=== PATIENT | female | born 1955 | race Two or more races ===

== ENCOUNTER → 2020-05-12 09:46 | Outpatient (BNVA) | payer MEDICAID, SELFPAY | PROVIDERS: PCP Family Medicine; Referring Provider Family Medicine; Visit Provider Anesthesiology | DX: M47.816 Spondylosis without myelopathy or radiculopathy, lumbar region (principal); M25.561 Pain in right knee | CPT/HCPCS: 99202 ==

== ENCOUNTER → 2020-06-20 09:55 | Outpatient (BNVA) | payer MEDICAID, SELFPAY | PROVIDERS: PCP Family Medicine; Referring Provider Family Medicine; Visit Provider Internal Medicine | DX: Z76.89 Persons encountering health services in other specified circumstances (principal) ==

== ENCOUNTER → 2020-06-21 10:06 | Outpatient (BNVA) | payer MEDICAID, SELFPAY | PROVIDERS: PCP Family Medicine; Visit Provider Physician Assistant | DX: M17.11 Unilateral primary osteoarthritis, right knee (principal) | CPT/HCPCS: 99212; J1040 ==

== ENCOUNTER → 2020-08-05 09:12 | Outpatient (BNVA) | payer MEDICAID, SELFPAY | PROVIDERS: PCP Family Medicine; Visit Provider Physician Assistant | DX: M17.11 Unilateral primary osteoarthritis, right knee (principal) | CPT/HCPCS: 20610; 99212; J1020 ==

== ENCOUNTER → 2020-08-23 10:00 | Outpatient (BNVA) | payer MEDICAID, SELFPAY | PROVIDERS: PCP Family Medicine; Visit Provider Surgery Vascular Surgery | DX: I83.11 Varicose veins of right lower extremity with inflammation (principal) | CPT/HCPCS: 99202 ==

== ENCOUNTER 2020-08-25 09:53 | Outpatient (REF) | payer MEDICAID, SELFPAY ==
--- NOTE | ~2020-08-25 | US_ITS ---
EXAMINATION: RIGHT AND LEFT LOWER EXTREMITY VENOUS ULTRASOUND (REFLUX EXAM) CLINICAL INDICATION: Varicose veins. COMPARISON: None TECHNIQUE: Color flow triplex imaging and compression Doppler was performed to evaluate both the deep and the superficial systems bilaterally. To evaluate the superficial system, the examination was performed in the upright position. Color-flow Doppler ultrasound and compression ultrasound were utilized. In addition, maneuvers were utilized to demonstrate reflux. FINDINGS: 1. DEEP VENOUS ULTRASOUND OF THE RIGHT LOWER EXTREMITY: Respiratory variation, normal compression and augmented flow are noted in the right common femoral vein as well as the right popliteal vein and there is no evidence of deep venous thrombosis at these locations. Within the posterior and slightly medial popliteal fossa there is a complex cystic/solid lesion measuring 4.0 x 1.0 x 2.6 cm in size without internal vascularity. There is some mild distal sound enhancement. This likely represents a popliteal fossa cyst rather than a solid mass of other etiology. No popliteal artery aneurysm. 2. SUPERFICIAL ULTRASOUND WITH DOPPLER OF RIGHT LOWER EXTREMITY: The right great saphenous vein at the saphenofemoral junction measures 6 mm, at the midthigh 2 mm, jszpp-orx-azvr 3 mm, rxvwe-adb-zbda 2 mm, at midcalf 2 mm and at the ankle measures 2 mm. There is no reflux demonstrated in the right great saphenous vein. The right small saphenous vein measures 4 mm and shows no reflux. 3. DEEP VENOUS ULTRASOUND OF THE LEFT LOWER EXTREMITY: Respiratory variation, normal compression and augmented flow are noted in the left common femoral vein as well as the left popliteal vein and there is no evidence of deep venous thrombosis at these locations. There is no evidence of reflux in the deep system in either the common femoral vein or the popliteal vein. There is no evidence of a Shore's cyst. No popliteal artery aneurysm. 4. SUPERFICIAL ULTRASOUND WITH DOPPLER OF LEFT LOWER EXTREMITY: Left great saphenous vein at the saphenofemoral junction measures 7 mm, at the midthigh 1 mm, xcmwc-hhz-yqew 3 mm, rrlyr-qtk-mddk 2 mm, at midcalf 2 mm and at the ankle measures 2 mm. There is no reflux demonstrated in the left great saphenous vein. The left small saphenous vein measures 2 mm and shows no reflux. US/US venous duplex LE BI IMPRESSION: 1. No evidence of reflux or thrombus in the common femoral veins or popliteal veins bilaterally. 2. The saphenous systems are competent bilaterally. 3. Complex right popliteal fossa cyst.
== END 2020-08-25 09:54 | disposition home or self-care (01) ==
LOC: HO.US 09:53
PROVIDERS: Visit Provider Surgery Vascular Surgery
DX: I83.893 Varicose veins of bilateral lower extremities with other complications (principal)
CPT/HCPCS: 93970

== ENCOUNTER → 2020-09-08 10:14 | Outpatient (BNVA) | payer MEDICAID, SELFPAY | PROVIDERS: Visit Provider Surgery Vascular Surgery | DX: I83.11 Varicose veins of right lower extremity with inflammation (principal) | CPT/HCPCS: 99212 ==

== ENCOUNTER 2020-09-26 07:27 | Outpatient (REF) | payer MEDICAID, SELFPAY ==
--- NOTE | ~2020-09-26 | XR_ITS ---
EXAMINATION: XR SHOULDERS, BILATERAL CLINICAL INFORMATION: Pain. COMPARISON: Right shoulder 09/03/2019, left shoulder 01/16/2019 TECHNIQUE: 3 views each shoulder. FINDINGS: LEFT SHOULDER: There is loss of glenohumeral and AC joint space. Mild inferior acromion spurring and angulation noted. No fracture, loose bodies or joint effusion seen. No acute soft tissue calcification seen. RIGHT SHOULDER: There is partial prosthesis along the head of humerus with normal alignment to the glenoid. No dislocation or subluxation seen. There is no prosthetic loosening. No fracture. Mild loss of AC joint space with inferior periarticular spurring noted. XR/XR shoulder RT min 2V IMPRESSION: Degenerative arthritic changes left AC joint and glenohumeral joint space. No acute fracture or soft tissue calcification seen. Partial right humeral prosthesis and alignment with no prosthetic loosening. No acute fracture or soft tissue abnormality seen.
--- NOTE | ~2020-09-26 | XR_ITS ---
EXAMINATION: XR SHOULDERS, BILATERAL CLINICAL INFORMATION: Pain. COMPARISON: Right shoulder 09/03/2019, left shoulder 01/16/2019 TECHNIQUE: 3 views each shoulder. FINDINGS: LEFT SHOULDER: There is loss of glenohumeral and AC joint space. Mild inferior acromion spurring and angulation noted. No fracture, loose bodies or joint effusion seen. No acute soft tissue calcification seen. RIGHT SHOULDER: There is partial prosthesis along the head of humerus with normal alignment to the glenoid. No dislocation or subluxation seen. There is no prosthetic loosening. No fracture. Mild loss of AC joint space with inferior periarticular spurring noted. XR/XR shoulder LT min 2V IMPRESSION: Degenerative arthritic changes left AC joint and glenohumeral joint space. No acute fracture or soft tissue calcification seen. Partial right humeral prosthesis and alignment with no prosthetic loosening. No acute fracture or soft tissue abnormality seen.
== END 2020-09-26 07:28 | disposition home or self-care (01) ==
LOC: HO.HOSX 07:27
PROVIDERS: Visit Provider Orthopaedic Surgery
DX: M19.012 Primary osteoarthritis, left shoulder (principal); M25.511 Pain in right shoulder; F17.210 Nicotine dependence, cigarettes, uncomplicated; Z96.611 Presence of right artificial shoulder joint
CPT/HCPCS: 20610; 73030; 99212; J1100

== ENCOUNTER 2021-02-23 08:49 | Outpatient (REF) | payer MEDICAID, SELFPAY ==
--- NOTE | ~2021-02-23 | XR_ITS ---
EXAMINATION: XR SHOULDER, RIGHT CLINICAL INFORMATION: Pain right shoulder COMPARISON: None TECHNIQUE: Three views of the right shoulder. FINDINGS: There is a right shoulder partial prosthesis in alignment with acetabular plate in alignment. Mild reduction AC joint with inferior AC joint spurring is seen. There is no fracture or loose bodies. XR/XR shoulder RT min 2V IMPRESSION: Partial right humeral prosthesis in alignment with acetabular plate. No prosthetic loosening or fracture seen. The soft tissues are normal.
== END 2021-02-23 08:50 | disposition home or self-care (01) ==
LOC: HO.HOSX 08:49
PROVIDERS: Visit Provider Orthopaedic Surgery
DX: M19.012 Primary osteoarthritis, left shoulder (principal); Z96.611 Presence of right artificial shoulder joint
CPT/HCPCS: 20610; 73030; 99212; J1100

== ENCOUNTER 2021-03-13 10:01 | Outpatient (RCR) | payer MEDICARE, MEDICAID, SELFPAY | END 2021-03-13 15:00 | disposition home or self-care (01) | LOC: HO.PT 10:01 | PROVIDERS: Visit Provider Orthopaedic Surgery | DX: M19.012 Primary osteoarthritis, left shoulder (principal) ==

== ENCOUNTER 2021-03-23 12:50 | Outpatient (RCR) | payer MEDICARE, MEDICAID, SELFPAY ==
--- NOTE | 2021-03-23 13:53 | MHC.PT.EP ---
[facility] [place] [facility] [place] [facility] [place] Office [address] Bam Lynch [address] [phone] F: [phone] F: [phone] F: [phone] F: [phone] Physical Therapy Plan of Care Date of Evaluation: Date of Surgery: Diagnosis: PRIMARY OA LEFT SHOULDER-PT FOR SCAP STRENGTHENING, RTC STRENGTHENING, GENTLE ROM Assessment: 66 yo female ref to pt for left sh oa. She notes she was sleep walking and sustained a fall. Pt has h/o Rt TSA. Pt has decr postural awareness, limited rom left sh, (+) soft tissue irrit left parascap/ ut/delt, and weakness in post left RC. 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 Pt may benefit from PT to address pain, strength and stab in Left sh to allow for incr ADL tolerance. Frequency and Duration: The patient will be seen 2x WK x 4 WKS Short Term Goals: Pt'S Lt SH PAIN DECR TO 2-3/10 IN 2 WKS Pt DEMON IMPROVED SELF-POSTURAL CORRECTION IN 2 WKS Pt DEMON INCR AROM Lt SH IN 2 WKS Shelter Goals: Pt RESUME REG ADLs , USING LEFT UE, W MILD SXS 2-3/10 Lt SH IN 5 WKS Pt INDEP HEP AND SELF-SX MGMT IN 5 WKS Treatment Plan: Modalities to reduce pain, spasms and effusion. Manual therapy to restore motion and function. Therapeutic exercise to improve strength and flexibility. Neuromuscular re-education for posture and balance. Therapeutic activities to return to functional activities of daily living. Electronically signed by: Sammi Rivas,PT Please sign and return to therapist. Thank you for your referral.
--- NOTE | 2021-04-12 13:47 | MHC.PT.DC ---
[facility] [place] [facility] [place] [facility] [place] [facility] [address] Bam Lynch [address] [phone] F: [phone] F: [phone] F: [phone] F: [phone] Physical Therapy Discharge Report Diagnosis: PRIMARY OA LEFT SHOULDER-PT FOR SCAP STRENGTHENING, RTC STRENGTHENING, GENTLE ROM Date of Surgery: Date of Evaluation: 03/23/21 Date of Discharge: 04/12/21 Treatments to Date: 1 Cancellations to Date: 0 No Shows to Date: 3 Discharge Status: Visit Non-compliance Discharge Summary: Pt HAS NOT SHOWN FOR SCHED PT APPTS- WE PHONED HER SEVERAL TIMES- SHE WOULD HAVE BENFITTED FROM PT . PT66 yo female ref to pt for left sh oa. She notes she was sleep walking and sustained a fall. Pt has h/o Rt TSA. Pt has decr postural awareness, limited rom left sh, (+) soft tissue irrit left parascap/ ut/delt, and weakness in post left RC. 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 Pt may benefit from PT to address pain, strength and stab in Left sh to allow for incr ADL tolerance. Electronically signed by: Sammi RivasPT Please sign and return to therapist. Thank you for your referral.
== END 2021-04-12 13:49 | disposition home or self-care (01) ==
LOC: HO.PT 12:50
PROVIDERS: Visit Provider Orthopaedic Surgery
DX: M19.012 Primary osteoarthritis, left shoulder (principal)
CPT/HCPCS: 97110; 97161

== ENCOUNTER → 2021-06-01 10:01 | Outpatient (BNVA) | payer MEDICARE, MEDICAID, SELFPAY | PROVIDERS: Visit Provider Orthopaedic Surgery | DX: M19.012 Primary osteoarthritis, left shoulder (principal) | CPT/HCPCS: 99212 ==

== ENCOUNTER 2021-06-03 01:27 | Emergency (ER) | payer MEDICARE, MEDICAID, SELFPAY ==
[2021-06-03 01:30] VITALS: BP 118/56; PULSE 60
[2021-06-03 01:36] VITALS: BP 124/62; PULSE 76; RESP 18; TEMP 36.5; O2SAT 97
--- NOTE | 2021-06-03 01:36 | ED.EXTPRO ---
HPI - Extremity Problem General Chief complaint: Extremity Injury, Lower Stated complaint: RIGHT KNEE PAIN, OLD INJURY Time Seen by Provider: 06/03/21 01:36 Source: patient and medical historian Mode of arrival: EMS Limitations: no limitations History of Present Illness MD Complaint: joint paint Onset (ago): year(s) Pain Consistency: constant Location: right and knee Quality: aching and constant Radiation: none Relieving factors: nothing Exacerbating factors: weight bearing and walking Associated symptoms: denies other symptoms Context: other (chronic knee pain has see pain control and orthopedics in past states injections and topical agents do not help) Related Data Home Medications Medication Instructions Recorded Confirmed albuterol sulfate 90 mcg/actuation 2 puff INHALATION Q6H PRN 06/20/20 aerosol inhaler (ProAir HFA) amitriptyline 100 mg tablet 100 mg PO DAILY 06/20/20 amlodipine 5 mg tablet 5 mg PO DAILY 06/20/20 clonazepam 2 mg tablet (Klonopin) 2 mg PO DAILY 06/20/20 diphenhydramine HCl 25 mg capsule 25 mg PO Q6H PRN 06/20/20 (Allergy (diphenhydramine)) folic acid 1 mg tablet 1 mg PO DAILY 06/20/20 gabapentin 800 mg tablet 800 mg PO TID 06/20/20 glipizide 10 mg tablet 10 mg PO DAILY 06/20/20 ibuprofen 800 mg tablet 800 mg PO Q8H 06/20/20 levothyroxine 75 mcg tablet 75 mcg PO DAILY 06/20/20 (Synthroid) losartan 25 mg tablet 25 mg PO DAILY 06/20/20 metformin 1,000 mg tablet 1,000 mg PO DAILY 06/20/20 naproxen 500 mg tablet 500 mg PO BID 06/20/20 omeprazole 20 mg capsule,delayed 20 mg PO DAILY 06/20/20 release quetiapine 100 mg tablet (Seroquel) 100 mg PO DAILY 06/20/20 sitagliptin 25 mg tablet (Januvia) 25 mg PO DAILY 06/20/20 Previous Rx's Medication Instructions Recorded celecoxib 200 mg capsule 200 mg PO BID #60 cap 07/11/20 Allergies Allergy/AdvReac Type Severity Reaction Status Date / Time cephalexin [From KEFLEX] Allergy Intermediate REDNESS Verified 06/03/21 02:10 Review of Systems Review of Systems: Constitutional : No Fever, No Chills Cardiovascular : No Chest Pain, No SOB Respiratory : No Cough, No Dyspnea Gastrointestinal : No Nausea, No Vomiting, No Diarrhea, No abdominal Pain Genitourinary : No Dysuria, No Hematuria Musculoskeletal : positive joint pain, pos myalgias, No Joint Swelling Skin : No Skin lacerations, No rash Neuro : No Weakness, No Numbness PMFSH Past Medical History Attestation statement: The following information was validated with the patient. Medical History HLD (hyperlipidemia) HTN (hypertension) Right knee pain Spondylosis of lumbar region without myelopathy or radiculopathy T2DM (type 2 diabetes mellitus) Vitamin D deficiency Surgical History Hx of appendectomy Hx of section Status post total shoulder replacement Family History Family History Father No problems noted. Mother No problems noted. Social History Social History Years Smoked: 10 Advance Directives: No Advance Directives Information Provided: Yes Physical Exam Vital Signs: Vital Signs: Last Vital Signs Temp 97.7 F 06/03/21 01:36 Pulse 76 06/03/21 01:36 Resp 18 06/03/21 01:36 BP 124/62 06/03/21 01:36 Pulse Ox 97 06/03/21 01:36 BMI result Body Mass Index 18.3 Appearance: Alert. Oriented X3. No acute distress. Eyes: Pupils equal, round and reactive to light. ENT: Pharynx normal. Neck: Normal inspection. Neck supple. CVS: Pulses normal. Respiratory: No respiratory distress. Abdomen: Atraumatic Skin: Skin warm and dry. Normal skin color. Extremities: No lower extremity edema. R knee reports pain along joint line no erythema/warmth, very small amount of swelling noted - she is able to get up and down out of the chair without issue. Neuro: Oriented X 3. No motor deficit. No sensory deficit. MDM - Extremity (Nontraumatic) MDM Narrative Medical decision making narrative: 66 yo female with chronic R knee pain no new trauma no signs of infection distal pulses intact warm foot - states pain is not new at this time but it became worse when she stepped down the stairs - she is very upset with me because she is asking for a demerol injection I explained to her we do not have that. She also wanted me to inject her knee but I told her this is done typically in the clinic - she is demanding to leave. I offered her oral analgesic which she states she will take. Discharge Plan Discharge Clinical Impression: Arthralgia Qualifiers: Joint pain location: knee Laterality: right Qualified Code(s): M25.561 - Pain in right knee Patient Disposition: Home, Self-Care Instructions: Arthralgia (ED) Additional Instructions: return to ED for any worsening symptoms or concerns PLEASE FOLLOW UP WITH YOUR PAIN MANAGEMENT DOCTOR Prescriptions: No Action celecoxib 200 mg capsule 200 mg PO BID Qty: 60 RF: 0
[2021-06-03 01:56] VITALS: BMI 18.3
--- NOTE | 2021-06-03 02:04 | PC.NURSE ---
MD and division sergeant at bedside for primary eval.
[2021-06-03] MEDS: Cyclobenzaprine HCl 10 MG TABLET PO (02:15)
[2021-06-03] MEDS: oxyCODONE HCl Immed Release 5 MG TABLET 10 MG PO (02:16)
--- NOTE | 2021-06-03 02:21 | PC.NURSE ---
Pt medicated per MAR.
== END 2021-06-03 02:29 | disposition home or self-care (01) ==
PROVIDERS: Emergency Provider Emergency Medicine
DX: M25.561 Pain in right knee (principal); I10 Essential (primary) hypertension; E11.9 Type 2 diabetes mellitus without complications; E78.5 Hyperlipidemia, unspecified
CPT/HCPCS: 99283

== ENCOUNTER 2021-07-10 08:59 | Outpatient (REF) | payer MEDICARE, MEDICAID, SELFPAY ==
--- NOTE | ~2021-07-10 | US_ITS ---
EXAMINATION: US ABDOMEN COMPLETE CLINICAL INFORMATION: Right upper quadrant pain. COMPARISON: None TECHNIQUE: Real-time imaging of the abdominal viscera. FINDINGS: PANCREAS: Visualized portions unremarkable. ABDOMINAL AORTA: Visualized portions unremarkable. INFERIOR VENA CAVA: Visualized portions are normal. LIVER: Diffuse increased hepatic echotexture without focal abnormality. GALLBLADDER: Unremarkable. COMMON BILE DUCT: Normal in caliber measuring 0.6 cm in diameter. RIGHT KIDNEY: 9.9 cm. Unremarkable. LEFT KIDNEY: 10.2 cm. An echogenic focus in the lower pole measures 0.4 cm. Color Doppler showed no abnormal vascular flow. SPLEEN: 8.6 cm. An echogenic focus in the lower pole measures 0.4 cm. An interpolar echogenic focus measures 0.5 cm. FREE FLUID: None. US/US abdomen complete IMPRESSION: 1. Hepatic steatosis without focal abnormality. 2. Nonobstructing left lower pole 0.4 cm calculus. 3. Splenic calcifications demonstrate benign features without focal abnormality.
== END 2021-07-10 09:00 | disposition home or self-care (01) ==
LOC: HO.US 08:59
PROVIDERS: PCP General Practice; Visit Provider General Practice
DX: M19.012 Primary osteoarthritis, left shoulder (principal); R10.11 Right upper quadrant pain; Z96.611 Presence of right artificial shoulder joint
CPT/HCPCS: 76700; 99212

== ENCOUNTER 2021-08-17 12:03 | Outpatient (REF) | payer MEDICARE, SELFPAY ==
[2021-08-17 12:54] LABS: Estimated Average Glucose 223 mg/dL; Hemoglobin A1c % 9.4 %
== END 2021-08-17 12:04 | disposition home or self-care (01) ==
LOC: HO.LAB 12:03
PROVIDERS: PCP General Practice; Visit Provider Orthopaedic Surgery
DX: Z01.812 Encounter for preprocedural laboratory examination (principal); M19.012 Primary osteoarthritis, left shoulder
CPT/HCPCS: 36415; 83036; 99212

== ENCOUNTER 2021-08-17 12:28 | Outpatient (REF) | payer MEDICARE, SELFPAY ==
--- NOTE | ~2021-08-17 | XR_ITS ---
EXAMINATION: XR SHOULDER, LEFT CLINICAL INFORMATION: Pain. COMPARISON: None TECHNIQUE: AP external rotation, Grashey, scapular Y, and axillary views of the left shoulder. FINDINGS: There is moderate hypertrophic a fissuring left glenohumeral joint and mild spurring along the left Tc joint. No fracture or dislocation seen. The soft tissues are normal. XR/XR shoulder LT min 2V IMPRESSION: Moderate hypertrophic spurring along the left glenohumeral and left AC joint. No visible acute fracture or dislocation seen.
== END 2021-08-17 12:29 | disposition home or self-care (01) ==
LOC: HO.HOSX 12:28
PROVIDERS: Visit Provider Physician Assistant
DX: M25.512 Pain in left shoulder (principal)
CPT/HCPCS: 73030

== ENCOUNTER → 2022-02-22 14:44 | Outpatient (BNVA) | payer OTHER, SELFPAY | PROVIDERS: PCP General Practice; Visit Provider Orthopaedic Surgery | DX: M19.012 Primary osteoarthritis, left shoulder (principal); E11.9 Type 2 diabetes mellitus without complications; E55.9 Vitamin D deficiency, unspecified; Z96.611 Presence of right artificial shoulder joint | CPT/HCPCS: 99212 ==

== ENCOUNTER 2022-03-15 12:08 | Outpatient (REF) | payer OTHER, SELFPAY ==
--- NOTE | ~2022-03-15 | CT_ITS ---
EXAMINATION: CT SCAN LEFT SHOULDER WITHOUT CONTRAST CLINICAL INFORMATION: Primary osteoarthritis left shoulder. Tournier protocol osteoarthritis COMPARISON: X-ray the left shoulder August 2021 TECHNIQUE: CT scan of the left shoulder was formed without contrast with reconstruction imaging performed at the acquisition workstation. FINDINGS: There is an ununited fracture of the base of the coracoid process There is severe glenohumeral arthrosis with marked joint space narrowing and marginal osteophytes There is no posterior erosion. No loose bodies detected. Joint effusion. 65% of the AP dimension the humeral head is posterior to Saab's line consistent with mild posterior subluxation. Glenoid vault depth 1.8 cm Glenoid version -9 degrees Additional findings: The visualized left lung clear. Arterial calcification present within the vessels of the mediastinum. CT/CT shoulder LT wo IV con IMPRESSION: CT Tournier protocol performed for preoperative planning purposes. Advanced osteoarthritis of the left glenohumeral joint. Ununited coracoid process fracture
== END 2022-03-15 12:09 | disposition home or self-care (01) ==
LOC: HO.CT 12:08
PROVIDERS: PCP General Practice; Visit Provider Orthopaedic Surgery
DX: M19.012 Primary osteoarthritis, left shoulder (principal)
CPT/HCPCS: 73200

== ENCOUNTER 2022-05-29 10:20 | Outpatient (REF) | payer OTHER, SELFPAY ==
[2022-05-29 13:09] LABS: Estimated Average Glucose 174 mg/dL; Hemoglobin A1c % 7.7 %
== END 2022-05-29 10:21 | disposition home or self-care (01) ==
LOC: HO.LAB 10:20
PROVIDERS: PCP General Practice; Visit Provider Orthopaedic Surgery
DX: Z01.812 Encounter for preprocedural laboratory examination (principal)
CPT/HCPCS: 36415; 83036

== ENCOUNTER → 2022-07-26 13:22 | Outpatient (BNVA) | payer OTHER, SELFPAY | PROVIDERS: Visit Provider Physician Assistant | DX: M19.012 Primary osteoarthritis, left shoulder (principal) | CPT/HCPCS: 99212 ==

== ENCOUNTER 2022-07-31 07:46 | Inpatient (IN) | payer OTHER, SELFPAY ==
--- NOTE | 2022-07-24 | ECG_ITS ---
Test Reason : preop Blood Pressure : / mmHG Vent. Rate : 077 BPM Atrial Rate : 077 BPM P-R Int : 148 ms QRS Dur : 084 ms QT Int : 362 ms P-R-T Axes : 062 054 074 degrees QTc Int : 409 ms Normal sinus rhythm Normal ECG When compared with ECG of 09-DEC-2019 13:43, No significant change was found Referred By: Ana León Electronically Signed By:CASTRO DEJESUS
--- NOTE | 2022-07-24 11:51 | P.CONAN_ITS ---
HPI - Anesthesia Eval Consult details Narrative: 67yo F for Left Shoulder Total Arthroplasty PCP cleared Pending ? Cardiology - Appt in Aug, referred by Vascular. Labs/EKG [facility] Active Problems Active Problems: All Active Problems (Updated 06/04/21 @ 00:01 by Daniela Serrano) Status post replacement of right shoulder joint (Acute) Localized osteoarthritis of left shoulder (Acute) Varicose veins of right lower extremity with inflammation (Acute) Osteoarthritis of right knee (Acute) Vitamin D deficiency (Acute) HLD (hyperlipidemia) (Acute) HTN (hypertension) (Acute) T2DM (type 2 diabetes mellitus) (Acute) Right knee pain (Acute) Spondylosis of lumbar region without myelopathy or radiculopathy (Acute) Past Medical History Medical History (Updated 07/24/22 @ 14:02 by Courtney Crowe RN) Diabetes Edentulous HLD (hyperlipidemia) HTN (hypertension) Latent syphilis Panic attacks PTSD (post-traumatic stress disorder) PVD (peripheral vascular disease) Right knee pain SOB (shortness of breath) Spondylosis of lumbar region without myelopathy or radiculopathy T2DM (type 2 diabetes mellitus) Vitamin D deficiency Family History Family History Father No problems noted. Mother No problems noted. Family history of problems with anesthesia: No Surgical History Surgical History Hx of appendectomy Hx of section Status post total shoulder replacement History of Problems with Anesthesia: No Social History Social History Are you a primary neonatal critical care nurse to a significant other at home: No Do you presently have visiting nurse or other home services: Yes ([employer] daughter) Patient Tobacco Use Status: Current everyday Tobacco user Tobacco use type: Cigarette Cigarettes Per Day: 10 Years Smoked: 15+ Second Hand Smoke Exposure: No Narrative Narrative: No recent illness Denies CP/SOB with activity Meds Allergies Allergy/AdvReac Type Severity Reaction Status Date / Time cephalexin [From KEFLEX] Allergy Intermediate REDNESS, Verified 07/24/22 12:29 hives, swelling Home Medications Medication Instructions Recorded Confirmed Last Taken Type albuterol sulfate 90 mcg/actuation 2 puff inhalation Q6H PRN 06/20/20 07/24/22 Unknown History aerosol inhaler (ProAir HFA) Shortness Of Breath Or Wheezing amitriptyline 100 mg tablet 100 mg PO BEDTIME 06/20/20 07/24/22 Unknown History amlodipine 5 mg tablet 5 mg PO DAILY 06/20/20 07/24/22 Unknown History clonazepam 2 mg tablet (Klonopin) 1 mg PO TID 06/20/20 07/24/22 Unknown History diphenhydramine HCl 25 mg capsule 25 mg PO Q6H PRN 06/20/20 08/17/21 Unknown History (Allergy (diphenhydramine)) folic acid 1 mg tablet 1 mg PO DAILY 06/20/20 08/17/21 Unknown History gabapentin 800 mg tablet 800 mg PO BEDTIME 06/20/20 08/17/21 Unknown History glipizide 10 mg tablet 10 mg PO BID 06/20/20 07/24/22 Unknown History ibuprofen 800 mg tablet 800 mg PO Q8H 06/20/20 08/17/21 Unknown History levothyroxine 75 mcg tablet 75 mcg PO DAILY 06/20/20 07/24/22 Unknown History (Synthroid) losartan 25 mg tablet 25 mg PO DAILY 06/20/20 07/24/22 Unknown History metformin 1,000 mg tablet 1,000 mg PO BID 06/20/20 07/24/22 Unknown History naproxen 500 mg tablet 500 mg PO BID 06/20/20 08/17/21 Unknown History omeprazole 20 mg capsule,delayed 20 mg PO DAILY 06/20/20 07/24/22 Unknown History release quetiapine 100 mg tablet (Seroquel) 100 mg PO BEDTIME 06/20/20 07/24/22 Unknown History sitagliptin phosphate 25 mg tablet 25 mg PO DAILY 06/20/20 07/24/22 Unknown History (Januvia) fluticasone propionate 220 2 puff inhalation BID 07/24/22 07/24/22 Unknown History mcg/actuation HFA aerosol inhaler insulin glargine 100 unit/mL (3 22 unit subcut BEDTIME 07/24/22 07/24/22 Unknown History mL) subcutaneous pen (Lantus Solostar U-100 Insulin) Exam Exam Date and Time: July 24, 2022 115 Pertinent Lab Results Pertinent Lab Results: Laboratory Tests 05/29/22 10:43 Hemoglobin A1c % 7.7 Airway Mallampati Class: II TM Dist: >3cm Neck ROM: Full Loose/Missing/Broken Teeth: Yes (Edentulous) Heart: RRR Lungs: RLL dim, otherwise clear Assessment and Plan Assessment Anesthesia Assessment: Anesthesia Plan Discussed, Smoking Cess. Discussed and PAT Visit Final Anesthetic Review Family History of Problems with Anesthesia: No History of Problems with Anesthesia: No
[2022-07-24 12:02] VITALS: BP 149/68; PULSE 88; RESP 16; O2SAT 97; BMI 26.9
[2022-07-24 13:50] LABS: Hematocrit 38.1 % (37.0-47.0); Hemoglobin 12.2 g/dl (12.0-16.0); Mean Corpuscular Hemoglobin 28.4 pg (27.0-33.0); Mean Corpuscular Volume 88.8 fL (80.0-98.0); Mean Platelet Volume 9.1 fL (9.4-12.3); Platelet Count 376 X10*3/uL (160-400); Red Blood Count 4.29 X10*6/uL (4.20-5.50); Red Cell Distribution Width 12.3 % (11.0-16.0); White Blood Count 6.9 X10*3/uL (4.8-10.8)
[2022-07-24 14:13] LABS: Anion Gap 14 (12-20); Blood Urea Nitrogen 18 mg/dL (9-16); Calcium 9.9 mg/dL (8.4-10.2); Carbon Dioxide 28 mmol/L (22-29); Chloride 103 mmol/L (96-108); Creatinine Clr Calc Pharmacy 65.2; Estimated Glomerular Filt Rate > 60; Glucose Random 148 mg/dL (60-115); Potassium 5.1 mmol/L (3.3-5.1); Sodium 140 mmol/L (135-145)
[2022-07-24 14:36] LABS: MRSA Nasal PCR NEGATIVE (Negative); SA Nasal PCR POSITIVE (Negative)
[2022-07-31] VITALS (17 sets, daily range): BP systolic 113–155; BP diastolic 56–80; PULSE 76–130; RESP 16–20; TEMP 36.1–37.1; O2SAT 91–100; BMI 28.6
--- NOTE | ~2022-07-31 | XR_ITS ---
EXAMINATION: XR SHOULDER, LEFT CLINICAL INFORMATION: Left TSA. COMPARISON: CT scan of 03/15/2022 and x-ray of 08/17/2021. TECHNIQUE: 3 views of the left shoulder. FINDINGS: Patient is status post left shoulder arthroplasty with humeral component appearing to be in good position. There is irregularity of the glenoid with what appears to be some subchondral cyst formation and some cortical irregularity likely related to previous degenerative change. No definite acute fracture or dislocation is evident. Staple line is seen in place. XR/XR shoulder LT 1V IMPRESSION: Status post left shoulder arthroplasty without definite acute fracture or dislocation evident.
--- OUTSIDE RECORDS SUMMARY | 2022-07-31 07:49 | XMS_ITS | Continuity of Care Document ---
:1955 Author Organization [facility] Address [address] [place] [phone]- Care Team Providers Name Role Phone Not on Staff, PCP Primary Care Physician Unavailable [place] [facility] [place]): 05/16/21 - 07/28/21 [facility]ocr[facility]ology and Diabetes [address] [place] [phone]- Attending Physician: Silas Galeana MD Admitting Physician: Silas Galeana MD Referring Physician: Светлана Benjamin MD Allergies, Adverse Reactions, Alerts Substance Reaction Severity Status Keflex Active Shrimp Active Medications 1 1, See Instructions, # 1 each, Refills 0, Tot. Refills 0, Maintenance, Walker., 10/19/20 15:56:00 EDT, Supply Start Date: 10/19/20 Status: OrderedamiTRIPTYLINE = 100 mg, By Mouth, Daily at bedtime, 0 Refills, Maintenance, 10/17/20 17:48:00 EDT, Partial fill upon patient request if the prescription is for a schedule II opioid drug. Start Date: 10/17/20 Status: Orderedamitriptyline 150 mg oral tablet 1 tablet = 150 mg, By Mouth, Daily at bedtime, 0 Refills, Maintenance, 11/28/17 12:14:38 EDT Start Date: 11/28/17 Status: Orderedaspirin 81 mg oral delayed release tablet 81 mg, 1, tablet, By Mouth, Daily, # 30 tablet, Refills 0, Maintenance, 10/17/20 17:44:00 EDT, Partial fill upon patient request if the prescription is for a schedule II opioid drug. Start Date: 10/17/20 Status: Orderedatorvastatin 20 mg oral tablet 1 tablet = 20 mg, By Mouth, Daily, 0 Refills, Maintenance Start Date: 11/28/17 Status: OrderedClonazepam By Mouth, 3 times a day, 0 Refills, Maintenance, 11/28/17 12:17:34 EDT Start Date: 11/28/17 Status: OrderedclonazePAM 0.5 mg oral tablet 1 tablet = 0.5 mg, By Mouth, Daily at bedtime, 0 Refills, Maintenance, 10/17/20 17:46:00 EDT, Tablet, Partial fill upon patient request if the prescription is for a schedule II opioid drug. Start Date: 10/17/20 Status: OrderedCyclobenzaprine By Mouth, 0 Refills, Maintenance, 11/28/17 12:18:09 EDT Start Date: 11/28/17 Status: OrderedDulcolax 5 mg oral enteric coated tablet See Instructions, take 2 tablets NOW and 2 tablets at 9am tomorrow, # 4 tablet, 0 Refills, Maintenance, 01/05/19 14:26:00 EDT Start Date: 01/05/19 Status: Orderedgabapentin 800 mg oral tablet 1 tablet = 800 mg, By Mouth, Daily, 0 Refills, Maintenance, 10/17/20 17:46:00 EDT, Partial fill uponpatient request if the prescription is for a schedule II opioid drug. Start Date: 10/17/20 Status: Orderedgabapentin 800 mg oral tablet 1 tablet = 800 mg, By Mouth, Daily at bedtime, 0 Refills, Maintenance, 11/28/17 12:15:17 EDT Start Date: 11/28/17 Status: OrderedglipiZIDE 10 mg oral tablet 1 tablet = 10 mg, By Mouth, 2 times a day, 0 Refills, Maintenance, 11/28/17 12:15:44 EDT Start Date: 11/28/17 Status: OrderedglipiZIDE 10 mg oral tablet, extended release 1 tablet = 10 mg, By Mouth, Daily, # 90 tablet, 0 Refills, Maintenance, 10/17/20 17:44:00 EDT, ER Tablet, Partial fill upon patient request if the prescription is for a schedule II opioid drug. Start Date: 10/17/20 Status: OrderedJanuvia 100 mg oral tablet 1 tablet = 100 mg, By Mouth, Daily, 0 Refills, Maintenance, 11/28/17 12:14:56 EDT Start Date: 11/28/17 Status: OrderedDattus Solostar Pen 100 units/mL subcutaneous solution = 12 units, Subcutaneous Injection, Daily at bedtime, Inject 12 units daily at bedtime, # 12 mL, 0 Refills, Maintenance, 10/19/20 13:34:00 EDT, Solution, [facility], Partial fill upon patient request if the prescription is for a schedule... Start Date: 10/19/20 Status: Orderedlevothyroxine 0.075 mg oral tablet 0 Refills, Maintenance, 10/17/20 17:45:00 EDT, Partial fill upon patient request if the prescriptionis for a schedule II opioid drug. Start Date: 10/17/20 Status: Orderedlevothyroxine 75 mcg (0.075 mg) oral tablet 1 tablet = 75 mcg, By Mouth, Daily, 0 Refills, Maintenance, 11/28/17 12:16:28 EDT Start Date: 11/28/17 Status: OrderedLipitor 20 mg oral tablet 1 tablet = 20 mg, By Mouth, Daily, 0 Refills, Maintenance, 10/17/20 17:49:00 EDT, Partial fill upon patient request if the prescription is for a schedule II opioid drug. Start Date: 10/17/20 Status: Orderedlosartan 25 mg oral tablet 25 mg, 1, tablet, By Mouth, Daily, Refills 0, Maintenance, 11/28/17 12:18:22 EDT Start Date: 11/28/17 Status: Orderedmeloxicam 7.5 mg oral tablet 1 tablet = 7.5 mg, By Mouth, Daily, 0 Refills, Maintenance, 11/28/17 12:18:35 EDT Start Date: 11/28/17 Status: OrderedmetFORMIN 1000 mg oral tablet 1 tablet = 1,000 mg, By Mouth, 2 times a day, # 180 tablet, 0 Refills, Maintenance, 10/17/20 17:43:00 EDT, Tablet, Partial fill upon patient request if the prescription is for a schedule II opioid drug. Start Date: 10/17/20 Status: OrderedmetFORMIN 1000 mg oral tablet 1 tablet = 1,000 mg, By Mouth, 2 times a day, # 180 tablet, 0 Refills, Maintenance, 11/28/17 12:16:48 EDT, Tablet Start Date: 11/28/17 Status: OrderedNuLYTELY with Flavor Packs oral powder for reconstitution See Instructions, 240 mL By Mouth Every 15 minutes, # 1 each, 0 Refills, Maintenance, 01/05/19 14:26:00 EDT, NO Lemon/[place] flavor please, 240 mL By Mouth Every 15 minutes Start Date: 01/05/19 Status: OrderedNuLYTELY with Flavor Packs oral powder for reconstitution See Instructions, Drink 240mL every 10-15 minutes, # 4,000 mL, 0 Refills, Maintenance, 12/24/19 14:14:00 EDT, [facility], Drink 240mL every 10-15 minutes, 156, cm, 12/24/19 13:35:00EDT, Height Start Date: 12/24/19 Status: OrderedNuLYTELY with Flavor Packs oral powder for reconstitution 240 mL, By Mouth, Every 15 minutes, # 4,000 mL, 0 Refills, Maintenance, 11/28/17 12:30:27 EDT, 240 mL By Mouth Every 15 minutes Start Date: 11/28/17 Status: OrderedPen [place], 31 G x 8 mm BD Ultra Fine III See Instructions, # 300 each, Refills 2, Tot. Refills 2, Maintenance, use as directed for Type 2 Diabetes Mellitus, 10/19/20 13:48:00 EDT, Supply, 152, cm, 10/19/20 11:17:00 EDT, Height, 60, kg, 10/17/20 17:26:00 EDT, Dry Weight Start Date: 10/19/20 Stop Date: 07/16/21 Status: OrderedProAir HFA 90 mcg/inh inhalation aerosol with adapter 2, puffs, Inhalation, 4 times a day, Refills 0, Maintenance, 11/28/17 12:17:52 EDT Start Date: 11/28/17 Status: Ordered Problem List Condition Effective Dates Status Health Status Informant Abnormal chest CT(Confirmed) Active Diabetes(Confirmed) Active Hyperglycemia due to diabetes Active mellitus(Confirmed) Hypertension(Confirmed) Active Lactic acid acidosis(Confirmed) Active Falls frequently(Confirmed) Active UTI (urinary tract Active infection)(Confirmed)
--- OUTSIDE RECORDS SUMMARY | 2022-07-31 07:49 | XMS_ITS | Continuity of Care Document ---
:1955 Author Organization [facility] Address [address] [place] [address]- Care Team Providers Name Role Phone Not on Staff, PCP Primary Care Physician Unavailable [place] [facility] [id number] Date(s): 10/05/20 - 11/04/[address] [id number] Attending Physician: Trinity Amador Admitting Physician: AdmtrTrinity Referring Physician: Admtr, Ar8 Allergies, Adverse Reactions, Alerts Substance Reaction Severity Status Keflex Active Shrimp Active Medications 1 1, See Instructions, # 1 each, Refills 0, Tot. Refills 0, Maintenance, Walker., 10/19/20 15:56:00 EDT, Supply Start Date: 10/19/20 Status: Orderedacetaminophen 325 mg oral tablet 975 mg, By Mouth, Every 6 hours, not to exceed 4000 mg/day., # 50 tablet, Refills 0, Tot. Refills 0,Acute 01/19/21 13:30:00 EDT, 10/19/20 13:42:00 EDT, Route to Pharmacy Electronically, [facility], Partial fill upon patient request if t... Start Date: 10/19/20 Stop Date: 01/19/21 Status: OrderedamiTRIPTYLINE = 100 mg, By Mouth, Daily at bedtime, 0 Refills, Maintenance, 10/17/20 17:48:00 EDT, Partial fill upon patient request if the prescription is for a schedule II opioid drug. Start Date: 10/17/20 Status: Orderedaspirin 81 mg oral delayed release tablet 81 mg, 1, tablet, By Mouth, Daily, # 30 tablet, Refills 0, Maintenance, 10/17/20 17:44:00 EDT, Partial fill upon patient request if the prescription is for a schedule II opioid drug. Start Date: 10/17/20 Status: OrderedclonazePAM 0.5 mg oral tablet 1 [...] II opioid drug. Start Date: 10/17/20 Status: OrderedglipiZIDE 10 mg oral tablet, extended release 1 tablet = 10 mg, By Mouth, Daily, # 90 tablet, 0 Refills, Maintenance, 10/17/20 17:44:00 EDT, ER Tablet, Partial fill upon patient request if the prescription is for a schedule II opioid drug. Start Date: 10/17/20 Status: OrderedLantus Solostar Pen 100 units/mL subcutaneous solution = 12 units, Subcutaneous Injection, Daily at bedtime, Inject 12 units daily at bedtime, # 12 mL, 0 Refills, Maintenance, 10/19/20 13:34:00 EDT, Solution, [facility], Partial fill upon patient request if the prescription is for a schedule... Start Date: 10/19/20 Status: Orderedlevothyroxine 0.075 mg oral tablet 0 Refills, Maintenance, 10/17/20 17:45:00 EDT, Partial fill upon patient request if the prescriptionis for a schedule II opioid drug. Start Date: 10/17/20 Status: OrderedLipitor 20 mg oral tablet 1 [...] II opioid drug. Start Date: 10/17/20 Status: OrderedoxyCODONE 5 mg oral capsule 0.5 capsule = 2.5 mg, By Mouth, Every 12 hours, PRN as needed for pain, # 14 capsule, 0 Refills, Acute 12/21/20 13:14:00 EDT, 10/20/20 13:12:00 EDT, Capsule, [facility], Partial fill uponpatient request if the prescription is for a sche... Start Date: 10/20/20 Stop Date: 12/21/20 Status: OrderedoxyCODONE 5 mg oral tablet 2.5 mg, 0.5, tablet, By Mouth, Every 8 hours, PRN, # 21 tablet, Refills 0, Tot. Refills 0, Acute 11/07/20 13:39:00 EDT, as needed for pain, 10/19/20 13:38:00 EDT, Route to Pharmacy Electronically, [facility], Partial fill upon patient re... Start Date: 10/19/20 Stop Date: 11/07/20 Status: OrderedPen [place], 31 G x 8 mm BD Ultra Fine III See Instructions, # 300 each, Refills 2, Tot. Refills 2, Maintenance, use as directed for Type 2 Diabetes Mellitus, 10/19/20 13:48:00 EDT, Supply, 152, cm, 10/19/20 11:17:00 EDT, Height, 60, kg, 10/17/20 17:26:00 EDT, Dry Weight Start Date: 10/19/20 Stop Date: 07/16/21 Status: Ordered Problem List Condition Effective Dates Status Health Status Informant Abnormal chest CT(Confirmed) Active Hyperglycemia due to diabetes Active mellitus(Confirmed) Hypertension(Confirmed) Active Lactic acid acidosis(Confirmed) Active Falls frequently(Confirmed) Active UTI (urinary tract Active infection)(Confirmed)
--- OUTSIDE RECORDS SUMMARY | 2022-07-31 07:49 | XMS_ITS | Continuity of Care Document ---
:1955 Author Organization [facility] Gastroenterology Address [address] [place] [phone]- Encounter [facility] [place] Date(s): 02/09/20 - 03/10/20 [facility] [address] [place] [phone]- [facility]
--- OUTSIDE RECORDS SUMMARY | 2022-07-31 07:49 | XMS_ITS | Continuity of Care Document ---
:1955 Author Organization [facility] Endocrinology and D nathanael Address [address] [place] [phone]- Care Team Providers Name Role Phone Светлана Benjamin MD Primary Care Physician [place] [facility] [place]22 [facility] Endocrinology and Diabetes [address] [place] [id number] Attending Physician: AdmTrinity bagley Admitting Physician: AdmtrTrinity Referring Physician: Admtr, Ar8 [...] 01/05/19 14:26:00 EDT Start Date: 01/05/19 Status: OrderedFreestyle toby 2 CGM Freestyle toby 2 CGM, See Instructions, # 1 pack/packet, Refills 0, Tot. Refills 0, Maintenance, Freestyle toby 2 CGM, 09/29/21 8:36:00 EDT, Supply Start Date: 09/29/21 Status: OrderedFreestyle toby 2 sensors Freestyle toby 2 sensors, See Instructions, # 2 pack/packet, Refills 6, Tot. Refills 6, Maintenance, Please provide 30 days supple freestyle toby 2 sensors to be changed every 14 days, 09/29/21 8:34:00 EDT, Supply Start Date: 09/29/21 Status: Orderedgabapentin 800 mg oral tablet 1 [...] 11/28/17 12:14:56 EDT Start Date: 11/28/17 Status: OrderedJanuvia 100 mg oral tablet 1 tablet = 100 mg, By Mouth, Daily, # 30 tablet, 7 Refills, Maintenance, 09/21/21 13:20:00 EDT, Tablet, [facility], Partial fill upon patient request if the prescription is for a schedule II opioid drug., 152, cm, 09/21/21 12:44:0... Start Date: 09/21/21 Stop Date: 05/19/22 Status: OrderedLantus Solostar Pen 100 units/mL subcutaneous solution = 12 units, Subcutaneous Injection, Daily at bedtime, Inject 12 units daily at bedtime, # 12 mL, 0 Refills, Maintenance, 10/19/20 13:34:00 EDT, Solution, [facility], Partial fill upon patient request [...] 12:16:48 EDT, Tablet Start Date: 11/28/17 Status: OrderedmetFORMIN 1000 mg oral tablet 1 tablet = 1,000 mg, By Mouth, 2 times a day, # 60 tablet, 7 Refills, Maintenance, 09/21/21 13:24:00EDT, Tablet, [facility]-, Partial fill upon patient request if the prescription is for a schedule II opioid drug., 152, cm, ... Start Date: 09/21/21 Stop Date: 05/19/22 Status: OrderedNuLYTELY with Flavor Packs oral powder for reconstitution See Instructions, 240 mL By Mouth Every 15 minutes, # 1 each, 0 Refills, Maintenance, 01/05/19 14:26:00 EDT, NO Lemon/[place] flavor please, 240 mL By Mouth Every 15 minutes Start Date: 01/05/19 Status: OrderedNuLYTELY with Flavor Packs oral powder for reconstitution See Instructions, Drink 240mL every 10-15 minutes, # 4,000 mL, 0 Refills, Maintenance, 12/24/19 14:14:00 EDT, [facility], Drink 240mL every 10-15 minutes, 156, cm, 12/24/19 13:35:00EDT, Height Start Date: 12/24/19 Status: OrderedNuLYTELY with Flavor Packs oral powder for reconstitution 240 mL, By Mouth, Every 15 minutes, # 4,000 mL, 0 Refills, Maintenance, 11/28/17 12:30:27 EDT, 240 mL By Mouth Every 15 minutes Start Date: 11/28/17 Status: OrderedPen [place], 31 G x 8 mm BD [...] 11/28/17 12:17:52 EDT Start Date: 11/28/17 Status: OrderedTest strips Test strips, See Instructions, # 1 pack/packet, Refills 0, Tot. Refills 0, Maintenance, to check blood sugars up to three times a day 30 days supply, 09/21/21 13:23:00 EDT, Supply, 152, cm, 09/21/21 12:44:00 EDT, Height, 57.1, kg, 05/16/21 6:51:00 EST... Start Date: 09/21/21 Status: Ordered Problem List Condition Effective Dates Status Health Status Informant Abnormal chest CT(Confirmed) Active Diabetes(Confirmed) Active Hyperglycemia due to diabetes Active mellitus(Confirmed) Hypertension(Confirmed) Active Lactic acid acidosis(Confirmed) Active Falls frequently(Confirmed) Active UTI (urinary tract Active infection)(Confirmed)
--- OUTSIDE RECORDS SUMMARY | 2022-07-31 07:49 | XMS_ITS | Continuity of Care Document ---
:1955 Author Organization [facility] Endocrinology and D iabetes Address [address] [place] [phone]- Care Team Providers Name Role Phone Светлана Benjamin MD Primary Care Physician Encounter [facility] [place] Date(s): 01/22/22 - 03/09/22 [facility] Diabetes [address] [place] [phone]- Attending Physician: Abilio Kumar MD Admitting Physician: Abilio Kumar MD Referring Physician: Светлана Benjamin MD Allergies, [...] Refills 0, Maintenance, Freestyle toby 2 CGM, 02/19/22 8:36:00 EDT, Supply Start Date: 02/19/22 Status: OrderedFreestyle toby 2 sensors Freestyle toby 2 sensors, See Instructions, # 2 pack/packet, Refills 6, Tot. Refills 6, Maintenance, Please provide 30 days supple freestyle toby 2 sensors to be changed every 14 days, 02/19/22 8:36:00 EDT, Supply Start Date: 02/19/22 Status: Orderedgabapentin 800 mg oral tablet 1 [...] 7 Refills, Maintenance, 09/21/21 13:20:00 EDT, Tablet, [facility]-, Partial fill upon patient request if the prescription is for a schedule II opioid drug., 152, cm, 09/21/21 12:44:0... Start Date: 09/21/21 Stop Date: 05/19/22 Status: OrderedLantus Solostar Pen 100 units/mL subcutaneous solution = 12 units, Subcutaneous Injection, Daily at bedtime, Inject 12 units daily at bedtime, # 12 mL, 0 Refills, Maintenance, 10/19/20 13:34:00 EDT, Solution, [facility], Partial fill upon patient request [...] tablet, 7 Refills, Maintenance, 09/21/21 13:24:00EDT, Tablet, [facility]-, Partial fill upon patient request if the prescription is for a schedule II opioid drug., 152, cm, ... Start Date: 09/21/21 Stop Date: 05/19/22 Status: OrderedNuLYTELY with Flavor Packs oral powder for reconstitution See Instructions, 240 mL By Mouth Every 15 minutes, # 1 each, 0 Refills, Maintenance, 01/05/19 14:26:00 EDT, NO Lemon/[place] flavor please, 240 mL By Mouth Every 15 minutes Start Date: 01/05/19 Status: OrderedNuLYTELY with Flavor Packs oral powder for reconstitution See Instructions, Drink 240mL every 10-15 minutes, # 4,000 mL, 0 Refills, Maintenance, 12/24/19 14:14:00 EDT, [facility], Drink 240mL every 10-15 minutes, 156, cm, 12/24/19 13:35:00EDT, Height Start Date: 12/24/19 Status: OrderedNuLYTELY with Flavor Packs oral powder for reconstitution 240 mL, By Mouth, Every 15 minutes, # 4,000 mL, 0 Refills, Maintenance, 11/28/17 12:30:27 EDT, 240 mL By Mouth Every 15 minutes Start Date: 11/28/17 Status: OrderedPen [place], 31 G x 8 mm BD Ultra [...] frequently(Confirmed) Active UTI (urinary tract Active infection)(Confirmed) Care Team PersonnelName: Светлана Benjamin MD Address: [address] [place] [address]
--- OUTSIDE RECORDS SUMMARY | 2022-07-31 07:49 | XMS_ITS | Continuity of Care Document ---
:1955 Author Organization [facility] Address [address] [place] [phone]- Care Team Providers Name Role Phone Светлана Benjamin MD Primary Care Physician Encounter [facility] [place] Date(s): 11/08/21 - 01/21/22 [facility] Endocrinology and Diabetes [address] [place] [id number] Attending Physician: Abilio Kumar MD Admitting Physician: [...] 7 Refills, Maintenance, 09/21/21 13:20:00 EDT, Tablet, [facility], Partial fill upon patient request if the prescription is for a schedule II opioid drug., 152, cm, 09/21/21 12:44:0... Start Date: 09/21/21 Stop Date: 05/19/22 Status: OrderedLantus Solostar Pen 100 units/mL subcutaneous solution = 12 units, Subcutaneous Injection, Daily at bedtime, Inject 12 units daily at bedtime, # 12 mL, 0 Refills, Maintenance, 10/19/20 13:34:00 EDT, Solution, [facility], Partial fill upon patient request if [...] tablet, 7 Refills, Maintenance, 09/21/21 13:24:00EDT, Tablet, [facility]-, Partial fill upon patient request if the prescription is for a schedule II opioid drug., 152, cm, ... Start Date: 09/21/21 Stop Date: 05/19/22 Status: OrderedNuLYTELY with Flavor Packs oral powder for reconstitution See Instructions, 240 mL By Mouth Every 15 minutes, # 1 each, 0 Refills, Maintenance, 01/05/19 14:26:00 EDT, NO Lemon/[place] flavor please, 240 mL By Mouth Every 15 minutes Start Date: 01/05/19 Status: OrderedNuLYTELY with Flavor Packs oral powder for reconstitution See Instructions, Drink 240mL every 10-15 minutes, # 4,000 mL, 0 Refills, Maintenance, 12/24/19 14:14:00 EDT, [facility], Drink 240mL every 10-15 minutes, 156, cm, 12/24/19 13:35:00EDT, Height Start Date: 12/24/19 Status: OrderedNuLYTELY with Flavor Packs oral powder for reconstitution 240 mL, By Mouth, Every 15 minutes, # 4,000 mL, 0 Refills, Maintenance, 11/28/17 12:30:27 EDT, 240 mL By Mouth Every 15 minutes Start Date: 11/28/17 Status: OrderedPen [place], 31 G x 8 mm BD Ultra [...]
--- OUTSIDE RECORDS SUMMARY | 2022-07-31 07:49 | XMS_ITS | Continuity of Care Document ---
:1955 Author Organization [facility] Endocrinology and D nathanael Address [address] [place] [phone]- Care Team Providers Name Role Phone Светлана Benjamin MD Primary Care Physician Encounter [facility] [place] Date(s): 09/21/21 - 10/21/21 [facility] Endocrinology and Diabetes [address] [place] [id number] Attending Physician: Trinity Amador Admitting Physician: AdmtrTrinity [...] 7 Refills, Maintenance, 09/21/21 13:20:00 EDT, Tablet, [facility]-, Partial fill upon patient request if the prescription is for a schedule II opioid drug., 152, cm, 09/21/21 12:44:0... Start Date: 09/21/21 Stop Date: 05/19/22 Status: OrderedLantus Solostar Pen 100 units/mL subcutaneous solution = 12 units, Subcutaneous Injection, Daily at bedtime, Inject 12 units daily at bedtime, # 12 mL, 0 Refills, Maintenance, 10/19/20 13:34:00 EDT, Solution, [facility], Partial fill upon patient request if [...] tablet, 7 Refills, Maintenance, 09/21/21 13:24:00EDT, Tablet, [facility]-, Partial fill upon patient request if the prescription is for a schedule II opioid drug., 152, cm, ... Start Date: 09/21/21 Stop Date: 05/19/22 Status: OrderedNuLYTELY with Flavor Packs oral powder for reconstitution See Instructions, 240 mL By Mouth Every 15 minutes, # 1 each, 0 Refills, Maintenance, 01/05/19 14:26:00 EDT, NO Lemon/[place] flavor please, 240 mL By Mouth Every 15 minutes Start Date: 01/05/19 Status: OrderedNuLYTELY with Flavor Packs oral powder for reconstitution See Instructions, Drink 240mL every 10-15 minutes, # 4,000 mL, 0 Refills, Maintenance, 12/24/19 14:14:00 EDT, [facility], Drink 240mL every 10-15 minutes, 156, cm, 12/24/19 13:35:00EDT, Height Start Date: 12/24/19 Status: OrderedNuLYTELY with Flavor Packs oral powder for reconstitution 240 mL, By Mouth, Every 15 minutes, # 4,000 mL, 0 Refills, Maintenance, 11/28/17 12:30:27 EDT, 240 mL By Mouth Every 15 minutes Start Date: 11/28/17 Status: OrderedPen [place], 31 G x 8 mm BD Ultra [...]
--- OUTSIDE RECORDS SUMMARY | 2022-07-31 07:49 | XMS_ITS | Continuity of Care Document ---
:1955 Author Organization [facility] Address [address] [place] [phone]- Care Team Providers Name Role Phone Светлана Benjamin MD Primary Care Physician En[place] [facility] [place]s): 09/25/21 - 10/25/21 [facility] [address] [place] [id number] Allergies, Adverse Reactions, Alerts Substance Reaction Severity [...] 7 Refills, Maintenance, 09/21/21 13:20:00 EDT, Tablet, [facility]-, Partial fill upon patient request if the prescription is for a schedule II opioid drug., 152, cm, 09/21/21 12:44:0... Start Date: 09/21/21 Stop Date: 05/19/22 Status: OrderedLantus Solostar Pen 100 units/mL subcutaneous solution = 12 units, Subcutaneous Injection, Daily at bedtime, Inject 12 units daily at bedtime, # 12 mL, 0 Refills, Maintenance, 10/19/20 13:34:00 EDT, Solution, [facility], Partial fill upon patient request [...] tablet, 7 Refills, Maintenance, 09/21/21 13:24:00EDT, Tablet, [facility], Partial fill upon patient request if the prescription is for a schedule II opioid drug., 152, cm, ... Start Date: 09/21/21 Stop Date: 05/19/22 Status: OrderedNuLYTELY with Flavor Packs oral powder for reconstitution See Instructions, 240 mL By Mouth Every 15 minutes, # 1 each, 0 Refills, Maintenance, 01/05/19 14:26:00 EDT, NO Lemon/[place] flavor please, 240 mL By Mouth Every 15 minutes Start Date: 01/05/19 Status: OrderedNuLYTELY with Flavor Packs oral powder for reconstitution See Instructions, Drink 240mL every 10-15 minutes, # 4,000 mL, 0 Refills, Maintenance, 12/24/19 14:14:00 EDT, [facility], Drink 240mL every 10-15 minutes, 156, cm, 12/24/19 13:35:00EDT, Height Start Date: 12/24/19 Status: OrderedNuLYTELY with Flavor Packs oral powder for reconstitution 240 mL, By Mouth, Every 15 minutes, # 4,000 mL, 0 Refills, Maintenance, 11/28/17 12:30:27 EDT, 240 mL By Mouth Every 15 minutes Start Date: 11/28/17 Status: OrderedPen [place], 31 G x 8 mm BD Ultra [...]
--- OUTSIDE RECORDS SUMMARY | 2022-07-31 07:49 | XMS_ITS | Continuity of Care Document ---
:1955 Author Organization [facility]anael Address [address] [place] [phone]- Care Team Providers Name Role Phone Светлана Benjamin MD Primary Care Physician Encounter [facility] [place] Date(s): 11/08/21 - 12/08/21 [facility] [address] [place] [id number] Allergies, Adverse Reactions, Alerts Substance Reaction Severity [...] 7 Refills, Maintenance, 09/21/21 13:20:00 EDT, Tablet, [facility]-, Partial fill upon patient request if the prescription is for a schedule II opioid drug., 152, cm, 09/21/21 12:44:0... Start Date: 09/21/21 Stop Date: 05/19/22 Status: OrderedLantus Solostar Pen 100 units/mL subcutaneous solution = 12 units, Subcutaneous Injection, Daily at bedtime, Inject 12 units daily at bedtime, # 12 mL, 0 Refills, Maintenance, 10/19/20 13:34:00 EDT, Solution, [facility], Partial fill upon patient request if [...] tablet, 7 Refills, Maintenance, 09/21/21 13:24:00EDT, Tablet, [facility], Partial fill upon patient request if the prescription is for a schedule II opioid drug., 152, cm, ... Start Date: 09/21/21 Stop Date: 05/19/22 Status: OrderedNuLYTELY with Flavor Packs oral powder for reconstitution See Instructions, 240 mL By Mouth Every 15 minutes, # 1 each, 0 Refills, Maintenance, 01/05/19 14:26:00 EDT, NO Lemon/[place] flavor please, 240 mL By Mouth Every 15 minutes Start Date: 01/05/19 Status: OrderedNuLYTELY with Flavor Packs oral powder for reconstitution See Instructions, Drink 240mL every 10-15 minutes, # 4,000 mL, 0 Refills, Maintenance, 12/24/19 14:14:00 EDT, [facility], Drink 240mL every 10-15 minutes, 156, cm, 12/24/19 13:35:00EDT, Height Start Date: 12/24/19 Status: OrderedNuLYTELY with Flavor Packs oral powder for reconstitution 240 mL, By Mouth, Every 15 minutes, # 4,000 mL, 0 Refills, Maintenance, 11/28/17 12:30:27 EDT, 240 mL By Mouth Every 15 minutes Start Date: 11/28/17 Status: OrderedPen [place], 31 G x 8 mm BD Ultra [...]
--- OUTSIDE RECORDS SUMMARY | 2022-07-31 07:49 | XMS_ITS | Continuity of Care Document ---
:1955 Author Organization [facility] Address [address] [place] [id number]- Care Team Providers Name Role Phone Sourav FRAUSTO, Светлана Whitfield Primary Care Physician [place] [facility] [place] Date(s): 05/09/22 - 06/08/22 [facility] [address] [place] [id number] Allergies, Adverse Reactions, Alerts Substance Reaction Severity [...] Daily, # 30 tablet, 7 Refills, Maintenance, 05/09/22 11:53:00 EST, Tablet, [facility]-, Partial fill upon patient request if the prescription is for a schedule II opioid drug., 152, cm, 09/21/21 12:44:0... Start Date: 05/09/22 Stop Date: 01/04/23 Status: OrderedLantus Solostar Pen 100 units/mL subcutaneous solution = 12 units, Subcutaneous Injection, Daily at bedtime, Inject 12 units daily at bedtime, # 12 mL, 0 Refills, Maintenance, 10/19/20 13:34:00 EDT, Solution, [facility], Partial fill upon patient [...] tablet, 7 Refills, Maintenance, 09/21/21 13:24:00EDT, Tablet, [facility]-, Partial fill upon patient request if the prescription is for a schedule II opioid drug., 152, cm, ... Start Date: 09/21/21 Stop Date: 05/19/22 Status: OrderedNuLYTELY with Flavor Packs oral powder for reconstitution See Instructions, 240 mL By Mouth Every 15 minutes, # 1 each, 0 Refills, Maintenance, 01/05/19 14:26:00 EDT, NO Lemon/[place] flavor please, 240 mL By Mouth Every 15 minutes Start Date: 01/05/19 Status: OrderedNuLYTELY with Flavor Packs oral powder for reconstitution See Instructions, Drink 240mL every 10-15 minutes, # 4,000 mL, 0 Refills, Maintenance, 12/24/19 14:14:00 EDT, [facility], Drink 240mL every 10-15 minutes, 156, cm, 12/24/19 13:35:00EDT, Height Start Date: 12/24/19 Status: OrderedNuLYTELY with Flavor Packs oral powder for reconstitution 240 mL, By Mouth, Every 15 minutes, # 4,000 mL, 0 Refills, Maintenance, 11/28/17 12:30:27 EDT, 240 mL By Mouth Every 15 minutes Start Date: 11/28/17 Status: OrderedPen [place], 31 G x 8 mm BD Ultra [...] Date: 09/21/21 Status: Ordered Problem List Condition Confirmation Course Effective Dates Status Health I nformant Status Abnormal chest CT Confirmed Active Diabetes Confirmed Active Hyperglycemia due to Confirmed Active diabetes mellitus Hypertension Confirmed Active Lactic acid acidosis Confirmed Active Falls frequently Confirmed Active UTI (urinary tract Confirmed Active infection) Patient Care team information Care Team PersonnelName: Светлана Benjamin MD Position: [facility] Physician (General Medicine) Member Role: PCP Address: Address: [address] [place] [id number]- Name: Annel Tang RN Position: [facility] RN Member Role: Primary Care Nurse Care Team Related PersonsName: YOVANY PARTIDA Address: [address] [address]
--- OUTSIDE RECORDS SUMMARY | 2022-07-31 07:49 | XMS_ITS | Continuity of Care Document ---
:1955 Author Organization [facility] Address [address] [place] [address]- Care Team Providers Name Role Phone Not on Staff, PCP Primary Care Physician Unavailable [place] [facility] [place](s[place] 06/28/21 - 07/28/21 [facility] [address] [place] [address]- Attending Physician: Trinity Amador Admitting Physician: AdmtrTrinity [...] 11/28/17 12:14:56 EDT Start Date: 11/28/17 Status: OrderedLantus Solostar Pen 100 units/mL subcutaneous solution = 12 units, Subcutaneous Injection, Daily at bedtime, Inject 12 units daily at bedtime, # 12 mL, 0 Refills, Maintenance, 10/19/20 13:34:00 EDT, Solution, [facility], Partial fill upon patient [...] 0 Refills, Maintenance, 01/05/19 14:26:00 EDT, NO Lemon/[place] flavor please, 240 mL By Mouth Every 15 minutes Start Date: 01/05/19 Status: OrderedNuLYTELY with Flavor Packs oral powder for reconstitution See Instructions, Drink 240mL every 10-15 minutes, # 4,000 mL, 0 Refills, Maintenance, 12/24/19 14:14:00 EDT, [facility], Drink 240mL every 10-15 minutes, 156, cm, 12/24/19 13:35:00EDT, Height Start Date: 12/24/19 Status: OrderedNuLYTELY with Flavor Packs oral powder for reconstitution 240 mL, By Mouth, Every 15 minutes, # 4,000 mL, 0 Refills, Maintenance, 11/28/17 12:30:27 EDT, 240 mL By Mouth Every 15 minutes Start Date: 11/28/17 Status: OrderedPen [place], 31 G x 8 mm BD Ultra [...]
--- OUTSIDE RECORDS SUMMARY | 2022-07-31 07:49 | XMS_ITS | Continuity of Care Document ---
:1955 Author Organization [facility] Address [address] [place] [phone]- Care Team Providers Name Role Phone Not on Staff, PCP Primary Care Physician Unavailable Encounter [facility] [place] Date(s): 05/16/21 - 05/16/[address] [address]- Discharge Disposition: A-D/C Home Attending Physician: Prudence Herring MD, V Admitting Physician: Prudence Herring MD, V Referring Physician: Prudence Herring MD, V Allergies, Adverse Reactions, Alerts Substance Reaction Severity [...] 0 Refills, Maintenance, 10/19/20 13:34:00 EDT, Solution, [facility], Partial fill upon patient [...] 0 Refills, Maintenance, 01/05/19 14:26:00 EDT, NO Lemon/[place] flavor please, 240 mL By Mouth Every 15 minutes Start Date: 01/05/19 Status: OrderedNuLYTELY with Flavor Packs oral powder for reconstitution See Instructions, Drink 240mL every 10-15 minutes, # 4,000 mL, 0 Refills, Maintenance, 12/24/19 14:14:00 EDT, [facility], Drink 240mL every 10-15 minutes, 156, cm, 12/24/19 13:35:00EDT, Height Start Date: 12/24/19 Status: OrderedNuLYTELY with Flavor Packs oral powder for reconstitution 240 mL, By Mouth, Every 15 minutes, # 4,000 mL, 0 Refills, Maintenance, 11/28/17 12:30:27 EDT, 240 mL By Mouth Every 15 minutes Start Date: 11/28/17 Status: OrderedPen [place], 31 G x 8 mm BD Ultra [...] frequently(Confirmed) Active UTI (urinary tract Active infection)(Confirmed) Vital Signs Most recent to oldest [Reference Range]: 1 Weight 57.1 kg (05/16/21 6:49 AM) Oxygen Saturation [94-100 %] 100 % (05/16/21 6:49 AM) Pulse Rate [55-90 bpm] 82 bpm (05/16/21 6:49 AM) Blood Pressure [90-138/55-84 mm Hg] 111/68 mm Hg (05/16/21 6:49 AM) Respiratory Rate [16-30 br/min] 20 br/min (05/16/21 6:49 AM) Temperature [96.8-100.4 DegF] 57.1 DegF *L* (05/16/21 6:49 AM) Mode of Delivery (Oxygen) Room air (05/16/21 6:49 AM) Blood pressure sites Arm, right (05/16/21 6:49 AM) Temperature Route Temporal (05/16/21 6:49 AM) Dry Weight 57.1 kg (05/16/21 6:49 AM)
--- OUTSIDE RECORDS SUMMARY | 2022-07-31 07:49 | XMS_ITS | Continuity of Care Document ---
:1955 Author Organization [facility] Address [address] [place] [phone]- Care Team Providers Name Role Phone Светлана Benjamin MD Primary Care Physician [place] [facility] [place] 10/18/21 - 11/17/21 [facility] [address] [place] [id number] Allergies, Adverse Reactions, Alerts Substance Reaction [...] 7 Refills, Maintenance, 09/21/21 13:20:00 EDT, Tablet, [facility]-, Partial fill upon patient request if the prescription is for a schedule II opioid drug., 152, cm, 09/21/21 12:44:0... Start Date: 09/21/21 Stop Date: 05/19/22 Status: OrderedLantus Solostar Pen 100 units/mL subcutaneous solution = 12 units, Subcutaneous Injection, Daily at bedtime, Inject 12 units daily at bedtime, # 12 mL, 0 Refills, Maintenance, 10/19/20 13:34:00 EDT, Solution, [facility], Partial fill upon patient [...] tablet, 7 Refills, Maintenance, 09/21/21 13:24:00EDT, Tablet, [facility], Partial fill upon patient request if the prescription is for a schedule II opioid drug., 152, cm, ... Start Date: 09/21/21 Stop Date: 05/19/22 Status: OrderedNuLYTELY with Flavor Packs oral powder for reconstitution See Instructions, 240 mL By Mouth Every 15 minutes, # 1 each, 0 Refills, Maintenance, 01/05/19 14:26:00 EDT, NO Lemon/[place] flavor please, 240 mL By Mouth Every 15 minutes Start Date: 01/05/19 Status: OrderedNuLYTELY with Flavor Packs oral powder for reconstitution See Instructions, Drink 240mL every 10-15 minutes, # 4,000 mL, 0 Refills, Maintenance, 12/24/19 14:14:00 EDT, [facility], Drink 240mL every 10-15 minutes, 156, cm, 12/24/19 13:35:00EDT, Height Start Date: 12/24/19 Status: OrderedNuLYTELY with Flavor Packs oral powder for reconstitution 240 mL, By Mouth, Every 15 minutes, # 4,000 mL, 0 Refills, Maintenance, 11/28/17 12:30:27 EDT, 240 mL By Mouth Every 15 minutes Start Date: 11/28/17 Status: OrderedPen [place], 31 G x 8 mm BD Ultra [...]
--- OUTSIDE RECORDS SUMMARY | 2022-07-31 07:49 | XMS_ITS | Continuity of Care Document ---
:1955 Author Organization [facility] Address [address] [place] [phone]- Care Team Providers Name Role Phone Not on Staff, PCP Primary Care Physician Unavailable [place] [facility] [place](s): 10/18/20 - 11/17/[address] [address]- Attending Physician: Not on Staff, Attending MD Admitting Physician: Not on Staff, Admitting MD Referring Physician: Not on Staff, Referring MD Allergies, Adverse Reactions, Alerts Substance Reaction [...] 10/19/20 13:42:00 EDT, Route to Pharmacy Electronically, [facility], Partial fill upon patient [...] 0 Refills, Maintenance, 10/19/20 13:34:00 EDT, Solution, [facility], Partial fill upon patient request [...] 12/21/20 13:14:00 EDT, 10/20/20 13:12:00 EDT, Capsule, [facility], Partial fill uponpatient request if the prescription is for a sche... Start Date: 10/20/20 Stop Date: 12/21/20 Status: OrderedPen [place], 31 G x 8 mm BD Ultra [...]
--- OUTSIDE RECORDS SUMMARY | 2022-07-31 07:49 | XMS_ITS | Continuity of Care Document ---
:1955 Author Organization [facility] iabetes Address [address] [place] [address]- Care Team Providers Name Role Phone Sourav FRAUSTO, Светлана Whitfield Primary Care Physician Encounter [facility] [place] Date(s): 06/05/22 - 07/05/22 [facility] [address] [place] [id number] Allergies, Adverse Reactions, Alerts Substance Reaction Severity [...] 7 Refills, Maintenance, 05/09/22 11:53:00 EST, Tablet, [facility]-, Partial fill upon patient request if the prescription is for a schedule II opioid drug., 152, cm, 09/21/21 12:44:0... Start Date: 05/09/22 Stop Date: 01/04/23 Status: OrderedLantus Solostar Pen 100 units/mL subcutaneous solution = 12 units, Subcutaneous Injection, Daily at bedtime, Inject 12 units daily at bedtime, # 12 mL, 0 Refills, Maintenance, 10/19/20 13:34:00 EDT, Solution, [facility], Partial fill upon patient [...] tablet, 7 Refills, Maintenance, 09/21/21 13:24:00EDT, Tablet, [facility]-, Partial fill upon patient request if [...] mL, 0 Refills, Maintenance, 12/24/19 14:14:00 EDT, [facility], Drink 240mL every 10-15 minutes, 156, cm, 12/24/19 13:35:00EDT, Height Start Date: 12/24/19 Status: OrderedNuLYTELY with Flavor Packs oral powder for reconstitution 240 mL, By Mouth, Every 15 minutes, # 4,000 mL, 0 Refills, Maintenance, 11/28/17 12:30:27 EDT, 240 mL By Mouth Every 15 minutes Start Date: 11/28/17 Status: OrderedPen [place], 31 G x 8 mm BD Ultra [...] Care Team PersonnelName: Светлана Benjamin MD Position: [facility] Physician (General Medicine) Member Role: PCP Address: Address: [address] [place] [id number]- Name: Annel Tang RN Position: [facility] RN Member Role: Primary Care Nurse Care Team Related PersonsName: YOVANY PARTIDA Address: [address] [address]
--- OUTSIDE RECORDS SUMMARY | 2022-07-31 07:49 | XMS_ITS | Continuity of Care Document ---
:1955 Author Organization [facility] Address [address] [place] [address]- Care Team Providers Name Role Phone Not on Staff, PCP Primary Care Physician Unavailable En[place] [facility] [place] Date(s): 10/04/20 - 11/04/[address] [address]- Attending Physician: Not on Staff, Attending MD Allergies, Adverse Reactions, Alerts Substance Reaction [...] 10/19/20 13:42:00 EDT, Route to Pharmacy Electronically, [facility], Partial fill upon patient [...] 0 Refills, Maintenance, 10/19/20 13:34:00 EDT, Solution, [facility], Partial fill [...] 12/21/20 13:14:00 EDT, 10/20/20 13:12:00 EDT, Capsule, [facility], Partial fill uponpatient request if the prescription is for a sche... Start Date: 10/20/20 Stop Date: 12/21/20 Status: OrderedoxyCODONE 5 mg oral tablet 2.5 mg, 0.5, tablet, By Mouth, Every 8 hours, PRN, # 21 tablet, Refills 0, Tot. Refills 0, Acute 11/07/20 13:39:00 EDT, as needed for pain, 10/19/20 13:38:00 EDT, Route to Pharmacy Electronically, [facility], Partial fill upon patient re... Start Date: 10/19/20 Stop Date: 11/07/20 Status: OrderedPen [place], 31 G x 8 mm BD Ultra [...]
--- OUTSIDE RECORDS SUMMARY | 2022-07-31 07:50 | XMS_ITS | Continuity of Care Document ---
:1955 Author Organization [facility] Address [address] [place] [phone]- Care Team Providers Name Role Phone Myke FRAUSTO, Freda Primary Care Physician [place] [facility] [place] 10[place]20 - 10/19/[address] [address] Encounter Diagnosis Rib fracture (Final) - 10/17/20 Rib fracture (Final) - 10/17/20 Discharge Disposition: A-D/C Home Attending Physician: Ulysses Hyatt DO Admitting Physician: Katerina FRAUSTO, Shankar Referring Physician: Not on Staff, Referring MD [...] 10/19/20 13:42:00 EDT, Route to Pharmacy Electronically, [facility], Partial fill upon patient [...] 0 Refills, Maintenance, 10/19/20 13:34:00 EDT, Solution, [facility], Partial fill upon patient [...] Date: 10/17/20 Status: OrderedoxyCODONE 5 mg oral tablet 2.5 mg, Tablet, By Mouth, Every 6 hours, PRN for Pain , Moderate, Routine, 10/19/20 10:46:00 EDT Start Date: 10/19/20 Stop Date: 10/20/20 Status: DiscontinuedoxyCODONE 5 mg oral tablet 2.5 mg, 0.5, tablet, By Mouth, Every 8 hours, PRN, # 21 tablet, Refills 0, Tot. Refills 0, Acute 11/07/20 13:39:00 EDT, as needed for pain, 10/19/20 13:38:00 EDT, Route to Pharmacy Electronically, [facility], Partial fill upon patient re... Start Date: 10/19/20 Stop Date: 11/07/20 Status: OrderedPen [place], 31 G x 8 mm BD Ultra Fine III See Instructions, # 300 each, Refills 2, Tot. Refills 2, Maintenance, use as directed for Type 2 Diabetes Mellitus, 10/19/20 13:48:00 EDT, Supply, 152, cm, 10/19/20 11:17:00 EDT, Height, 60, kg, 10/17/20 17:26:00 EDT, Dry Weight Start Date: 10/19/20 Stop Date: 07/16/21 Status: Orderedsulfamethoxazole-trimethoprim 800 mg-160 mg oral tablet 1 tablet, By Mouth, 2 times a day, for 3 days, This is for Urinary track infection. drink plenty of fluids., # 6 tablet, 0 Refills, Acute 10/22/20 15:34:00 EDT, 10/19/20 15:34:00 EDT, Tablet, [facility], Partial fill upon patient request... Start Date: 10/19/20 Stop Date: 10/22/20 Status: Ordered Problem List Condition Effective Dates Status Health Status Informant Abnormal chest CT(Confirmed) Active Hyperglycemia due to diabetes Active mellitus(Confirmed) Hypertension(Confirmed) Active Lactic acid acidosis(Confirmed) Active Falls frequently(Confirmed) Active UTI (urinary tract Active infection)(Confirmed) Results Radiology Reports Exam Date Time Procedure Performing Provider Status 10/17/20 12:19 PM Chest 2 Views Frontal and Lat FordИван trevizo markie Hunter (Verified) Notes:(Chest 2 Views Frontal and Lat) Reason For Exam: Traumatic Chest Pain;Other:RESULT: Chest 2 Views Frontal and Lat Chest 2 Views Frontal and Lat Hx of Present Illness: PT DOES NOT REMEMBER FALLING DOWN STAIRS THIS MORNING. STATES SHE HAS been sleep walking since her trip to [place].; Reason: Other:; Traumatic Chest Pain; Clinical Question(s): Other:; Pneumothorax, Fracture / Other: COMPARISON: None. FINDINGS: LINES AND TUBES: None. LUNGS AND PLEURA: Clear lungs. Normal pulmonary vascularity. No pleural effusion. No pneumothorax. HEART, MEDIASTINUM AND LUPE: Heart is normal in size. Normal mediastinal and hilar contour. BONES AND SOFT TISSUES: Mildly displaced fracture of the posterolateral left fifth rib. Status post right shoulder arthroplasty. Degenerative changes of the left shoulder. IMPRESSION: Left fifth rib fracture. No pneumothorax or hemothorax. WSN: [id number] Ordering Physician: Michael Gary Dictated By: Norberto Roberts MD Dictated Date/Time: 10/17/20 12:26 p Reviewed By: Norberto Roberts MD Signed By: Norberto Roberts MD Signed Date/Time: 10/17/20 12:26 pm Transcribed By: SIS Transcribed Date/Time: 10/17/20 12:24 pm Exam Date Time Procedure Performing Provider Status 10/17/20 12:19 PM Shoulder Min 2 Views Left [facility] (Verified) Notes:(Shoulder Min 2 Views Left) Reason For Exam: DeformityRESULT: Shoulder Min 2 Views Left Shoulder Min 2 Views Left, 3 views HX OF PRESENT ILLNESS: pt does not remember falling down stairs this morning. states she has been sleep walking since her trip to [place].; Reason: Deformity; Clinical Question(s): Fracture COMPARISON: None. FINDINGS: There is a mildly displaced fracture of the posterolateral left fifth rib. Moderate glenohumeral joint osteoarthritis. Mild degenerative changes of the AC joint. The portion of the clavicle included on the exam is normal. No calcification of the rotator cuff. IMPRESSION: Left fifth rib fracture. WSN: [id number] Ordering Physician: Michael Gary Dictated By: Norberto Roberts MD Dictated Date/Time: 10/17/20 12:25 p Reviewed By: Norberto Roberts MD Signed By: Norberto Roberts MD Signed Date/Time: 10/17/20 12:25 pm Transcribed By: CSJennifer Transcribed Date/Time: 10/17/20 12:22 pm Vital Signs Most recent to oldest 1 2 3 [Reference Range]: Height 152 cm 152 cm 152 cm (10/19/20 2:23 PM) (10/19/20 11:17 AM) (10/19/20 7: 14 AM) Weight 60 kg (10/17/20 5:26 PM) Oxygen Saturation [94-100 %] 98 % 95 % 94 % (10/19/20 2:23 PM) (10/19/20 11:17 AM) (10/19/20 7: 14 AM) Pulse Rate [55-90 bpm] 83 bpm 94 bpm 88 bpm (10/19/20 2:23 PM) *H* (10/19/20 7:14 AM) (10/19/20 11:17 AM) Body Mass Index [18.5-24.99] 25.97 *H* (10/17/20 5:26 PM) Blood Pressure [90-138/55-84 128/81 mm Hg 120/66 mm Hg 146 /74 mm Hg mm Hg] (10/19/20 2:23 PM) (10/19/20 11:17 AM) *H* (10/19/20 7:14 AM ) Respiratory Rate [16-30 20 br/min 18 br/min 20 br/mi n br/min] (10/19/20 2:23 PM) (10/19/20 12:29 PM) (10/19/20 11 :17 AM) Temperature [96.8-100.4 DegF] 97.4 DegF 98.7 DegF 98 .8 DegF (10/19/20 2:23 PM) (10/19/20 11:17 AM) (10/19/20 7: 14 AM) Mode of Delivery (Oxygen) Room air Room air Room a ir (10/19/20 2:23 PM) (10/19/20 11:17 AM) (10/19/20 7: 14 AM) Blood pressure sites Arm, left Arm, left Arm, right (10/19/20 2:23 PM) (10/19/20 11:17 AM) (10/19/20 7: 14 AM) Temperature Route Oral Oral Oral (10/19/20 2:23 PM) (10/19/20 11:17 AM) (10/19/20 7: 14 AM) Dry Weight 60 kg (10/17/20 5:26 PM)
--- OUTSIDE RECORDS SUMMARY | 2022-07-31 07:50 | XMS_ITS | Continuity of Care Document ---
:1955 Author Organization [facility] Address [address] [place] [phone]- Care Team Providers Name Role Phone Toni Colon MD Primary Care Physician [place] [facility] [place] - 07/02/19 [facility] [address] [place] [phone] [facility] Attending Physician: Palmira Mcgovern MD Admitting Physician: Palmira Mcgovern MD Referring Physician: Toni Colon MD Allergies, Adverse Reactions, Alerts Substance Reaction Severity Status Keflex Active Medications amitriptyline 150 mg oral tablet 1 tablet = 150 mg, By Mouth, Daily at bedtime, 0 Refills, Maintenance, 11/28/17 12:14:38 EDT Start Date: 11/28/17 Status: Orderedatorvastatin 20 mg oral tablet 1 tablet = 20 mg, By Mouth, Daily, 0 Refills, Maintenance Start Date: 11/28/17 Status: OrderedClonazepam By Mouth, 3 times a day, 0 Refills, Maintenance, 11/28/17 12:17:34 EDT Start Date: 11/28/17 Status: OrderedCyclobenzaprine By Mouth, 0 Refills, Maintenance, [...] 11/28/17 12:15:44 EDT Start Date: 11/28/17 Status: OrderedJanuvia 100 mg oral tablet 1 tablet = 100 mg, By Mouth, Daily, 0 Refills, Maintenance, 11/28/17 12:14:56 EDT Start Date: 11/28/17 Status: Orderedlevothyroxine 75 mcg (0.075 mg) oral tablet 1 tablet = 75 mcg, By Mouth, Daily, 0 Refills, Maintenance, 11/28/17 12:16:28 EDT Start Date: 11/28/17 Status: Orderedlosartan 25 mg oral tablet 25 [...] 0 Refills, Maintenance, 01/05/19 14:26:00 EDT, NO Lemon/[place] flavor please, 240 mL By Mouth Every 15 minutes Start Date: 01/05/19 Status: OrderedNuLYTELY with Flavor Packs oral powder for reconstitution 240 mL, By Mouth, Every 15 minutes, # 4,000 mL, 0 Refills, Maintenance, 11/28/17 12:30:27 EDT, 240 mL By Mouth Every 15 minutes Start Date: 11/28/17 Status: OrderedProAir HFA 90 mcg/inh inhalation aerosol with adapter 2, puffs, Inhalation, 4 times a day, Refills 0, Maintenance, 11/28/17 12:17:52 EDT Start Date: 11/28/17 Status: Ordered Problem List Condition Effective Dates Status Health Status Informant Diabetes(Confirmed) Active
--- OUTSIDE RECORDS SUMMARY | 2022-07-31 07:50 | XMS_ITS | Continuity of Care Document ---
:1955 Author Organization [facility] Address [address] [place] [address]- Care Team Providers Name Role Phone Toni Colon MD [id number] [address] [place] [address]- [facility] Attending Physician: Palmira Mcgovern MD Admitting [...] 0 Refills, Maintenance, 01/05/19 14:26:00 EDT, NO Lemon/[place] flavor please, 240 mL By Mouth Every [...]
--- OUTSIDE RECORDS SUMMARY | 2022-07-31 07:50 | XMS_ITS | Continuity of Care Document ---
:1955 Author Organization [facility] Address [address] [place] [address]- Care Team Providers Name Role Phone Toni Colon MD Primary Care Physician Encounter [facility] [place] Date(s): 12/24/19 - 01/23/20 [facility] [address] [place] [address]- [facility] Attending Physician: Trinity Amador Admitting Physician: Trinity Amador Referring Physician: AdmtrTrinity Allergies, Adverse Reactions, Alerts Substance Reaction Severity [...] 0 Refills, Maintenance, 01/05/19 14:26:00 EDT, NO Lemon/[place] flavor please, 240 mL By Mouth Every 15 minutes Start Date: 01/05/19 Status: OrderedNuLYTELY with Flavor Packs oral powder for reconstitution See Instructions, Drink 240mL every 10-15 minutes, # 4,000 mL, 0 Refills, Maintenance, 12/24/19 14:14:00 EDT, [facility], Drink 240mL every 10-15 [...]
--- OUTSIDE RECORDS SUMMARY | 2022-07-31 07:50 | XMS_ITS | Continuity of Care Document ---
:1955 Author Organization [facility] Address [address] [place] [address]- Care Team Providers Name Role Phone Sourav FRAUSTO, Светлана Whitfield Primary Care Physician [place] [facility] [place] Date(s): 01/17/22 - 02/16/22 [facility] [address] [place] [id number] Allergies, Adverse Reactions, Alerts [...] 7 Refills, Maintenance, 09/21/21 13:20:00 EDT, Tablet, [facility]-, Partial fill upon patient request if the prescription is for a schedule II opioid drug., 152, cm, 09/21/21 12:44:0... Start Date: 09/21/21 Stop Date: 05/19/22 Status: OrderedLantus Solostar Pen 100 units/mL subcutaneous solution = 12 units, Subcutaneous Injection, Daily at bedtime, Inject 12 units daily at bedtime, # 12 mL, 0 Refills, Maintenance, 10/19/20 13:34:00 EDT, Solution, [facility], Partial fill upon patient request [...] Refills, Maintenance, 09/21/21 13:24:00EDT, Tablet, [facility]-, Partial fill upon patient request if the prescription is for a schedule II opioid drug., 152, cm, ... Start Date: 09/21/21 Stop Date: 05/19/22 Status: OrderedNuLYTELY with Flavor Packs oral powder for reconstitution See Instructions, 240 mL By Mouth Every 15 minutes, # 1 each, 0 Refills, Maintenance, 01/05/19 14:26:00 EDT, NO Lemon/[place] flavor please, 240 mL By Mouth Every 15 minutes Start Date: 01/05/19 Status: OrderedNuLYTELY with Flavor Packs oral powder for reconstitution See Instructions, Drink 240mL every 10-15 minutes, # 4,000 mL, 0 Refills, Maintenance, 12/24/19 14:14:00 EDT, [facility], Drink 240mL every 10-15 minutes, 156, cm, 12/24/19 13:35:00EDT, Height Start Date: 12/24/19 Status: OrderedNuLYTELY with Flavor Packs oral powder for reconstitution 240 mL, By Mouth, Every 15 minutes, # 4,000 mL, 0 Refills, Maintenance, 11/28/17 12:30:27 EDT, 240 mL By Mouth Every 15 minutes Start Date: 11/28/17 Status: OrderedPen [place], 31 G x 8 mm BD Ultra [...]
--- OUTSIDE RECORDS SUMMARY | 2022-07-31 07:50 | XMS_ITS | Continuity of Care Document ---
:1955 Author Organization [facility] Address [address] [place] [address]- Care Team Providers Name Role Phone Sourav FRAUSTO, Светлана Whitfield Primary Care Physician [place] [facility] [place] Date(s): 02/07/22 - 03/09/22 [facility] [address] [place] [address]- Attending Physician: Trinity Amador Admitting Physician: Trinity [...] 7 Refills, Maintenance, 09/21/21 13:20:00 EDT, Tablet, [facility], Partial fill upon patient request if the prescription is for a schedule II opioid drug., 152, cm, 09/21/21 12:44:0... Start Date: 09/21/21 Stop Date: 05/19/22 Status: OrderedLantus Solostar Pen 100 units/mL subcutaneous solution = 12 units, Subcutaneous Injection, Daily at bedtime, Inject 12 units daily at bedtime, # 12 mL, 0 Refills, Maintenance, 10/19/20 13:34:00 EDT, Solution, [facility], Partial fill upon patient request if [...] tablet, 7 Refills, Maintenance, 09/21/21 13:24:00EDT, Tablet, [facility]-, Partial fill upon patient request if the prescription is for a schedule II opioid drug., 152, cm, ... Start Date: 09/21/21 Stop Date: 05/19/22 Status: OrderedNuLYTELY with Flavor Packs oral powder for reconstitution See Instructions, 240 mL By Mouth Every 15 minutes, # 1 each, 0 Refills, Maintenance, 01/05/19 14:26:00 EDT, NO Lemon/[place] flavor please, 240 mL By Mouth Every 15 minutes Start Date: 01/05/19 Status: OrderedNuLYTELY with Flavor Packs oral powder for reconstitution See Instructions, Drink 240mL every 10-15 minutes, # 4,000 mL, 0 Refills, Maintenance, 12/24/19 14:14:00 EDT, [facility], Drink 240mL every 10-15 minutes, 156, cm, 12/24/19 13:35:00EDT, Height Start Date: 12/24/19 Status: OrderedNuLYTELY with Flavor Packs oral powder for reconstitution 240 mL, By Mouth, Every 15 minutes, # 4,000 mL, 0 Refills, Maintenance, 11/28/17 12:30:27 EDT, 240 mL By Mouth Every 15 minutes Start Date: 11/28/17 Status: OrderedPen [place], 31 G x 8 mm BD Ultra [...] Care Team PersonnelName: Светлана Benjamin MD Address: [address] [place] [address]
--- OUTSIDE RECORDS SUMMARY | 2022-07-31 07:50 | XMS_ITS | Continuity of Care Document ---
:1955 Author Organization [facility] Address [address] [place] [phone]- En[place] [facility] [place] Date(s): 03/03/20 - 04/02/20 [facility] [address] [place] [id number]- [facility]
--- OUTSIDE RECORDS SUMMARY | 2022-07-31 07:50 | XMS_ITS | Continuity of Care Document ---
:1955 Author Organization [facility] Address [address] [place] [address]- Care Team Providers Name Role Phone Toni Colon MD Primary Care [id number] Date[facility] 09/24[facility]19 - 11/01/19 [facility] [address] [place] [phone]- [facility] Attending Physician: Not on Staff, Attending MD Referring Physician: Not on Staff, Referring [...] 0 Refills, Maintenance, 01/05/19 14:26:00 EDT, NO Lemon/[place] flavor please, 240 mL By Mouth [...]
--- OUTSIDE RECORDS SUMMARY | 2022-07-31 07:50 | XMS_ITS | Continuity of Care Document ---
:1955 Author Organization [facility] n[facility] Address [address] [place] [phone]- Care Team Providers Name Role Phone Светлана Benjamin MD Primary Care Physician En[place] [facility] [place] Date(s): 12/26/21 - 01/25/22 [facility] [address] [place] [id number] Allergies, Adverse Reactions, [...] 0 Refills, Maintenance, 10/19/20 13:34:00 EDT, Solution, [facility], Partial fill upon patient request [...] tablet, 7 Refills, Maintenance, 09/21/21 13:24:00EDT, Tablet, [facility] [place], Partial fill upon patient request if the prescription is for a schedule II opioid drug., 152, cm, ... Start Date: 09/21/21 Stop Date: 05/19/22 Status: OrderedNuLYTELY with Flavor Packs oral powder for reconstitution See Instructions, 240 mL By Mouth Every 15 minutes, # 1 each, 0 Refills, Maintenance, 01/05/19 14:26:00 EDT, NO Lemon/[place] flavor please, 240 mL By Mouth Every 15 minutes Start Date: 01/05/19 Status: OrderedNuLYTELY with Flavor Packs oral powder for reconstitution See Instructions, Drink 240mL every 10-15 minutes, # 4,000 mL, 0 Refills, Maintenance, 12/24/19 14:14:00 EDT, [facility], Drink 240mL every 10-15 minutes, 156, cm, 12/24/19 13:35:00EDT, Height Start Date: 12/24/19 Status: OrderedNuLYTELY with Flavor Packs oral powder for reconstitution 240 mL, By Mouth, Every 15 minutes, # 4,000 mL, 0 Refills, Maintenance, 11/28/17 12:30:27 EDT, 240 mL By Mouth Every 15 minutes Start Date: 11/28/17 Status: OrderedPen [place], 31 G x 8 mm BD Ultra [...]
--- OUTSIDE RECORDS SUMMARY | 2022-07-31 07:50 | XMS_ITS | Continuity of Care Document ---
:1955 Author Organization [facility] Address [address] [place] [address]- Care Team Providers Name Role Phone Sourav FRAUSTO, Светлана Whitfield Primary Care Physician En[place] [facility] [place] Date(s): 01/12/22 - 02/11/22 [facility] [address] [place] [id number] Allergies, Adverse Reactions, Alerts Substance [...] 0 Refills, Maintenance, 10/19/20 13:34:00 EDT, Solution, [facility], Partial fill upon patient request if [...] tablet, 7 Refills, Maintenance, 09/21/21 13:24:00EDT, Tablet, [facility]-, Partial fill upon patient request if the prescription is for a schedule II opioid drug., 152, cm, ... Start Date: 09/21/21 Stop Date: 05/19/22 Status: OrderedNuLYTELY with Flavor Packs oral powder for reconstitution See Instructions, 240 mL By Mouth Every 15 minutes, # 1 each, 0 Refills, Maintenance, 01/05/19 14:26:00 EDT, NO Lemon/[place] flavor please, 240 mL By Mouth Every 15 minutes Start Date: 01/05/19 Status: OrderedNuLYTELY with Flavor Packs oral powder for reconstitution See Instructions, Drink 240mL every 10-15 minutes, # 4,000 mL, 0 Refills, Maintenance, 12/24/19 14:14:00 EDT, [facility], Drink 240mL every 10-15 minutes, 156, cm, 12/24/19 13:35:00EDT, Height Start Date: 12/24/19 Status: OrderedNuLYTELY with Flavor Packs oral powder for reconstitution 240 mL, By Mouth, Every 15 minutes, # 4,000 mL, 0 Refills, Maintenance, 11/28/17 12:30:27 EDT, 240 mL By Mouth Every 15 minutes Start Date: 11/28/17 Status: OrderedPen [place], 31 G x 8 mm BD Ultra [...]
--- OUTSIDE RECORDS SUMMARY | 2022-07-31 07:50 | XMS_ITS | Continuity of Care Document ---
:1955 Author Organization [facility] Address [address] [place] [address]- Care Team Providers Name Role Phone Myke FRAUSTO, Freda Primary Care Physician [place] [facility] [place] 10/27/20 - 11/26/20 [facility] [address] [place] [id number] Allergies, Adverse Reactions, Alerts Substance [...] 0 Refills, Maintenance, 01/05/19 14:26:00 EDT, NO Lemon/[place] flavor please, 240 mL By Mouth Every 15 minutes Start Date: 01/05/19 Status: OrderedNuLYTELY with Flavor Packs oral powder for reconstitution See Instructions, Drink 240mL every 10-15 minutes, # 4,000 mL, 0 Refills, Maintenance, 12/24/19 14:14:00 EDT, [facility], Drink 240mL every 10-15 [...]
--- OUTSIDE RECORDS SUMMARY | 2022-07-31 07:50 | XMS_ITS | Continuity of Care Document ---
:1955 Author Organization [facility] Address [address] [place] [phone]- Care Team Providers Name Role Phone Sourav FRAUSTO, Светлана Whitfield Primary Care Physician [place] [facility] [place] - 03/17/22 [facility] [address] [place] [id number] Allergies, Adverse Reactions, Alerts Substance [...] 7 Refills, Maintenance, 09/21/21 13:20:00 EDT, Tablet, [facility] [place] Partial fill upon patient request if the prescription is for a schedule II opioid drug., 152, cm, 09/21/21 12:44:0... Start Date: 09/21/21 Stop Date: 05/19/22 Status: OrderedLantus Solostar Pen 100 units/mL subcutaneous solution = 12 units, Subcutaneous Injection, Daily at bedtime, Inject 12 units daily at bedtime, # 12 mL, 0 Refills, Maintenance, 10/19/20 13:34:00 EDT, Solution, [facility] 3, Partial fill upon patient request [...] tablet, 7 Refills, Maintenance, 09/21/21 13:24:00EDT, Tablet, [facility] [place] Partial fill upon patient request if the prescription is for a schedule II opioid drug., 152, cm, ... Start Date: 09/21/21 Stop Date: 05/19/22 Status: OrderedNuLYTELY with Flavor Packs oral powder for reconstitution See Instructions, 240 mL By Mouth Every 15 minutes, # 1 each, 0 Refills, Maintenance, 01/05/19 14:26:00 EDT, NO Lemon/[place] flavor please, 240 mL By Mouth Every 15 minutes Start Date: 01/05/19 Status: OrderedNuLYTELY with Flavor Packs oral powder for reconstitution See Instructions, Drink 240mL every 10-15 minutes, # 4,000 mL, 0 Refills, Maintenance, 12/24/19 14:14:00 EDT, [facility], Drink 240mL every 10-15 minutes, 156, cm, 12/24/19 13:35:00EDT, Height Start Date: 12/24/19 Status: OrderedNuLYTELY with Flavor Packs oral powder for reconstitution 240 mL, By Mouth, Every 15 minutes, # 4,000 mL, 0 Refills, Maintenance, 11/28/17 12:30:27 EDT, 240 mL By Mouth Every 15 minutes Start Date: 11/28/17 Status: OrderedPen [place], 31 G x 8 mm BD Ultra [...] Care Team PersonnelName: Светлана Benjamin MD Address: [address] [place] [address]
--- OUTSIDE RECORDS SUMMARY | 2022-07-31 07:50 | XMS_ITS | Continuity of Care Document ---
:1955 Author Organization [facility] Address [address] [place] [phone]- Care Team Providers Name Role Phone Freda Stringer MD Primary Care Physician [place] [facility] [place] 12/13/20 - 01/12/21 [facility] [address] [place] [id number] Attending Physician: Trinity Amador Admitting Physician: AdmTrinity bagley Referring Physician: AdmtrTrinity Allergies, Adverse Reactions, Alerts [...] 0 Refills, Maintenance, 01/05/19 14:26:00 EDT, NO Lemon/[place] flavor please, 240 mL By Mouth Every 15 minutes Start Date: 01/05/19 Status: OrderedNuLYTELY with Flavor Packs oral powder for reconstitution See Instructions, Drink 240mL every 10-15 minutes, # 4,000 mL, 0 Refills, Maintenance, 12/24/19 14:14:00 EDT, [facility], Drink 240mL every 10-15 minutes, [...]
--- OUTSIDE RECORDS SUMMARY | 2022-07-31 07:50 | XMS_ITS | Continuity of Care Document ---
:1955 Author Organization [facility] Address [address] [place] [id number]- Care Team Providers Name Role Phone Freda Stringer MD Primary Care Physician [place] [facility] [place](s[place] 10/28/20 - 01/12/21 [facility] [address] [place] [id number] Attending Physician: Pam Venegas MD Admitting Physician: Pam Venegas MD Referring Physician: Freda Stringer MD Allergies, Adverse Reactions, Alerts Substance Reaction [...] 0 Refills, Maintenance, 01/05/19 14:26:00 EDT, NO Lemon/Qagan Tayagungin flavor please, 240 mL By Mouth Every 15 minutes Start Date: 01/05/19 Status: OrderedNuLYTELY with Flavor Packs oral powder for reconstitution See Instructions, Drink 240mL every 10-15 minutes, # 4,000 mL, 0 Refills, Maintenance, 12/24/19 14:14:00 EDT, [facility], Drink 240mL every 10-15 [...]
--- OUTSIDE RECORDS SUMMARY | 2022-07-31 07:50 | XMS_ITS | Continuity of Care Document ---
:1955 Author Organization [facility] Address [address] [place] [id number]- Care Team Providers Name Role Phone Toni Colon MD Primary Care Physician Encounter [facility] [place] Date(s): 02/26/20 - 02/26/[address] [address]- [facility] Discharge Disposition: A-D/C Home Attending Physician: Willy Dejesus MD Admitting Physician: Willy Dejesus MD Referring Physician: Willy Dejesus MD Allergies, Adverse Reactions, Alerts Substance Reaction [...] mL, 0 Refills, Maintenance, 12/24/19 14:14:00 EDT, [facility], Drink 240mL every 10-15 minutes, [...] Dates Status Health Status Informant Diabetes(Confirmed) Active Procedures Procedure Date Related Diagnosis Body Site Status Colonoscopy 02/26/20 Completed Esophagogastroduodenoscopy and biopsy 02/26/20 Completed Vital Signs Most recent to oldest 1 2 3 [Reference Range]: Height 152 cm (02/26/20 8:23 AM) Oxygen Saturation [94-100 %] 100 % 98 % 96 % (02/26/20 9:54 AM) (02/26/20 9:43 AM) (02/26/20 8:2 3 AM) Pulse Rate [55-90 bpm] 70 bpm (02/26/20 8:23 AM) Blood Pressure [90-138/55-84 mm 118/58 mm Hg 140/71 mm Hg 137/70 mm Hg Hg] (02/26/20 9:54 AM) *H* (02/26/20 8:23 AM) (02/26/20 9:43 AM) Respiratory Rate [16-30 br/min] 18 br/min 18 br/min 18 br/min (02/26/20 9:54 AM) (02/26/20 9:43 AM) (02/26/20 8:2 3 AM) Temperature [96.8-100.4 DegF] 97.0 DegF (02/26/20 8:23 AM) Mode of Delivery (Oxygen) Room air Room air Room a ir (02/26/20 9:54 AM) (02/26/20 9:43 AM) (02/26/20 8:2 3 AM) Blood pressure sites Arm, left Arm, left Arm, left (02/26/20 9:54 AM) (02/26/20 9:43 AM) (02/26/20 8:2 3 AM) Temperature Route Core (02/26/20 8:23 AM) Dry Weight 58.5 kg (02/26/20 8:23 AM)
[2022-07-31 08:24] LABS: COVID-19 Test Negative (Negative); IDNOW Serial# BCCEAD1C
[2022-07-31 08:25] LABS: Glucose, Whole Blood 116 mg/dL (60-115)
[2022-07-31] MEDS: Lactated Ringers 1,000 ML 50 ML IVCONT (08:38)
[2022-07-31] MEDS: vancomycin HCL 1,000 MG in 0.9 % Sodium Chloride 250 ML 270 MG IV ×2 (08:46→19:37)
[2022-07-31] MEDS: Albuterol Sulfate (0.083%) 2.5 MG/3 ML VIAL.NEB INHALE (09:13)
--- NOTE | 2022-07-31 09:46 | MHC.SHP ---
Pre-Procedural Eval Section A Date of Service: 07/31/22 The patient is an INPATIENT: No Changes since office visit: No Cold of Flu in the past 2 weeks, No New Medical Problems, No Changes in Medication and No Patient answered all questions The History & Physical has been completed within 30 days and I have reviewed it.: Yes Section B Chief Complaint: LT TSA Allergies: Allergies Allergy/AdvReac Type Severity Reaction Status Date / Time cephalexin [From KEFLEX] Allergy Intermediate REDNESS, Verified 07/24/22 12:29 hives, swelling Plan I have reviewed the history and physical and performed a pertinent physical examination on my patient. No changes have occurred unless specified. Time Spent With Patient Time: Total time managing care of this patient today ____ minutes.
--- NOTE | 2022-07-31 12:05 | PM.OP ---
Brief Operative Note Date of Service: 07/31/22 Pre-op diagnosis: Left shoulder OA Post-op diagnosis: same Procedure: Left TSA Implants: Tournier Surgeon: Cesar Cooper MD Anesthesia: GETA and regional Was an Paint Department Supervisor used for this Procedure?: Yes Paint Department Supervisor: Belle Hernandez Estimated blood loss (mL): 150 IV fluids (mL): 1,000 Pathology: other Condition: stable Disposition: PACU
--- NOTE | 2022-07-31 15:19 | PHA.MEDREC ---
Pharmacy Consult ? Medication Reconciliation Pharmacy has reviewed the medication reconciliation done by RN. Also added some using claims from [facility], they get all their meds delivered at once.
[2022-07-31] MEDS: 0.9 % Sodium Chloride Flush 3 ML SYRINGE IVFLUSH ×2 (16:11→22:37)
[2022-07-31] MEDS: oxyCODONE HCl Immed Release 5 MG TABLET PO ×2 (16:11→22:33)
[2022-07-31] MEDS: clonazePAM 1 MG TABLET PO ×2 (16:11→19:42)
[2022-07-31 16:20] LABS: Glucose, Whole Blood 328 mg/dL (60-115)
--- NOTE | 2022-07-31 16:35 | MHC.CM.PN ---
IMM 07/31/22, EMR REVIEWED, CM MET W/PT AND DTR AT BEDSIDE PER REQUEST OF DTR SHE WILL NOT BE AVAILABLE TOMORROW, DTR SOMALI SPEAKING AND PT ABLE TO UNDERSTAND AND RESPOND TO ALL QUESTIONS CM ASKED IN SOMALI. PT AND DTR REPORT PT WOULD LIKE STR SHE HAD STR WHEN SHE HAD HER OTHER SHOULDER DONE. PT REPORTS SHE PREFERS TO STAY IN [place] AND DID NOT LIKE THE FACILITY IN [place] SHE WENT TO THEY WOULD NOT LET HER SHOWER. PT/DTR HAVE NO PREFERENCE OF WHICH SNF IN [place]. PT REPORTS MODERNA X 4-5, PCP IKER HINES AT [facility] AND HCP DTR MARYAM [phone] ON FILE FROM PREVIOUS ADMIT. PT LIVES ALONE. REPORTS SHE HAS A CANE, WALKER, GRAB BAR BY BED AND SHOWER CHAIR FOR DME AND DTR IS HER HOLD WORKER AND PT HAS 1HR DAILY. DISPO PENDING PT NÉSTOR
--- NOTE | 2022-07-31 16:59 | P.CONHOSP_ITS ---
History of Present Illness Data of Consult Service Date: 07/31/22 Primary Care Provider: Светлана Benjamin MD HPI 67 year old female with dm, htn, hld who underwent elective Left shoulder arthroplasty today. She is doing alright after surgery and pain seems to be well controlled. Review of Systems Review of Systems: Gen: no fever Resp: no sob, no cough CV: no chest, no LOCK, no leg edema GI: No n/v, no abd pain Neuro: No confusion [facility] Medical History (Updated 07/31/22 @ 17:08 by Shayne Hoffman MD) Diabetes Edentulous HLD (hyperlipidemia) HTN (hypertension) Hypothyroidism Latent syphilis Panic attacks PTSD (post-traumatic stress disorder) PVD (peripheral vascular disease) Right knee pain SOB (shortness of breath) Spondylosis of lumbar region without myelopathy or radiculopathy T2DM (type 2 diabetes mellitus) Vitamin D deficiency Family History Father No problems noted. Mother No problems noted. 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 If so, by whom?: No Spiritual Healthcare Practices: no Zoroastrianism Healthcare Practices: no Cultural Healthcare Practices: no Are you DNR?: No Advance Directives: No Advance Directives Information Provided: Yes Advance Directives on File: No Recently lost weight without trying: No Eating poorly because of decreased appetite: No Nutrition Risks: No Nutritional Risk Poor oral hygiene: Yes (no teeth) service: No Current occupational status: disabled Meds Allergies Allergy/AdvReac Type Severity Reaction Status Date / Time cephalexin [From KEFLEX] Allergy Intermediate REDNESS, Verified 07/24/22 12:29 hives, swelling Active Medications: Current Medications Acetaminophen (Acetaminophen Supp 650 Mg Supp.Rect) 650 mg NE Q6H PRN PRN Reason: Pain, Mild (Pain Scale 1-3) Amitriptyline HCl (Amitriptyline Hcl 50 Mg Tablet) 100 mg PO BEDTIME [facility] Celecoxib (Celecoxib 200 Mg Capsule) 200 mg PO BID [facility] Clonazepam (Clonazepam 1 Mg Tablet) 1 mg PO TID [facility] Last Admin: 07/31/22 16:11 Dose: 1 mg Dextrose (Dextrose 50 % 25 Gm/50 Ml Syringe) 25 gm IVPUSH Q15M PRN; Protocol PRN Reason: per Hypoglycemia Standing Ord. Docusate Sodium (Docusate Sodium 100 Mg Capsule) 100 mg PO BID [facility] Glucose (Glucose Gel 15 Gm Gel..Gram.) 15 gm PO Q15M PRN; Protocol PRN Reason: per Hypoglycemia Standing Ord. Hydromorphone HCl (Hydromorphone Hcl 0.5 Mg/0.5 Ml Syringe) 0.25 mg IVPUSH Q4H PRN; Protocol PRN Reason: Pain, Severe (Pain Scale 7-10) Lactated Ringer's (Lr) 1,000 mls @ 100 mls/hr IVCONT .Q10H [facility] Stop: 08/01/22 15:34 Vancomycin HCl 1,000 mg/ (Sodium Chloride) 270 mls @ 270 mls/hr IV POSTOP ONE Stop: 07/31/22 20:59 Insulin Human Lispro (Insulin Lispro 100 Unit/Ml 3 Ml Vial) 0 unit SUBCUT QIDACHS [facility]; Protocol Levothyroxine Sodium (Levothyroxine Sodium 75 Mcg Tablet) 75 mcg PO DAILY@0600 [facility] Omeprazole (Omeprazole 20 Mg Capsule.Dr) 20 mg PO DAILY@0630 [facility] Ondansetron HCl (Ondansetron Hcl 4 Mg/2 Ml Vial) 4 mg IVPUSH Q8H PRN PRN Reason: Nausea and Vomiting Oxycodone HCl (Oxycodone Hcl Immed Release 5 Mg Tablet) 5 mg PO Q4H PRN PRN Reason: Pain, Moderate (Pain Scale 4-6 Last Admin: 07/31/22 16:11 Dose: 5 mg Oxycodone HCl (Oxycodone Hcl Er 10 Mg Tab.Er.12h) 10 mg PO BID [facility] Quetiapine Fumarate (Quetiapine Fumarate 100 Mg Tablet) 100 mg PO BEDTIME [facility] Sodium Chloride (0.9 % Sodium Chloride Flush 3 Ml Syringe) 3 ml IVFLUSH QSHIFT JUAN Last Admin: 07/31/22 16:11 Dose: 3 ml Home Medications Medication Instructions Recorded Confirmed Last Taken Type albuterol sulfate 90 mcg/actuation 2 puff inhalation Q6H PRN 06/20/20 07/24/22 07/31/22 History aerosol inhaler (ProAir HFA) Shortness Of Breath Or Wheezing amitriptyline 100 mg tablet 100 mg PO BEDTIME 06/20/20 07/24/22 Unknown History amlodipine 5 mg tablet 5 mg PO DAILY 06/20/20 07/24/22 07/31/22 History gabapentin 800 mg tablet 800 mg PO BEDTIME 06/20/20 08/17/21 Unknown History glipizide 10 mg tablet 10 mg PO BID 06/20/20 07/24/22 Unknown History levothyroxine 75 mcg tablet 75 mcg PO DAILY 06/20/20 07/24/22 07/31/22 History (Synthroid) losartan 25 mg tablet 50 mg PO DAILY 06/20/20 07/31/22 Unknown History metformin 1,000 mg tablet 1,000 mg PO BID 06/20/20 07/24/22 Unknown History omeprazole 20 mg capsule,delayed 20 mg PO DAILY 06/20/20 07/24/22 07/31/22 History release quetiapine 100 mg tablet (Seroquel) 100 mg PO BEDTIME 06/20/20 07/24/22 Unknown History sitagliptin phosphate 25 mg tablet 100 mg PO DAILY 06/20/20 07/31/22 Unknown History (Januvia) fluticasone propionate 220 2 puff inhalation BID 07/24/22 07/24/22 Unknown History mcg/actuation HFA aerosol inhaler insulin glargine 100 unit/mL (3 22 unit subcut BEDTIME 07/24/22 07/24/22 Unknown History mL) subcutaneous pen (Lantus Solostar U-100 Insulin) aspirin 81 mg chewable tablet 1 tab PO DAILY 07/31/22 07/31/22 Unknown History atorvastatin 20 mg tablet 1 tab PO DAILY 07/31/22 07/31/22 Unknown History celecoxib 100 mg capsule 1 cap PO DAILY 07/31/22 07/31/22 Unknown History clonazepam 1 mg tablet 1 tab PO TID PRN Anxiety 07/31/22 07/31/22 Unknown History vit C 250 mg-vit E 90 mg-zinc 40 1 cap PO BID 07/31/22 07/31/22 Unknown History mg-copper 1 [id number] capsule (PreserVision AREDS-2) Physical Exam Vital Signs and Narrative: Vital Signs: Last Vital Signs Temp 97.0 F 07/31/22 15:27 Pulse 86 07/31/22 15:27 Resp 20 07/31/22 15:27 BP 123/59 L 07/31/22 15:27 Pulse Ox 96 07/31/22 15:27 O2 Del Method 07/31/22 15:27 O2 Flow Rate 2 07/31/22 15:05 BMI result Body Mass Index 26.9 Const: Other: General: AO X 3, no acute distress Resp: CTA bilateral CVS: S1,S2,RRR GI: +BS, NT, no distention Skin: No rash Neuro: motor grossly intact Psych: appropriate affect Results Labs 07/24/22 13:19 07/24/22 13:19 Labs: Laboratory Results - last 24 hr 07/31/22 07/31/22 07/31/22 08:01 08:21 16:04 POC Glucose 116 H 328 H COVID-19 (ANEESH) Negative COVID-19 Clin Com See Note Assessment and Plan (1) HLD (hyperlipidemia): Status: Acute (2) HTN (hypertension): Status: Acute (3) T2DM (type 2 diabetes mellitus): Status: Acute (4) Hypothyroidism: Status: Acute Plan 67/F with dm, HTN, HLD, anxiety s/p L TSA 1/DM--continue Lantus and reduce to 15, hold Metformin, sitagliptin and Glipizide, add SSI, dieabetic diet 2/HTN--resume home meds (Norvasc and Losartan) 3/HLD--Lipitor 4/ Anxiety--eleval, klonapin, seroquel 5/ Hypothyroidism--levothyroxine 6/GERD omeprazole 7/ S/p TSA, management by ortho Time Spent With Patient Time: Total time managing care of this patient today ____ minutes.
[2022-07-31] MEDS: Insulin Lispro 100 UNIT/ML 3 ML VIAL SUBCUT ×2 (17:13→22:34)
[2022-07-31] MEDS: Celecoxib 200 MG CAPSULE PO (19:41)
[2022-07-31] MEDS: Amitriptyline HCl 50 MG TABLET 100 MG PO (19:41)
[2022-07-31] MEDS: QUEtiapine Fumarate 100 MG TABLET PO (19:41)
[2022-07-31] MEDS: Docusate Sodium 100 MG CAPSULE PO (19:41)
[2022-07-31] MEDS: Fluticasone Propionate 250 MCG BLST.W.DEV 2 PUFF INHALE (19:41)
[2022-07-31] MEDS: oxyCODONE HCl ER 10 MG TAB.ER.12H PO (19:42)
[2022-07-31 20:57] LABS: Glucose, Whole Blood 238 mg/dL (60-115)
[2022-07-31] MEDS: Insulin Glargine,Hum.rec.anlog 100 UNIT/ML 10 ML VIAL 15 UNIT SUBCUT (22:34)
[2022-08-01] VITALS (8 sets, daily range): BP systolic 99–165; BP diastolic 63–76; PULSE 95–104; RESP 18–20; TEMP 36.1–36.7; O2SAT 92–98
[2022-08-01] MEDS: oxyCODONE HCl Immed Release 5 MG TABLET PO ×4 (03:38→18:35)
[2022-08-01] MEDS: Omeprazole 20 MG CAPSULE.DR PO (05:38)
[2022-08-01] MEDS: Levothyroxine Sodium 75 MCG TABLET PO (05:38)
[2022-08-01] MEDS: HYDROmorphone HCl 0.5 MG/0.5 ML SYRINGE 0.25 MG IVPUSH ×3 (05:43→16:31)
[2022-08-01 06:23] LABS: MANUAL DIFF FLAG NO
[2022-08-01 06:29] LABS: Basophils Percent Auto 0.1 % (0-2); Eosinophils Absolute Auto 0.1 X10*3/uL (0.0-0.4); Eosinophils Percent Auto 0.5 % (0-4); Hematocrit 33.1 % (37.0-47.0); Hemoglobin 10.5 g/dl (12.0-16.0); Imm Gran Abs Auto 0.02 X10*3/uL (0.00-0.03); Imm Gran Pct Auto 0.2 % (0.0-0.4); Lymphocytes Absolute Auto 1.5 X10*3/uL (1.2-4.9); Lymphocytes Percent Auto 14.4 % (20-40); Mean Corpuscular HGB Conc 31.7 g/dl (31.0-35.0); Mean Corpuscular Hemoglobin 28.2 pg (27.0-33.0); Mean Corpuscular Volume 88.7 fL (80.0-98.0); Mean Platelet Volume 9.5 fL (9.4-12.3); Monocytes Percent Auto 9.4 % (2-11); Neutrophils Absolute Auto 7.6 x10*3/uL (2.0-8.3); Neutrophils Percent Auto 75.4 % (45-73); Platelet Count 318 X10*3/uL (160-400); Red Blood Count 3.73 X10*6/uL (4.20-5.50); Red Cell Distribution Width 12.5 % (11.0-16.0); White Blood Count 10.1 X10*3/uL (4.8-10.8)
[2022-08-01] MEDS: Albuterol Sulfate 90 MCG 8 GM INHALER 2 PUFF INHALE ×2 (06:44→16:22)
[2022-08-01 06:59] LABS: Anion Gap 14 (12-20); Blood Urea Nitrogen 14 mg/dL (9-16); Carbon Dioxide 28 mmol/L (22-29); Chloride 101 mmol/L (96-108); Creatinine Clr Calc Pharmacy 59.6; Estimated Glomerular Filt Rate > 60; Glucose Fasting 218 mg/dL (60-99); Potassium 4.5 mmol/L (3.3-5.1); Sodium 138 mmol/L (135-145)
--- NOTE | 2022-08-01 07:20 | PM.PNORT ---
Subjective Subjective Date of Service: 08/01/22 Interval history: POD1 s/p LTSA with rotator cuff repair. Patient is resting in bed. Reports pain. No overnight events. No additional complaints. Physical Exam Vital Signs: Vital Signs: Last Vital Signs Temp 97 F 08/01/22 07:05 Pulse 98 08/01/22 07:05 Resp 18 08/01/22 07:05 BP 148/68 H 08/01/22 07:05 Pulse Ox 98 08/01/22 07:05 O2 Del Method 08/01/22 07:05 O2 Flow Rate 2 07/31/22 15:05 BMI result Body Mass Index 28.6 Const: General: cooperative, healthy appearing and no acute distress Resp: Effort & Inspection: normal respiratory effort and able to speak in complete sentences Cardio: Rate: regular rate Peripheral pulses: Peripheral pulses 2+ throughout GI: Palpation (GI): Soft to palpation Skin: Lesions: no lesions Rashes: no rashes Extrem: Other: Left shoulder Aquacel is c/d/i. Sensation intact. Able to move all digits. NVI. Procedures Date of Service Date of Service: 08/01/22 Progress Note: A&P Assessment and plan (1) Status post total replacement of left shoulder: Status: Acute Plan Continue pain mgmnt Begin ASA dvt ppx begin OT for LTSA Dispo planning-Pending OT eval, pain mgmnt Time Spent With Patient Time: Total time managing care of this patient today ____ minutes. Quality Stroke Does the patient have a stroke diagnosis?: No VTE Prior VTE?: No VTE Risk Level:: Medical - moderate - high VTE Device Contraindication: N/A - Device Ordered VTE Drug Contraindication: N/A - Med Ordered
[2022-08-01 07:32] LABS: Glucose, Whole Blood 193 mg/dL (60-115)
[2022-08-01] MEDS: Fluticasone Propionate 250 MCG BLST.W.DEV 2 PUFF INHALE ×2 (07:33→20:08)
[2022-08-01] MEDS: Insulin Lispro 100 UNIT/ML 3 ML VIAL SUBCUT ×4 (08:00→21:00)
[2022-08-01] MEDS: Aspirin 325 MG TABLET PO ×2 (08:02→21:02)
[2022-08-01] MEDS: oxyCODONE HCl ER 10 MG TAB.ER.12H PO ×2 (08:02→21:03)
[2022-08-01] MEDS: amLODIPine Besylate 5 MG TABLET PO (08:03)
[2022-08-01] MEDS: Losartan Potassium 50 MG TABLET PO (08:03)
[2022-08-01] MEDS: Multivitamin TABLET 1 TAB PO (08:03)
[2022-08-01] MEDS: Atorvastatin Calcium 20 MG TABLET PO (08:04)
[2022-08-01] MEDS: clonazePAM 1 MG TABLET PO ×3 (08:04→21:02)
[2022-08-01] MEDS: Docusate Sodium 100 MG CAPSULE PO ×2 (08:10→21:03)
[2022-08-01] MEDS: 0.9 % Sodium Chloride Flush 3 ML SYRINGE IVFLUSH ×3 (08:10→23:54)
--- NOTE | 2022-08-01 10:19 | P.PNIM_ITS ---
Subjective Subjective Date of Service: 08/01/22 Interval History: f/u on med management interval history: no new issues Physical Exam Vital Signs: Vital Signs: Last Vital Signs Temp 97 F 08/01/22 07:05 Pulse 104 H 08/01/22 07:34 Resp 18 08/01/22 07:34 BP 148/68 H 08/01/22 07:05 Pulse Ox 98 08/01/22 07:05 O2 Del Method 08/01/22 07:05 O2 Flow Rate 2 07/31/22 15:05 BMI result Body Mass Index 28.6 Const: Other: General: AO X 3, no acute distress Resp: CTA bilateral CVS: S1,S2,RRR GI: +BS, NT, no distention Skin: No rash Neuro: motor grossly intact Psych: appropriate affect Objective Data Active Medications Acetaminophen (Acetaminophen Supp 650 Mg Supp.Rect) 650 mg [place] Q6H PRN PRN Reason: Pain, Mild (Pain Scale 1-3) Albuterol Sulfate (Albuterol Sulfate 90 Mcg 8 Gm Inhaler) 2 puff INHALE Q6H PRN PRN Reason: Shortness Of Breath Or Wheezing Last Admin: 08/01/22 06:44 Dose: 2 puff Documented By: GERONIMO Amitriptyline HCl (Amitriptyline Hcl 50 Mg Tablet) 100 mg PO BEDTIME [facility] Last Admin: 07/31/22 19:41 Dose: 100 mg Documented By: DIONY Amlodipine Besylate (Amlodipine Besylate 5 Mg Tablet) 5 mg PO DAILY [facility]; Protocol Last Admin: 08/01/22 08:03 Dose: 5 mg Documented By: ULISES Aspirin (Aspirin 325 Mg Tablet) 325 mg PO BID@1000,2200 [facility] Last Admin: 08/01/22 08:02 Dose: 325 mg Documented By: ULISES Atorvastatin Calcium (Atorvastatin Calcium 20 Mg Tablet) 20 mg PO DAILY [facility] Last Admin: 08/01/22 08:04 Dose: 20 mg Documented By: ULISES Celecoxib (Celecoxib 200 Mg Capsule) 200 mg PO BID [facility] Last Admin: 08/01/22 08:10 Dose: Not Given Documented By: ULISES Non-Admin Reason: Duplicate Order Clonazepam (Clonazepam 1 Mg Tablet) 1 mg PO TID [facility] Last Admin: 08/01/22 08:04 Dose: 1 mg Documented By: ULISES Clonazepam (Clonazepam 1 Mg Tablet) 1 mg PO TID PRN PRN Reason: Anxiety Dextrose (Dextrose 50 % 25 Gm/50 Ml Syringe) 25 gm IVPUSH Q15M PRN; Protocol PRN Reason: per Hypoglycemia Standing Ord. Docusate Sodium (Docusate Sodium 100 Mg Capsule) 100 mg PO BID [facility] Last Admin: 08/01/22 08:10 Dose: 100 mg Documented By: ULISES Fluticasone Propionate (Fluticasone Propionate 250 Mcg Blst.W.Dev) 2 puff INHALE RBID [facility] Last Admin: 08/01/22 07:33 Dose: 2 puff Documented By: BLASCL Glucose (Glucose Gel 15 Gm Gel..Gram.) 15 gm PO Q15M PRN; Protocol PRN Reason: per Hypoglycemia Standing Ord. Hydromorphone HCl (Hydromorphone Hcl 0.5 Mg/0.5 Ml Syringe) 0.25 mg IVPUSH Q4H PRN; Protocol PRN Reason: Pain, Severe (Pain Scale 7-10) Last Admin: 08/01/22 05:43 Dose: 0.25 mg Documented By: DIONY Insulin Glargine (Insulin Glargine,Hum.Rec.Anlog 100 Unit/Ml 10 Ml Vial) 15 unit SUBCUT BEDTIME [facility] Last Admin: 07/31/22 22:34 Dose: 15 unit Documented By: DIONY Insulin Human Lispro (Insulin Lispro 100 Unit/Ml 3 Ml Vial) 0 unit SUBCUT QIDACHS [facility]; Protocol Last Admin: 08/01/22 08:00 Dose: 2 unit Documented By: ULISES Levothyroxine Sodium (Levothyroxine Sodium 75 Mcg Tablet) 75 mcg PO DAILY@0600 [facility] Last Admin: 08/01/22 05:38 Dose: 75 mcg Documented By: DIONY Losartan Potassium (Losartan Potassium 50 Mg Tablet) 50 mg PO DAILY [facility]; Protocol Last Admin: 08/01/22 08:03 Dose: 50 mg Documented By: ULISES Multivitamins/Vitamin C (Multivitamin Tablet) 1 tab PO DAILY [facility] Last Admin: 08/01/22 08:03 Dose: 1 tab Documented By: ULISES Omeprazole (Omeprazole 20 Mg Hayder.) 20 mg PO DAILY@0630 [facility] Last Admin: 08/01/22 05:38 Dose: 20 mg Documented By: DIONY Ondansetron HCl (Ondansetron Hcl 4 Mg/2 Ml Vial) 4 mg IVPUSH Q8H PRN PRN Reason: Nausea and Vomiting Oxycodone HCl (Oxycodone Hcl Immed Release 5 Mg Tablet) 5 mg PO Q4H PRN PRN Reason: Pain, Moderate (Pain Scale 4-6 Last Admin: 08/01/22 08:00 Dose: 5 mg Documented By: ULISES Oxycodone HCl (Oxycodone Hcl Er 10 Mg Tab.Er.12h) 10 mg PO BID [facility] Last Admin: 08/01/22 08:02 Dose: 10 mg Documented By: ULISES Quetiapine Fumarate (Quetiapine Fumarate 100 Mg Tablet) 100 mg PO BEDTIME [facility] Last Admin: 07/31/22 19:41 Dose: 100 mg Documented By: DIONY Sodium Chloride (0.9 % Sodium Chloride Flush 3 Ml Syringe) 3 ml IVFLUSH QSHIFT [facility] Last Admin: 08/01/22 08:10 Dose: 3 ml Documented By: ULISES Labs 08/01/22 05:11 08/01/22 05:11 Labs: Laboratory Results - last 24 hr 07/31/22 07/31/22 08/01/22 16:04 20:21 05:11 MCV 88.7 MCH 28.2 MCHC 31.7 RDW 12.5 Plt Count 318 MPV 9.5 Immature Gran % (Auto) 0.2 Neut % (Auto) 75.4 H Lymph % (Auto) 14.4 L [place] % (Auto) 9.4 Eos % (Auto) 0.5 Baso % (Auto) 0.1 Lymph # (Auto) 1.5 [place] # (Auto) 1.0 Eos # (Auto) 0.1 Baso # (Auto) 0.0 Abs Immat Gran (auto) 0.02 Absolute Neuts (auto) 7.6 Absolute Nucleated RBC 0.000 Nucleated RBC % (auto) 0.0 Anion Gap Estim Creat Clear Calc Estimated GFR POC Glucose 328 H 238 H Fasting Glucose Calcium 08/01/22 08/01/22 05:11 07:06 MCV MCH MCHC RDW Plt Count MPV Immature Gran % (Auto) Neut % (Auto) Lymph % (Auto) [place] % (Auto) Eos % (Auto) Baso % (Auto) Lymph # (Auto) [place] # (Auto) Eos # (Auto) Baso # (Auto) Abs Immat Gran (auto) Absolute Neuts (auto) Absolute Nucleated RBC Nucleated RBC % (auto) Anion Gap 14 Estim Creat Clear Calc 59.6 Estimated GFR > 60 POC Glucose 193 H Fasting Glucose 218 H Calcium 9.0 D Assessment and Plan (1) HTN (hypertension): Status: Acute (2) HLD (hyperlipidemia): Status: Acute (3) T2DM (type 2 diabetes mellitus): Status: Acute Plan 67/F with dm, HTN, HLD, anxiety s/p L TSA 1/DM--continue Lantus and reduce to 15, restart Metformin, holdsitagliptin? and Glipizide, add SSI, dieabetic diet 2/HTN--resume home meds (Norvasc and Losartan) 3/HLD--Lipitor 4/ Anxiety--eleval,? klonapin, seroquel 5/ Hypothyroidism--levothyroxine 6/GERD omeprazole 7/ S/p TSA, management by ortho Time Spent With Patient Time: Total time managing care of this patient today ____ minutes. Quality Stroke Does the patient have a stroke diagnosis?: No VTE Prior VTE?: No VTE Risk Level:: Medical - moderate - high VTE Device Contraindication: N/A - Device Ordered VTE Drug Contraindication: N/A - Med Ordered
[2022-08-01 11:11] LABS: Glucose, Whole Blood 249 mg/dL (60-115)
--- NOTE | 2022-08-01 14:25 | HO.POSTANES ---
Post Anesthesia Evaluation Post Anesthesia Evaluation Vital Signs: Vital Signs Temp Pulse Resp BP Pulse Ox O2 Del Method 08/01/22 07:34 104 H 18 08/01/22 07:05 97 F 98 18 148/68 H 98 Room Air 08/01/22 06:46 100 20 08/01/22 03:24 97.1 F 104 H 20 165/75 H 93 Room Air Anesthesia: Nerve Block and General Mental Status: Awake Pain Control: Satisfactory (complains of pain) Nausea/Vomiting: None Hydration: Adequate Anesthesia-Related Issues: No Anes. Related Issues
[2022-08-01 16:41] LABS: Glucose, Whole Blood 241 mg/dL (60-115)
[2022-08-01 20:06] LABS: Glucose, Whole Blood 301 mg/dL (60-115)
[2022-08-01] MEDS: Insulin Glargine,Hum.rec.anlog 100 UNIT/ML 10 ML VIAL 15 UNIT SUBCUT (21:01)
[2022-08-01] MEDS: QUEtiapine Fumarate 100 MG TABLET PO (21:03)
[2022-08-01] MEDS: Amitriptyline HCl 50 MG TABLET 100 MG PO (21:03)
[2022-08-01] MEDS: Celecoxib 200 MG CAPSULE PO (21:03)
[2022-08-02 01:08] VITALS: RESP 19
[2022-08-02] MEDS: HYDROmorphone HCl 0.5 MG/0.5 ML SYRINGE 0.25 MG IVPUSH ×2 (01:08→11:48)
[2022-08-02 03:53] VITALS: BP 122/65; PULSE 88; RESP 20; TEMP 36.6; O2SAT 97
[2022-08-02] MEDS: oxyCODONE HCl Immed Release 5 MG TABLET PO ×2 (04:07→14:25)
[2022-08-02] MEDS: Levothyroxine Sodium 75 MCG TABLET PO (05:32)
[2022-08-02] MEDS: Omeprazole 20 MG CAPSULE.DR PO (05:32)
[2022-08-02 06:32] LABS: MANUAL DIFF FLAG NO
[2022-08-02 06:38] LABS: Basophils Percent Auto 0.3 % (0-2); Eosinophils Absolute Auto 0.2 X10*3/uL (0.0-0.4); Eosinophils Percent Auto 2.1 % (0-4); Hematocrit 32.9 % (37.0-47.0); Hemoglobin 10.3 g/dl (12.0-16.0); Imm Gran Abs Auto 0.04 X10*3/uL (0.00-0.03); Imm Gran Pct Auto 0.4 % (0.0-0.4); Lymphocytes Absolute Auto 2.4 X10*3/uL (1.2-4.9); Lymphocytes Percent Auto 25.1 % (20-40); Mean Corpuscular HGB Conc 31.3 g/dl (31.0-35.0); Mean Corpuscular Hemoglobin 28.6 pg (27.0-33.0); Mean Corpuscular Volume 91.4 fL (80.0-98.0); Mean Platelet Volume 9.7 fL (9.4-12.3); Monocytes Absolute Auto 0.9 X10*3/uL (0.1-1.2); Monocytes Percent Auto 9.8 % (2-11); Neutrophils Absolute Auto 5.8 x10*3/uL (2.0-8.3); Neutrophils Percent Auto 62.3 % (45-73); Platelet Count 294 X10*3/uL (160-400); Red Cell Distribution Width 12.5 % (11.0-16.0); White Blood Count 9.4 X10*3/uL (4.8-10.8)
[2022-08-02 06:59] LABS: Anion Gap 16 (12-20); Blood Urea Nitrogen 11 mg/dL (9-16); Calcium 8.8 mg/dL (8.4-10.2); Carbon Dioxide 25 mmol/L (22-29); Chloride 101 mmol/L (96-108); Creatinine Clr Calc Pharmacy 61.9; Estimated Glomerular Filt Rate > 60; Glucose Fasting 232 mg/dL (60-99); Potassium 5.1 mmol/L (3.3-5.1); Sodium 137 mmol/L (135-145)
[2022-08-02 07:26] LABS: Glucose, Whole Blood 203 mg/dL (60-115)
[2022-08-02 07:55] VITALS: BP 143/66; PULSE 92; RESP 18; TEMP 36.7; O2SAT 100
[2022-08-02 08:25] VITALS: PULSE 98; RESP 20; O2SAT 96
[2022-08-02] MEDS: Fluticasone Propionate 250 MCG BLST.W.DEV 2 PUFF INHALE (08:25)
[2022-08-02] MEDS: amLODIPine Besylate 5 MG TABLET PO (08:40)
[2022-08-02] MEDS: Atorvastatin Calcium 20 MG TABLET PO (08:40)
[2022-08-02] MEDS: Aspirin 325 MG TABLET PO (08:40)
[2022-08-02] MEDS: Celecoxib 200 MG CAPSULE PO (08:40)
[2022-08-02] MEDS: clonazePAM 1 MG TABLET PO ×2 (08:40→14:14)
[2022-08-02] MEDS: Docusate Sodium 100 MG CAPSULE PO (08:41)
[2022-08-02] MEDS: oxyCODONE HCl ER 10 MG TAB.ER.12H PO (08:41)
[2022-08-02] MEDS: Multivitamin TABLET 1 TAB PO (08:48)
[2022-08-02] MEDS: Insulin Lispro 100 UNIT/ML 3 ML VIAL SUBCUT ×3 (08:50→16:56)
[2022-08-02] MEDS: 0.9 % Sodium Chloride Flush 3 ML SYRINGE IVFLUSH ×2 (08:50→16:57)
--- NOTE | 2022-08-02 08:53 | PM.EVENT ---
Event Note Date of Service: 08/02/22 Event Note: pt seen, vitals, labs, meds reviewed, no new issues. doing fine from medical perspective. May resume home meds upon discharge. time 10 minutes Time Spent With Patient Time: Total time managing care of this patient today ____ minutes.
[2022-08-02] MEDS: Losartan Potassium 50 MG TABLET PO (09:08)
--- NOTE | 2022-08-02 09:12 | PM.PNORT ---
Subjective Subjective Date of Service: 08/02/22 Interval history: Patient is sitting in the recliner. No overnight events. Complains of pain. No additional complaints. Physical Exam Vital Signs: Vital Signs: Last Vital Signs Temp 98.1 F 08/02/22 07:55 Pulse 98 08/02/22 08:25 Resp 20 08/02/22 08:25 BP 143/66 H 08/02/22 07:55 Pulse Ox 100 08/02/22 07:55 O2 Del Method 08/02/22 07:55 O2 Flow Rate 2 08/02/22 07:55 BMI result Body Mass Index 28.6 Const: General: cooperative, healthy appearing and no acute distress Resp: Effort & Inspection: normal respiratory effort and able to speak in complete sentences Cardio: Rate: regular rate Peripheral pulses: Peripheral pulses 2+ throughout GI: Palpation (GI): Soft to palpation Skin: Lesions: no lesions Rashes: no rashes Extrem: Other: Left shoulder incision site is intact. Marie intact. Able to move all digits. NVI. Procedures Date of Service Date of Service: 08/02/22 Progress Note: A&P Assessment and plan (1) Status post total replacement of left shoulder: Status: Acute Plan Continue pain mgmnt Begin ASA dvt ppx begin OT for LTSA Dispo planning-Pending rehab placement, pain mgmnt Time Spent With Patient Time: Total time managing care of this patient today ____ minutes. Quality Stroke Does the patient have a stroke diagnosis?: No VTE Prior VTE?: No VTE Risk Level:: Medical - moderate - high VTE Device Contraindication: N/A - Device Ordered VTE Drug Contraindication: N/A - Med Ordered
[2022-08-02 11:20] LABS: Glucose, Whole Blood 250 mg/dL (60-115)
--- NOTE | 2022-08-02 15:06 | P.DS_ITS ---
DS: Providers Provider Date of Service: 08/02/22 Date of admission: 07/31/22 07:46 Primary care physician: Светлана Benjamin MD Consults: 07/31/22 15:35 Consult to Hospitalist Routine Consulting Provider: Hospitalist Reason For Exam: medical management DS: Diagnosis Discharge Diagnosis (1) Status post total replacement of left shoulder: Status: Acute DS: Summary Hospital Course Hospital Course: The patient underwent a successful left TSA arthroplasty, was transferred to PACU and then to the floor to recover. During their stay, their vitals were stable, afebrile at 98.1. Labs were unremarkable, H/H 10.3/32.9 . POD 1 she was started on ASA for DVT ppx, they also received OT services twice a day. Prior to discharge, their dressing was change, incision clean dry and intact, new Aquacel dressing applied and the plan was to be discharged to [facility], length of stay less than 30 days . Time Spent with Patient Time attestation: Total time managing care of this patient today ____ minutes. Discharge coordination time: Less than 30 minutes Quality: Safe Use of Opioids Does Pt have an Active Cancer Diagnosis on the Problem List?: No Quality: Stroke Does the patient have a stroke diagnosis?: No Physical Exam Vital Signs: Vital Signs: Last Vital Signs Temp 98.1 F 08/02/22 07:55 Pulse 98 08/02/22 08:25 Resp 20 08/02/22 08:25 BP 143/66 H 08/02/22 07:55 Pulse Ox 100 08/02/22 07:55 O2 Del Method 08/02/22 07:55 O2 Flow Rate 2 08/02/22 07:55 BMI result Body Mass Index 28.6 DS: Data Data Completed and Pending Pending studies at discharge: Pending at discharge 07/31/22 11:43 Surgical [PTH] Routine Labs on day of discharge: Laboratory Results - last 24 hr 08/01/22 08/01/22 08/02/22 16:31 19:55 05:09 WBC 9.4 RBC 3.60 L Hgb 10.3 L Hct 32.9 L MCV 91.4 MCH 28.6 MCHC 31.3 RDW 12.5 Plt Count 294 MPV 9.7 Immature Gran % (Auto) 0.4 Neut % (Auto) 62.3 Lymph % (Auto) 25.1 [place] % (Auto) 9.8 Eos % (Auto) 2.1 Baso % (Auto) 0.3 Lymph # (Auto) 2.4 [place] # (Auto) 0.9 Eos # (Auto) 0.2 Baso # (Auto) 0.0 Abs Immat Gran (auto) 0.04 H Absolute Neuts (auto) 5.8 Absolute Nucleated RBC 0.000 Nucleated RBC % (auto) 0.0 Sodium Potassium Chloride Carbon Dioxide Anion Gap BUN Creatinine Estim Creat Clear Calc Estimated GFR POC Glucose 241 H 301 H Fasting Glucose Calcium 08/02/22 08/02/22 08/02/22 05:09 07:19 11:16 WBC RBC Hgb Hct MCV MCH MCHC RDW Plt Count MPV Immature Gran % (Auto) Neut % (Auto) Lymph % (Auto) [place] % (Auto) Eos % (Auto) Baso % (Auto) Lymph # (Auto) [place] # (Auto) Eos # (Auto) Baso # (Auto) Abs Immat Gran (auto) Absolute Neuts (auto) Absolute Nucleated RBC Nucleated RBC % (auto) Sodium 137 Potassium 5.1 Chloride 101 Carbon Dioxide 25 Anion Gap 16 BUN 11 Creatinine 0.76 Estim Creat Clear Calc 61.9 Estimated GFR > 60 POC Glucose 203 H 250 H Fasting Glucose 232 H Calcium 8.8 Discharge Plan Discharge Anticipated Discharge Date/Time: 08/02/22 16:14 Patient Disposition: Xfer SNF Discharge Diagnosis: Lt TSA Referrals: [facility] [Outside] - 1 Day (SHORT TERM REHAB) Светлана Benjamin MD [Primary Care Provider] - 1 Week Belle Hernandez PA-C [Physician Computer Education Professor] - 2 Weeks (08/16/22 1:30 [facility] Belle Hernandez PA-C) Discharge Medications: New tramadol 50 mg tablet 50 mg PO Q8H PRN (Reason: pain) 7 Days Qty: 21 0RF aspirin 325 mg Tablet 325 mg PO BID@1000,2200 42 Days Qty: 84 0RF acetaminophen 650 mg Suppository 650 mg LA Q6H PRN (Reason: Pain, Mild (Pain Scale 1-3)) 30 Days Qty: 240 0RF clonazepam 1 mg Tablet 1 mg PO TID 7 Days Qty: 21 0RF Continued fluticasone propionate 220 mcg/actuation Hfa Aerosol Inhaler 2 puff INHALATION BID insulin glargine [Lantus Solostar U-100 Insulin] 100 unit/mL (3 mL) insulin pen 22 unit subcut BEDTIME atorvastatin 20 mg tablet 1 tab PO DAILY clonazepam 1 mg tablet 1 tab PO TID PRN (Reason: Anxiety) celecoxib 100 mg capsule 1 cap PO DAILY PreserVision AREDS-2 250-90-40-1 mg capsule 1 cap PO BID Januvia 25 mg tablet 100 mg PO DAILY losartan 25 mg tablet 50 mg PO DAILY gabapentin 800 mg tablet 800 mg PO BEDTIME glipizide 10 mg tablet 10 mg PO BID metformin 1,000 mg tablet 1,000 mg PO BID albuterol sulfate [ProAir HFA] 90 mcg/actuation HFA aerosol inhaler 2 puff inhalation Q6H PRN (Reason: Shortness Of Breath Or Wheezing) levothyroxine [Synthroid] 75 mcg tablet 75 mcg PO DAILY quetiapine [Seroquel] 100 mg tablet 100 mg PO BEDTIME amitriptyline 100 mg tablet 100 mg PO BEDTIME amlodipine 5 mg tablet 5 mg PO DAILY omeprazole 20 mg capsule,delayed release(DR/EC) 20 mg PO DAILY Discontinued aspirin 81 mg tablet,chewable 1 tab PO DAILY Discharge Orders: Discharge Order (Routine); Ordered 08/02/22 Ordered By: Belle Hernandez Diet: Regular diet Activity on Discharge: sling Stand Alone Forms: Patient Portal Discharge page Activity Restrictions/Additional Instructions: Left TSA: subscap protocol . ER neutral, ABduction 90, FF 90. Periscap stabilization. Pendulums. PROM. ADLs Care Plan Goals: Restore function of joint Health Concerns: Physical Therapy Pain management DVT prophylaxis Plan of Treatment: * Wear sling at all times unless for hygiene and exercises * Pendelums three times a day * Physical Therapy/ Occupation therapy * ---Left TSA: subscap protocol . ER neutral, ABduction 90, FF 90. Periscap stabilization. Pendulums. PROM. ADLs * ---No heavy lifting * ---Elbow and wrist ROM ok * Aspirin 325mg twice a day * Follow up with orthopedics in 2 weeks Assessment: as above
[2022-08-02 15:39] VITALS: BP 109/69; PULSE 91; RESP 18; TEMP 36.2; O2SAT 98
--- NOTE | 2022-08-02 16:09 | MHC.CM.PN ---
PT MEDICALLY CLEARED FOR D/C TO STR AT [facility] FOR TRANSPORT
[2022-08-02 16:38] LABS: Glucose, Whole Blood 212 mg/dL (60-115)
--- NOTE | 2022-08-06 11:28 | W.PM.OPN ---
Operative Note Operative Note Date of Service: 07/31/22 Narrative: Date of Service: 07/31/22 Pre-op diagnosis: Left shoulder OA Post-op diagnosis: same Procedure: Left TSA Implants:S40 Cortiloc glenoid, cemented Size 1 Nucleus 40x18 Simpliciti head Tournier Surgeon: Cesar Cooper MD Anesthesia: GETA and regional Was an Needle Valve Operator used for this Procedure?: Yes Needle Valve Operator: Belle Hernandez Estimated blood loss (mL): 150 IV fluids (mL): 1,000 Pathology: other Condition: stable Disposition: PACU Procedure in detail: Patient was brought to the operating room and placed in the beach chair position on the surgical table. The limb was prepped and draped in standard sterile fashion and a time out was called to identify proper site, proper procedure and IV antibiotics per weight were administered. I began by making a deltopectoral incision from the coracoid to the pectoralis insertion.? Blunt dissection identified the cephalic vein which was retracted laterally.? Blunt dissection was taken down to the 3 sisters which were cauterized.? I then made a full-thickness capsulotomy including the subscapularis. A 1 cm cuff was left for repair.? This was then tagged and the arm was externally rotated and extended and the head was dislocated.? The humeral head was eburnated and there was a large inferior osteophyte that was removed with an osteotome. The inferior NV structures were protected at all times.? The RTC was intact. An anatomic head cut was made in patient's natural inclination (approximately 132 degree) .? I drilled the cancellous bone of the humeral metaphysis and placed the simplicity base and the protector I then placed my head protector and turned my attention to the glenoid.? Posterior anterior and superior glenoid retractors were placed and the biceps was tenotomized and labral tissue was removed.? Based on the preoperative CT and templating a guide pin was placed in approximately 5 degrees of retroversion and neutral inclination.? Using a wedge Reamer I reamed circumferentially and minimally. I then drilled my center hole and over this drilled my superior and inferior holes. I mixed one bag of bone cement on the back table using standard technique. My final s40 Cortiloc glenoid was cemented in place while applying axial compression. Once the cement was dry all excess cement was removed. I then returned to the humerus where I trialed a?simpliciti head. I was satisfied with the height and the stability using a 40x18. I irrigated copiously and then placed the nucleus base and the 40x18 final head. I was satisfied with the stability of the implants. I then irrigated and repaired the subscapularis with fiberwire.? I closed in a layered fashion with absorbable suture and aye and the patient was placed in a sterile dressing and an abduction sling.? She was extubated brought to recovery room stable condition there were no known complications.
== END 2022-08-02 17:24 | disposition skilled nursing facility (03) | DRG 483 ==
LOC: HO.SSSA 12:24 → HO.S3 14:55
PROVIDERS: Nurse Practitioner; Physician Assistant; Admitting Provider Orthopaedic Surgery; PCP General Practice; Visit Provider Orthopaedic Surgery
PROC: 0RRK0JZ Replacement of Left Shoulder Joint with Synthetic Substitute, Open Approach (ICD-10-PCS; CPT 23472; principal; 2022-07-31 09:40)
DX: M19.012 Primary osteoarthritis, left shoulder (principal); E78.5 Hyperlipidemia, unspecified; I10 Essential (primary) hypertension; E03.9 Hypothyroidism, unspecified; E11.9 Type 2 diabetes mellitus without complications; F41.9 Anxiety disorder, unspecified; K21.9 Gastro-esophageal reflux disease without esophagitis; F17.210 Nicotine dependence, cigarettes, uncomplicated; Z20.822 Contact with and (suspected) exposure to COVID-19; Z71.6 Tobacco abuse counseling; Z88.1 Allergy status to other antibiotic agents; Z79.4 Long term (current) use of insulin; Z79.890 Hormone replacement therapy; Z79.899 Other long term (current) drug therapy
CPT/HCPCS: 36415; 73020; 80048; 82947; 85025; 85027; 86850; 86900; 86901; 87635; 87640; 87641; 88304; 88311; 93005; 97110; 97165; C1713; C1776; J1100; J1170; J1885; J2370; J2405; J2795; J3010; J3370

== ENCOUNTER 2022-08-16 10:47 | Emergency (ER) | payer OTHER, SELFPAY ==
[2022-08-16 10:51] VITALS: BP 114/86; PULSE 77; O2SAT 96
== END 2022-08-16 11:07 | disposition left against medical advice (07) ==
PROVIDERS: Emergency Provider Emergency Medicine
DX: M25.512 Pain in left shoulder (principal)

== ENCOUNTER 2022-08-16 15:04 | Outpatient (REF) | payer OTHER, SELFPAY ==
--- NOTE | ~2022-08-16 | XR_ITS ---
EXAMINATION: XR SHOULDER, LEFT CLINICAL INFORMATION: Left shoulder pain COMPARISON: To TECHNIQUE: AP and axillary views of the left shoulder. FINDINGS: Patient is status post left shoulder total joint arthroplasty. Surgical components appears stable in position compared to the prior exam. Extensive cystic changes is seen within the glenoid which is unchanged in appearance. No acute fractures seen. Soft tissue swelling and air has decreased compared to the prior exam. XR/XR shoulder LT min 2V IMPRESSION: Postsurgical changes of left shoulder total arthroplasty. Stable appearance compared to the prior exam
== END 2022-08-16 15:05 | disposition home or self-care (01) ==
LOC: HO.HOSX 15:04
PROVIDERS: Visit Provider Physician Assistant
DX: M25.512 Pain in left shoulder (principal)
CPT/HCPCS: 73030

== ENCOUNTER 2022-09-13 05:50 | Outpatient (REF) | payer OTHER, SELFPAY ==
--- NOTE | ~2022-09-13 | XR_ITS ---
EXAMINATION: XR SHOULDER, LEFT CLINICAL INFORMATION: Left shoulder pain COMPARISON: 08/16/2022 TECHNIQUE: Two views of the left shoulder. FINDINGS: Redemonstrated post surgical changes from total shoulder arthroplasty. Hardware appears in stable position with anatomic alignment. No acute fracture there is seen. Redemonstrated prominent cystic changes of the glenoid. Acromioclavicular joint is intact with degenerative change. XR/XR shoulder LT min 2V IMPRESSION: No acute findings identified. Status post total shoulder arthroplasty.
== END 2022-09-13 05:51 | disposition home or self-care (01) ==
LOC: HO.HOSX 05:50
PROVIDERS: Visit Provider Physician Assistant
DX: M25.512 Pain in left shoulder (principal); Z47.1 Aftercare following joint replacement surgery; Z96.612 Presence of left artificial shoulder joint; Z79.899 Other long term (current) drug therapy
CPT/HCPCS: 73030

== ENCOUNTER 2022-10-22 08:30 | Outpatient (REF) | payer OTHER, SELFPAY ==
--- NOTE | ~2022-10-22 | XR_ITS ---
EXAMINATION: XR SHOULDER, LEFT CLINICAL INFORMATION: Pain left shoulder COMPARISON: Left shoulder 09/13/2022. TECHNIQUE: AP external rotation, Grashey, scapular Y, and axillary views of the left shoulder. FINDINGS: There is partial left shoulder prosthesis with normal glenohumeral articulation. There is a solitary metallic pin through the central glenoid. No gross bony abnormality seen. There are mild arthritic changes AC joint with periarticular spurring. The soft tissues are normal. XR/XR shoulder LT min 2V IMPRESSION: Partial left shoulder arthroplasty with prosthetic components in satisfactory alignment. Mild degenerative arthritic changes left AC joint.
== END 2022-10-22 08:31 | disposition home or self-care (01) ==
LOC: HO.HOSX 08:30
PROVIDERS: Visit Provider Orthopaedic Surgery
DX: M25.512 Pain in left shoulder (principal); Z96.612 Presence of left artificial shoulder joint
CPT/HCPCS: 73030; 99212

== ENCOUNTER 2022-10-30 12:00 | Outpatient (RCR) | payer OTHER, SELFPAY ==
--- NOTE | 2022-10-11 13:26 | MHC.PT.EP ---
[facility] [place] Office [place] Office [place] Office [address] Bam Lynch [address] [phone] F: [phone] F: [phone] F: [phone] F: [phone] Physical Therapy Plan of Care Date of Evaluation: Date of Surgery: 07/31/22 Diagnosis: s/p LEFT total shoulder arthroplasty (surgery: 07/31/22) Assessment: Patient is a Marshallese speaking 67 y.o. female who is referred to PT by GEN Wong, with Dx of s/p LEFT total shoulder arthroplasty on 07/31/2022. She is just starting PT now post surgically. Patient impairments include pain, limited ROM, weakness with related functional deficits. Patient current functional limitations are lifting arm, reaching, using the bathroom, holding objects, getting dressed, cleaning, cooking. Patient will benefit from skilled PT to address aforementioned impairments and functional limitations to meet established goals. Frequency and Duration: The patient will be seen 2x/week for 6 weeks Short Term Goals: 3 weeks Patient demonstrates consistency and independence with HEP to self manage symptoms. Patient is able to safely wean off sling. Long-Term Goals: 6 weeks Patient presents with increased L shoulder flexion 150 degrees to be able to reach to high cabinet. Patient presents with increased L shoulder flexion strength 4/5 to be able to get items in/out of refrigerator. Treatment Plan: Modalities to reduce pain, spasms and effusion. Manual therapy to restore motion and function. Therapeutic exercise to improve strength and flexibility. Neuromuscular re-education for posture and balance. Therapeutic activities to return to functional activities of daily living. Electronically signed by: Julius Phan, PT, DPT Please sign and return to therapist. Thank you for your referral.
--- NOTE | 2022-12-20 17:53 | MHC.PT.DC ---
[facility] [place] Office [place] Office [place] Office [address] Bam Lynch [address] [phone] F: [phone] F: [phone] F: [phone] F: [phone] Physical Therapy Discharge Report Diagnosis: s/p LEFT total shoulder arthroplasty (surgery: 07/31/22) Date of Surgery: 07/31/22 Date of Evaluation: 10/11/22 Date of Discharge: 12/20/22 Treatments to Date: 3 Cancellations to Date: 3 No Shows to Date: 8 Discharge Status: Recommend MD Follow-up Visit Non-compliance Discharge Summary: Patient had very poor attendance with physical therapy for her post operative rehabilitation, and was only seen for 3 visits, difficulty progressing program and determining effectiveness of interventions due to this. She is discharged for therapy due to visit non-compliance. Electronically signed by: Julius Phan PT, DPT Please sign and return to therapist. Thank you for your referral.
== END 2022-12-20 17:54 | disposition home or self-care (01) ==
LOC: HO.PT 12:00
PROVIDERS: PCP General Practice; Visit Provider Physician Assistant
DX: Z96.612 Presence of left artificial shoulder joint (principal)
CPT/HCPCS: 97110; 97140; 97162

== ENCOUNTER 2023-01-15 12:38 | Outpatient (REF) | payer OTHER, SELFPAY ==
--- NOTE | ~2023-01-15 | XR_ITS ---
EXAMINATION: XR HIP, LEFT CLINICAL INFORMATION: Left hip pain for months COMPARISON: None available. TECHNIQUE: Two views of the left hip. FINDINGS: No fracture. Alignment is anatomic. Hip joint space is maintained. There is mild heterotopic ossific or calcific density adjacent to the greater trochanter. XR/XR hip LT min 2V IMPRESSION: Mild heterotopic ossific or calcific density adjacent to the greater trochanter. The cartilage space of the hip is well-maintained.
== END 2023-01-15 12:39 | disposition home or self-care (01) ==
LOC: HO.HHCX 12:38
PROVIDERS: Visit Provider General Practice
DX: M25.552 Pain in left hip (principal)
CPT/HCPCS: 73502

== ENCOUNTER 2023-02-12 00:12 | Emergency (ER) | payer OTHER, SELFPAY ==
--- NOTE | ~2023-02-12 | XR_ITS ---
EXAMINATION: XR HIP, LEFT CLINICAL INFORMATION: Acute left hip pain COMPARISON: Left hip 01/15/2023 TECHNIQUE: Single view pelvis with 2 views of the left hip. FINDINGS: Again seen is heterotopic ossification just above the greater trochanter on the left. Appearances are unchanged when compared to 01/15/2023 No fracture. Alignment is anatomic. Hip joint space is maintained. Soft tissues are unremarkable. XR/XR hip LT w PEL1V IMPRESSION: Unchanged heterotopic ossification above the greater trochanter on the left.
[2023-02-12 00:18] VITALS: BP 133/50; PULSE 100; O2SAT 97
[2023-02-12 00:19] VITALS: BP 107/58; PULSE 94; RESP 18; TEMP 37.1; O2SAT 96; BMI 26.2
--- NOTE | 2023-02-12 00:45 | ED_ITS ---
HPI - Fall General Chief Complaint: Fall Stated Complaint: Fall/pain Time Seen by Provider: 02/12/23 00:21 Source: patient and EMS Mode of arrival: EMS Limitations: no limitations History of Present Illness HPI Narrative: 67-year-old female presents with left hip pain. Pain started prior to arrival. She fell after a mechanical fall. She did not hit her head or lose consciousness. There is no prodrome such as chest pain, palpitations or lightheadedness. She is now experiencing severe pain. The pain is on the lateral aspect of her left hip. The pain does not radiate. She also complains of some buttock pain. There is no loss of bowel or bladder control. No back pain. No numbness or tingling. No deformity. Symptoms started around 11:00 a.m. this afternoon. Related Data Home Medications Medication Instructions Recorded Confirmed albuterol sulfate 90 mcg/actuation 2 puff inhalation Q6H PRN 06/20/20 09/13/22 aerosol inhaler (ProAir HFA) Shortness Of Breath Or Wheezing amitriptyline 100 mg tablet 100 mg PO BEDTIME 06/20/20 09/13/22 amlodipine 5 mg tablet 5 mg PO DAILY 06/20/20 09/13/22 gabapentin 800 mg tablet 800 mg PO BEDTIME 06/20/20 09/13/22 glipizide 10 mg tablet 10 mg PO BID 06/20/20 09/13/22 levothyroxine 75 mcg tablet 75 mcg PO DAILY 06/20/20 09/13/22 (Synthroid) losartan 25 mg tablet 50 mg PO DAILY 06/20/20 09/13/22 metformin 1,000 mg tablet 1,000 mg PO BID 06/20/20 09/13/22 omeprazole 20 mg capsule,delayed 20 mg PO DAILY 06/20/20 09/13/22 release quetiapine 100 mg tablet (Seroquel) 100 mg PO BEDTIME 06/20/20 09/13/22 sitagliptin phosphate 25 mg tablet 100 mg PO DAILY 06/20/20 09/13/22 (Januvia) fluticasone propionate 220 2 puff inhalation BID 07/24/22 09/13/22 mcg/actuation HFA aerosol inhaler insulin glargine 100 unit/mL (3 22 unit subcut BEDTIME 07/24/22 09/13/22 mL) subcutaneous pen (Lantus Solostar U-100 Insulin) atorvastatin 20 mg tablet 1 tab PO DAILY 07/31/22 09/13/22 celecoxib 100 mg capsule 1 cap PO DAILY 07/31/22 09/13/22 clonazepam 1 mg tablet 1 tab PO TID PRN Anxiety 07/31/22 09/13/22 vit C 250 mg-vit E 90 mg-zinc 40 1 cap PO BID 07/31/22 09/13/22 mg-copper 1 [id number] capsule (PreserVision AREDS-2) Previous Rx's Medication Instructions Recorded acetaminophen 650 mg rectal 650 mg MT Q6H PRN Pain, Mild (Pain 08/02/22 suppository Scale 1-3) 30 days #240 ea aspirin 325 mg tablet 325 mg PO BID@1000,2200 42 days 08/02/22 #84 tabs clonazepam 1 mg tablet 1 mg PO TID 7 days #21 tabs 08/02/22 tramadol 50 mg tablet 50 mg PO DAILY PRN pain 7 days #7 09/13/22 tabs tramadol 50 mg tablet 50 mg PO BID PRN pain #4 tabs 02/12/23 Allergies Allergy/AdvReac Type Severity Reaction Status Date / Time cephalexin [From KEFLEX] Allergy Intermediate REDNESS, Verified 10/22/22 12:52 hives, swelling Review of Systems Review of Systems: CONSTITUTIONAL: Denies weight loss, fever and chills. HEENT: Denies changes in vision and hearing. RESPIRATORY: Denies SOB and cough. CV: Denies palpitations no CP. GI: Denies abdominal pain, nausea, vomiting and diarrhea. : Denies dysuria and urinary frequency. MSK: + myalgia and joint pain. SKIN: Denies rash and pruritus. NEUROLOGICAL: Denies headache and syncope. PSYCHIATRIC: Denies recent changes in mood. Denies anxiety and depression. All other ROS are negative unless in HPI PMFSH Past Medical History Medical History Diabetes Edentulous HLD (hyperlipidemia) HTN (hypertension) Hypothyroidism Latent syphilis Panic attacks PTSD (post-traumatic stress disorder) PVD (peripheral vascular disease) Right knee pain SOB (shortness of breath) Spondylosis of lumbar region without myelopathy or radiculopathy T2DM (type 2 diabetes mellitus) Vitamin D deficiency Surgical History Hx of appendectomy Hx of section Status post total shoulder replacement Family History Family History Father No problems noted. Mother No problems noted. Social History Social History Household Members: None Housing: Apartment Are you a primary nursing care attendant to a significant other at home: No Do you presently have visiting nurse or other home services: No Alcohol intake: never Patient Tobacco Use Status: Current everyday Tobacco user Tobacco use type: Cigarette Cigarettes Per Day: 10 Years Smoked: 15+ Smoked in Last 30 Days: No Second Hand Smoke Exposure: No Use of substances other than those prescribed or required for medical reasons: No service: No Current occupational status: disabled Physical Exam Vital Signs: Vital Signs: Last Vital Signs Temp 98.8 F 02/12/23 00:19 Pulse 94 02/12/23 00:19 Resp 18 02/12/23 00:19 BP 107/58 L 02/12/23 00:19 Pulse Ox 96 02/12/23 00:19 BMI result Body Mass Index 26.2 GEN: Well developed, no acute distress, alert, oriented HEENT: Normocephalic, atraumatic, normal external ears, nose appears normal Eyes: Normal to appearance Neck: Supple, no lymphadenopathy Respiratory: Talks in complete sentences, no respiratory distress Extremities: No clubbing cyanosis or edema, no external wrote a her shortening, tenderness to left greater trochanteric area left buttock Neurologic: No focal neurologic deficits, cranial nerves 2-12 intact, gait normal Skin: No rash Course Reevaluation(s) Reevaluation #1: X-rays negative. Patient likely has a contusion of the hip. She can be discharged at this time. She is ambulating without difficulty. Time: 01:07 Medications Administered Discontinued Medications Generic Name Dose Route Start Last Admin Trade Name Freq PRN Reason Stop Dose Admin Acetaminophen 975 mg 02/12/23 00:35 02/12/23 01:02 Acetaminophen 325 Mg Tablet PO 02/12/23 00:36 975 mg ONCE ONE Administration Clonazepam 0.5 mg 02/12/23 00:35 02/12/23 01:03 Clonazepam 0.5 Mg Tablet PO 02/12/23 00:36 0.5 mg ONCE ONE Administration Tramadol HCl 50 mg 02/12/23 00:35 02/12/23 01:02 Tramadol Hcl 50 Mg Tablet PO 02/12/23 00:36 50 mg ONCE ONE Administration Medical Decision Making Medical Decision Making MDM Narrative: Patient chemical fall. She is experiencing left hip pain. Differential diagnosis includes fracture, contusion, sprain, strain, muscle spasm. Plan will be to obtain x-ray acute. Will provide patient with analgesia and re-evaluate the patient following imaging studies. Independent Interpretation I performed an independent interpretation of an: Plain X-Ray (Hip left: No acute fracture or traumatic injury) Independent Historian Clinical information obtained from an independent historian. History obtained from or confirmed by: EMS Prescription Management I considered prescription management with: Pain Medication Discharge Plan Discharge Clinical Impression: Falls frequently, Contusion of hip Patient Disposition: Home, Self-Care Instructions: Fall Prevention (ED) Prescriptions: New tramadol 50 mg tablet 50 mg PO BID PRN (Reason: pain) Qty: 4 0RF No Action fluticasone propionate 220 mcg/actuation Hfa Aerosol Inhaler 2 puff INHALATION BID insulin glargine [Lantus Solostar U-100 Insulin] 100 unit/mL (3 mL) insulin pen 22 unit subcut BEDTIME atorvastatin 20 mg tablet 1 tab PO DAILY clonazepam 1 mg tablet 1 tab PO TID PRN (Reason: Anxiety) celecoxib 100 mg capsule 1 cap PO DAILY PreserVision AREDS-2 250-90-40-1 mg capsule 1 cap PO BID aspirin 325 mg Tablet 325 mg PO BID@1000,2200 42 Days Qty: 84 0RF acetaminophen 650 mg Suppository 650 mg MT Q6H PRN (Reason: Pain, Mild (Pain Scale 1-3)) 30 Days Qty: 240 0RF clonazepam 1 mg Tablet 1 mg PO TID 7 Days Qty: 21 0RF Januvia 25 mg tablet 100 mg PO DAILY losartan 25 mg tablet 50 mg PO DAILY gabapentin 800 mg tablet 800 mg PO BEDTIME glipizide 10 mg tablet 10 mg PO BID metformin 1,000 mg tablet 1,000 mg PO BID albuterol sulfate [ProAir HFA] 90 mcg/actuation HFA aerosol inhaler 2 puff inhalation Q6H PRN (Reason: Shortness Of Breath Or Wheezing) levothyroxine [Synthroid] 75 mcg tablet 75 mcg PO DAILY quetiapine [Seroquel] 100 mg tablet 100 mg PO BEDTIME amitriptyline 100 mg tablet 100 mg PO BEDTIME amlodipine 5 mg tablet 5 mg PO DAILY omeprazole 20 mg capsule,delayed release(DR/EC) 20 mg PO DAILY tramadol 50 mg tablet 50 mg PO DAILY PRN (Reason: pain) 7 Days Qty: 7 0RF Referrals: Jose Miguel Triana MD [Physician] -
[2023-02-12] MEDS: Acetaminophen 325 MG TABLET 975 MG PO (01:02)
[2023-02-12] MEDS: traMADoL HCL 50 MG TABLET PO (01:02)
[2023-02-12] MEDS: clonazePAM 0.5 MG TABLET PO (01:03)
== END 2023-02-12 02:55 | disposition home or self-care (01) ==
PROVIDERS: Emergency Provider Emergency Medicine; PCP General Practice
DX: S70.02XA Contusion of left hip, initial encounter (principal); W01.0XXA Fall on same level from slipping, tripping and stumbling without subsequent striking against object, initial encounter; Y93.9 Activity, unspecified; Y92.9 Unspecified place or not applicable; Y99.9 Unspecified external cause status
CPT/HCPCS: 73502; 99283; 99284

== ENCOUNTER 2023-02-22 22:25 | Emergency (ER) | payer OTHER, SELFPAY ==
--- NOTE | ~2023-02-22 | CT_ITS ---
EXAMINATION: CT HIP WITHOUT CONTRAST, LEFT CLINICAL INFORMATION: Fall, rule out occult fracture COMPARISON: X-ray 02/12/2023 TECHNIQUE: Multidetector volumetric imaging was obtained through the left hip without contrast material. Multiplanar reformatted images were submitted in coronal and sagittal planes. This CT examination was performed using dose optimization techniques as appropriate, variously including the following: *Automated exposure control *Adjustment of mA and/or kV according to patient size (this includes techniques or standardized protocols for targeted exams where dose is matched to indication/reason for exam; i.e. extremities or head) *Use of iterative reconstruction technique DLP: 120 mGy-cm FINDINGS: Alignment across the hip is anatomic. There is slight joint space narrowing as well as osteophyte formation along the acetabulum. No acute fracture is seen. Small heterotopic ossification noted superior to the greater trochanter of the femur, also noted radiographically. No significant soft tissue abnormality is seen. CT/CT hip LT wo IV con IMPRESSION: No acute findings identified. Mild degenerative changes of the left hip.
[2023-02-22 22:41] VITALS: BP 144/77; BP 148/86; PULSE 86; PULSE 92; RESP 18; TEMP 36.8; O2SAT 93; O2SAT 97; BMI 25.6
--- NOTE | 2023-02-22 23:01 | MHC.EDTECH ---
Patient came by ambulance, patient changed into hospital attire, vitals were taken,awaiting to be seen at this time. Call troy within reach
--- NOTE | 2023-02-22 23:38 | ED.GENADULT ---
HPI - General Adult General Chief complaint: General Medical Stated complaint: HIP pain after fall Time Seen by Provider: 02/22/23 22:59 Source: patient and EMS Mode of arrival: EMS Limitations: language barrier History of Present Illness HPI narrative: 67-year-old female who presents to the ER with complaints of 10 days of left hip pain after a mechanical fall. Patient reports she was seen here in the emergency room and had x-rays of her left hip which showed no acute fracture. She was discharged home with tramadol to take as needed. Patient reports she ran out of her tramadol and followed up with her primary care doctor who recommended that she take meloxicam and use Lidoderm patches for pain. Patient reports today as she has continued pain and feels that ambulation is difficult. She denies any fevers, chills, numbness, tingling of the extremity. Patient reports was recommended that she do physical therapy but she does not want to do physical therapy as she feels it will make things worse. She also does not feel her PCP is listening to her and she wants her tramadol refilled but they will not do this. She is concerned that they are discriminating against her d/t her mental health issues Related Data Home Medications Medication Instructions Recorded Confirmed albuterol sulfate 90 mcg/actuation 2 puff inhalation Q6H PRN 06/20/20 09/13/22 aerosol inhaler (ProAir HFA) Shortness Of Breath Or Wheezing amitriptyline 100 mg tablet 100 mg PO BEDTIME 06/20/20 09/13/22 amlodipine 5 mg tablet 5 mg PO DAILY 06/20/20 09/13/22 gabapentin 800 mg tablet 800 mg PO BEDTIME 06/20/20 09/13/22 glipizide 10 mg tablet 10 mg PO BID 06/20/20 09/13/22 levothyroxine 75 mcg tablet 75 mcg PO DAILY 06/20/20 09/13/22 (Synthroid) losartan 25 mg tablet 50 mg PO DAILY 06/20/20 09/13/22 metformin 1,000 mg tablet 1,000 mg PO BID 06/20/20 09/13/22 omeprazole 20 mg capsule,delayed 20 mg PO DAILY 06/20/20 09/13/22 release quetiapine 100 mg tablet (Seroquel) 100 mg PO BEDTIME 12/21/20 03/16/23 sitagliptin phosphate 25 mg tablet 100 mg PO DAILY 06/20/20 09/13/22 (Januvia) fluticasone propionate 220 2 puff inhalation BID 07/24/22 09/13/22 mcg/actuation HFA aerosol inhaler insulin glargine 100 unit/mL (3 22 unit subcut BEDTIME 07/24/22 09/13/22 mL) subcutaneous pen (Lantus Solostar U-100 Insulin) atorvastatin 20 mg tablet 1 tab PO DAILY 07/31/22 09/13/22 celecoxib 100 mg capsule 1 cap PO DAILY 07/31/22 09/13/22 clonazepam 1 mg tablet 1 tab PO TID PRN Anxiety 07/31/22 09/13/22 vit C 250 mg-vit E 90 mg-zinc 40 1 cap PO BID 07/31/22 09/13/22 mg-copper 1 [id number] capsule (PreserVision AREDS-2) Previous Rx's Medication Instructions Recorded acetaminophen 650 mg rectal 650 mg IN Q6H PRN Pain, Mild (Pain 08/02/22 suppository Scale 1-3) 30 days #240 ea aspirin 325 mg tablet 325 mg PO BID@1000,2200 42 days 08/02/22 #84 tabs clonazepam 1 mg tablet 1 mg PO TID 7 days #21 tabs 08/02/22 tramadol 50 mg tablet 50 mg PO DAILY PRN pain 7 days #7 09/13/22 tabs tramadol 50 mg tablet 50 mg PO BID PRN pain #4 tabs 02/12/23 cyclobenzaprine 10 mg tablet 10 mg PO TID PRN muscle spasm #10 02/23/23 tabs prednisone 20 mg tablet 40 mg PO DAILY #10 tabs 02/23/23 Allergies Allergy/AdvReac Type Severity Reaction Status Date / Time cephalexin [From KEFLEX] Allergy Intermediate REDNESS, Verified 10/22/22 12:52 hives, swelling Review of Systems Review of Systems: Yes all other systems are reviewed and are negative Constitutional: Constitutional: Reports no additional constitutional complaints, Denies body ache(s), Denies chills, Denies fever(s), Denies headache(s) and Denies weakness Eyes: Eyes: Reports no additional eye complaints and Denies change in vision ENT: Reports system reviewed and no additional complaints, except as documented, Denies dizziness, Denies headache(s), Denies nasal congestion, Denies nasal discharge and Denies neck pain Cardiovascular: Cardiovascular: Reports no additional cardiovascular complaints, Denies chest pain, Denies leg edema and Denies dyspnea Respiratory: Respiratory: Reports no additional respiratory complaints, Denies cough and Denies dyspnea Gastrointestinal: Gastrointestinal: Reports no additional gastrointestinal complaints, Denies abdominal pain, Denies diarrhea, Denies nausea and Denies vomiting Genitourinary: Genitourinary: Reports no additional female genitourinary complaints and Denies urinary incontinence Musculoskeletal: Musculoskeletal: Reports no additional musculoskeletal complaints, Denies back pain, Reports arthralgias, Denies joint swelling, Denies neck pain, Denies numbness and Denies tingling Integumentary/Breasts: Skin/Breast: Reports system reviewed and no additional complaints, except as docu and Denies rash Neurologic: Reports system reviewed and no additional complaints, except as documented, Denies dizziness, Denies headache(s), Denies numbness, Denies tingling and Denies weakness PMFSH Past Medical History Attestation statement: The following information was validated with the patient. Source: old records reviewed and nursing notes reviewed Medical History Diabetes Edentulous HLD (hyperlipidemia) HTN (hypertension) Hypothyroidism Latent syphilis Panic attacks PTSD (post-traumatic stress disorder) PVD (peripheral vascular disease) Right knee pain SOB (shortness of breath) Spondylosis of lumbar region without myelopathy or radiculopathy T2DM (type 2 diabetes mellitus) Vitamin D deficiency Surgical History Hx of appendectomy Hx of section Status post total shoulder replacement Family History Family History Father No problems noted. Mother No problems noted. Social History Social History Household Members: None Housing: Apartment Are you a primary child care center assistant director to a significant other at home: No Do you presently have visiting nurse or other home services: No Alcohol intake: never Patient Tobacco Use Status: Current everyday Tobacco user Tobacco use type: Cigarette Cigarettes Per Day: 10 Years Smoked: 15+ Second Hand Smoke Exposure: No Advance Directives: No Advance Directives Information Provided: Yes service: No Current occupational status: disabled Physical Exam ED Vital Signs: Vital Signs - 24 hr 02/22/23 22:41 02/22/23 23:44 Temperature 98.2 F 99.3 F Pulse Rate 86 79 Respiratory Rate 18 18 Blood Pressure 144/77 H 153/76 H Pulse Oximetry 93 98 Oxygen Delivery Method Room Air Room Air BMI result Body Mass Index 25.6 Const General: cooperative, healthy appearing, comfortable and no acute distress Orientation/consciousness: patient oriented x3 HENMT Head: Yes normal to inspection Ears: hearing grossly normal bilaterally Eyes General: appearance normal, both eyes and all related structures Pupils: Equal, round and reactive pupils present Neck Neck: Yes normal visual inspection and Yes full ROM Chest Chest palpation & inspection: normal inspection of the chest Resp Effort & Inspection: normal respiratory effort Auscultation: clear to auscultation bilaterally Cardio Rate: regular rate Rhythm: regular rhythm Peripheral pulses: Peripheral pulses 2+ throughout GI Inspection: Yes normal to inspection Palpation (GI): Soft to palpation and nontender General: Yes no CVA tenderness Back/Spine/Pelvis Back: no CVA tenderness Thoracic/Lumbar Spine: thoracic and lumbar spine normal to inspection Skin General skin exam: no rashes or lesions noted Neuro General: patient oriented x3 and moves all extremities Cranial nerves: Yes Equal, round and reactive pupils present Cognition (Neuro): normal cognition Motor exam (neuro): 5/5 motor strength present throughout Sensory Exam: Normal double simultaneous stimulation for sensation Extrem Other: There is tenderness over the left lateral hip and over the posterior left pelvis on compression. Patient reports pain with range of motion of the extremity passively. She has no obvious shortening, rotation or deformity. She has normal pulses distally as well as normal sensation. Course Course Course Narrative: CT of the hip shows degenerative changes but no other acute finding. Patient has been up and ambulatory independently. She reports some improvement with Toradol. I will discharge her home with recommendations to continue her meloxicam and medicated patches. I will add a brief course of prednisone and Flexeril p.r.n.. Reviewed worrisome signs and symptoms of when to return to the emergency room. Comfortable plan for discharge home. Medications Administered Discontinued Medications Generic Name Dose Route Start Last Admin Trade Name Freq PRN Reason Stop Dose Admin Ketorolac Tromethamine 60 mg 02/22/23 23:25 02/22/23 23:42 Ketorolac Tromethamine 60 Mg/2 Ml Vial IM 02/22/23 23:26 60 mg ONCE ONE Administration Medical Decision Making Medical Decision Making [facility] Narrative: 67yo female here with 10 days of left hip pain with negative x-rays. Currently taking meloxicam and using lidoderm patches with no effect. Wants refill for tramadol which her PCP has not given her. Feels ambulation is difficult and she lives alone. Will check CT left hip, give toradol IM Differential Diagnosis Differential Diagnoses: The differential diagnosis associated with the presentation includes fracture, contusion Independent Interpretation I performed an independent interpretation of an: CT Scan Interpretation: I independently reviewed the CT scan and agreed with radiology report Radiology Impression Discussion of test interpretation with radiology: I have reviewed the radiologist's reading. Radiologist Impression: [address] [address] [address] Scan Report Signed Patient: April Molina MR#: [id number] : 1955 Acct:[id number] Age/Sex: 67 / F ADM Date: 02/22/23 Loc: HO.ED Attending Dr: Ordering Physician: Daniela Albright NP Date of Service: 02/22/23 Procedure(s): CT hip LT wo IV con Accession Number(s): [id number] cc: Daniela Albright NP~ EXAMINATION: CT HIP WITHOUT CONTRAST, LEFT CLINICAL INFORMATION: Fall, rule out occult fracture? COMPARISON: X-ray 02/12/2023 TECHNIQUE: Multidetector volumetric imaging was obtained through the left hip without contrast material. Multiplanar reformatted images were submitted in coronal and sagittal planes. This CT examination was performed using dose optimization techniques as appropriate, variously including the following: *Automated exposure control *Adjustment of mA and/or kV according to patient size (this includes techniques or standardized protocols for targeted exams where dose is matched to indication/reason for exam; i.e. extremities or head) *Use of iterative reconstruction technique DLP: 120 mGy-cm FINDINGS: Alignment across the hip is anatomic. There is slight joint space narrowing as well as osteophyte formation along the acetabulum. No acute fracture is seen. Small heterotopic ossification noted superior to the greater trochanter of the femur, also noted radiographically. No significant soft tissue abnormality is seen. CT/CT hip LT wo IV con IMPRESSION: No acute findings identified. Mild degenerative changes of the left hip. ? Independent Historian Clinical information obtained from an independent historian. History obtained from or confirmed by: EMS Discharge Plan Discharge Clinical Impression: Contusion of hip, left, Osteoarthritis Patient Disposition: Home, Self-Care Instructions: Osteoarthritis (ED), Contusion in Adults (ED) Additional Instructions: continue the meloxicam and medicated patches. Heat or ice to the area. gentle stretching. Follow-up with your PCP Contin?e con el meloxicam y los parches medicados. Calor o hielo al ?phylicia. estiramiento suave. Angel un seguimiento con moya PCP Prescriptions: New prednisone 20 mg tablet 40 mg PO DAILY Qty: 10 0RF cyclobenzaprine 10 mg tablet 10 mg PO TID PRN (Reason: muscle spasm) Qty: 10 0RF No Action fluticasone propionate 220 mcg/actuation Hfa Aerosol Inhaler 2 puff INHALATION BID insulin glargine [Lantus Solostar U-100 Insulin] 100 unit/mL (3 mL) insulin pen 22 unit subcut BEDTIME atorvastatin 20 mg tablet 1 tab PO DAILY clonazepam 1 mg tablet 1 tab PO TID PRN (Reason: Anxiety) celecoxib 100 mg capsule 1 cap PO DAILY PreserVision AREDS-2 250-90-40-1 mg capsule 1 cap PO BID aspirin 325 mg Tablet 325 mg PO BID@1000,2200 42 Days Qty: 84 0RF acetaminophen 650 mg Suppository 650 mg IN Q6H PRN (Reason: Pain, Mild (Pain Scale 1-3)) 30 Days Qty: 240 0RF clonazepam 1 mg Tablet 1 mg PO TID 7 Days Qty: 21 0RF tramadol 50 mg tablet 50 mg PO BID PRN (Reason: pain) Qty: 4 0RF Januvia 25 mg tablet 100 mg PO DAILY losartan 25 mg tablet 50 mg PO DAILY gabapentin 800 mg tablet 800 mg PO BEDTIME glipizide 10 mg tablet 10 mg PO BID metformin 1,000 mg tablet 1,000 mg PO BID albuterol sulfate [ProAir HFA] 90 mcg/actuation HFA aerosol inhaler 2 puff inhalation Q6H PRN (Reason: Shortness Of Breath Or Wheezing) levothyroxine [Synthroid] 75 mcg tablet 75 mcg PO DAILY quetiapine [Seroquel] 100 mg tablet 100 mg PO BEDTIME amitriptyline 100 mg tablet 100 mg PO BEDTIME amlodipine 5 mg tablet 5 mg PO DAILY omeprazole 20 mg capsule,delayed release(DR/EC) 20 mg PO DAILY tramadol 50 mg tablet 50 mg PO DAILY PRN (Reason: pain) 7 Days Qty: 7 0RF Referrals: Physician,Unknown J [Primary Care Provider] - 1 week Print Language: Yi
[2023-02-22] MEDS: Ketorolac Tromethamine 60 MG/2 ML VIAL IM (23:42)
[2023-02-22 23:44] VITALS: BP 153/76; PULSE 79; RESP 18; TEMP 37.4; O2SAT 98
--- NOTE | 2023-02-22 23:45 | MHC.EDTECH ---
Hourly rounds and vitals completed. Call troy within reach
== END 2023-02-23 01:58 | disposition home or self-care (01) ==
PROVIDERS: Emergency Provider Emergency Medicine
DX: S70.02XA Contusion of left hip, initial encounter (principal); M16.12 Unilateral primary osteoarthritis, left hip; W01.0XXA Fall on same level from slipping, tripping and stumbling without subsequent striking against object, initial encounter; Y93.9 Activity, unspecified; Y92.9 Unspecified place or not applicable; Y99.9 Unspecified external cause status; Z79.899 Other long term (current) drug therapy
CPT/HCPCS: 73700; 96372; 99284; J1885

== ENCOUNTER 2023-03-08 12:12 | Outpatient (AMB) | payer OTHER, SELFPAY ==
[2023-03-08 12:37] VITALS: BMI 25.5
--- NOTE | 2023-03-08 12:37 | A.OFFVIS_ITS ---
Intake Vital Signs 03/08/23 12:37 Height 5 ft 1 in Weight 135 lb BMI 25.5 Intake Visit Reasons: new prob- LT hip pain Intake Note: April 67 yr old female presents today for a new problem visit for her left hip injury after falling approx on 02/12/23. Seen in ED on 02/27/23 where xrays were taken. States she is having severe pain when sitting and walking. States this makes it hard to go shopping for groceries. She is here today with her TOOL LAPPER HAND April who states patient is constantly in pain. Allergies cephalexin [From KEFLEX] Allergy (Intermediate, Verified 03/08/23 12:47) REDNESS, hives, swelling HPI new prob- LT hip pain HPI Details 67-year-old female who presents to the [facility] today with her TOOL LAP[employer] HAND for evaluation of left hip pain s/p fall, 02/12/23. She was seen at ED on 02/27/23 where x-rays were performed. She states she has constant severe pain in her hip with sitting and ambulation. Her pain makes it hard to go to shopping for groceries. She has a history of diabetes. Her sugar levels are currently controlled. [facility] Medical History Diabetes Edentulous HLD (hyperlipidemia) HTN (hypertension) Hypothyroidism Latent syphilis Panic attacks PTSD (post-traumatic stress disorder) PVD (peripheral vascular disease) Right knee pain SOB (shortness of breath) Spondylosis of lumbar region without myelopathy or radiculopathy T2DM (type 2 diabetes mellitus) Vitamin D deficiency Surgical History Hx of appendectomy Hx of section Status post total shoulder replacement Family History Father No problems noted. Mother No problems noted. Social History Household Members: None Housing: Apartment Are you a primary direct support professional caregiver to a significant other at home: No Do you presently have visiting nurse or other home services: No Alcohol intake: never Patient Tobacco Use Status: Current everyday Tobacco user Tobacco use type: Cigarette Cigarettes Per Day: 10 Years Smoked: 15+ Second Hand Smoke Exposure: No service: No Current occupational status: disabled Review of Systems Const All systems reviewed & are unremarkable except as noted in HPI and below Physical Exam Vital Signs: BMI result Body Mass Index 25.5 Extrem Other: Left hip: Normal to inspection. No pain with ROM of the hip. Pain along the greater trochanter. No pain with hip flexion or abduction. Positive tenderness along the SI joint, Negative SLR. NVI. Office Procedures Joint Injection/Drain Joint Injection/Drain Details: left trochanteric bursa Prep: site was prepped using aseptic technique, ethochloride spray was applied and injection warnings given Injected: 40 mg of, DepoMedrol, with 8 mL of and 1% plain lidocaine Procedure: The patient tolerated the procedure well and there was some relief with the local anesthesia Coding 17852 - Glenohumeral/Tronchanteric Bursa/Intraarticular Procedure code (CPT) selection complete Results Reviewed Results Reviewed: 03/08/23 13:03 Lidocaine HCl 2 % MPF [Xylocaine 2 % MPF] 5 ml .ROUTE .STK-MED ONE methylPREDNISolone acetate [DEPO-MedroL] 40 mg .ROUTE .STK-MED ONE 8 XR LT HIP IMPRESSION: Unchanged heterotopic ossification above the greater trochanter on the left. Assessment & Plan Assessment & Plan (1) Trochanteric bursitis, left hip: Code(s): M70.62 - Trochanteric bursitis, left hip Plan We discussed options today which include steroid injection. They did consent to move forward with the injection, which was tolerated well. I recommended rest, ice and elevation and OTC anti-inflammatories PRN for discomfort. We also discussed their diabetes and the effect the steroid can have on their blood glucose levels; therefore, they will continue to monitor these very closely over the next 72 hours. She was also given a referral to physical therapy in the office today. If there are any concerns, they should report to the ED immediately. Orders: Orders PT Evaluation and Treatment Today M70.62 - Trochanteric bursitis, left hip Patient Instructions: Scribed for Belle Hernandez PA-C, by Abram Steele quality engineer medical device, on 03/08/2023 at 12:45 PM EST. I, Ta-Yessenia Meuse, PA-C, have personally reviewed and agree with the information entered by the scribe. Coding Level of Care Code Est Pt Level 3 (92562) Diagnoses Trochanteric bursitis, left hip M70.62 CPT Codes Coding - Joint 7: 32672 - Glenohumeral/Tronchanteric Bursa/Intraarticular ([id number])
== END 2023-03-08 13:14 | disposition home or self-care (01) ==
PROVIDERS: PCP General Practice; Visit Provider Physician Assistant
DX: M70.62 Trochanteric bursitis, left hip (principal)
CPT/HCPCS: 20610; 99213

== ENCOUNTER → 2023-03-08 12:12 | Outpatient (BNVA) | payer OTHER, SELFPAY | PROVIDERS: PCP General Practice; Visit Provider Physician Assistant | DX: M70.62 Trochanteric bursitis, left hip (principal) | CPT/HCPCS: 20610; 99212; J1020 ==

== ENCOUNTER 2023-07-16 22:26 | Emergency (ER) | payer OTHER, SELFPAY ==
[2023-07-16 22:38] VITALS: BP 136/68; BP 158/73; PULSE 96; PULSE 98; RESP 18; TEMP 36.8; O2SAT 18; O2SAT 97; BMI 26.1
[2023-07-17 01:15] VITALS: BP 149/71; PULSE 97; RESP 20; TEMP 36.8; O2SAT 94
[2023-07-17 01:44] LABS: Hematocrit 36.7 % (37.0-47.0); Hemoglobin 11.8 g/dl (12.0-16.0); Mean Corpuscular HGB Conc 32.2 g/dl (31.0-35.0); Mean Corpuscular Hemoglobin 27.4 pg (27.0-33.0); Mean Corpuscular Volume 85.2 fL (80.0-98.0); Mean Platelet Volume 9.2 fL (9.4-12.3); Platelet Count 373 X10*3/uL (160-400); Red Blood Count 4.31 X10*6/uL (4.20-5.50); Red Cell Distribution Width 12.8 % (11.0-16.0); White Blood Count 9.2 X10*3/uL (4.8-10.8)
[2023-07-17 01:57] LABS: Alanine Aminotransferase 19 U/L (0-31); Albumin Level 4.6 g/dL (3.5-5.0); Alkaline Phosphatase 124 U/L (39-117); Anion Gap 15 (12-20); Aspartate Amino Transferase 20 U/L (5-31); Bilirubin Total 0.6 mg/dL (0.0-1.0); Blood Urea Nitrogen 15 mg/dL (9-16); Calcium 10.3 mg/dL (8.4-10.2); Carbon Dioxide 28 mmol/L (22-29); Chloride 102 mmol/L (96-108); Creatinine Clr Calc Pharmacy 60.1; Estimated Glomerular Filt Rate > 60; Glucose Random 193 mg/dL (60-115); Potassium 4.5 mmol/L (3.3-5.1); Sodium 140 mmol/L (135-145); Total Protein 7.8 g/dL (6.5-8.0)
[2023-07-17 05:56] VITALS: BP 138/51; PULSE 92; RESP 16; TEMP 36.7; O2SAT 94
== END 2023-07-17 07:29 | disposition left against medical advice (07) ==
PROVIDERS: Emergency Provider Emergency Medicine
DX: R04.0 Epistaxis (principal)
CPT/HCPCS: 36415; 80053; 85027; 99281; 99283

== ENCOUNTER 2023-11-27 12:25 | Outpatient (REF) | payer OTHER, SELFPAY | END 2023-11-27 12:26 | disposition home or self-care (01) | LOC: HO.HOSX 12:25 | PROVIDERS: Visit Provider Physical Medicine & Rehabilitation | DX: Z13.89 Encounter for screening for other disorder (principal) ==

== ENCOUNTER 2024-01-06 14:06 | Outpatient (REF) | payer OTHER, SELFPAY ==
[2024-01-06 16:33] LABS: Alanine Aminotransferase 21 U/L (0-31); Albumin Level 4.3 g/dL (3.5-5.0); Alkaline Phosphatase 95 U/L (39-117); Anion Gap 15 (12-20); Aspartate Amino Transferase 22 U/L (5-31); Bilirubin Total 0.6 mg/dL (0.0-1.0); Blood Urea Nitrogen 10 mg/dL (9-16); Calcium 9.4 mg/dL (8.4-10.2); Carbon Dioxide 25 mmol/L (22-29); Chloride 103 mmol/L (96-108); Estimated Glomerular Filt Rate > 60; Glucose Random 368 mg/dL (60-115); Lipase 24 U/L (8-78); Potassium 4.1 mmol/L (3.3-5.1); Sodium 139 mmol/L (135-145)
[2024-01-06 16:44] LABS: Microalbumin Urine < 5.0 mg/L
[2024-01-07 08:43] LABS: HIV AB/AG Nonreactive (Nonreactive); HIV Num 1 0.05 S/CO (0.00-0.99); ~HepC Num1 0.15 S/CO (0.00-0.79); ~Hepatitis C Antibody Nonreactive (Nonreactive)
[2024-01-08 11:10] LABS: RPR Rapid Plasma Reagin REACTIVE (NON-REACTIVE)
== END 2024-01-06 14:07 | disposition home or self-care (01) ==
LOC: HO.HHCL 14:06
PROVIDERS: Visit Provider General Practice
DX: E11.9 Type 2 diabetes mellitus without complications (principal); Z11.3 Encounter for screening for infections with a predominantly sexual mode of transmission
CPT/HCPCS: 36415; 80053; 82043; 82570; 83690; 86592; 86593; 86803; 87389

== ENCOUNTER 2024-09-14 12:18 | Outpatient (REF) | payer OTHER, SELFPAY ==
--- NOTE | ~2024-09-14 | XR_ITS ---
CLINICAL HISTORY: M25.532 - Pain in left wrist 3 view left wrist Comparison: None Findings: Bones intact. No dislocations. 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 No radiopaque foreign body. IMPRESSION: 1. No acute findings This document has been electronically signed by: Darin Abebe MD on 09/15/2024 18:11:34
== END 2024-09-14 12:19 | disposition home or self-care (01) ==
LOC: HO.HOSX 12:18
DX: M25.532 Pain in left wrist (principal); M77.8 Other enthesopathies, not elsewhere classified; R20.0 Anesthesia of skin; R20.2 Paresthesia of skin
CPT/HCPCS: 73110; 99212

== ENCOUNTER 2024-09-14 12:47 | Outpatient (AMB) | payer OTHER, SELFPAY ==
--- NOTE | 2024-09-14 12:56 | MHC.OFFVIS ---
Vital Signs 09/14/24 12:57 Height 5 ft Intake Visit Reasons: new prob-LT wrist/thumb swelling and pain Intake Note: April is a 64 year old right hand dominant female who presents today with her daughter Kate for a new problem visit with complaints of left wrist pain and left thumb swelling. States she has swelling, weakness, she drops item, and at times she has radiating pain to her shoulder. Limited ROM on her shoulder. Hx of B/L shoulder replacement. Denies any injury/ trauma. She also has numbness and tingling in both hands. Allergies cephalexin [From KEFLEX] Allergy (Intermediate, Verified 09/14/24 13:00) REDNESS, hives, swelling HPI HPI new prob-LT wrist/thumb swelling and pain: Details: April is a 64 year old right hand dominant female who presents today with her daughter Kate for a new problem visit with complaints of left wrist pain and left thumb swelling. States she has swelling, weakness, she drops item, and at times she has radiating pain to her shoulder. The patient also states that she does experience intermittent, but daily numbness and tingling of the bilateral hands, but worse in the left. Limited ROM on her shoulder. Hx of B/L shoulder replacement. Denies any injury/ trauma. She also has numbness and tingling in both hands. [facility] Medical History Diabetes Edentulous HLD (hyperlipidemia) HTN (hypertension) Hypothyroidism Latent syphilis Panic attacks PTSD (post-traumatic stress disorder) PVD (peripheral vascular disease) Right knee pain SOB (shortness of breath) Spondylosis of lumbar region without myelopathy or radiculopathy T2DM (type 2 diabetes mellitus) Vitamin D deficiency Surgical History Hx of appendectomy Hx of section Status post total shoulder replacement Family History Father No problems noted. Mother No problems noted. Social History Household Members: None Housing: Apartment Are you a primary care technician to a significant other at home: No Do you presently have visiting nurse or other home services: No Alcohol intake: never Patient Tobacco Use Status: Current everyday Tobacco user Tobacco use type: Cigarette Cigarettes Per Day: 10 Years Smoked: 15+ Second Hand Smoke Exposure: No service: No Current occupational status: disabled Review of Systems Const All systems reviewed & are unremarkable except as noted in HPI and below Physical Exam Extrem Other: Patient is alert, oriented, and in no acute distress. Neuro: Normal sensation of the tips of all digits of the bilateral hand at this time Vascular: Cap refill brisk Pain: No tenderness to palpation about the left hand or wrist No pain with range of motion of the left hand or wrist ROM: Patient is able to make closed fist and extend all digits of the left hand fully and without difficulty Range of motion of the left wrist full and intact, painless Skin: No lacerations or abrasions. General: No ecchymosis, erythema, or evidence of infection. Psych: Appears grossly normal Affect normal Attitude cooperative Results Reviewed Results Reviewed: X-rays obtained in the office today and independently reviewed by me, Manuel Weller PA-C, demonstrate no fracture or acute bony abnormality of the left hand or wrist. Assessment & Plan Assessment & Plan (1) Tendonitis of wrist, left: Code(s): M77.8 - Other enthesopathies, not elsewhere classified Category: Medical (2) Numbness and tingling in both hands: Code(s): R20.0 - Anesthesia of skin; R20.2 - Paresthesia of skin Category: Medical Plan 1. ECR and ECU tendinitis left wrist Patient is educated about this condition Patient is educated about the typical treatment course At this time, patient was given a Velcro wrist splint to wear with daytime activities when her wrist is particularly bothering her Patient was also referred to occupational therapy for treatment of ECR and ECU tendinitis Patient was amenable to this plan 2. Numbness and tingling of both hands Symptoms intermittent, daily, worse at night Patient was referred for EMG and nerve conduction study for assessment of the health nerves of the bilateral upper extremities Patient will follow-up after EMG and nerve conduction study for results review and discussion of further treatment options if indicated Patient was amenable to this plan Orders: Orders XR wrist LT min 3V Today M25.532 - Pain in left wrist NE nerve conduction velocity Today R20.0 - Anesthesia of skin, R20.2 - Paresthesia of skin NE electromyogram (EMG) Today R20.0 - Anesthesia of skin, R20.2 - Paresthesia of skin OT Evaluation and Treatment Today M77.8 - Other enthesopathies, not elsewhere classified Coding Level of Care Code Est Pt Level 3 (72990) Diagnoses Tendonitis of wrist, left M77.8 Numbness and tingling in both hands R20.0; R20.2
== END 2024-09-14 13:22 | disposition home or self-care (01) ==
LOC: HO.HOS 12:47
DX: M25.532 Pain in left wrist (principal); M77.8 Other enthesopathies, not elsewhere classified; R20.0 Anesthesia of skin; R20.2 Paresthesia of skin
CPT/HCPCS: 99213

== ENCOUNTER → 2024-09-14 12:48 | Outpatient (BNV) | payer OTHER, SELFPAY | PROVIDERS: Visit Provider Radiology Diagnostic Radiology | DX: M25.532 Pain in left wrist (principal) | CPT/HCPCS: 73110 ==

== ENCOUNTER 2024-10-14 11:34 | Outpatient (AMB) | payer OTHER, SELFPAY ==
--- NOTE | 2024-10-14 11:48 | A.OFFVIS_ITS ---
Vital Signs 10/14/24 11:52 Height 5 ft Handedness Right Intake Visit Reasons: OV LT shoulder pain and stiffness Intake Note: April is a 67 year old right hand dominant female who presents today for a follow up of her left shoulder pain. Hx of left TSA 07/31/22. Hx of injections with mild relief. Patient states having a lot of pain in her shoulder. She has tried and failed PT with no relief. Patient reports her pain is worse when she is just sitting in her chair. Supervisor Contingents Required: Yes Supervisor Contingents Language: Social Insurance Administrator Services: Supervisor Contingents Present Supervisor Contingents Name: IMELDA Mares/LESLIE Information Interpreted: non-clinical & clinical Allergies cephalexin [From KEFLEX] Allergy (Intermediate, Verified 10/14/24 11:51) REDNESS, hives, swelling Medication List - Last Reconciled 10/14/24 by Belle Hernandez PA-C acetaminophen 650 mg VA Q6H PRN 30 days albuterol sulfate 90 mcg/actuation (ProAir HFA) 2 puffs inhalation Q6H PRN amitriptyline 100 mg PO BEDTIME amlodipine 5 mg PO DAILY aspirin 325 mg PO BID@1000,2200 42 days atorvastatin 1 tab PO DAILY celecoxib 1 cap PO DAILY clonazepam 1 tab PO TID PRN clonazepam 1 mg PO TID 7 days cyclobenzaprine 10 mg PO TID PRN fluticasone propionate 220 mcg/actuation 2 puffs inhalation BID gabapentin 800 mg PO BEDTIME glipizide 10 mg PO BID insulin glargine (Lantus Solostar U-100 Insulin) 22 units subcut BEDTIME levothyroxine (Synthroid) 75 mcg PO DAILY losartan 50 mg PO DAILY metformin 1,000 mg PO BID omeprazole 20 mg PO DAILY prednisone 40 mg (2 x 20 mg) PO DAILY quetiapine (Seroquel) 100 mg PO BEDTIME sitagliptin phosphate (Januvia) 100 mg PO DAILY tramadol 50 mg PO BID PRN tramadol 50 mg PO DAILY PRN 7 days vit C,H-Oj-gwwxj-lutein-zeaxan 250-90-40-1 mg (PreserVision AREDS-2) 1 cap PO BID HPI HPI OV LT shoulder pain and stiffness: Details: 69-year-old female presents to the office today for left shoulder pain. She is status post left total shoulder arthroplasty with Dr. Cooper in 2022. She never had full resolution of pain in the shoulder however she did have good range of motion and strength postoperatively. She had been able to resume most activities without difficulties. Most recently over the last 2 or 3 months she has noticed some pain that is more specifically within the joint of the left shoulder. She also complains of a cramping sensation when she performs activities such as reaching over her body or buttoning her shirt. ON LICENSE OF [facility] Medical History Diabetes Edentulous HLD (hyperlipidemia) HTN (hypertension) Hypothyroidism Latent syphilis Panic attacks PTSD (post-traumatic stress disorder) PVD (peripheral vascular disease) Right knee pain SOB (shortness of breath) Spondylosis of lumbar region without myelopathy or radiculopathy T2DM (type 2 diabetes mellitus) Vitamin D deficiency Surgical History Hx of appendectomy Hx of section Status post total shoulder replacement Family History Father No problems noted. Mother No problems noted. Social History Household Members: None Housing: Apartment Are you a primary insurance healthcare representative to a significant other at home: No Do you presently have visiting nurse or other home services: No Alcohol intake: never Patient Tobacco Use Status: Current everyday Tobacco user Tobacco use type: Cigarette Cigarettes Per Day: 10 Years Smoked: 15+ Second Hand Smoke Exposure: No service: No Current occupational status: disabled Review of Systems Const All systems reviewed & are unremarkable except as noted in HPI and below Physical Exam Extrem Other: Left shoulder incision well healed. No erythema or swelling. She is able to initiate FF overhead , ER and abduction to 90. She has mild discomfort with cross-body abduction. Deltoid sensation intact. NVI. Results Reviewed Results Reviewed: X-rays of the left shoulder obtained in the office today show total shoulder prosthesis intact with question for lucencies resembling loosening. Assessment & Plan Assessment & Plan (1) Status post total replacement of left shoulder: Code(s): Z96.612 - Presence of left artificial shoulder joint Category: Surgical Plan: I discussed with the patient and her family member today the finding on x-ray appeared to be consistent with previous images. I encouraged her to work with physical therapy to potentially regain some strength and better mechanics for her shoulder. I did remind her that she was never completely pain-free after the surgery but she did have good function and continues to, and we do not want to get to ahead of ourselves when trying to eliminate all of her pain which may not be realistic. She does often experience diffuse pain in both extremities do wn to the elbows and hands which she is currently being treated for by our hand specialist. If she continues to have concerns she can make an appointment to meet with Dr. Cooper to discuss this further. Orders: Orders XR shoulder LT min 2V Today M25.512 - Pain in left shoulder PT Evaluation and Treatment Today Z96.612 - Presence of left artificial shoulder joint Coding Level of Care Code Est Pt Level 3 (69290) Complex EM visit Add On G2211 Diagnoses Status post total replacement of left shoulder Z96.612
--- OUTSIDE RECORDS SUMMARY | 2024-10-14 14:04 | XMS_ITS | Encounter Summary ---
Author Organization [facility] Address [address] [place] [address] Care Team Providers Care Computational Theory Scientist Name Role Phone Светлана Benjamin MD Primary Care Provider [phone] Reason for Visit * Reason Onset Date Comments other 01/09/2023 Encounter Details Date Type Department Care Team ([facility] st Contact Info) Description 01/09/2023 Telephone [facility] MEDICINE [address] [place] [address] [phone] Светлана Benjamin MD [address] [place], [place] [phone] other Social History Tobacco Use Types Packs/Day Years Used Date Smoking Tobacco: Every Day Cigarettes Smokeless Tobacco: Never Alcohol Use Standard Drinks/Week Comments Never 0 (1 standard drink = 0.6 oz pur e alcohol) PHQ-2 Answer Date Recorded Patient Health Questionnaire-2 Score 2 12/14/2022 Depression Answer Date Recorded Patient Health Questionnaire-2 Score 2 12/14/2022 Comments Unknown Sex and Gender Information Value Date Recorded Sex Assigned at Female 04/30/2022 10:30 AM EDT Legal Sex Female 10:30 AM EDT Gender Identity Female 04/30/2022 10:30 AM EDT Sexual Orientation Straight 04/30/2022 10 :30 AM EDT COVID-19 Exposure Response Date Recorded In the last 10 days, have yo u been in contact with someone who was confirmed or suspected to have Coronavirus/COVID-19? No / Unsure 12/14/2022 1:16 PM EDT documented as of this encounter Miscellaneous Notes * Telephone Encounter - Cassie Bauer - 01/09/2023 11:45 AM EDT Tc from tressa with [facility] requesting status on orders for VNA services. Please contact tressa at [phone] Fax number: [phone] documented in this encounter Plan of Treatment Upcoming Encounters Date Type Department Care Team (Late st Contact Info) Description 12/04/2024 1:00 PM EDT Office Visit [facility] OPTOMETRY [address] [place] [address] Keysha Clements, OD [address] [place] [address] 01/15/2025 1:30 PM EDT Office Visit [facility] MEDICINE [address] [place] [address] Светлана Benjamin MD [address] [place] [address] documented as of this encounter Visit Diagnoses Not on filedocumented in this encounter Care Teams Computational Theory Scientist Relationship Specialty Start Date End Date Светлана Benjamin MD [address] [place] [address] PCP - General Family Medicine 02/27/21 documented as of this encounter
--- OUTSIDE RECORDS SUMMARY | 2024-10-14 14:04 | XMS_ITS | Encounter Summary ---
Author Organization [employer] Address [address] [facility] [address] [place] [address] Care Team Providers Care Manager Sales And Marketing Name Role Phone Светлана Benjamin MD Primary Care Provider [phone] Reason for Visit * Reason Onset Date Comments Durable Medical Equipment 05/01/2023 Nebuli zer Encounter Details Date Type Department Care Team ([facility] Contact Info) Description 05/01/2023 Telephone [facility] [address] [place], [place] [phone] Светлана Benjamin MD [address] [place], [place] [phone] Durable Medical Equipment (Nebulizer) Social History Tobacco Use Types Packs/Day Years Used Date Smoking Tobacco: Every Day Cigarettes Smokeless Tobacco: Never Alcohol Use Standard Drinks/Week Comments Never 0 (1 standard drink = 0.6 oz pur e alcohol) PHQ-2 Answer Date Recorded Patient Health Questionnaire-2 Score 2 12/14/2022 Housing Stability Answer Date Recorded What is your housing situation today? I have jeb jacobs 04/29/[address] you li ve. Do you have problems with any of the following? None of the above 04/29/2023 Food Insecurity Answer Date Recorded Within the past 12 months, y ou worried that your food would run out before you got money to buy more: Never True 04/29/2023 Within the past 12 months,th e food you bought just didn't last and you didn't have enough money to get more: Never True Transportation Answer Date Recorded In the past 12 months, has l ack of transportation kept you from medical appts, meetings, work or from getting things needed for daily living? No 04/29/2023 Utilities Answer Date Recorded In the past 12 months, has t he electric, gas, oil or water company threatened to shut off services in your home? No 04/29/2023 Depression Answer Date Recorded Patient Health Questionnaire-2 Score 2 12/14/2022 Comments Unknown Sex and Gender Information Value Date Recorded Sex Assigned at Female 04/30/2022 10:30 AM EDT Legal Sex Female 10:30 AM EDT Gender Identity Female 04/30/2022 10:30 AM EDT Sexual Orientation Straight 04/30/2022 10 :30 AM EDT documented as of this encounter Miscellaneous Notes * Telephone Encounter - Antonina Gray - 05/02/2023 10:16 AM EDT Order for Nebulizer was requested by [facility], order has been generated and placed on provider desk for review and signature. * Telephone Encounter - Nancy Russo - 05/01/2023 4:15 PM EDT Tc from [employer] [facility] requesting DME for pt Nebulizer along with the tubing and mask. To be fax [facility] and also [facility] [phone] documented in this encounter Plan of Treatment Upcoming Encounters Date Type Department Care Team (Late st Contact Info) Description 12/04/2024 1:00 PM EDT Office Visit [facility] [address] [place] [address] Keysha Clements, OD [address] [place] [address] 01/15/2025 1:30 PM EDT Office Visit [facility] [address] [place] [address] Светлана Benjamin MD [address] [place] [address] documented as of this encounter Visit Diagnoses Not on filedocumented in this encounter Care Teams Manager Sales And Marketing Relationship Specialty Start Date End Date Светлана Benjamin MD [address] [place] [address] PCP - General Family Medicine 02/27/21 documented as of this encounter
--- OUTSIDE RECORDS SUMMARY | 2024-10-14 14:04 | XMS_ITS | Encounter Summary ---
Author Organization [employer] Address [address] [facility] [address] [place] [address] Care Team Providers Care Take Out Waiter Name Role Phone Светлана Benjamin MD Primary Care Provider [phone] Reason for Visit * Reason Onset Date Comments Durable Medical Equipment 08/28/2022 Encounter Details Date Type Department Care Team ([facility] st Contact Info) Description 08/28/2022 Telephone [facility] [address] [place], [place] [phone] Светлана Benjamin MD [address] [place], [place] [phone] Durable Medical Equipment Social History Tobacco Use Types Packs/Day Years Used Date Smoking Tobacco: Former Cigarettes Smokeless Tobacco: Never Alcohol Use Standard Drinks/Week Comments Never 0 (1 standard drink = 0.6 oz pur e alcohol) Comments Unknown Sex and Gender Information Value [...] suspected to have Coronavirus/COVID-19? No / Unsure 08/13/2022 2:24 PM EST documented as of this encounter Miscellaneous Notes * Telephone Encounter - April Sales - 08/29/2022 9:00 AM EST Script for disposable under pads generated for signature * Telephone Encounter - Juan Phillips - 08/28/2022 11:35 AM EST [facility]c from [facility] requesting a script for disposable bed pads states needs 3 a day and 3 a night [facility] fax # [phone] documented in this encounter Plan of Treatment Upcoming Encounters Date Type Department Care Team (Late st Contact Info) Description 12/04/2024 1:00 PM EDT Office Visit [facility] OPT[facility] [address] [place] [address] Tyree, Keysha, OD [address] [place] [address] 01/15/2025 1:30 PM EDT Office Visit [facility] MED[facility] [address] [place] [address] Светлана Benjamin MD [address] [place] [address] documented as of this encounter Visit Diagnoses Not on filedocumented in this encounter Care Teams Take Out Waiter Relationship Specialty Start Date End Date Светлана Benjamin MD [address] [place] [address] PCP - General Family Medicine 02/27/21 documented as of this encounter
--- OUTSIDE RECORDS SUMMARY | 2024-10-14 14:04 | XMS_ITS | Encounter Summary ---
Author Organization [employer] [facility] Address [address] [facility] [address] [place] [address] Care Team Providers Care Electrification Adviser Name Role Phone Светлана Benjamin MD Primary Care Provider Reason for Visit * Reason Onset Date Comments triage 08/31/2022 Encounter Details Date Type Department Care Team ([facility] st Contact Info) Description 08/31/2022 Telephone [facility] [address] [place] [phone] Светлана Benjamin MD [address] [place], [place] [phone] triage Social History Tobacco Use Types Packs/Day Years [...] encounter Miscellaneous Notes * Telephone Encounter - Juan Phillips - 08/31/2022 4:33 PM EST Symptom: Shoulder Pain - Not From Injury Outcome: Schedule an urgent appointment (within 1 hour) or talk to a nurse or provider soon Reason: Severe pain now The caller accepted this outcome speaks peruvian documented in this encounter Plan of Treatment Upcoming Encounters Date Type Department Care Team (Late st Contact Info) Description 12/04/2024 1:00 PM EDT Office Visit [facility] OPTOMETRY [address] [place] [address] Tyree, Keysha, OD [address] [place] [address] 01/15/2025 1:30 PM EDT Office Visit [facility] [address] [place] [address] Светлана Benjamin MD [address] [place] [address] documented as of this encounter Visit Diagnoses Not on filedocumented in this encounter Care Teams Electrification Adviser Relationship Specialty Start Date End Date Светлана Benjamin MD [address] [place] [address] PCP - General Family Medicine 02/27/21 documented as of this encounter
--- OUTSIDE RECORDS SUMMARY | 2024-10-14 14:04 | XMS_ITS | Clinical Summary ---
Author Organization [employer] Address [address] [facility] [address] [place] [address] Care Team Providers Care Sales Service Professional Name Role Phone Светлана Benjamin MD Primary Care Provider [phone] Allergies Active Allergy Reactions Criticality Noted Date Comments Ulises Inhibitors Cough 03/25/2017 Cephalexin 04/20/2016 Shellfish Allergy 12/14/2022 Medications amitriptyline (Elavil) 100 MG tablet Take 1 tablet by oral route every day at bedtime Active Multiple Vitamins-Minerals (PreserVision AREDS 2) capsule Take 1 capsule by mouth two times daily Active QUEtiapine (SEROquel) 100 MG tablet Take 1 tablet by oral route at bedtime Active gabapentin (Neurontin) 400 MG capsule Active lidocaine (Lidoderm) 5 % patchIndications: Trochanteric bursitis of left hip,Left hip pain Apply 1 patch topically in the morning. Remove & discard patch within 12 hours or as directed by . 30 patch Active glucose blood (FREESTYLE LITE) test strip Check Blood sugar by fingerstick route three times every day 100 each 024 Active omeprazole (PriLOSEC) [address] capsule Take 1 capsule (20 mg) by mouth before breakfast. Take 1 capsule by oral route every day before a meal as needed for gastritis 90 capsule 024 Active losartan (Cozaar) 50 MG tablet Take 1 tablet (50 mg) by mouth Once per day. Take 1 tablet by oral route every day 90 tablet 024 Active fluticasone furoate (Arnuity Ellipta) 200 MCG/ACT inhaler INHALE 1 PUFF BY MOUTH ONCE DAILY 30 each Active estradiol (Estrace) 0.1 MG/GM vaginal cream Insert 1 g into the vagina. Active Diclofenac Sodium 1 % gel Apply 2 g topically if needed in the morning and at bedtime (pain L shoulder). Apply 2 gram by topical route 3 times every day to the affected area(s) 100 g Active celecoxib (CeleBREX) 100 MG capsule Take 1 capsule (100 mg) by mouth 2 times daily. 180 capsule 3 Active Alcohol Swabs (B-D SINGLE USE SWABS REGULAR) pads Place 1 each on the skin 3 times daily. Use twice daily as indicated 100 each Active insulin pen needle (B-D ULTRAFINE III SHORT PEN) 31G X 8 mm miscIndications:D iabetes mellitus type 2 in nonobese (CMS/HCC) USE WITH INSULIN DAILY 100 each Active aspirin 81 MG chewable tablet CHEW 1 TABLET BY MOUTH EVERY MORNING 90 tablet 3 Active FreeStyle lancets USE ONE LANCET TO TEST BLOOD SUGAR THREE TIMES A DAY 100 each Active clonazePAM (KlonoPIN) 1 MG tablet Take 1 tablet (1 mg) by mouth 2 times daily for 5 days. Take 1 tablet by oral route three times a day 10 tablet Active clonazePAM (KlonoPIN) 0.5 MG tablet Take 1 tablet (0.5 mg) by mouth Once per day for 5 days. 5 tablet Active albuterol (2.5 MG/3ML) 0.083% nebulizer solution Take 3 mL by nebulization every 8 (eight) hours if needed for wheezing. 150 mL 6 Active metFORMIN (Glucophage) 1000 MG tablet TAKE 1 TABLET BY MOUTH TWICE A DAY WITH MORNING AND EVENING MEALS 180 tablet 3 Active amLODIPine (Norvasc) 5 MG tablet TAKE 1 TABLET BY MOUTH DAILY 90 tablet 3 024 Active levothyroxine (Synthroid, Levoxyl) 75 MCG tabletIndications :Acquired hypothyroidism Take 1 tablet (75 mcg) by mouth before breakfast. Take 1 tablet by oral route every day 90 tablet 3 024 Active SITagliptin (Januvia) 100 MG tablet TAKE 1 TABLET BY MOUTH DAILY 90 tablet 3 025 Active atorvastatin (Lipitor) 20 MG tabletIndications :Diabetes mellitus type 2 in nonobese (CMS/HCC) Take 1 tablet (20 mg) by mouth Once per day. Take 1 tablet by oral route every day 90 tablet 3 025 2025 Active Blood Glucose Monitoring Suppl (FreeStyle Lite) device Inject 1 each under the skin 2 times daily. Use to test blood sugar as directed 1 each 025 Active Lantus SoloStar 100 UNIT/ML pen INJECT 30 UNITS SUBCUTANEOUSLY AT BEDTIME 15 mL 3 025 Active Lantus SoloStar 100 UNIT/ML pen Inject 30 Units under the skin at bedtime. 6 mL 11 024 2024 Discontinued Active Problems Problem Noted Date Diagnosed Date History of syphilis 01/10/2024 Overview (01/10/2024): [place] [facility] [place] RPR + 1:8 titer 2023 RPR + 1:2 titer Mixed incontinence urge and stress 08/14/2023 Assessment & Plan (08/14/2023 4:51 PM EST): Likely secondary to DM2 Script for incontinence supplies: Pullups size Small 4 daily for 12 months Wipes 4 packs for 12 months Lactic acid acidosis 12/14/2022 Hyperglycemia due to diabetes mellitus 3 Falls frequently 12/14/2022 Diabetes 12/14/[address] 12/14/2022 Left hip pain 12/14/2022 Status post total replacement of left shoulder 0 09/26/2022 Assessment & Plan (11/29/2023 12:45 PM EDT): With pain and decreased range of overhead motion Somehow Tim fell off her prescriptions, restarted 100mg BID Check renal function today She asks about opioids again, explained again about interaction with benzos, she lives alone, and she has a history of falls, including falls that have been severe enough to land in the hospital Assessment & Plan (12/14/2022 2:14 PM EDT): [place]07[place]22 [place] [facility] [place] Did PT September and October 2022 Pain is better than before surgery Assessment & Plan (09/26/2022 12:09 PM EDT): Replacement 08/07/22 at [facility] [place] Post-op course has been complicated by pain in left shoulder, not starting PT, unclear whether she is wearing supportive arm sling device xrays taken at ortho clinic 09/13/22 reportedly show good placement of L shoulder prosthesis Will attempt to reconnect pt to [facility] services followup with Dr Cooper at end of September, and start physical therapy 10/11/22 as scheduled Status post total replacement of right shoulder 06/27/2022 Age-related macular degeneration 06/22/2020 Cataract 06/22/2020 Arthritis of right shoulder region 05/01/2019 Flexor tendinitis of hand 09/10/2018 Chronic gastritis 05/29/2018 Edentulous 05/29/2018 Trochanteric bursitis of left hip 04/10/2018 Arthritis of hand 03/06/2018 Change in voice 05/27/2017 Hypertension 09/03/2016 Assessment & Plan (12/14/2022 2:13 PM EDT): At goal <140/90 Continue Losartan and Amlodipine Gastroesophageal reflux disease 07/18/2016 Hypertriglyceridemia 05/08/2016 Bipolar disorder 05/04/2016 Assessment & Plan (03/28/2024 10:32 AM EDT): Encouraged her to followup with her team, they should have a plan for continuity of care for psych prescribers - She is on Klonipin 1mg BID plus 0.5mg at night, I sent refills for 5 days, because she has an appointment with her psych prescriber in 5 days Assessment & Plan (11/29/2023 12:44 PM EDT): Encouraged her to followup with her team, they should have a plan for continuity of care for psych prescribers - She is on Klonipin 1.5mg BID, Elavil Assessment & Plan (08/14/2022 6:21 AM EST): Pt presents disregulated, shouting, angry today It is unclear how she has been taking her Klonopin, Seroquel, and opioid pain medications [facility] oncall provider, Angelita, came to evaluate patient and recommended [facility]ISIS for stabilization and safety Pt became upset at this plan and walked out of the exam room, and out of clinic Myself and my MA were able to go with her and have her agree to VNA services, which I ordered for medication management CR[facility]IS is aware of patient and [facility] therapist will contact daughter tomorrow Patient needs to be stabilized on her medications again, unclear if she is withdrawing, if this is a drug interaction, delirium. 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 Mild persistent asthma without complication 09/2015 Assessment & Plan (05/25/2023 7:38 AM EST): Needs new nebulizer, current nebulizer will not turn on Acquired hypothyroidism 04/20/2016 Assessment & Plan (12/14/2022 2:14 PM EDT): Continue Synthroid 75mcg daily Chronic tension-type headache 04/20/2016 Diabetes mellitus type 2 in nonobese 04/20/2016 Assessment & Plan (03/28/2024 10:33 AM EDT): Current A1c: 8.8 BMP: Lab Results Component Value Date CREATININE 0.85 01/06/2024 EGFR >60 01/06/2024 K 4.1 01/06/2024 MICROALBUR <5.0 01/06/2024 Microalbumin: done Foot Exam: Complete at follow up Eye Exam: 09/2021 Lipid panel: ASCVD: > 10% Statin: Yes ASA: No ULISES/ARB: Yes Continue Lantus to 30 units nightly, consider GLP1 as next treatment line Encouraged regular aerobic exercise for improved glycemic control Encouraged daily foot checks Encouraged lean protein snacks and to avoid foods high in sugar and simple carbohydrates Treatment Goals: A1c goal: <7% FBG goal: <130 2 hour post prandial goal: <180 Assessment & Plan (11/29/2023 12:42 PM EDT): Current A1c: 7.9 BMP: Due, ordered Microalbumin: Due, ordered Foot Exam: Complete at follow up Eye Exam: 09/2021 Lipid panel: ASCVD: > 10% Statin: Yes ASA: No ULISES/ARB: Yes Continue Lantus to 30 units nightly, consider GLP1 as next treatment line Encouraged regular aerobic exercise for improved glycemic control Encouraged daily foot checks Encouraged lean protein snacks and to avoid foods high in sugar and simple carbohydrates Treatment Goals: A1c goal: <7% FBG goal: <130 2 hour post prandial goal: <180 Assessment & Plan (05/25/2023 7:38 AM EST): Current A1c: 7.9 BMP: Due, ordered Microalbumin: Due, ordered Foot Exam: Complete at follow up Eye Exam: 09/2021 Lipid panel: ASCVD: > 10% Statin: Yes ASA: No ULISES/ARB: Yes Continue Lantus to 30 units nightly, consider GLP1 as next treatment line Encouraged regular aerobic exercise for improved glycemic control Encouraged daily foot checks Encouraged lean protein snacks and to avoid foods high in sugar and simple carbohydrates Treatment Goals: A1c goal: <7% FBG goal: <130 2 hour post prandial goal: <180 Assessment & Plan (12/14/2022 2:15 PM EDT): Current A1c: 9.8 BMP: Due, ordered Microalbumin: Due, ordered Foot Exam: Complete at follow up Eye Exam: Discuss at follow up Lipid panel: ASCVD: > 10% Statin: Yes ASA: No ULISES/ARB: Yes Increase Lantus to 30 units nightly, consider GLP1 as next treatment line Encouraged regular aerobic exercise for improved glycemic control Encouraged daily foot checks Encouraged lean protein snacks and to avoid foods high in sugar and simple carbohydrates Treatment Goals: A1c goal: <7% FBG goal: <130 2 hour post prandial goal: <180 Assessment & Plan (09/21/2022 1:03 PM EDT): Continue mgmt prior to hospitalization Diabetic neuropathy 04/20/2016 Assessment & Plan (12/14/2022 2:13 PM EDT): Gabapentin 400mg up to TID 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 Insomnia 04/20/2016 Encounters Date Type Department Care Team Description 10/08/2024 Telephone [facility] [address] [place] [address] Светлана Benjamin MD Recall 09/24/2024 Refill [facility] [address] [place] [address] Jyothi Preciado MD 08/25/2024 Refill [facility] [address] [place] [address] Светлана Benjamin MD 08/19/2024 Refill [facility] [address] [place], [place] [phone] Светлана Benjamin MD Diabetes mellitus type 2 in nonobese ([facility]) 08/06/2024 Telephone [facility] [address] [place] [address] Angelita Gonzalez MA recall from Last 3 Months Immunizations Name Administration Dates Next Due Hep A / Hep B 11/21/2015 Hep A, Unspecified 12/26/2015 Hep B, Unspecified 12/26/2015 Hep B, adult 05/27/2019 Influenza High-dose Quadriva lent Preservative Free 05/20/2023,04/20/2022,04/28/2021 Influenza injectable quadriv alent IIV4 with preservative 05/29/2018,03/25/2017,05/04/2016 Influenza injectable quadriv alent preservative free 03/22/2020,05/25/2019 Influenza, High Dose Seasona l, Preservative Free 03/27/2024 Meningococcal MCV4P ACYW-135 12/01/2015 Pfizer Covid-19 Vaccine 12+ Bivalent 07/13/2022 Pneumococcal Conjugate PCV 20 04/20/2022 Pneumococcal Polysaccharide PPSV23 06/15/2016, Tdap 06/15/2016,11/21/2015 Zoster, Recombinant 10/22/2019 Zoster, live 09/03/2016 Family History Medical History Relation Name Comments Throat cancer Maternal Grandmother Cervical cancer Mother Colon cancer Sister Relation Name Status Comments Maternal Grandmother Mother Sister Social History Tobacco Use Types Packs/Day Years Used Date Smoking Tobacco: Every Day Cigarettes Smokeless Tobacco: Never Tobacco Cessation:Ready to Q uit: No; Counseling Given: Not Answered Alcohol Use Standard Drinks/Week Comments Never 0 (1 standard drink = 0.6 oz pur e alcohol) PHQ-2 Answer Date Recorded Patient Health Questionnaire-2 Score 2 12/14/2022 Housing Stability Answer Date Recorded What is your housing situation today? I have jeb jacobs 03/20/[address] you li ve. Do you have problems with any of the following? None of the above 03/20/2024 Food Insecurity Answer Date Recorded Within the past 12 months, y ou worried that your food would run out before you got money to buy more: Never True 03/20/2024 Within the past 12 months,th e food you bought just didn't last and you didn't have enough money to get more: Never True Transportation Answer Date Recorded In the past 12 months, has l ack of transportation kept you from medical appts, meetings, work or from getting things needed for daily living? No 03/20/2024 Utilities Answer Date Recorded In the past 12 months, has t he electric, gas, oil or water [employer] threatened to shut off services in your home? No 03/20/2024 Depression Answer Date Recorded Patient Health Questionnaire-2 Score 2 12/14/2022 Internet Access Answer Date Recorded Internet Access Q1 Yes 03/20/2024 Internet Access Q2 Not on file 03/20/2024 Comments Unknown Sex and Gender Information Value Date Recorded Sex Assigned at Female 04/30/2022 10:30 AM EDT Legal Sex Female 10:30 AM EDT Gender Identity Female 04/30/2022 10:30 AM EDT Sexual Orientation Straight 04/30/2022 10 :30 AM EDT Last Filed Vital Signs Vital Sign Reading Time Taken Comments Blood Pressure 129/90 03/27/2024 1:28 PM EDT Pulse 92 03/27/2024 1:28 PM EDT Temperature 36.8 ??C (98.2 ??F) 03/27/2024 1:28 PM ED T Respiratory Rate 20 03/27/2024 1:28 PM EDT Oxygen Saturation 94% 03/27/2024 1:28 PM EDT Inhaled Oxygen Concentration - - Weight 59.3 kg (130 lb 12.8 oz) 03/27/2024 1:28 PM EDT Height 154.9 cm (5' 1 ) 03/27/2024 1:28 PM EDT Body Mass Index 24.71 03/27/2024 1:28 PM EDT Plan of Treatment Upcoming Encounters Date Type Department Care Team (Late st Contact Info) Description 12/04/2024 1:00 PM EDT Office Visit [facility] [address] [place] [address] TyreeKeysha ortiz, OD [address] [place] [address] 01/15/2025 1:30 PM EDT Office Visit [facility] [address] [place] [address] Светлана Benjamin MD [address] [place] [address] Health Maintenance Due Date Last Done Comments CT Colonography 1956 FIT DNA/Cologuard 1956 FIT 1956 FOBT 1956 Sigmoidoscopy 1956 Diabetes: Foot Exam 1966 Alcohol/Substance Use Screening 1968 RSV Patients and Patients Aged 60 years or older (1 - Risk 60-74 years 1-dose series) 2016 Zoster Vaccines (3 of 3) 12/17/2019 10/22/2019, 03/0 11/2016 Mammogram 03/03/2022 03/03/2020, 12/30, 01/22/2019 Lipid Panel 04/28/2022 04/28/2021 Depression Screening 12/15/2023 12/14/2022, 12/15/19 23 COVID-19 Vaccine ( season) 2024 07/13/2022, 02/05/2022, 07/21/2021, Additional history exists Diabetes: Hemoglobin A1C 06/26/2024 024, 05/20/2023, 12/14/2022, Additional history exists Diabetes: Urine Protein Screening 01/05/2025 01/06/2024 Eye Exam 01/15/2025 01/15/2023, 12/29, 01/15/2023, Additional history exists SDOH Screening 03/20/2025 03/20/2024 Tobacco Screening 03/28/2025 03/28/2024 DTaP/Tdap/Td Vaccines (3 - Td or Tdap) 06/15/2026 06/15/2016, 11/21/2015 Colonoscopy 02/25/2030 02/26/2020 Colorectal Cancer Screening 02/25/2030 Meningococcal Vaccine Aged Out 12/01/2015 No natalio karan eligible based on patient's age to complete this topic Hepatitis A Vaccines Aged Out 12/26/2015, 11/21/19 16 No longer eligible based on patient's age to complete this topic Hepatitis B Vaccines Completed 05/27/2019, 12/26/2015, 11/21/2015 Pneumococcal Vaccine: 50+ Years Completed 04/20/2022, 06/15/2016, 12/01/2015 Hepatitis C Screening Completed 01/06/2024 Influenza Vaccine Completed 03/27/2024, , 04/20/2022, Additional history exists HIB Vaccines Aged Out No longer eligi ble based on patient's age to complete this topic HPV Vaccines Aged Out No longer eligi ble based on patient's age to complete this topic IPV Vaccines Aged Out No longer eligi ble based on patient's age to complete this topic RSV under 20 months Aged Out No longe r eligible based on patient's age to complete this topic Rotavirus Vaccines Aged Out No longer eligible based on patient's age to complete this topic Procedures Procedure Name Priority Date/Time Associated Diagnosis Comments POCT GLYCOSYLATED HEMOGLOBIN (HGB A1C) Routine 03/27/2024 1:32 PM EDT Diabetes mellitus type 2 in nonobese (CMS/HCC) HEPATITIS C AB W/REFL TO HCV RNA, QN, PCR Routine 01/06/2024 2:10 PM EDT Screening examination for STI ALBUMIN, RANDOM URINE W/CREATININE Routine 01/06/2024 2:10 PM EDT Diabetes mellitus type 2 in nonobese (CMS/HCC) LIPID PANEL, STANDARD Routine 04/28/2021 11:02 AM EDT BI MAMMOGRAM DIAGNOSTIC BILATERAL Routine 03/03/2020 8:21 AM EDT HM COLONOSCOPY Routine 02/26/2020 from Last 3 Months or Most Recently Relevant to Health Maintenance Results * (ABNORMAL) POCT glycosylated hemoglobin (Hgb A1c) (03/27/2024 1:32 PM EDT) Hemoglobin A1C 8.8(A) 4.0 - 6.0 % QC Media Lot # [id number] Lot# Expiration Date Blood Capillary blood specimen / Unknown 03/27/2024 1:32 PM EDT Светлана Bejnamin MD POINT OF CARE TEST ENTER/EDIT ORDERABLES Final Result * Albumin, Random Urine W/Creatinine (01/06/2024 2:10 PM EDT) Pathologist [facility] Creatinine, Urine 47.40 mg/dL [facility] Microalbumin Urine <5.0 mg/L [facility] Microalbum Creatinine Ratio Ur TNP <30 ug/mg cr [facility] Comment:Unable to calculate albumin/creatinine ratio due to lowmicroalbumin or creatinine result. Urine (Urine, Random) 01/06/2024 2:10 PM EDT 01/06/2024 3:53 PM EDT Светлана Benjamin MD LAB URINE ORDERABLES Final Res ult [facility] [address] [place] [phone] * Hepatitis C Antibody with Reflex to HCV, RNA, Quantitative, Real-Time PCR (01/06/2024 2:10 PM EDT) Pathologist [facility] Hepatitis C Antibody Nonreactive Nonreactive [facility] Comment:Antibodies to HCV no t detected; does not exclude early acuteHCV infection. Blood Venous blood specimen / Unknown 01/06/2024 2:10 PM EDT 01/06/2024 3:51 PM EDT us Светлана Benjamin MD LAB BLOOD ORDERABLES Final Res ult [facility] [address] [place] [address] [phone] * (ABNORMAL) LIPID PANEL, STANDARD (04/28/2021 11:02 AM EDT) Chol/HDLC Ratio 2.8 <5.0 (calc) [facility] Cholesterol, Total 134 <200 mg/dL [facility] HDL Cholesterol 48(L) > OR = 50 mg/dL [facility] LDL Cholesterol 59 mg/dL (calc) [facility] Comment: Reference range: <100 ?? Desirable range <100 mg/dL for primary prevention; ?? <70 mg/dL for patients with CHD or diabetic patients ?? with > or = 2 CHD risk factors. ?? LDL-C is now calculated using the Cm-Leal ?? calculation, which is a validated novel method providing ?? better accuracy than the Friedewald equation in the ?? estimation of LDL-C. ?? Cm ZAMBRANO et al. MCKINLEY. 2013;310(19): 0051-6964 ?? (http://education.Nivela.D1G/faq/EHQ127) Non-HDL Cholesterol 86 <130 mg/dL (calc) [facility] Comment: For patients with diabetes plus 1 major ASCVD risk ?? factor, treating to a non-HDL-C goal of <100 mg/dL ?? (LDL-C of <70 mg/dL) is considered a therapeutic ?? option. Triglycerides 197(H) <150 mg/dL [facility] 04/28/2021 11:0 2 AM EDT us Radha Costa [employer] LAB BLOOD ORDERABLES Final Res ult Performing Organization Address [facility]/ZIP Co de Phone Number [facility] [address] [place] [address], * 3D BILATERAL DIAGN MAMMO 1 (03/03/2020 8:21 AM EDT) Anatomical Region Laterality Modality Breast Bilateral Mammography 03/03/2020 8:21 AM EDT Narrative 03/03/2020 8:23 AM EDT Refer to the Notes tab for result details [facility] Procedure: 3D BILATERAL DIAGN MAMMO 1 Procedure Note Provider, MD Bobby - 09/22/2022 Refer to the Notes tab for result details [facility] Procedure: 3D BILATERAL DIAGN MAMMO 1 Toni Colon MD IMG BI PROCEDURES Final Result * Colonoscopy (02/26/2020) Colonoscopy Normal Normal Narrative Tammy Stroud - 02/26/2020 Recommended 10 year follow up ( [facility] ) Bobby Provider HEALTH MAINTENANCE Edited Result - Final from Last 3 Months or Most Recently Relevant to Health Maintenance [place] [address] [place] [address] - [employer] Care Teams Sales Service Professional Relationship Specialty Start Date End Date Светлана Benjamin MD [address] [place] [phone] PCP - General Family Medicine 02/27/21
--- OUTSIDE RECORDS SUMMARY | 2024-10-14 14:04 | XMS_ITS | Encounter Summary ---
Author Organization [facility] Address [address] [facility] [address] [place] [address] Care Team Providers Care Elementary Supervisor Name Role Phone Светлана Benjamin MD Primary Care Provider [phone] Reason for Referral * Medications - Closed Specialty Diagnoses / Procedures Referred By David cruz Referred To Contact Diagnoses Trochanteric bursitis of left hip Left hip pain Светлана Benjamin MD [address] [place] [address] Phone: tel: fax: Referral ID Status Reason Start Date Expiration Date Visits Re quested Visits Authorized [id number] Closed 1 1 Encounter Details Date Type Department Care Team (Late st Contact Info) Description 09/15/2023 Orders Only [facility] [address] [place], [place] [phone] Светлана Benjamin MD [address] [place], [place] [phone] Trochanteric bursitis of left hip (Primary Dx); Left hip pain Social History Tobacco Use Types Packs/Day Years [...] AM EDT documented as of this encounter Plan of Treatment Upcoming Encounters Date Type Department Care Team (Late st Contact Info) Description 12/04/2024 1:00 PM EDT Office Visit [facility] [address] [place] [address] Tyree, Keysha, OD [address] [place] [address] 01/15/2025 1:30 PM EDT Office Visit [facility] [address] [place] [address] Светлана Benjamin MD [address] [place] [address] documented as of this encounter Visit Diagnoses Diagnosis Trochanteric bursitis of left hip- Primary Left hip pain Pain in joint, pelvic region and thigh documented in this encounter Care Teams Elementary Supervisor Relationship Specialty Start Date End Date Светлана Benjamin MD [address] [place] [address] PCP - General Family Medicine 02/27/21 documented as of this encounter
--- OUTSIDE RECORDS SUMMARY | 2024-10-14 14:04 | XMS_ITS | Encounter Summary ---
Author Organization [employer] Address [address] [facility] 7t [place] [address] Care Team Providers Care Recruiting Team Lead Name Role Phone Светлана Benjamin MD Primary Care Provider [phone] Encounter Details Date Type Department Care Team (Late st Contact Info) Description 07/19/2023 Orders Only [facility] MEDICINE [address] [place], [place] [phone] Светлана Benjamin MD [address] [place], [place] [phone] Functional urinary incontinence (Primary Dx) Social History Tobacco Use Types Packs/Day Years [...] the past 12 months, has t he [employer], oil or water company threatened to shut [...] Description 12/04/2024 1:00 PM EDT Office Visit [facility] OPTOMETRY [address] [place] [address] TyreeKeysha ortiz, OD [address] [place] [address] 01/15/2025 1:30 PM EDT Office Visit [facility] MEDICINE [address] [place] [address] Светлана Benjamin MD [address] [place] [address] documented as of this encounter Visit Diagnoses Diagnosis Functional urinary incontinence- Primary documented in this encounter Care Teams Recruiting Team Lead Relationship Specialty Start Date End Date Светлана Benjamin MD [address] [place] [address] PCP - General Family Medicine 02/27/21 documented as of this encounter
--- OUTSIDE RECORDS SUMMARY | 2024-10-14 14:04 | XMS_ITS | Encounter Summary ---
Author Organization [email or web address] Address [address] [facility] 7t [place] [address] Care Team Providers Care Soa Integration Architect Name Role Phone Светлана Benjamin MD Primary Care Provider [phone] Reason for Visit * Reason Onset Date Comments Med Refill 09/13/2023 Encounter Details Date Type Department Care Team ([facility] Contact Info) Description 09/13/2023 Telephone [facility] MEDICINE [address] [place], [place] [phone] Светлана Benjamin MD [address] [place], [place] [phone] Med Refill Social History Tobacco Use Types Packs/Day Years [...] encounter Miscellaneous Notes * Telephone Encounter - Susan Edwards LPN - 09/13/2023 2:00 PM EDT Medication not pended as last prescribed on 02/15/23 with no refills,unclear if it was for short term.Last seen 05/20/23 * Telephone Encounter - Donnell Corley - 09/13/2023 1:56 PM EDT TC from pt requesting medication refill. Medications needing refill : Lidocaine Patches To be sent to: [facility] documented in this encounter Plan of Treatment Upcoming Encounters Date Type Department Care Team (Late st Contact Info) Description 12/04/2024 1:00 PM EDT Office Visit [facility] OPTOMETRY [address] [place] [address] Keysha Clements, COC[employer] [address] [place] [address] 01/15/2025 1:30 PM EDT Office Visit [facility] MEDICINE [address] [place] [address] Светлана Benjamin MD [address] [place] [address] documented as of this encounter Visit Diagnoses Not on filedocumented in this encounter Care Teams Soa Integration Architect Relationship Specialty Start Date End Date Светлана Benjamin MD [address] [place] [address] PCP - General Family Medicine 02/27/21 documented as of this encounter
--- OUTSIDE RECORDS SUMMARY | 2024-10-14 14:04 | XMS_ITS | Encounter Summary ---
Author Organization [employer] [facility] Address [address] [facility] 7t [place] [address] Care Team Providers Care Front Office Agent Name Role Phone Светлана Benjamin MD Primary Care Provider [phone] Encounter Details Date Type Department Care Team (Late Contact Info) Description 02/27/2023 Abstract [facility] MEDICINE [address] [place] [address] Светлана Benjamin MD [address] [place], [place] [phone] Social History Tobacco Use Types Packs/Day Years [...] Encounters Date Type Department Care Team (Late Contact Info) Description 12/04/2024 1:00 PM EDT Office Visit [facility] OPTOMETRY [address] [place] [address] Tyree, Keysha, OD [address] [place] [address] 01/15/2025 1:30 PM EDT Office Visit [facility] MEDICINE [address] [facility] [place] [address] Светлана Benjamin MD [address] [place], [place] [phone] documented as of this encounter Procedures Procedure Name Priority Date/Time Associated Diagnosis Comments COLONOSCOPY Routine 02/26/2020 documented in this encounter Results * Colonoscopy (02/26/2020) Colonoscopy Normal Normal Narrative Tammy Stroud - 02/26/2020 Recommended 10 year follow up ( [facility] ) us Historical Provider [facility] Result - Final documented in this encounter Visit Diagnoses Not on filedocumented in this encounter Care Teams Front Office Agent Relationship Specialty Start Date End Date Светлана Benjamin MD [address] [place], [place] [phone] PCP - General Family Medicine 02/27/21 documented as of this encounter
--- OUTSIDE RECORDS SUMMARY | 2024-10-14 14:04 | XMS_ITS | Encounter Summary ---
Author Organization [id number] [facility] Address [address] [facility] 7t [place] [address] Care Team Providers Care Hand Salter Name Role Phone Светлана Benjamin MD Primary Care Provider [phone] Reason for Visit * Reason Onset Date Comments Nurse Triage 02/14/2023 Encounter Details Date Type Department Care Team ([facility] st Contact Info) Description 02/14/2023 Telephone [facility] MEDICINE [address] [place], [place] [phone] Светлана Benjamin MD [address] [place], [place] [phone] Nurse Triage Social History Tobacco Use Types Packs/Day Years [...] encounter Miscellaneous Notes * Telephone Encounter - Hortensia Reyes RN - 02/14/2023 1:10 PM EDT Call to April Mueller, reports seen at [facility] ED On 02/12 following fall. Per pt was wearing a sandal and tripped and fell. Per pt landed on left side hip. No head injury or LOC. Pt then called EMS.Per pt had x-ray done and referred to [facility] Ortho. Pt has appt on 03/20/23. Pt given a few tramadol but advsied to shaquille PCP by ortho for pain management until seen. Pt agrees to visit tomorrow with Blue team provider. Pt advised to take OTC Tyelnol, apply ice and rest. TO return call if pain is sever or return to ER. Sent to team to obtain [facility] discharge summary for provider review. Future Appointments Date Time Provider Department Center 02/15/2023 2:45 PM Cristal Collins CNP MEDICINE [facility] 03/18/2023 2:15 PM Светлана Benjamin MD MEDICINE [facility] Protocol Used: Hip Injury (Adult) Protocol-Based Disposition: See in Office or Video Visit Today or Tomorrow Video visit offer not recorded Positive Triage Question: * High-risk adult (e.g., age > 60 years, osteoporosis, chronic steroid use) * All higher-acuity triage questions were negative Care Advice Discussed: * Reassurance and Education - Direct Blow (Contusion, Bruise) * Use a Cold Pack for Pain, Swelling, or Bruising * Use Heat on Area After 48 Hours * Rest vs. Movement * Reasons To Call Back - You become worse * Telephone Encounter - Cassie Bauer - 02/14/2023 12:58 PM EDT Symptom: Fall Outcome: Transfer to a nurse or provider NOW! Reason: Trouble walking that started after the fall. Was seen at [facility] on 02/12 for a fall and still having symptoms. The caller accepted this outcome Please contact pt at [phone] (Nepali) documented in this encounter Plan of Treatment Upcoming Encounters Date Type Department Care Team (Late st Contact Info) Description 12/04/2024 1:00 PM EDT Office Visit [facility] OPTOMETRY [address] [place], [place] [phone] Keysha Clements, OD [address] [place], [place] [phone] 01/15/2025 1:30 PM EDT Office Visit [facility] MEDICINE [address] [place], [place] [phone] Светлана Benjamin MD [address] [place] [address] documented as of this encounter Visit Diagnoses Not on filedocumented in this encounter Care Teams Hand Salter Relationship Specialty Start Date End Date Светлана Benjamin MD [address] [place] [phone] PCP - General Family Medicine 02/27/21 documented as of this encounter
--- OUTSIDE RECORDS SUMMARY | 2024-10-14 14:04 | XMS_ITS | Encounter Summary ---
Author Organization [id number] [facility] Address [address] [facility] 7[address] [place] [address] Care Team Providers Care Retail Sales Lead Name Role Phone Светлана Benjamin MD Primary Care Provider [phone] Encounter Details Date Type Department Care Team (Late Contact Info) Description 01/23/2023 Orders Only [facility] MEDICINE [address] [place], [place] [phone] Светлана Benjamin MD [address] [place], [place] [phone] Left hip pain (Primary Dx) Social History Tobacco Use Types [...] Description 12/04/2024 1:00 PM EDT Office Visit [facility] OPTOMETRY [address] [place] [address] Tyree, Keysha, OD [address] [place] [address] 01/15/2025 1:30 PM EDT Office Visit [facility] MEDICINE [address] [place] [address] Светлана Benjamin MD [address] [place] [address] documented as of this encounter Visit Diagnoses Diagnosis Left hip pain- Primary Pain in joint, pelvic region and thigh documented in this encounter Care Teams Retail Sales Lead Relationship Specialty Start Date End Date Светлана Benjamin MD [address] [place] [id number] PCP - General Family Medicine 02/27/21 documented as of this encounter
--- OUTSIDE RECORDS SUMMARY | 2024-10-14 14:04 | XMS_ITS | Encounter Summary ---
Author Organization [employer] Address [address] [facility] 7t [place] [address] Care Team Providers Care Car Hopper Name Role Phone Светлана Benjamin MD Primary Care Provider [phone] Reason for Visit * Reason Onset Date Comments Change PCP 07/17/2023 Encounter Details Date Type Department Care Team ([facility] Contact Info) Description 07/17/2023 Telephone [facility] MEDICINE [address] [place], [place] [phone] Светлана Benjamin MD [address] [place], [place] [phone] Change PCP Social History Tobacco Use Types Packs/Day Years Used Date Smoking Tobacco: Every Day Cigarettes Smokeless Tobacco: Never Alcohol Use Standard Drinks/Week Comments Never 0 (1 standard drink = 0.6 oz pur e alcohol) PHQ-2 Answer Date Recorded Patient Health Questionnaire-2 Score 2 12/14/2022 Housing Stability Answer Date Recorded What is your housing situation today? I have [place] jacobs 04/29/[address] you [...] * Telephone Encounter - Cassie Bauer - 07/17/2023 1:43 PM EST Tc from [place] with [facility] states pt is requesting a PCP change due to language preference. Would like a cost[place] speaking provider. documented in this encounter Plan of Treatment Upcoming Encounters Date Type Department Care Team (Late st Contact Info) Description 12/04/2024 1:00 PM EDT Office Visit [facility] OPTOMETRY [address] [place] [address] Tyree, Keysha, OD [address] [place] [address] 01/15/2025 1:30 PM EDT Office Visit [facility] MEDICINE [address] [place] [address] Светлана Benjamin MD [address] [place] [address] documented as of this encounter Visit Diagnoses Not on filedocumented in this encounter Care Teams Car Hopper Relationship Specialty Start Date End Date Светлана Benjamin MD [address] [place] [address] PCP - General Family Medicine 02/27/21 documented as of this encounter
--- OUTSIDE RECORDS SUMMARY | 2024-10-14 14:05 | XMS_ITS | Data Portability ---
Author Organization [employer], [place] - Bass Manager Address [address] [place] [address] Care Team Providers Care Head Grower Name Role Phone HIM CCA OTHER Assessment Encounter Date Assessment Date Assessment LastModified by Organization Details LastModified Time 12/08/2021 12/08/2021 This 66-year-old female called Bass Manager complaining of left shoulder pain and leg pain associated with chronic varicose veins. All of her complaints are chronic and she has refused to go to the ER on various occasions. She was expecting a physician to come to her house today. She was advised to follow up with her PCP to address these chronic problems. [email or web address] Not available 12/08/2021 19:23:26 07/29/2024 07/29/2024 I provided real -time medical direction via phone for this encounter and was available for additional phone-based assistance as needed. I have reviewed and agree with the Assessment and Plan as documented by the Manager Fine. Patient given the opportunity to ask questions. Our service contacted for an assessment of: Joint pain As per above, patient with multiple complaints of joint pain. She had a fall about a week ago that was mechanical in nature. There is no specific injury noted. Over the past week she developed pain in her joints that is nonspecific. She does not think it is related to the fall. Overall she gets this pain with weather changes and overuse. Per photographic equipment technician on the scene, vital signs stable patient is afebrile. No absolute contraindications to Toradol. No focal deficits. Patient ambulatory. No neurologic or functional deficit. Impression: Likely OA in multiple joints that may be exacerbated by previous trauma without a specific injury. Plan: Toradol 15 mg IM x1. No contraindications. Allergies: Reviewed PCP f/u: We discussed the diagnostic uncertainty of home visits and the risk associated with this. In this case, the patient and I felt this to be an acceptable and reasonable amount of risk given the benefit of avoiding an ED visit. We discussed the need to seek care urgently/emergently in the setting of any new or worsening serious symptoms, particularly fever chills lightheadedness altered mental status [place] [id number] Not available 07/29/2024 21:41:20 Plan of Treatment Reminders Order Date Submit Date Provider Last Modified By Organization Details Last Modified Time Details Appointments None recorded. Lab cmp, whole blood + itzel 2021 022 TREY Weinstein [facility], [address] [place], [address] 09:25:02 Referral None recorded. Procedures None recorded. Surgeries None recorded. Imaging None recorded. Medication Orders ketorolac 30 mg/mL injection solution [address] , [address] [place] [address], [id number], 5 21:39:15 ketorolac 15 mg/mL injection syringe 2021 022 krallo Not available 18:59:23 Patient TargetsNo targets recorded. Patient InstructionsNo instructions recorded. Reason for Referral None Reported. Results Created Date Observation Date Name Description Value Unit Range Abnormal Flag Note LastModifiedBy Organization Detail LastModifiedTime Result Notes None recorded. Medical Equipment None Reported. Allergies Allergen ID Allergen Name Allergen Category Reaction Reaction Severity Criticality Documentation Date Start Date Code Code System Note Provider Name and Address Organization Details Recorded Time 8821 cephalexi n medicatio n Not available Not available Not available 04/28/2024 2231 RxNorm Not Available [facility] - production 03:47:01 Medications Name Sig Start Date Stop Date Status Note LastModified by Organization Details LastModified Time atorvastatin 20 mg tablet active Not Available Not Available Not Available albuterol sulfate 2.5 mg/3 mL (0.083 %) solution for nebulization USE 1 VIAL VIA NEBULIZER JENNIFER MATTSON AL D A active Not Available Not Available No t Available FreeStyle Lancets 28 gauge USE TO TEST ONCE DAILY DIRECTED active Not Available Not Available Not Available glipizide 10 mg tablet active Not Available Not Available No t Available clonazepam 0.5 mg tablet active Not Available Not Available Not Available gabapentin 400 mg capsule active Not Available Not Available Not Available clonazepam 1 mg tablet active Not Available Not Available No t Available amlodipine 5 mg tablet active Not Available Not Available No t Available quetiapine 100 mg tablet active Not Available Not Available Not Available levothyroxin e 75 mcg tablet active Not Available Not Available Not Available gabapentin 800 mg tablet active Not Available Not Available Not Available metformin 1,000 mg tablet TOME DMITRIY TABLETA DOS VECES AL D A WITH MORNING AND EVENING MEALS active Not Available Not Available No t Available clonazepam 2 mg tablet active Not Available Not Available No t Available losartan 25 mg tablet TOME DMITRIY TABLETA TODOS LOS D active Not Available Not Available No t Available omeprazole 20 mg capsule,edna yed release TOME DMITRIY C PSULA TODOS LOS D ANTES DE LAS COMIDAS active Not Available Not Available Not Available aspirin 81 mg chewable tablet MASTIQUE DMITRIY TABLETA POR V A ORAL TODOS LOS D active Not Available Not Available No t Available albuterol sulfate HFA 90 mcg/actuatio n aerosol inhaler active Not Available Not Available Not Available celecoxib 100 mg capsule active Not Available Not Available Not Available amitriptylin e 100 mg tablet active Not Available Not Available Not Available Arthritis Pain Relief (acetaminoph en) ER 650 mg tablet,exten d release active Not Available Not Available No t Available Alcohol Prep Pads active Not Available Not Available Not Available ketorolac 15 mg/mL injection syringe Inject 15 mg as needed by intramuscul ar route. 2021 active Not Available Not Available Not Avai lable Flovent HFA 220 mcg/actuatio n aerosol inhaler active Not Available Not Available Not Available BD Ultra-Fine Short Pen Needle 31 gauge x 11/13 active Not Available Not Available Not Available Januvia 100 mg tablet active Not Available Not Available No t Available FreeStyle Lite Meter kit USE TO TEST ONCE A DIARIO active Not Available Not Available No t Available FreeStyle Lite Strips CHECK BS BY FINGERSTICK ROUTE 3 TIMES EVERY DAY active Not Available Not Available No t Available Lantus Solostar U-100 Insulin 100 unit/mL (3 mL) subcutaneous pen INJECT 20 UNITS BY SUBCUTANEOU S ROUTE BEFORE BEDTIME active Not Available Not Available No t Available diclofenac 1 % topical gel active Not Available Not Available Not Available blood pressure test kit-large cuff USE DIRECTED FOR BLOOD PRESSURE active Not Available Not Available No t Available PreserVision AREDS-2 250 mg-90 mg-40 mg-1 mg capsule active Not Available Not Available Not Available Narcan 4 mg/actuation nasal spray active Not Available Not Available Not Available Vitals Date Recorded Heart rate Body weight Respiratory rate Oxygen saturation Oxygen saturation in Arterial blood by Pulse oximetry Body height Body temperature Systolic blood pressure Diastolic blood pressure Provider Name and Address Organization Details Last Updated DateTime 2 70 /min 61298.9 2 g 20 /min 98 % 98 % 147.32 cm 98.4 [degF] 107 mm[Hg] 66 mm[Hg] Not Available [facility] 2 15:44:21 Date Recorded Heart rate Body temperature Oxygen saturation Oxygen saturation in Arterial blood by Pulse oximetry Respiratory rate Systolic blood pressure Diastolic blood pressure Provider Name and Address Organization Details Last Updated DateTime 2 99 /min 98.9 [degF] 98 % 98 % 20 /min 150 mm[Hg] 81 mm[Hg] Not Available [facility] Code[facility] 2 19:19:22 Date Recorded Heart rate Body height Body temperature Respiratory rate Oxygen saturation Oxygen saturation in Arterial blood by Pulse oximetry Body weight Systolic blood pressure Diastolic blood pressure Provider Name and Address Organization Details Last Updated DateTime 5 80 /min 152.4 cm 98.4 [degF] 14 /min 98 % 98 % 65960 g 132 mm[Hg] 80 mm[Hg] Not Available [facility] 5 21:37:25 Social History None recorded. Functional Status None recorded. Mental Status None recorded. Family History Nothing Reported. Medical History No medical history recorded. Gynecological HistoryNo gynecological history recorded. Obstetrics History GPAL:G 0 P 0 0 0 0 Past Encounters Encounter ID Performer Location Encounter Start Date Encounter Closed Date Diagnosis/Indication Diagnosis SNOMED-CT Code Diagnosis ICD10 Code Diagnosis Note [id number] Echo Spain MD [facility] - [facility] [address] [place] [address] 12/07/2021 13:43:08 02/27/2022 12:10:17 Pain in lower limb 33912493 M79.606 Pt describing nonspecifi c pain in bilateral upper leg. No evidence of infectious , inflammato ry process or hypoperfus ion. Suspect neuropathi c process given diabetes with contributi on from psychosoci al stressors. Will give ketorolac and advised patient to reach out to primary team for additional pain control (given her expressed preference for opiates). 2070 Jr Rajput MD Main - [facility] [address] [place] [phone] 12/08/2021 19:19:18 12/08/2021 19:23:49 [id number] Jr Rajput MD Main - [facility] [address] [place] [phone] 10/24/2022 14:09:59 10/25/2022 12:20:37 Chronic ulcer of sacral region 763261320 L98.429 This 67-year-ol d has a chronic sacral ulcer and called complainin g of diffuse pain in the area. The ulcer appears to be unchanged. I recommende d that she follow-up with her PCP. The patient will consider this recommenda tion. [id number] Katerine Connell MD Main - [facility] [address] [place] [phone] 07/29/2024 21:37:23 07/29/2024 23:57:23 Multiple joint pain 01341149 M25.50 Health Concerns Section Related Observation LastModified by Organization Detai ls LastModified Time None Recorded Concern Status LastModified by Organization Details LastModified Time None Recorded Advance Directives Directive None Recorded Payers Encounter Date Sequence Insurance Name Policy Number Policy Hamm Covered Member ID Hamm Member ID Guarantor Name 12/07/2021 1 [facility] - DOS PRIOR TO 2022 - DUAL ELIGIBLE (MEDICARE REPLACEMENT/ADV ANTAGE - HMO) April Mueller [id number] April Mueller 12/08/2021 1 [facility] - DOS PRIOR TO 2022 - DUAL ELIGIBLE (MEDICARE REPLACEMENT/ADV ANTAGE - HMO) April Mueller [id number] April Mueller 10/24/2022 1 [facility] - DOS PRIOR TO 2022 - DUAL ELIGIBLE (MEDICARE REPLACEMENT/ADV ANTAGE - HMO) April Mueller [id number] April Mueller 07/29/2024 1 [facility] - DOS ON OR AFTER 2022 - DUAL ELIGIBLE - ASSISTED OPTIONS AND ONE CARE (MEDICARE REPLACEMENT/ADV ANTAGE - HMO) April Mueller [id number] April Mueller Notes Date Note Type Note Provider Name and Address Organization Details Recorded Time 12/07/2021 text/html HPI: ALLERGIC TO : Ulises inhibitors , Cephalexin Hx: Anxiety and Bipolar Disorder Patient with complaints of painful 10+ bilateral leg swelling and difficulty ambulating. Unable to eat due to nausea induced by pain. .................... .................... .................... .................... .................... .................... .................... . Manager Fine Note: Sent to a call for a pt complaining of leg pain. SC8 arrives on scene, pt contact made at main entrance. Pt is alert and oriented. Airway is patent. Pt complains of bilateral leg pain x 3 days. Pain is described as spiders crawling down pt's legs. Pain does not worsen with palpation. Pt states she has no appetite due to pain. Pt is prescribed Gabapentin 800mg once daily and Acetaminophen 650mg ER for pain. Pt denies headache, dizziness, cp, sob, n/v/d, abd pain, fevers, or recent trauma. Varicose veins noted bilaterally on pt's legs. No edema, erythema or deformities noted. (+) bilateral pedal pulses present. BP:107/66, P:70, RR:20, SpO2:98% RA, T:98.4; Lung sounds: clear bilaterally; Abdomen: soft, non-tender, non-distended; [facility] [place] POC CMP; pictures of pt's legs and CMP results sent to [facility]. [facility] then orders Ketorolac IM 15mg injection. Injection given without incident. Pt advised to follow up with PCP. Red flags discussed. Pt has no further questions. .................... .................... .................... .................... .................... .................... .................... . Disposition: Fulfilled Echo Spain MD [address] [facility],[address], [place], [address], [employer] 12/07/2021 18:02:15 12/08/2021 text/html HPI: Member with edema on LE, reporting pain on her shoulders, back and legs, stating has varicose veins. Member reported she feels anxious today due to pain and has no pain meds. Stated called PCP and saw Paramedics yesterday but did not need nor want to go the ER. Unable to check her BS, stated is afraid of needles. Might have high BS. Allergies: Keflex and Shrimp. Bipolar disorder. .................... .................... .................... .................... .................... .................... .................... . CRC Nursing Assessment: Comments: Request reviewed, no additional information needed by CRC to process visit. .................... .................... .................... .................... .................... .................... .................... . Manager Fine Note: Pt states she has chronic left shoulder pain from a fall a year ago and pain in her upper legs from varicose veins. Pt states the paramedics were there yesterday and offered to take her to the ED but she says there? s no need. Pt wants a doctor to come to the house and not a photographic equipment technician. Pt was advised that she needed to contact her PCP. [facility] contacted. Red flags discussed. .................... .................... .................... .................... .................... .................... .................... . Disposition: Fulfilled Jr Rajput MD [address] [place] [address],[address], [place], [address], [employer] 12/08/2021 19:23:46 10/24/2022 text/html HPI: Call to April Mueller, left upper leg pain and gluteal pain x 3 days. No falls that pt is aware of. Per pt using Tylenol with mild relief. Per pt unsure if any redness or bruising. Per pt pain causing difficulty with walking. Pt advised should be seen today. Pt states unable to get to office. Agrees to Bass Manager referral for assessment of pain. .................... .................... .................... .................... .................... .................... .................... . CRC Nursing Assessment: Comments: CRC RN DID NOT NEED FURTHER INFO .................... .................... .................... .................... .................... .................... .................... . Manager Fine Note From Bridger Kang: Spoke to pt over the phone to give eta, pt said she? s not home, is at an appointment and doesn? t know when she will be home. Tried to call back with production assistant x2 and she repeatedly hung up. CRC RN made aware. Manager Fine Allergies: Cephalexin .................... .................... .................... .................... .................... .................... .................... . 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 She had a fall about a week ago but the pain has not resolved. She has Arthritis. She did not present to the ER at the time of the visit. She has no swelling or decreased ROM. She is not on any blood thinners. She does not have CKD .................... .................... .................... .................... .................... .................... .................... . CRC Nurse Triage Notes (Pushpa Benavidez - VIVIAN): Chief Complaints: Joint pain/swelling PMH: COPD/Asthma, Hypertension, Severe Persistent Mental Illness (SPMI), Rheumatoid Arthritis, Diabetes Mellitus Type 2, Depression, Post-Traumatic Stress Disorder (PTSD), Anxiety Disorder, Bipolar Disorder, Osteoarthritis PMH Reviewed at 07/29/2024 - 18:00 Allergies Reviewed at 07/29/2024 - 18:00 Pain Assessment: Level 10 out of 10 Comments: HPI reviewed .................... .................... .................... .................... .................... .................... .................... . Manager Fine Note From Alfred Mcintosh: Strong language barrier information through Chair Mechanic on Phone. Patient complains of chronic joint pain times months, worse in the last two weeks. Patient reports mechanical fall from standing two weeks ago. Patient complains of left wrist pain. Patient reports taking ibuprofen yesterday with some relief. Patient pink warm dry secondary exam unremarkable. Good CSM and ROM in all extremities. No swelling or deformity noted left wrist or hand. Good skin TURGOR, positive sentences negative increase work of breathing. Patient observed to walk with a steady, even GAIT. Patient walks confidently and is animated and Vocal. Patient complains of 10 out of 10 pain, bilateral wrist joints, bilateral hip joints and knees. Patient requests Toradol. Patient denies recent bleeding, denies kidney problems. [facility] advises Toradol 15 mg IM. Follow up with primary care physician. Administered without complication using five rights. Red flags, patient education discussed. Patient demonstrates understanding of care and plan. .................... .................... .................... .................... .................... .................... .................... . [facility] Consulted: Katerine Connell .................... .................... .................... .................... .................... .................... .................... . Disposition: Simone Connell MD [address] [facility],[address], [place], [address], [employer] 07/29/2024 21:41:56 OBGyn Episode No OBEpisode recorded.
--- OUTSIDE RECORDS SUMMARY | 2024-10-14 14:05 | XMS_ITS | Encounter Summary ---
Author Organization [employer] Address [address] [facility] [address] [place] [address] Care Team Providers Care Nocturnist Physician Name Role Phone Светлана Benjamin MD Primary Care Provider [phone] Encounter Details Date Type Department Care Team (Late st Contact Info) Description 01/10/2024 Orders Only [facility] [address] [place], [place] [phone] Светлана Benjamin MD [address] [place], [place] [phone] History of syphilis (Primary Dx) Social History Tobacco Use Types [...] the past 12 months, has t he [employer], gas, oil or water company threatened to [...] Description 12/04/2024 1:00 PM EDT Office Visit [facility] [address] [place] [address] TyreeKeysha ortiz, OD [address] [place] [address] 01/15/2025 1:30 PM EDT Office Visit [facility] [address] [place] [address] Светлана Benjamin MD [address] [place] [address] documented as of this encounter Visit Diagnoses Diagnosis History of syphilis- Primary documented in this encounter Care Teams Nocturnist Physician Relationship Specialty Start Date End Date Светлана Benjamin MD [address] [place] [address] PCP - General Family Medicine 02/27/21 documented as of this encounter
--- OUTSIDE RECORDS SUMMARY | 2024-10-14 14:05 | XMS_ITS | Continuity of Care Document ---
Author Organization [facility] Address [address] [place] [address] Phone Care Team Providers Care Fishing Tool Operator Name Role Phone Darci FRAUSTO, RVT, EILEEN, [...] Mins- [place] & [place] [facility], [address] [place] [address] [address], [id number], [place] tel:[phone] [facility] [place] Pain in right lower legRestless legs syndromeEssenti al (primary) hypertensionPai n in left lower legType 2 diabetes mellitus without complicationsVe nous insufficiency (chronic) (peripheral) 4 Darci FRAUSTO RVT, EILEEN Esquivel. [address] [address], [place], [place], [id number] , [place]. tel:[phone] Referring Provider: Светлана Benjamin MD, [address] [place] [address], [address]. tel:[phone] [facility], [address] [place] [address] [address], [id number], [place] tel:[phone] [facility] - [place] Chronic venous hypertension (idiopathic) with other complications of bilateral lower extremity 4 Darci FRAUSTO RVT, EILEEN Esquivel. [address] [address], [place], [place], [id number] , [place]. tel:[phone] Referring Provider: Светлана Benjamin MD, [address] [place] [address], [address]. tel:[phone] [facility], [address] [place] [address] [address], [id number], [place] tel:[phone] [facility] - [place] No Information 3 Nic FRAUSTO FACS RODRIT EILEEN Phan. [address] [place] [address], [place], [address], [place]. tel:[phone] Referring Provider: Светлана Benjamin MD, [address] [place] [address], [address]. tel:[phone] Office/Outpt E&M Established 10 Mins [facility], [address] [place] [address] [address], [id number], [place] tel:[phone] [facility] - [place] Venous insufficiency (chronic) (peripheral)Alvin otine dependence, unspecified, uncomplicatedTy pe 2 diabetes w diabetic peripheral angiopath w/o gangrene 3 Nic FRAUSTO FACS JOAQUIN Phan. [facility] [address], [place], [address], [place]. tel:[phone] Referring Provider: David Lucero MD FACS RVT [facility], [address] [facility] [address], [place], [address]. tel:[phone] Family History Family Member Type Diagnosis Age At Onset No Information Payers Payer name Insurance type Covered libertarian ID Authoriza tifeng(s) No Information Social History [...]
== END 2024-10-14 12:13 | disposition home or self-care (01) ==
PROVIDERS: PCP General Practice; Visit Provider Physician Assistant
DX: M25.512 Pain in left shoulder (principal); Z96.612 Presence of left artificial shoulder joint
CPT/HCPCS: 99213; G2211

== ENCOUNTER → 2024-10-14 11:41 | Outpatient (BNV) | payer OTHER, SELFPAY | PROVIDERS: Visit Provider Radiology Diagnostic Radiology | DX: M25.512 Pain in left shoulder (principal); Z96.612 Presence of left artificial shoulder joint | CPT/HCPCS: 73030 ==

== ENCOUNTER 2024-10-14 11:45 | Outpatient (REF) | payer OTHER, SELFPAY ==
--- NOTE | ~2024-10-14 | XR_ITS ---
EXAMINATION: XR SHOULDER 2 OR MORE VIEWS LEFT HISTORY: M25.512 - Pain in left shoulder COMPARISON: Comparison is made with the prior examination dated 10/22/2022. FINDINGS: Three views of the left shoulder are submitted. The patient is again noted to be status post left shoulder arthroplasty. The orthopedic components remain in anatomic alignment. There is no radiographic evidence of loosening. There is no fracture or dislocation. There is moderate osteoarthritis of the AC joint. The soft tissues are unremarkable. XR/XR shoulder LT min 2V IMPRESSION: Status post left shoulder arthroplasty. Electronically signed by: Alvin Causey MD 10/15/2024 09:19 AM EDT
--- OUTSIDE RECORDS SUMMARY | 2024-10-15 14:38 | XMS_ITS | Data Portability ---
Author Organization [email or web address], [place] - [facility] Address [address] [place] [address] Care Team Providers Care Buffet Manager Name Role Phone HIM CCA OTHER Assessment Encounter Date Assessment Date Assessment LastModified by Organization Details LastModified Time 12/08/2021 12/08/2021 This 66-year-old female called [facility] complaining of left shoulder pain and leg pain associated with chronic varicose veins. All of her complaints are chronic and she has refused to go to the ER on various occasions. She was expecting a physician to come to her house today. She was advised to follow up with her PCP to address these chronic problems. [email or web address] Not available 12/08/2021 19:23:26 07/29/2024 07/29/2024 I provided real -time medical direction via phone for this encounter and was available for additional phone-based assistance as needed. I have reviewed and agree with the Assessment and Plan as documented by the Slat Basket Maker Machine. Patient given the opportunity to ask questions. [...] pain with weather changes and overuse. Per transit specialist on the scene, vital signs stable patient [...] particularly fever chills lightheadedness altered mental status [place] [phone] Not available 07/29/2024 21:41:20 Plan of Treatment Reminders Order Date Submit Date Provider Last Modified By Organization Details Last Modified Time Details Appointments None recorded. Lab cmp, whole blood + itzel 2021 022 TREY Weinstein [facility], [address] [place], [phone] 09:25:02 Referral None recorded. Procedures None recorded. Surgeries None recorded. Imaging None recorded. Medication Orders ketorolac 30 mg/mL injection solution 2024 [address]25 [address] , [address] [place] [address], [id number], 5 21:39:15 ketorolac 15 mg/mL injection syringe [...] Details Last Updated DateTime 2 70 /min 01646.9 2 g 20 /min 98 % 98 % 147.32 cm 98.4 [degF] 107 mm[Hg] 66 mm[Hg] Not Available [email or web address] 2 15:44:21 Date Recorded Heart rate Body temperature Oxygen saturation Oxygen saturation in Arterial blood by Pulse oximetry Respiratory rate Systolic blood pressure Diastolic blood pressure Provider Name and Address Organization Details Last Updated DateTime 2 99 /min 98.9 [degF] 98 % 98 % 20 /min 150 mm[Hg] 81 mm[Hg] Not Available [employer] 2 19:19:22 Date Recorded Heart rate Body height Body temperature Respiratory rate Oxygen saturation Oxygen saturation in Arterial blood by Pulse oximetry Body weight Systolic blood pressure Diastolic blood pressure Provider Name and Address Organization Details Last Updated DateTime 5 80 /min 152.4 cm 98.4 [degF] 14 /min 98 % 98 % 13923 g 132 mm[Hg] 80 mm[Hg] Not Available [employer] 5 21:37:25 Social History None recorded. Functional [...] Echo Spain MD [facility] - [facility] [address] [place] [address] 12/07/2021 13:43:08 02/27/2022 12:10:17 Pain in lower limb 07758148 M79.606 Pt describing nonspecifi c pain in bilateral upper leg. No evidence of infectious , inflammato ry process or hypoperfus ion. Suspect neuropathi c process given diabetes with contributi on from psychosoci al stressors. Will give ketorolac and advised patient to reach out to primary team for additional pain control (given her expressed preference for opiates). 2070 Jr Rajput MD Main - [facility] [address] [place] [phone] 12/08/2021 19:19:18 12/08/2021 19:23:49 9818 Jr Rajput MD Main - [facility] [address] [place] [phone] 10/24/2022 14:09:59 10/25/2022 12:20:37 Chronic ulcer of sacral region [id number] L98.429 This 67-year-ol d has a chronic sacral ulcer and called complainin g of diffuse pain in the area. The ulcer appears to be unchanged. I recommende d that she follow-up with her PCP. The patient will consider this recommenda tion. [id number] Katerine Connell MD Main - [facility] [address] [place] [phone] 07/29/2024 21:37:23 07/29/2024 23:57:23 Multiple joint pain 98047130 M25.50 Health Concerns Section Related Observation LastModified by Organization Detai ls LastModified Time None Recorded Concern Status LastModified by Organization Details LastModified Time None Recorded Advance Directives Directive None Recorded Payers Encounter Date Sequence Insurance Name Policy Number Policy Hamm Covered Member ID Hamm Member ID Guarantor Name 12/07/2021 1 [facility] - DOS PRIOR TO 2022 - DUAL ELIGIBLE (MEDICARE REPLACEMENT/ADV ANTAGE - HMO) April Mueller [id number] April Mueller 12/08/2021 1 [facility] - DOS PRIOR TO 2022 - DUAL ELIGIBLE (MEDICARE REPLACEMENT/ADV ANTAGE - HMO) April Mueller [id number] April Mueller 10/24/2022 1 [facility] - DOS PRIOR TO 2022 - DUAL ELIGIBLE (MEDICARE REPLACEMENT/ADV ANTAGE - HMO) April Mueller [id number] April Mueller 07/29/2024 1 [facility] - DOS ON OR AFTER 2022 - DUAL ELIGIBLE - RETIREMENT OPTIONS AND ONE CARE (MEDICARE REPLACEMENT/ADV ANTAGE - HMO) April Mueller [id number] April Mueller Notes Date Note Type Note Provider Name and Address Organization Details Recorded Time 12/07/2021 text/html HPI: ALLERGIC TO : Ulises inhibitors , Cephalexin Hx: Anxiety and Bipolar Disorder Patient with complaints of painful 10+ bilateral leg swelling and difficulty ambulating. Unable to eat due to nausea induced by pain. .................... .................... .................... .................... .................... .................... .................... . Slat Basket Maker Machine Note: Sent to a call for a [...] sounds: clear bilaterally; Abdomen: soft, non-tender, non-distended; [facility] orders POC CMP; pictures of pt's legs and CMP results sent to [facility]. [facility] then orders Ketorolac IM 15mg injection. Injection given without incident. Pt advised to follow up with PCP. Red flags discussed. Pt has no further questions. .................... .................... .................... .................... .................... .................... .................... . Disposition: Fulfilled Echo Spain MD [address] [facility],[address], [place], [address], [employer] 12/07/2021 18:02:15 12/08/2021 text/html HPI: Member with [...] .................... .................... .................... .................... .................... .................... . Slat Basket Maker Machine Note: Pt states she has chronic left shoulder pain from a fall a year ago and pain in her upper legs from varicose veins. Pt states the paramedics were there yesterday and offered to take her to the ED but she says there? s no need. Pt wants a doctor to come to the house and not a transit specialist. Pt was advised that she needed to contact her PCP. [employer] contacted. Red flags discussed. .................... .................... .................... .................... .................... .................... .................... . Disposition: Fulfilled Jr Rajput MD [address] [place] [address],[address], [place], [address], [email or web address] 12/08/2021 19:23:46 10/24/2022 text/html HPI: Call to April Mueller, left upper leg pain and gluteal pain x 3 days. No falls that pt is aware of. Per pt using Tylenol with mild relief. Per pt unsure if any redness or bruising. Per pt pain causing difficulty with walking. Pt advised should be seen today. Pt states unable to get to office. Agrees to [facility] referral for assessment of pain. .................... .................... .................... .................... .................... .................... .................... . CRC Nursing Assessment: Comments: CRC RN DID NOT NEED FURTHER INFO .................... .................... .................... .................... .................... .................... .................... . Slat Basket Maker Machine Note From Bridger Kang: Spoke to pt over the phone to give eta, pt said she? s not home, is at an appointment and doesn? t know when she will be home. Tried to call back with project manager/design manager x2 and she repeatedly hung up. CRC RN made aware. Sl[employer] Basket Maker Machine Allergies: Cephalexin .................... .................... .................... .................... .................... .................... .................... . Disposition: Unfulfilled Jr Rajput MD [address] [facility],[address], [place], [address], [place] DEB MARTÍNEZ 12/31/2022 17:38:20 07/29/2024 text/html [...] .................... .................... .................... .................... .................... .................... . Slat Basket Maker Machine Note From Alfred Mcintosh: Strong language barrier information through [employer] Supervisor on Phone. Patient complains of chronic joint [...] Patient denies recent bleeding, denies kidney problems. [facility] advises Toradol 15 mg IM. Follow up with primary care physician. Administered without complication using five rights. Red flags, patient education discussed. Patient demonstrates understanding of care and plan. .................... .................... .................... .................... .................... .................... .................... . [facility] Consulted: Katerine Connell .................... .................... .................... .................... .................... .................... .................... . Disposition: Simone Connell MD [address] [facility],[address], [place], [address], [email or web address] 07/29/2024 21:41:56 OBGyn Episode No OBEpisode recorded.
--- OUTSIDE RECORDS SUMMARY | 2024-10-15 14:38 | XMS_ITS | Continuity of Care Document ---
Author Organization [facility] Address [address] [facility] [address] [place] [address] Phone Care Team Providers Care Graduate Student Instructor Name Role Phone Darci FRAUSTO, RVT, EILEEN, [...] Mins- [place] & [place] [facility], [address] [place] [address] [address], [id number], [place] tel:[phone] [facility] - [place] [facility] [place] Pain in right lower legRestless legs syndromeEssenti al (primary) hypertensionPai n in left lower legType 2 diabetes mellitus without complicationsVe nous insufficiency (chronic) (peripheral) 4 Darci FRAUSTO RVT, EILEEN Esquivel. [address] [address], [place], [place], [id number] , [place]. tel:[phone] Referring Provider: Светлана Benjamin MD, [address] [place] [address], [address]. tel:[phone] [facility], [address] [place] [address] [address], [id number], [place] tel:[phone] [facility] - [place] - [place] Chronic venous hypertension (idiopathic) with other complications of bilateral lower extremity 4 Darci FRAUSTO RVT, EILEEN Esquivel. [address] [address], [place], [place], [id number] , [place]. tel:[phone] Referring Provider: Светлана Benjamin MD, [address] [place] [address], [address]. tel:[phone] [facility], [address] [place] [address] [address], [id number], [place] tel:[phone] [facility] - [place] No Information 3 Nic FRAUSTO FACS RODRIT EILEEN Phan. [address] [place] [address], [place], [address], [place]. tel:[phone] Referring Provider: Светлана Benjamin MD, [address] [place] [address], [address]. tel:[phone] Office/Outpt E&M Established 10 Mins [facility], [address] [place] [address] [address], [id number], [place] tel:[phone] [facility] - [place] Venous insufficiency (chronic) (peripheral)Alvin otine dependence, unspecified, uncomplicatedTy pe 2 diabetes w diabetic peripheral angiopath w/o gangrene 3 Nic FRAUSTO FACS JOAQUIN Phan. [facility] [address], [place], [address], [place]. tel:[phone] Referring Provider: David Lucero MD FACS RVT [facility], [address] [facility] [address], [facility], [address]. tel:[phone] Family History Family Member Type Diagnosis Age [...]
== END 2024-10-14 11:46 | disposition home or self-care (01) ==
LOC: HO.HOSX 11:45
PROVIDERS: Visit Provider Physician Assistant
DX: M25.512 Pain in left shoulder (principal); Z96.612 Presence of left artificial shoulder joint
CPT/HCPCS: 73030; 99212

== ENCOUNTER 2024-10-22 13:06 | Outpatient (RCR) | payer OTHER, SELFPAY ==
--- NOTE | 2024-10-07 13:16 | MHC.OT.EP ---
[address] [phone] Occupational Therapy Plan of Care Patient Name: April Mueller Date of Evaluation: 10/05/24 Diagnosis: L WRIST TENDONITIS Pain Location: 7/10 AT REST AND WITH USE R DORSAL WRIST Pain Score: 7/10 Pain Scale Used: Numeric (0 - 10) Aggravating Factors: PICKING/ HOLDING ITEMS Alleviating Factors: HOT WATER Assessment: MS DERECK MUELLER REPORTS A GREATER THAN ONE YEAR HISTORY OF L WRIST PAIN, NUMBNESS AND TINGLING. SHE STATES THAT THE NUMBNESS AND TINGLING IS WORSE IN THE EVENING AND UPON WAKING IN THE AM. SHE ALSO REPORTS THAT SHE IS BOTHERED BY COLD WEATHER WITH OA CHANGES IN ALL DIGITS, PARTICULARLY CHICHO NODULES IN PIPjs. SHE RECEIVES ASSISTANCE FROM HER DAUGHTER PRN FOR ADLs AND IADLs DUE TO HX OF B/L SHOULDER LIMITATIONS. AN 80% LIMITATION IS REPORTED PER THE QUICK DASH ASSESSMENT. ONGOING OT IS WARRANTED TO ADDRESS AREAS MENTIONED BELOW. Frequency and Duration: The patient will be seen 2X/WEEK FOR 4 WEEKS Short Term Goals: IND HEP IND USE OF HEAT MODALITIES, PARAFFIN HOME UNIT IND JT PROTECTION/ ACT MODIFICATIONS IND ORTHOSIS USE Corporate Travel Consultant Goals: REPORT MILD NUMBNESS/ TINGLING IN AM UPON WAKING COMPLETE FINE MOTOR TASKS WITH <MILD DIFFICULTIES OR MODERATELY FUNCTIONAL PER FDT REPORT <5/10 PAIN WITH LIGHT ADLs AND IADLs Treatment Plan: Therapeutic Exercise Therapeutic Activity Home Exercise Program Splinting Neuro Re-ed Patient Education Desensitization/Sensory Re-ed Edema Control ADL Training Ultrasound NMES Iontophoresis Paraffin Fluidotherapy MHP Cold Packs Joint Mobilization Soft Tissue Mobilization Kinesiotaping Other (see comments) Electronically Signed By: PATTIE MONTES OTR/L Please Sign and return to therapist. Thank you once again for your referral.
--- NOTE | 2024-11-27 13:39 | MHC.OT.DC ---
[address] [phone] F: [phone] Occupational Therapy Discharge Note Patient Name: April Mueller Provider: Manuel Weller Diagnosis: L WRIST TENDONITIS Date of Evaluation: 10/05/24 Date of Discharge: 11/27/24 Treatments to Date: 3 Cancellations to Date: 0 No Shows to Date: 0 Discharge Summary: MS DERECK MUELLER HAS ATTENDED OT FOR HER L WRIST PAIN. AT THIS TIME, SHE REPORTS HER GREATER CONCERN IS HER L NECK AND SHOULDER PAIN. Pt WISHING TO DISCONTINUE OT AND SEEK PT REFERRAL. NO ADDITIONAL OT WARRANTED AT THIS TIME - D/C SERVICES. Electronically Signed By: BAM BELL/Shasha Reviewed/agree with student documentation: N/A Therapist: Please Sign and return to therapist, thank you for your referral.
== END 2024-11-27 13:40 | disposition home or self-care (01) ==
LOC: HO.OT 13:06
PROVIDERS: PCP General Practice
DX: M77.8 Other enthesopathies, not elsewhere classified (principal)
CPT/HCPCS: 97035; 97110; 97140; 97166

== ENCOUNTER 2024-12-30 12:30 | Outpatient (AMB) | payer OTHER, SELFPAY ==
--- OUTSIDE RECORDS SUMMARY | 2024-02-20 09:30 | XMS_ITS | Continuity of Care Document ---
Author Organization [facility] Address [address] [place] [address] Phone Care Team Providers Care Portuguese Tutor Name Role Phone Darci FRAUSTO, RVT, EILEEN, Alvin Unavailable U navailable Allergies, Adverse Reactions, Alerts Substance Reaction Status Criticality CEPHALEXIN MONOHYDRATE Active No In formation Medications Medication Instructions Dosage Effective Dates (start - stop) Status Comments clindamycin HCl 300 mg capsule take 2 cap by mouth 2 hours prior to procedures then 1 cap every 8 hours for 24 hours post procedures. - Active Procedures Procedure Date Office/Outpt E&M Established 15 Mins- CT & [place] Duplex Scan-extrem Veins; Comp- [place] & [place] Office/Outpt E&M Established 10 Mins Jul Advance Directives Directive Yes / No Effective Date File Name Other Directive No 02/20/2024 N/A WARNING:The information contained in this section is historical and is provided for information only and does not constitute a legal document or any assurance that the information is still accurate. Please verify the information with the baker of the legal document before using it for clinical purposes. Encounters Encounter Description Practice Location Reason(s) For Visit Diagnoses Date Provider Providers Copied on Encounter Office/Outpt E&M Established 15 Mins- [place] & [place] [facility], [address] [place] [address] [address], [id number], [place] tel:[phone] CVR - [place] Pain in right lower legRestless legs syndromeEssenti al (primary) hypertensionPai n in left lower legType 2 diabetes mellitus without complicationsVe nous insufficiency (chronic) (peripheral) 4 Darci FRAUSTO RVT, EILEEN Esquivel. [address] [address], [place], [place], [id number] , [place]. tel:[phone] Referring Provider: Светлана Benjamin MD, [address] [place] [address], [id number]. tel:[phone] [facility], [address] [place] [address] [address], [id number], [place] tel:[phone] CVR - [place] Chronic venous hypertension (idiopathic) with other complications of bilateral lower extremity 4 Darci FRAUSTO RVT, EILEEN Esquivel. [address] [address], [place], [place], [id number] , [place]. tel:[phone] Referring Provider: Светлана Benjamin MD, [address] [place] [address], [id number]. tel:[phone] [facility], [address] [place] [address] [address], [id number], [place] tel:[phone] CVR - [place] No Information 3 Nic FRAUSTO FACS RODRIT EILEEN Phan. [address] [place] [address], [place], [address], [place]. tel:[phone] Referring Provider: Светлана Benjamin MD, [address] [place] [address], [address]. tel:[phone] Office/Outpt E&M Established 10 Mins [facility], [address] [place] [address] [address], [id number], [place] tel:[phone] [place] Venous insufficiency (chronic) (peripheral)Alvin otine dependence, unspecified, uncomplicatedTy pe 2 diabetes w diabetic peripheral angiopath w/o gangrene 3 Nic FRAUSTO FACS JOAQUIN Phan. [facility] [address], [place], [address], [place]. tel:[phone] Referring Provider: David Lucero MD FACS RVT [facility], [address], [place], [address]. tel:[phone] Family History Family Member Type Diagnosis Age At Onset No Information Payers Payer name Insurance type Covered democrat ID Authoriza tifeng(s) No Information Social History Type Description Quantity Date Captured Comments Alcohol Use Details Unknown Caffeine Use Details Unknown Tobacco Use Status Smoking Status Smoker, current stat us unknown Non-Smoking Tobacco Use Details : No Details Available : No Details Available Sex Female Vital Signs Date / Time: Height Weight BMI Pulse Rate Blood Pressure Temperature Respiratory Rate Body Surface Area Head Circumference Head Circ. Percentile Wt./Jagjit. Percentile BMI percentile Pulse Ox Inhaled Ox 60.780 kg (134.00 lbs) 25.3 0 kg/m eter (2) 120/60 mm[Hg] Chief Complaint And Reason For Visit No Information Reason For Referral Reason For Referral No Information Plan Of Treatment Date Type Action Status Goal Diet education completed Goal Tobacco cessation counseling completed Goal Tobacco cessation counseling completed Referral Ordered: Weight management: Referral to physician timeframe: 3 Months (related to Body mass index (BMI) 25.0-25.9, adult) ordered History Of Present Illness Encounter Date Complaint History Of Prese nt Illness No Information Functional Status Date Functional Assessmen t No Information Instructions Date Instruction Additional Infor mation Patient education booklet given Related to Pain in right lower leg Diet education Related to Body mass index (BMI) 25.0-25.9, adult Giving Encouragement to exercise Related to Body mass index (BMI) 25.0-25.9, adult Lifestyle education Related to B kait mass index (BMI) 25.0-25.9, adult Patient education booklet given Related to Venous Insufficiency (Chronic / Peripheral) Assessments Type Assessment Date No Information Patient Care Teams Name Effective Dates (start - stop) Status Members No Information
--- OUTSIDE RECORDS SUMMARY | 2024-12-30 13:00 | XMS_ITS | Clinical Summary ---
Author Organization [employer] Address [address] [place] [address] Care Team Providers Care Combination Machine Tool Operator Name Role Phone Светлана Benjamin MD Primary Care Provider [phone] Allergies Active Allergy Reactions Criticality Noted Date Comments Ulises Inhibitors Cough 03/25/2017 Cephalexin 04/20/2016 Shellfish Allergy 12/14/2022 Medications amitriptyline (Elavil) 100 MG tablet Take 1 tablet by oral route every day at bedtime Active Multiple Vitamins-Mineral s (PreserVision AREDS 2) capsule Take 1 capsule by mouth two times daily Active QUEtiapine (SEROquel) 100 MG tablet Take 1 tablet by oral route at bedtime Active gabapentin (Neurontin) 400 MG capsule Active lidocaine (Lidoderm) 5 % patchIndications :Trochanteric bursitis of left hip,Left hip pain Apply 1 patch topically in the morning. Remove & discard patch within 12 hours or as directed by MD. 30 patch 11 024 Active fluticasone furoate (Arnuity Ellipta) 200 MCG/ACT inhaler INHALE 1 PUFF BY MOUTH ONCE DAILY 30 each 3 024 Active estradiol (Estrace) 0.1 MG/GM vaginal cream Insert 1 g into the vagina. Active Diclofenac Sodium 1 % gel Apply 2 g topically if needed in the morning and at bedtime (pain L shoulder). Apply 2 gram by topical route 3 times every day to the affected area(s) 100 g 3 Active celecoxib (CeleBREX) 100 MG capsule Take 1 capsule (100 mg) by mouth 2 times daily. 180 capsule 3 024 Active Alcohol Swabs (B-D SINGLE USE SWABS REGULAR) pads Place 1 each on the skin 3 times daily. Use twice daily as indicated 100 each Active insulin pen needle (B-D ULTRAFINE III SHORT PEN) 31G X 8 mm miscIndications: Diabetes mellitus type 2 in nonobese (CMS/HCC) USE [...] TABLET BY MOUTH DAILY 90 tablet 3 Active levothyroxine (Synthroid, Levoxyl) 75 MCG tabletIndication s:Acquired hypothyroidism Take 1 tablet (75 mcg) by mouth before breakfast. Take 1 tablet by oral route every day 90 tablet 3 024 Active SITagliptin (Januvia) 100 MG tablet TAKE 1 TABLET BY MOUTH DAILY 90 tablet 3 Active atorvastatin (Lipitor) 20 MG tabletIndication s:Diabetes mellitus type 2 in nonobese (CMS/HCC) Take 1 tablet (20 mg) by mouth Once per day. Take 1 tablet by oral route every day 90 tablet 3 025 2025 Active Blood Glucose Monitoring Suppl (FreeStyle Lite) device Inject 1 each under the skin 2 times daily. Use to test blood sugar as directed 1 each Active Lantus SoloStar 100 UNIT/ML pen INJECT 30 UNITS SUBCUTANEOUSLY AT BEDTIME 15 mL 3 Active glucose blood (FREESTYLE LITE) test strip Check Blood sugar by fingerstick route three times every day 100 each 11 Active losartan (Cozaar) 50 MG tablet TAKE 1 TABLET BY MOUTH DAILY 90 tablet 3 Active ibuprofen 600 MG tablet Active nicotine (Nicoderm, Step 1) 21 MG/24HR patch Apply 1 patch topically. Active nicotine polacrilex (Commit) 2 MG lozenge DISSOLVE 1 LOZENGE BY MOUTH EVERY 2 HOURS. DON''T CHEW OR SWALLOW WHOLE. TAKE DIRECTED ON PACKAGE. TALK TO YOUR DOCTOR ABOUT QUITTING SMOKING Active predniSONE (Deltasone) 20 MG tablet TAKE 2 TABLETS BY MOUTH WITH FOOD OR MILK ON THE MORNING OF 11/15/24 Active omeprazole (PriLOSEC) [address] capsule Take 1 capsule (20 mg) by mouth before breakfast. Take 1 capsule by oral route every day before a meal as needed for gastritis 90 capsule 3 025 Active Multiple Vitamins-Mineral s (PreserVision AREDS) capsuleIndicatio ns:Intermediate stage nonexudative age-related macular degeneration of both eyes Take 1 capsule by mouth with breakfast and with evening meal. 60 capsule 11 Active omeprazole (PriLOSEC) [address] capsule Take 1 capsule (20 mg) by mouth before breakfast. Take 1 capsule by oral route every day before a meal as needed for gastritis 90 capsule 3 024 2024 Discontinued(R eorder (will not trigger notification to Pharmacy)) Active Problems Problem Noted Date Diagnosed Date Oral thrush 11/16/2024 Assessment & Plan (11/16/2024 2:50 PM EDT): Nystatin 500,000 U/4X per day x 10 days, swish and swallow. I explained to patient that she should keep it in her mouth as long as she can then swallow I explained to them that is probably side effect from antibiotics, she can use warm water with salt AC meals as long as it is at least 2 hours after nystatin Reconsult as needed Will prescribe Glucerna x 2 weeks due to patient's poor p.o. intake. Pneumonia of right lower lobe due to infectious organism 11/16/2024 Assessment & Plan (11/16/2024 2:51 PM EDT): Apparently aspiration pneumonia, patient on home oxygen, discharge summary not available. Patient is doing well on antibiotics and is afebrile, complete 2 more days I recommended to use albuterol updraft every 6 hours until she completes antibiotics then as needed cough Advised to make an appointment with [facility] pulmonology, she may need long-term oxygen. Advised to quit smoking and using any other recreational substances Kidney lesion, lower elwha, left 11/16/2024 Overview (11/16/2024): CT scan chest on 11/10/2024 at [facility] showed indeterminate wedge- shaped hypodensity in the mid to lower pole the left kidney, differential includes focal pyelonephritis or infarct. Assessment & Plan (11/16/2024 2:48 PM EDT): Wedge shaped density of the left kidney seen on CT scan chest (11/10/2024 at [facility], incidental finding). Obtain discharge summary and see if it needs additional follow-up Patient is doing very well and last GFR on admission was within normal limits History of syphilis 01/10/2024 Overview (01/10/2024): Treated at [facility] in 2015 2018 RPR + 1:8 titer [...] (12/14/2022 2:14 PM EDT): Replacement 08/07/22 at [facility] Brief rehab stay Did PT September and October 2022 Pain is better than before surgery Assessment & Plan (09/26/2022 12:09 PM EDT): Replacement 08/07/22 at [facility] Brief rehab stay Post-op course has been complicated by pain in left shoulder, not starting PT, unclear whether she is wearing supportive arm sling device xrays taken at ortho clinic 09/13/22 reportedly show good placement of L shoulder prosthesis Will attempt to reconnect pt to [facility] followup with Dr Cooper at end [...] her Klonopin, Seroquel, and opioid pain medications [facility] oncall provider, Angelita, came to evaluate patient and recommended [facility] for stabilization and safety Pt became upset at this plan and walked out of the exam room, and out of clinic Myself and my MA were able to go with her and have her agree to VNA services, which I ordered for medication management [facility] is aware of patient and [facility] therapist will contact daughter tomorrow Patient needs [...] 2 in nonobese 04/20/2016 Assessment & Plan (11/16/2024 2:55 PM EDT): Uncontrolled, needs to follow-up closely with PCP Continue Lantus 40 units + Jardiance and check fingerstick to follow-up with PCP in 1 to 2 days after she completes prednisone. Can drink Glucerna can once per day to supplement poor p.o. 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 Insomnia 04/20/2016 Resolved Problems Problem Noted Date Diagnosed Date Resolved Date Diabetic neuropathy 04/20/2016 12/17/19 25 Assessment & Plan (12/14/2022 2:13 PM EDT): Gabapentin 400mg up to TID Encounters Date Type Department Care Team Description 12/16/2024 1:30 PM EDT Office Visit [facility] [address] [place] [address] Carolyn Mitchell DDS Edentulous (Primary Dx) 12/09/2024 Refill [facility] [address] [place], [place] [phone] Светлана Benjamin MD 12/04/2024 1:00 PM EDT Office Visit [facility] [address] [place], [place] [phone] Tyree, Keysha, OD Moderate nonproliferative diabetic retinopathy of both eyes without macular edema associated with type 2 diabetes mellitus (CMS/HCC) (Primary Dx); Intermediate stage nonexudative age-related macular degeneration of both eyes; Combined forms of age-related cataract of both eyes; Presbyopia 12/04/2024 Travel 11/16/2024 2:15 PM EDT Office Visit [facility] [address] [place] [address] Renetta Marie MD Oral thrush (Primary Dx); Pneumonia of right lower lobe due to infectious organism; Kidney lesion, lower elwha, left; Diabetes mellitus type 2 in nonobese (CMS/HCC) 11/16/2024 Telephone [facility] [address] [place] [address] Светлана Benjamin MD Nurse Triage 11/12/2024 Refill [facility] [address] [place] [address] Светлана Benjamin MD 10/21/2024 Refill [facility] [address] [place], [place] [phone] Светлана Benjamin MD 10/08/2024 Telephone [facility] [address] [place] [address] Светлана Benjamin MD Recall from Last 3 Months Immunizations Immunization Administration Dates Next Due Hep A / [...] Tobacco: Never Tobacco Cessation:Ready to Q uit: Not Asked; Counseling Given: Not Answered Alcohol Use Standard [...] Sign Reading Time Taken Comments Blood Pressure 130/62 11/16/2024 1:42 PM EDT Pulse 120 11/16/2024 1:42 PM EDT Temperature 35.1 C (95.1 F) 11/16/2024 1:42 PM EDT Respiratory Rate 24 11/16/2024 1:42 PM EDT Oxygen Saturation 94% 03/27/2024 1:28 PM EDT Inhaled Oxygen Concentration - - Weight 55.5 kg (122 lb 6 oz) 11/16/2024 1:42 PM EDT Height 154.9 cm (5' 1 ) 11/16/2024 1:42 PM EDT Body Mass Index 23.12 11/16/2024 1:42 PM EDT Plan of Treatment Upcoming Encounters Date Type Department Care Team (Late st Contact Info) Description 01/15/2025 1:30 PM EDT Office Visit [facility] [address] [place] [address] Светлана Benjamin MD [address] [place] [address] 06/07/2025 1:00 PM EST Office Visit [facility] [address] [place] [address] Tyere, Keysha, OD [address] [place] [address] Health Maintenance Due Date Last Done Comments CT Colonography 1956 Dental Prophylaxis 1956 Dental X-Ray: Bitewings 1956 FIT DNA/Cologuard 1956 FIT 1956 FOBT 1956 Sigmoidoscopy 1956 Diabetes: Foot Exam 1966 Alcohol/Substance Use Screening 1968 RSV Patients and Patients Aged 60 years or older (1 - Risk 60-74 years 1-dose series) 2016 Zoster Vaccines (3 of 3) 12/17/2019 10/22/2019, 11/2016 Mammogram 03/03/2022 03/03/2020, 12/30, 01/22/2019 Lipid Panel 04/28/2022 04/28/2021 Depression Screening 12/15/2023 12/14/2022, 12/15/19 23 COVID-19 Vaccine ( season) 2024 07/13/2022, 02/05/2022, 07/21/2021, Additional history exists Diabetes: Hemoglobin A1C 06/26/2024 024, 05/20/2023, 12/14/2022, Additional history exists Diabetes: Urine Protein Screening 01/05/2025 01/06/2024 SDOH Screening 03/20/2025 03/20/2024 Dental Oral Exam 06/18/2025 12/16/2024, 05/11/2016 Eye Exam 12/04/2025 12/04/2024, 11/2024, 12/04/2024, Additional history exists Tobacco Screening 12/16/2025 12/16/2024 DTaP/Tdap/Td Vaccines (3 - Td or Tdap) 06/15/2026 06/15/2016, 11/21/2015 Dental X-Ray: Full Mouth 12/18/2027 12/16/2024, 05/01 Colonoscopy 02/25/2030 02/26/2020 Colorectal Cancer Screening 02/25/2030 [...] on patient's age to complete this topic Meningococcal B Vaccine Aged Out No l onger eligible based on patient's age to complete this topic RSV under 20 months Aged Out No longe r eligible based on patient's age to complete this topic Rotavirus Vaccines Aged Out No longer eligible based on patient's age to complete this topic Procedures Procedure Name Priority Date/Time Associated Diagnosis Comments CASE PRESENTATION, DETAILED AND EXTENSIVE TREATMENT PLANNING Routine 12/16/2024 1:30 PM EDT Edentulous PANORAMIC RADIOGRAPHIC IMAGE Routine 12/16/2024 1:30 PM EDT Edentulous PERIODIC ORAL EVALUATION - ESTABLISHED PATIENT Routine 12/16/2024 1:30 PM EDT Edentulous 32 EXTRACTION Routine 12/16/2024 12:00 AM EDT 17 EXTRACTION Routine 12/16/2024 12:00 AM EDT 16 EXTRACTION Routine 12/16/2024 12:00 AM EDT 1 EXTRACTION Routine 12/16/2024 12:00 AM EDT OCT, RETINA - OU - BOTH EYES Routine 12/04/2024 1:00 PM EDT Intermediate stage nonexudative age-related macular degeneration of both eyes POCT GLYCOSYLATED HEMOGLOBIN (HGB A1C) Routine 03/27/2024 [...] Recently Relevant to Health Maintenance Results * OCT, Retina - OU - Both Eyes (12/04/2024 1:00 PM EDT) Keysha Waite, OD - 12/10/2024 3:16 PM EDT Images from the original result were not included. Right Eye Quality was good. Progression has worsened. Findings include normal foveal contour. Left Eye Quality was good. Progression has worsened. Findings include normal foveal contour. Notes OCT MACULA INTERPRETATION Optical Coherence Tomography Interpretation Report Measurements: OD OS Macula Thickness 200 microns 209 microns Test findings: OD: Normal foveal contour, no cystoid macular edema (CME), Large and small soft and hard drusen throughout macula, no subretinal fluid (SRF) OS: Normal foveal contour, no cystoid macular edema (CME), Large and small soft and hard drusen throughout macula, no subretinal fluid (SRF) Impression and Plan: Grossly stable findings compared to 12/2022 scans. Will monitor here in 6 months. us Keysha Clements OD OPHTH TOMOGRAPHY Final Result * (ABNORMAL) POCT glycosylated hemoglobin (Hgb A1c) (03/27/2024 1:32 PM EDT) Pathologist [facility] Hemoglobin A1C 8.8(A) 4.0 - 6.0 % QC Media Lot # [id number] Lot# Expiration Date Blood Capillary blood specimen / Unknown 03/27/2024 1:32 PM EDT Светлана Benjamin MD POINT OF CARE TEST ENTER/EDIT ORDERABLES Final Result * Albumin, Random Urine W/Creatinine (01/06/2024 2:10 PM EDT) [facility] Creatinine, Urine 47.40 mg/dL [facility] Microalbumin Urine <5.0 mg/L [facility] Microalbum Creatinine Ratio Ur TNP <30 ug/mg cr [facility] Comment:Unable to calculate albumin/creatinine ratio due to lowmicroalbumin or creatinine result. Urine (Urine, Random) 01/06/2024 2:10 PM EDT 01/06/2024 3:53 PM EDT Светлана Benjamin MD LAB URINE ORDERABLES Final Res ult Performing Organization Address [facility] Co de Phone Number [facility] [address] [place] [address] [phone] * Hepatitis C Antibody with Reflex to HCV, RNA, Quantitative, Real-Time PCR (01/06/2024 2:10 PM EDT) [facility] Hepatitis C Antibody Nonreactive Nonreactive [facility] Comment:Antibodies to HCV no t detected; does not exclude early acuteHCV infection. Blood Venous blood specimen / Unknown 01/06/2024 2:10 PM EDT 01/06/2024 3:51 PM EDT Светлана Benjamin MD LAB BLOOD ORDERABLES Final Res ult Performing Organization Address City/[facility]/ZIP Co de Phone Number [facility] [address] [place] [phone] * (ABNORMAL) LIPID PANEL, STANDARD (04/28/2021 11:02 AM EDT) Chol/HDLC Ratio 2.8 <5.0 (calc) [facility] Cholesterol, Total 134 <200 mg/dL [facility] HDL Cholesterol 48(L) > OR = 50 mg/dL [facility] LDL Cholesterol 59 mg/dL (calc) [facility] Comment: Reference range: <100 Desirable range <100 mg/dL for primary prevention; <70 mg/dL for patients with CHD or diabetic patients with > or = 2 CHD risk factors. LDL-C is now calculated using the Carine calculation, which is a validated novel method providing better accuracy than the Friedewald equation in the estimation of LDL-C. Cm SS et al. MCKINLEY. 2013;310(19): 7078-1366 (http://education.[employer]/faq/YBK074) Non-HDL Cholesterol 86 <130 mg/dL (calc) [facility] Comment: For patients with diabetes plus 1 major ASCVD risk factor, treating to a non-HDL-C goal of <100 mg/dL (LDL-C of <70 mg/dL) is considered a therapeutic option. Triglycerides 197(H) <150 mg/dL [facility] 04/28/2021 11:0 2 AM EDT us Radha Costa TRACTOR TRA[employer] LAB BLOOD ORDERABLES Final Res ult [facility] [address] * 3D BILATERAL DIAGN MAMMO 1 (03/03/2020 [...] 02/26/2020 Recommended 10 year follow up ( [facility] ) Historical Provider HEALTH MAINTENANCE Edited Result - Final from Last 3 Months or Most Recently Relevant to Health Maintenance Insurance [facility] (O D-SNP) DENTAL [facility] [place] [id number] [place] [id number] Care Teams Combination Machine Tool Operator Relationship Specialty Start Date End Date Светлана Benjamin MD [address] [place] [phone] PCP - General Family Medicine 02/27/21
--- OUTSIDE RECORDS SUMMARY | 2024-12-30 13:01 | XMS_ITS | Data Portability ---
Author Organization [place] - Photos I Like [facility], [facility] Address [address] [place] [address] Care Team Providers Care Instrument Worker Name Role Phone HIM CCA OTHER Assessment Encounter Date Assessment Date Assessment LastModified by Organization Details LastModified Time 12/08/2021 12/08/2021 This 66-year-old female called ITN complaining of left shoulder pain and leg pain associated with chronic varicose veins. All of her complaints are chronic and she has refused to go to the ER on various occasions. She was expecting a physician to come to her house today. She was advised to follow up with her PCP to address these chronic problems. Not available 12/08/2021 19:23:26 07/29/2024 07/29/2024 I provided real -time medical direction via phone for this encounter and was available for additional phone-based assistance as needed. I have reviewed and agree with the Assessment and Plan as documented by the Quill Fixer. Patient given the opportunity to ask questions. [...] pain with weather changes and overuse. Per reaming press operator on the scene, vital signs stable patient [...] particularly fever chills lightheadedness altered mental status [email or web address] Not available 07/29/2024 21:41:20 Plan of Treatment Reminders Order Date Submit Date Provider Last Modified By Organization Details Last Modified Time Details Appointments None recorded. Lab cmp, whole blood + itzel 2021 022 [facility], [address] [place], [id number] 09:25:02 Referral None recorded. Procedures None recorded. Surgeries None recorded. Imaging None recorded. Medication Orders ketorolac 30 mg/mL injection solution 2024 025 [place] [address] , [address] [place] [address], [place], [place], [phone], 5 21:39:15 ketorolac 15 mg/mL injection syringe [...] Available Vitals Date Recorded Heart rate Body height Body temperature Respiratory rate Oxygen saturation Oxygen saturation in Arterial blood by Pulse oximetry Body weight Systolic blood pressure Diastolic blood pressure Provider Name and Address Organization Details Last Updated DateTime 5 80 /min 152.4 cm 98.4 [degF] 14 /min 98 % 98 % 12587 g 132 mm[Hg] 80 mm[Hg] Not Available [employer] 5 21:37:25 Date Recorded Heart rate Body weight Respiratory rate Oxygen saturation Oxygen saturation in Arterial blood by Pulse oximetry Body height Body temperature Systolic blood pressure Diastolic blood pressure Provider Name and Address Organization Details Last Updated DateTime 2 70 /min 63179.9 2 g 20 /min 98 % 98 % 147.32 cm 98.4 [degF] 107 mm[Hg] 66 mm[Hg] Not Available [employer] 2 15:44:21 Date Recorded Heart rate Body temperature Oxygen saturation Oxygen saturation in Arterial blood by Pulse oximetry Respiratory rate Systolic blood pressure Diastolic blood pressure Provider Name and Address Organization Details Last Updated DateTime 2 99 /min 98.9 [degF] 98 % 98 % 20 /min 150 mm[Hg] 81 mm[Hg] Not Available [employer] 2 19:19:22 Social History None recorded. Functional Status None [...] 2035 Echo Spain MD [facility] [address] [place] [phone] 12/07/2021 13:43:08 02/27/2022 12:10:17 Pain in lower limb [id number] M79.606 Pt describing nonspecifi c pain in bilateral upper leg. No evidence of infectious , inflammato ry process or hypoperfus ion. Suspect neuropathi c process given diabetes with contributi on from psychosoci al stressors. Will give ketorolac and advised patient to reach out to primary team for additional pain control (given her expressed preference for opiates). 2070 Jr Rajput MD [facility] - [facility] [address] [place] [phone] 12/08/2021 19:19:18 12/08/2021 19:23:49 9818 Jr Rajput MD [facility] [address] [place] [phone] 10/24/2022 14:09:59 10/25/2022 12:20:37 Chronic ulcer of sacral region [id number] L98.429 This 67-year-ol d has a chronic sacral ulcer and called complainin g of diffuse pain in the area. The ulcer appears to be unchanged. I recommende d that she follow-up with her PCP. The patient will consider this recommenda tion. [id number] Katerine Connell MD [facility] [address] [place] [phone] 07/29/2024 21:37:23 07/29/2024 23:57:23 Pain of multiple joints [id number] M25.50 Health Concerns Section Related Observation LastModified by Organization Detai ls LastModified Time None Recorded Concern Status LastModified by Organization Details LastModified Time None Recorded Advance Directives Directive None Recorded Payers Insurance Date Sequence Insurance Name Policy Number Policy Hamm Covered Member ID Hamm Member ID Guarantor Name 02/11/2024 1 [facility] - DOS PRIOR TO 2022 - DUAL ELIGIBLE (MEDICARE REPLACEMENT/ADV ANTAGE - HMO) April Mueller [id number] April Mueller 07/30/2024 1 [facility] - DOS ON OR AFTER 2022 - DUAL ELIGIBLE - CUSTODIAL OPTIONS AND ONE CARE (MEDICARE REPLACEMENT/ADV ANTAGE - HMO) April Mueller [id number] April Mueller Notes Date Note Type Note Provider Name and Address Organization Details Recorded Time 12/07/2021 text/html HPI: ALLERGIC TO : Ulises inhibitors , Cephalexin Hx: Anxiety and Bipolar Disorder Patient with complaints of painful 10+ bilateral leg swelling and difficulty ambulating. Unable to eat due to nausea induced by pain. .................... .................... .................... .................... .................... .................... .................... . Quill Fixer Note: Sent to a call for a [...] sounds: clear bilaterally; Abdomen: soft, non-tender, non-distended; [facility] orders POC CMP; pictures of pt's legs and CMP results sent to [facility]. [facility] then orders Ketorolac IM 15mg injection. Injection given without incident. Pt advised to follow up with PCP. Red flags discussed. Pt has no further questions. .................... .................... .................... .................... .................... .................... .................... . Disposition: Fulfilled Echo Spain MD [address] [facility],[address], [place], [address], [place] [email or web address] 12/07/2021 18:02:15 12/08/2021 text/html HPI: Member with [...] .................... .................... .................... .................... .................... .................... . Quill Fixer Note: Pt states she has chronic left shoulder pain from a fall a year ago and pain in her upper legs from varicose veins. Pt states the paramedics were there yesterday and offered to take her to the ED but she says there s no need. Pt wants a doctor to come to the house and not a reaming press operator. Pt was advised that she needed to contact her PCP. [facility] contacted. Red flags discussed. .................... .................... .................... .................... .................... .................... .................... . Disposition: Fulfilled Jr Rajput MD [address] [place] [address],[address] [facility], [place], [phone], [email or web address] 12/08/2021 19:23:46 10/24/2022 text/html HPI: Call to April Mueller, left upper leg pain and gluteal pain x 3 days. No falls that pt is aware of. Per pt using Tylenol with mild relief. Per pt unsure if any redness or bruising. Per pt pain causing difficulty with walking. Pt advised should be seen today. Pt states unable to get to office. Agrees to ITN referral for assessment of pain. .................... .................... .................... .................... .................... .................... .................... . CRC Nursing Assessment: Comments: CRC RN DID NOT NEED FURTHER INFO .................... .................... .................... .................... .................... .................... .................... . Quill Fixer Note From Bridger Kang: Spoke to pt over the phone to give eta, pt said she s not home, is at an appointment and doesn t know when she will be home. Tried to call back with telecommunications network engineer x2 and she repeatedly hung up. CRC RN made aware. Quill Fixer Allergies: Cephalexin .................... .................... .................... .................... .................... .................... .................... . Disposition: Unfulfilled Jr Rajput MD [address] [place] [address],[address], [place], [address], [email or web address] 12/31/2022 17:38:20 07/29/2024 text/html HPI: RN calling has severe pain all over her body. [...] .................... .................... .................... .................... .................... .................... . [facility] Nurse Triage Notes (Pushpa Benavidez - RN): Chief Complaints: Joint pain/swelling PMH: COPD/Asthma, Hypertension, Severe Persistent Mental Illness (SPMI), Rheumatoid Arthritis, Diabetes Mellitus Type 2, Depression, Post-Traumatic Stress Disorder (PTSD), Anxiety Disorder, Bipolar Disorder, Osteoarthritis PMH Reviewed at 07/29/2024 - 18: Allergies Reviewed at 07/29/2024: Pain Assessment: Level 10 out of 10 Comments: HPI reviewed .................... .................... .................... .................... .................... .................... .................... . Quill Fixer Note From Alfred Mcintosh: Strong language barrier information through [employer] Car Loader on Phone. Patient complains of chronic joint [...] Patient denies recent bleeding, denies kidney problems. [facility] advises Toradol 15 mg IM. Follow up with primary care physician. Administered without complication using five rights. Red flags, patient education discussed. Patient demonstrates understanding of care and plan. .................... .................... .................... .................... .................... .................... .................... . [facility] Consulted: Katerine Connell .................... .................... .................... .................... .................... .................... .................... . Disposition: Fulfilled Katerine Connell MD [address] [facility],[address], [place], [address], [email or web address] 07/29/2024 21:41:56 OBGyn Episode No OBEpisode recorded.
--- NOTE | 2024-12-30 13:07 | A.OFFVIS_ITS ---
Vital Signs 12/30/24 13:08 Height 5 ft Weight 120 lb BMI 23.4 BP 115/63 Blood Pressure Location Rt brachial Position Sitting Respiration 18 Pulse 67 Pulse Source Pulse Oximeter Pulse Oximetry (%) 97 Oxygen Delivery Method Room Air Intake Visit Reasons: Polymyalgia rheumatica/REID 2020 Crm System Administrator Required: Yes Crm System Administrator Services: Crm System Administrator Present Crm System Administrator Name: [id number] Allergies cephalexin (From KEFLEX) Allergy (Intermediate, Verified 12/30/24 13:08) REDNESS, hives, swelling HPI Comments Details: April is a very pleasant 69 years old female who presents in my office with complains on pain on the posterior surface of the left shoulder. Apparently she had total shoulder replacement 2 years ago. She had physical therapy after this procedure, she restored the mobility of the shoulder on the left with good baptist of motions. However pain in his shoulder continued to bother her. She reports today pain 7/10. Most of the pain is on posterior surface of the left shoulder with radiation down to the left arm and left forearm. Because of her pain she can not sleep normally can not do activities of daily living can not take care of herself and can not function normally. In terms of tissue da mage he describes her pain as stabbing, lancinating, dull, sore, hurting, aching, heavy sensation. The patient is reporting that she is taking Tylenol for her shoulder pain, she denies any help from Tylenol. She had images of the left shoulder available in the chart with total shoulder replacement in good position without subluxation or requirements for correction. She had physical therapy after the total shoulder replacement she reported good mobility improvement but pain remained severe. She had injections of the steroids into her shoulder before the surgery but nothing after the shoulder surgery. Her past medical history significant for fatigue, asthma, diabetes and arthritis. Her past surgical history significant for surgeries above. She admits smoking cigarettes, denies drinking alcohol , she denies caffeinated beverages, she denies recreational drugs. [facility] Medical History Diabetes Edentulous HLD (hyperlipidemia) HTN (hypertension) Hypothyroidism Latent syphilis Panic attacks PTSD (post-traumatic stress disorder) PVD (peripheral vascular disease) Right knee pain SOB (shortness of breath) Spondylosis of lumbar region without myelopathy or radiculopathy T2DM (type 2 diabetes mellitus) Vitamin D deficiency Surgical History Hx of appendectomy Hx of section Status post total shoulder replacement Family History Father No problems noted. Mother No problems noted. Social History Household Members: None Housing: Apartment Are you a primary career services officer to a significant other at home: No Do you presently have visiting nurse or other home services: No Alcohol intake: never Patient Tobacco Use Status: Current everyday Tobacco user Tobacco use type: Cigarette Cigarettes Per Day: 10 Years Smoked: 15+ Second Hand Smoke Exposure: No service: No Current occupational status: disabled Review of Systems Const All systems reviewed & are unremarkable except as noted in HPI and below Physical Exam Vital Signs: Last Vital Signs Pulse 67 12/30/24 13:08 Resp 18 12/30/24 13:08 BP 115/63 12/30/24 13:08 Pulse Ox 97 12/30/24 13:08 Oxygen Delivery Method Room Air 12/30/24 13:08 BMI result Body Mass Index 23.4 Const General: cooperative, comfortable and no acute distress Nutritional Appearance: average body habitus Orientation/consciousness: patient oriented x3 Limitations: language barrier Neck Neck: Yes normal visual inspection Chest Chest palpation & inspection: normal inspection of the chest Resp Effort & Inspection: normal respiratory effort, able to speak in complete sentences, normal respiratory pattern, no audible wheezes and Actively coughing Cardio Jugular venous distension: no JVD Neuro General: patient oriented x3 Extrem Other: Left shoulder incision well healed. No erythema or swelling. no pathological discharge. demonstrates good range of motion of the left shoulder. She is able to initiate FF overhead , ER and abduction to 90. She has mild discomfort with cross-body abduction. Deltoid sensation intact. Results Reviewed Results Reviewed: XR SHOULDER 2 OR MORE VIEWS LEFT FINDINGS: Three views of the left shoulder are submitted. The patient is again noted to be status post left shoulder arthroplasty. The orthopedic components remain in anatomic alignment. There is no radiographic evidence of loosening. There is no fracture or dislocation. There is moderate osteoarthritis of the AC joint. The soft tissues are unremarkable. Assessment & Plan Assessment & Plan (1) Status post total replacement of left shoulder: Code(s): Z96.612 - Presence of left artificial shoulder joint Category: Surgical (2) Chronic left shoulder pain: Code(s): M25.512 - Pain in left shoulder; G89.29 - Other chronic pain Category: Medical (3) Chronic pain syndrome: Code(s): G89.4 - Chronic pain syndrome Category: Medical Plan I offered this patient to perform diagnostic suprascapular nerve injection, diagnostic procedure. With good results of the pain relief we could offer her sprint PNS in this area to alleviate her pain. Patient expressed understanding. she will be scheduled for the procedure as soon as possible. Coding Level of Care Code New Pt Level 3 (32647) Diagnoses Status post total replacement of left shoulder Z96.612 Chronic left shoulder pain M25.512; G89.29 Chronic pain syndrome G89.4
[2024-12-30 13:08] VITALS: BP 115/63; PULSE 67; RESP 18; O2SAT 97; BMI 23.4
== END 2024-12-30 13:28 | disposition home or self-care (01) ==
LOC: HO.PMC 12:31
PROVIDERS: PCP General Practice; Referring Provider Physician Assistant; Visit Provider Anesthesiology
DX: G89.29 Other chronic pain (principal); G89.4 Chronic pain syndrome; M25.512 Pain in left shoulder; Z96.612 Presence of left artificial shoulder joint
CPT/HCPCS: 99203

== ENCOUNTER → 2024-12-30 12:30 | Outpatient (BNVA) | payer OTHER, SELFPAY | PROVIDERS: PCP General Practice; Referring Provider Physician Assistant; Visit Provider Anesthesiology | DX: G89.4 Chronic pain syndrome (principal); M25.512 Pain in left shoulder; Z96.612 Presence of left artificial shoulder joint; R53.83 Other fatigue; E78.5 Hyperlipidemia, unspecified; I10 Essential (primary) hypertension; E03.9 Hypothyroidism, unspecified; E11.51 Type 2 diabetes mellitus with diabetic peripheral angiopathy without gangrene; E55.9 Vitamin D deficiency, unspecified; F17.210 Nicotine dependence, cigarettes, uncomplicated | CPT/HCPCS: 99202 ==

== ENCOUNTER 2025-01-15 10:40 | Outpatient (REF) | payer OTHER, SELFPAY ==
--- OUTSIDE RECORDS SUMMARY | 2025-01-15 11:15 | XMS_ITS | Clinical Summary ---
Author Organization [employer] Address [address] [place] [address] Care Team Providers Care Oracle Ebs Developer Name Role Phone Светлана Benjamin MD Primary Care Provider [phone] Allergies Active Allergy Reactions Criticality Noted Date [...] 2 times daily. 180 capsule 3 Active insulin pen needle (B-D ULTRAFINE III SHORT PEN) 31G X 8 mm miscIndications: Diabetes mellitus type 2 in nonobese (CMS/HCC) USE WITH INSULIN DAILY 100 each 11 Active aspirin 81 MG chewable tablet CHEW 1 TABLET BY MOUTH EVERY MORNING 90 tablet 3 Active FreeStyle lancets USE ONE LANCET TO TEST BLOOD SUGAR THREE TIMES A DAY 100 each 11 Active clonazePAM (KlonoPIN) 1 MG tablet Take [...] oral route every day 90 tablet 3 Active SITagliptin (Januvia) 100 MG tablet TAKE [...] route three times every day 100 each Active losartan (Cozaar) 50 MG tablet TAKE [...] as needed for gastritis 90 capsule 3 Active Multiple Vitamins-Mineral s (PreserVision AREDS) capsuleIndicatio ns:Intermediate stage nonexudative age-related macular degeneration of both eyes Take 1 capsule by mouth with breakfast and with evening meal. 60 capsule 11 Active Alcohol Swabs (B-D SINGLE USE SWABS REGULAR) pads Place 1 each on the skin 3 times daily. Use twice daily as indicated 100 each Active clonazePAM (KlonoPIN) 0.25 MG disintegrating tablet Active Alcohol Swabs (B-D SINGLE USE SWABS REGULAR) pads Place 1 each on the skin 3 times daily. Use twice daily as indicated 100 each 024 2024 Discontinued(R eorder (will not trigger notification to Pharmacy)) Active Problems Problem Noted Date Diagnosed Date Bipolar affective disorder, currently manic, severe, with psychotic features 01/15/2025 Oral thrush 11/16/2024 Assessment & Plan (11/16/2024 [...] cough Advised to make an appointment with [facility] pulmonology, she may need long-term oxygen. Advised to quit smoking and using any other recreational substances Kidney lesion, [place], left 11/16/2024 Overview (11/16/2024): CT scan chest on 11/10/2024 at [facility] showed indeterminate wedge- shaped hypodensity in the mid to lower pole the left kidney, differential includes focal pyelonephritis or infarct. Assessment & Plan (11/16/2024 2:48 PM EDT): Wedge shaped density of the left kidney seen on CT scan chest (11/10/2024 at [facility], incidental finding). Obtain discharge summary and see if it needs additional follow-up Patient is doing very well and last GFR on admission was within normal limits History of syphilis 01/10/2024 Overview (01/10/2024): [place] [facility] [place] 2018 RPR + 1:8 titer [...] (12/14/2022 2:14 PM EDT): Replacement 08/07/22 at [facility] Brief rehab stay Did PT September and October 2022 Pain is better than before surgery Assessment & Plan (09/26/2022 12:09 PM EDT): Replacement 08/07/22 at [facility] Brief rehab stay Post-op course has been complicated by pain in left shoulder, not starting PT, unclear whether she is wearing supportive arm sling device xrays taken at ortho clinic 09/13/22 reportedly show good placement of L shoulder prosthesis Will attempt to reconnect pt to [facility] services followup with Dr Cooper at end [...] her Klonopin, Seroquel, and opioid pain medications [facility] [place], Angelita, came to evaluate patient and recommended [facility]ISIS for stabilization and safety Pt became upset at this plan and walked out of the exam room, and out of clinic Myself and my MA were able to go with her and have her agree to [facility] services, which I ordered for medication management CRISIS is aware of patient and [facility] therapist will contact daughter tomorrow [...] Encounters Date Type Department Care Team Description 01/14/2025 Telephone [facility] MEDICINE [address] [place] [address] Светлана Benjamin MD Chart Prep 01/14/2025 Refill [facility] MED & PEDS [address] [place] [address] Светлана Benjamin MD 01/06/2025 Patient Outreach [facility] [address] [place] [address] Светлана Benjamin MD Pre-visit Planning ((Unable to reach for PVP screening, LVM) to be completed in office ) 12/16/2024 1:30 PM EDT Office Visit [facility] ADULT DENTAL [address] [place] [address] Carolyn Duarte DDS Edentulous (Primary Dx) 12/09/2024 Refill [facility] PEDS [address] [place] [address] Светлана Benjamin MD 12/04/2024 1:00 PM EDT Office Visit [facility] OPTOMETRY [address] [place] [address] Mike Clementsn, OD Moderate nonproliferative diabetic retinopathy of both eyes without macular edema associated with type 2 diabetes mellitus ([facility]) (Primary Dx); Intermediate stage nonexudative age-related macular degeneration of both eyes; Combined forms of age-related cataract of both eyes; Presbyopia 12/04/2024 Travel 11/16/2024 2:15 PM EDT Office Visit [facility] MEDICINE [address] [place], [place] [phone] Renetta Marie MD Oral thrush (Primary Dx); Pneumonia of right lower lobe due to infectious organism; Kidney lesion, [place], left; Diabetes mellitus type 2 in nonobese ([facility]/HCC) 11/16/2024 Telephone [facility] MED[facility] [address] [place], [place] [phone] Светлана Benjamin MD Nurse Triage 11/12/2024 Refill [facility] [address] [place], [place] [phone] Светлана Benjamin MD 10/21/2024 Refill [facility] [address] [place], [place] [phone] Светлана Benjamin MD from Last 3 Months Immunizations Immunization Administration [...] Description 01/15/2025 1:30 PM EDT Office Visit [facility] MEDICINE [address] [place] [address] Светлана Benjamin MD [address] [place] [address] 06/07/2025 1:00 PM EST Office Visit [facility] OPTOMETRY [address] [place] [address] Keysha Clements, OD [address] [place] [address] Health Maintenance Due Date Last Done Comments [...] exists Diabetes: Urine Protein Screening 01/05/2025 01/06/2024 Influenza Vaccine (#1) 2025 4, 05/20/2023, 04/20/2022, Additional history exists SDOH Screening 03/20/2025 03/20/2024 Dental Oral Exam [...] 06/15/2016, 12/01/2015 Hepatitis C Screening Completed 01/06/2024 HIB Vaccines Aged Out No longer eligi [...] scans. Will monitor here in 6 months. Keysha Clements OD OPHTH TOMOGRAPHY Final Result * (ABNORMAL) POCT glycosylated hemoglobin (Hgb A1c) (03/27/2024 1:32 PM EDT) Hemoglobin A1C 8.8(A) 4.0 - 6.0 % QC Media Lot # [id number] Lot# Expiration Date Blood Capillary blood specimen / Unknown 03/27/2024 1:[address] [facility] Светлана Benjamin MD POINT OF CARE TEST ENTER/EDIT ORDERABLES Final Result * Albumin, Random Urine W/Creatinine (01/06/2024 2:10 PM EDT) Pathologist [facility] [place] Creatinine, Urine 47.40 mg/dL [facility] Microalbumin Urine <5.0 mg/L [facility] Microalbum Creatinine Ratio Ur TNP <30 ug/mg cr [facility] Comment:Unable to calculate albumin/creatinine ratio due to lowmicroalbumin or creatinine result. Urine (Urine, Random) 01/06/2024 2:10 PM EDT 01/06/2024 3:53 PM EDT Светлана Benjamin MD LAB URINE ORDERABLES Final Res ult [facility] [address] [place] [phone] * Hepatitis C Antibody with Reflex to HCV, RNA, Quantitative, Real-Time PCR (01/06/2024 2:10 PM EDT) Hepatitis C Antibody Nonreactive Nonreactive [facility] Comment:Antibodies to HCV no t detected; does not exclude early acuteHCV infection. Blood Venous blood specimen / Unknown 01/06/2024 2:10 PM EDT 01/06/2024 3:51 PM EDT us Светлана Benjamin MD LAB BLOOD ORDERABLES Final Res ult Performing Organization Address [facility]/ZIP Co de Phone Number [facility] [address] [place] [phone] * (ABNORMAL) LIPID PANEL, STANDARD (04/28/2021 [...] factors. LDL-C is now calculated using the Cm-Leal calculation, which is a validated novel method providing better accuracy than the Friedewald equation in the estimation of LDL-C. Cm SS et al. MCKINLEY. 2013;310(19): 8322-9951 (http://education.Towi.[employer]/faq/VRM189) Non-HDL Cholesterol 86 <130 mg/dL (calc) [facility] Comment: For patients with diabetes plus 1 major ASCVD risk factor, treating to a non-HDL-C goal of <100 mg/dL (LDL-C of <70 mg/dL) is considered a therapeutic option. Triglycerides 197(H) <150 mg/dL [facility] 04/28/2021 11:0 2 AM EDT us Radha GIBSON LAB BLOOD ORDERABLES Final Res ult Performing Organization Address City/[facility]/ZIP Co de Phone Number [facility] [address] [place] [address], [place] * 3D BILATERAL DIAGN MAMMO 1 (03/03/2020 [...] 02/26/2020 Recommended 10 year follow up ( [facility] ) Bobby Provider HEALTH MAINTENANCE Edited Result - Final from Last 3 Months or Most Recently Relevant to Health Maintenance Insurance [facility] [employer] [employer]IONS (O D-SNP) [place] [id number] DENTAL [facility] Care Teams Oracle Ebs Developer Relationship Specialty Start Date End Date Светлана Benjamin MD [address] [place] [phone] PCP - General Family Medicine 02/27/21
--- OUTSIDE RECORDS SUMMARY | 2025-01-15 11:15 | XMS_ITS | Data Portability ---
Author Organization [place] [employer] [facility], [place] [email or web address] Address [address] [place] [address] Care Team Providers Care Vb Net Programmer Name Role Phone HIM CCA OTHER Assessment Encounter Date Assessment Date Assessment LastModified by Organization Details LastModified Time 12/08/2021 12/08/2021 This 66-year-old female called [facility] complaining of left shoulder pain and leg pain associated with chronic varicose veins. All of her complaints are chronic and she has refused to go to the ER on various occasions. She was expecting a physician to come to her house today. She was advised to follow up with her PCP to address these chronic problems. [email or web address] Not available 12/08/2021 19:23:26 07/29/2024 07/29/2024 I provided real -time medical direction via phone for this encounter and was available for additional phone-based assistance as needed. I have reviewed and agree with the Assessment and Plan as documented by the Machinist Supervisor. Patient given the opportunity to ask questions. [...] pain with weather changes and overuse. Per housekeeper nanny on the scene, vital signs stable patient [...] particularly fever chills lightheadedness altered mental status [email or web address] Not available 07/29/2024 21:41:20 Plan of Treatment Reminders Order Date Submit Date Provider Last Modified By Organization Details Last Modified Time Details Appointments None recorded. Lab cmp, whole blood + itzel 2021 022 [facility], [address] [place], [phone] 09:25:02 Referral None recorded. Procedures None recorded. Surgeries None recorded. Imaging None recorded. Medication Orders ketorolac 30 mg/mL injection solution 2024 0[address] [place] [address] , [address] [place] [address], [place], [place], [phone], 5 21:39:15 ketorolac 15 mg/mL injection syringe [...] blood by Pulse oximetry Body weight Systolic And Diastolic Provider Name and Address Organization Details Last Updated DateTime 5 80 /min 152.4 cm 98.4 [degF] 14 /min 98 % 98 % 88246 g 132/80 mm[Hg] Not Available [employer] - production 5 21:37:25 Date Recorded Heart rate Body weight Respiratory rate Oxygen saturation Oxygen saturation in Arterial blood by Pulse oximetry Body height Body temperature Systolic And Diastolic Provider Name and Address Organization Details Last Updated DateTime 2 70 /min 52066.9 2 g 20 /min 98 % 98 % 147.32 cm 98.4 [degF] 107/66 mm[Hg] Not Available [facility] production 2 15:44:21 Date Recorded Heart rate Body temperature Oxygen saturation Oxygen saturation in Arterial blood by Pulse oximetry Respiratory rate Systolic And Diastolic Provider Name and Address Organization Details Last Updated DateTime 2 99 /min 98.9 [degF] 98 % 98 % 20 /min 150/81 mm[Hg] Not Available [facility] - production 2 19:19:22 Social History None recorded. Functional [...] 2035 Echo Spain MD Main - [facility] [address] [place] [phone] 12/07/2021 13:43:08 02/27/2022 12:10:17 Pain in lower limb [id number] M79.606 Pt describing nonspecifi c pain in bilateral upper leg. No evidence of infectious , inflammato ry process or hypoperfus ion. Suspect neuropathi c process given diabetes with contributi on from psychosoci al stressors. Will give ketorolac and advised patient to reach out to primary team for additional pain control (given her expressed preference for opiates). 2070 Jr Rajput MD Main - [facility] [address] [place] [phone] 12/08/2021 19:19:18 12/08/2021 19:23:49 9818 Jr Rajput MD Main - [facility] [address] [place] [phone] 10/24/2022 14:09:59 10/25/2022 12:20:37 Chronic ulcer of sacral region [id number] L98.429 This 67-year-ol d has a chronic sacral ulcer and called complainin melva of diffuse pain in the area. The ulcer appears to be unchanged. I recommende d that she follow-up with her PCP. The patient will consider this recommenda tion. [address]443 Katerine Connell MD Main - [facility] [address] [place] [phone] 07/29/2024 21:37:23 07/29/2024 23:57:23 Pain of multiple joints [id number] M25.50 Health Concerns Section Related Observation LastModified by Organization Detai ls LastModified Time None Recorded Concern Status LastModified by Organization Details LastModified Time None Recorded Advance Directives Directive None Recorded Payers Insurance Date Sequence Insurance Name Policy Number Policy Hamm Covered Member ID Hamm Member ID Guarantor Name 02/11/2024 1 [facility] - DOS PRIOR TO 2022 - DUAL ELIGIBLE (MEDICARE REPLACEMENT/ADV ANTAGE - HMO) April Mueller [id number] April Mueller 07/30/2024 1 [facility] - DOS ON OR AFTER 2022 - DUAL ELIGIBLE - [employer]ISON OPTIONS AND ONE CARE (MEDICARE REPLACEMENT/ADV ANTAGE - HMO) April Mueller [id number] April Mueller Notes Date Note Type Note Provider Name and Address Organization Details Recorded Time 12/07/2021 text/html HPI: ALLERGIC TO : Ulises inhibitors , Cephalexin Hx: Anxiety and Bipolar Disorder Patient with complaints of painful 10+ bilateral leg swelling and difficulty ambulating. Unable to eat due to nausea induced by pain. .................... .................... .................... .................... .................... .................... .................... . Machinist Supervisor Note: Sent to a call for a [...] sounds: clear bilaterally; Abdomen: soft, non-tender, non-distended; [facility] orders POC CMP; pictures of pt's legs and CMP results sent to [facility]. [facility] then orders Ketorolac IM 15mg injection. Injection given without incident. Pt advised to follow up with PCP. Red flags discussed. Pt has no further questions. .................... .................... .................... .................... .................... .................... .................... . Disposition: Fulfilled Echo Spain MD [address] [facility], [place], [phone], [employer] 12/07/2021 18:02:15 12/08/2021 text/html HPI: Member with [...] .................... .................... .................... .................... .................... .................... . Machinist Supervisor Note: Pt states she has chronic left shoulder pain from a fall a year ago and pain in her upper legs from varicose veins. Pt states the paramedics were there yesterday and offered to take her to the ED but she says there s no need. Pt wants a doctor to come to the house and not a housekeeper nanny. Pt was advised that she needed to contact her PCP. [facility] contacted. Red flags discussed. .................... .................... .................... .................... .................... .................... .................... . Disposition: Fulfilled Jr Rajput MD [address] [place] [address],[address], [place], [phone], [employer] 12/08/2021 19:23:46 10/24/2022 text/html HPI: Call to April Mueller, left upper leg pain and gluteal pain x 3 days. No falls that pt is aware of. Per pt using Tylenol with mild relief. Per pt unsure if any redness or bruising. Per pt pain causing difficulty with walking. Pt advised should be seen today. Pt states unable to get to office. Agrees to [facility] referral for assessment of pain. .................... .................... .................... .................... .................... .................... .................... . CRC Nursing Assessment: Comments: CRC RN DID NOT NEED FURTHER INFO .................... .................... .................... .................... .................... .................... .................... . Machinist Supervisor Note From Bridger Kang: Spoke to pt over the phone to give eta, pt said she s not home, is at an appointment and doesn t know when she will be home. Tried to call back with coke drawer hand x2 and she repeatedly hung up. CRC RN made aware. Machinist Supervisor Allergies: Cephalexin .................... .................... .................... .................... .................... .................... .................... . Disposition: Unfulfilled Jr Rajput MD [address] [place] [address],[address], [place], [phone], Blued 12/31/2022 17:38:20 07/29/2024 text/html HPI: RN calling [...] CRC Nurse Triage Notes (Pushpa Benavidez - RN): Chief Complaints: Joint pain/swelling PMH: COPD/Asthma, Hypertension, Severe Persistent Mental Illness (SPMI), Rheumatoid Arthritis, Diabetes Mellitus Type 2, Depression, Post-Traumatic Stress Disorder (PTSD), Anxiety Disorder, Bipolar Disorder, Osteoarthritis PMH Reviewed at 07/29/2024 - 18: Allergies Reviewed at 07/29/2024 - : Pain Assessment: Level 10 out of 10 Comments: HPI reviewed .................... .................... .................... .................... .................... .................... .................... . Machinist Supervisor Note From Alfred Mcintosh: [place] language barrier information through [employer] on Phone. Patient complains of chronic joint [...] Patient denies recent bleeding, denies kidney problems. [facility] advises Toradol 15 mg IM. Follow up with primary care physician. Administered without complication using five rights. Red flags, patient education discussed. Patient demonstrates understanding of care and plan. .................... .................... .................... .................... .................... .................... .................... . [facility] Consulted: Katerine Connell .................... .................... .................... .................... .................... .................... .................... . Disposition: Fulfilled Katerine Connell MD [address] [place] [address],[address] [facility], [place], [phone], Blued 07/29/2024 21:41:56 OBGyn Episode No OBEpisode recorded.
[2025-01-15 13:32] LABS: Cholesterol 117 mg/dL (<200); HDL Cholesterol 33 mg/dL (>40); Triglycerides 170 mg/dL (<150)
== END 2025-01-15 10:41 | disposition home or self-care (01) ==
LOC: HO.HHCL 10:40
PROVIDERS: PCP General Practice; Referring Provider Dietitian, Registered; Visit Provider General Practice
DX: E11.9 Type 2 diabetes mellitus without complications (principal); F43.10 Post-traumatic stress disorder, unspecified; F41.1 Generalized anxiety disorder
CPT/HCPCS: 36415; 80061

== ENCOUNTER 2025-01-19 13:12 | Outpatient (REF) | payer OTHER, SELFPAY ==
--- OUTSIDE RECORDS SUMMARY | 2024-02-20 09:30 | XMS_ITS | Continuity of Care Document ---
Author Organization [facility] Address [address] [place] [address] Phone Care Team Providers Care Kiln Door Builder Name Role Phone Darci FRAUSTO, RVT, EILEEN, [...] Mins- [place] & [place] [facility], [address] [place] [address] Dr [address], [id number], [place] tel:[phone] CVR - [place] - [place] Pain in right lower legRestless legs syndromeEssenti al (primary) hypertensionPai n in left lower legType 2 diabetes mellitus without complicationsVe nous insufficiency (chronic) (peripheral) 4 Darci FRAUSTO RVT, EILEEN Esquivel. [address] [address], [place], [place], [id number] , [place]. tel:[phone] Referring Provider: Светлана Benjamin MD, [address] [place] [address], [address]. tel:[phone] [facility], [address] [place] [address] [address], [id number], [place] tel:[phone] CVR - [place] - [place] Chronic venous hypertension (idiopathic) with other complications of bilateral lower extremity 4 Darci FRAUSTO RVT, EILEEN Esquivel. [address] [address], [place], [place], [id number] , [place]. tel:[phone] Referring Provider: Светлана Benjamin MD, [address] [place] [address], [address]. tel:[phone] [facility], [address] [place] [address] [address], [id number], [place] tel:[phone] CVR - [place] No Information 3 Nic FRAUSTO FACS RODRIT EILEEN Phan. [address] [place] [address], [place], [address], [place]. tel:[phone] Referring Provider: Светлана Benjamin MD, [address] [place] [address], [address]. tel:[phone] Office/Outpt E&M Established 10 Mins [facility], [address] [place] [address] [address], [id number], [place] tel:[phone] CVR - [place] Venous insufficiency (chronic) (peripheral)Alvin otine dependence, unspecified, uncomplicatedTy pe 2 diabetes w diabetic peripheral angiopath w/o gangrene 3 Nic FRAUSTO FACS JOAQUIN Phan. [facility] [address], [place], [address], [place]. tel:[phone] Referring Provider: David Lucero MD FACS RVT [facility], [address], [place], [address]. tel:[phone] Family History Family Member Type Diagnosis Age At Onset No Information Payers Payer name Insurance type Covered constitution party ID Authoriza tifeng(s) No Information Social History [...]
--- NOTE | ~2025-01-19 | XR_ITS ---
EXAMINATION: XR HIP 2 OR MORE VIEWS LEFT HISTORY: fall onto hip with difficulty rotating hip outwards COMPARISON: Comparison is made with the prior examination dated 02/12/2023. FINDINGS: Two views of the left hip are submitted. Osseous mineralization is normal. There is no fracture or dislocation. Again seen is heterotopic bone formation about the greater trochanter. There is mild joint space narrowing. The soft tissues are unremarkable. XR/XR hip LT min 2V IMPRESSION: Mild joint space narrowing. Electronically signed by: Alvin Causey MD 01/19/2025 02:11 PM EDT
--- OUTSIDE RECORDS SUMMARY | 2025-01-19 14:18 | XMS_ITS | Data Portability ---
Author Organization [place] - [facility] [employer] [facility] Address [address] [place] [address] Care Team Providers Care Greens Cutter Name Role Phone HIM CCA OTHER Assessment Encounter Date Assessment Date Assessment LastModified by Organization Details LastModified Time 12/08/2021 12/08/2021 This 66-year-old female called [facility] complaining of left shoulder pain and leg pain associated with chronic varicose veins. All of her complaints are chronic and she has refused to go to the ER on various occasions. She was expecting a physician to come to her house today. She was advised to follow up with her PCP to address these chronic problems. [email or web address] Not available 12/08/2021 19:23:26 07/29/2024 07/29/2024 I provided real -time medical direction via phone for this encounter and was available for additional phone-based assistance as needed. I have reviewed and agree with the Assessment and Plan as documented by the Television Program Director. Patient given the opportunity to ask questions. [...] pain with weather changes and overuse. Per ballistics professor on the scene, vital signs stable patient [...] particularly fever chills lightheadedness altered mental status [email or web address] Not available 07/29/2024 21:41:20 Plan of Treatment Reminders Order Date Submit Date Provider Last Modified By Organization Details Last Modified Time Details Appointments None recorded. Lab cmp, whole blood + itzel 2021 022 [facility], [address] [place], [phone] 09:25:02 Referral None recorded. Procedures None recorded. Surgeries None recorded. Imaging None recorded. Medication Orders ketorolac 30 mg/mL injection solution 2024 025 [place] [id number] , [address] [place] [address], [place], [place], [phone], 5 21:39:15 ketorolac 15 mg/mL injection syringe [...] [degF] 14 /min 98 % 98 % 60626 g 132/80 mm[Hg] Not Available [facility] 5 21:37:25 Date Recorded Heart rate Body weight Respiratory rate Oxygen saturation Oxygen saturation in Arterial blood by Pulse oximetry Body height Body temperature Systolic And Diastolic Provider Name and Address Organization Details Last Updated DateTime 2 70 /min 70447.9 2 g 20 /min 98 % 98 % 147.32 cm 98.4 [degF] 107/66 mm[Hg] Not Available [facility] 2 15:44:21 Date Recorded Heart rate Body temperature Oxygen saturation Oxygen saturation in Arterial blood by Pulse oximetry Respiratory rate Systolic And Diastolic Provider Name and Address Organization Details Last Updated DateTime 2 99 /min 98.9 [degF] 98 % 98 % 20 /min 150/81 mm[Hg] Not Available [facility] 2 19:19:22 Social History None [...] 2035 Echo Spain MD [facility] [address] [place] [phone] 12/07/2021 13:43:08 02/27/2022 12:10:17 Pain in lower limb 39554659 M79.606 Pt describing nonspecifi c pain in bilateral upper leg. No evidence of infectious , inflammato ry process or hypoperfus ion. Suspect neuropathi c process given diabetes with contributi on from psychosoci al stressors. Will give ketorolac and advised patient to reach out to primary team for additional pain control (given her expressed preference for opiates). 2070 Jr Rajput MD [facility] [address] [place] [phone] 12/08/2021 19:19:18 12/08/2021 19:23:49 9818 Jr Rajput MD [facility] [address] [place] [phone] 10/24/2022 14:09:59 10/25/2022 12:20:37 Chronic ulcer of sacral region [id number] L98.429 This 67-year-ol d has a chronic sacral ulcer and called complainin melva of diffuse pain in the area. The ulcer appears to be unchanged. I recommende d that she follow-up with her PCP. The patient will consider this recommenda tion. [id number] Ktaerine Connell MD [facility] [address] [place] [phone] 07/29/2024 21:37:23 07/29/2024 23:57:23 Pain of multiple joints [id number] M25.50 Health Concerns Section Related Observation LastModified by Organization Detai ls LastModified Time None Recorded Concern Status LastModified by Organization Details LastModified Time None Recorded Advance Directives Directive None Recorded Payers Insurance Date Sequence Insurance Name Policy Number Policy Hamm Covered Member ID Hamm Member ID Guarantor Name 02/11/2024 1 [facility] - DOS PRIOR TO 2022 - DUAL ELIGIBLE (MEDICARE REPLACEMENT/ADV ANTAGE - HMO) April Mueller [id number] April Mueller 07/30/2024 1 [facility] - DOS ON OR AFTER 2022 - DUAL ELIGIBLE - USP OPTIONS AND ONE CARE (MEDICARE REPLACEMENT/ADV ANTAGE - HMO) April Mueller [id number] April Mueller Notes Date Note Type Note Provider Name and Address Organization Details Recorded Time 12/07/2021 text/html HPI: ALLERGIC TO : Ulises inhibitors , Cephalexin Hx: Anxiety and Bipolar Disorder Patient with complaints of painful 10+ bilateral leg swelling and difficulty ambulating. Unable to eat due to nausea induced by pain. .................... .................... .................... .................... .................... .................... .................... . Television Program Director Note: Sent to a call for a [...] clear bilaterally; Abdomen: soft, non-tender, non-distended; [facility]; pictures of pt's legs and CMP results sent to [facility] [place] [facility] [place] then orders Ketorolac IM 15mg injection. Injection given without incident. Pt advised to follow up with PCP. Red flags discussed. Pt has no further questions. .................... .................... .................... .................... .................... .................... .................... . Disposition: Fulfilled Echo Spain MD [address] [facility],[address], [place], [phone], [email or web address] 12/07/2021 18:02:15 12/08/2021 text/html HPI: Member with [...] .................... .................... .................... .................... .................... .................... . Television Program Director Note: Pt states she has chronic left shoulder pain from a fall a year ago and pain in her upper legs from varicose veins. Pt states the paramedics were there yesterday and offered to take her to the ED but she says there s no need. Pt wants a doctor to come to the house and not a ballistics professor. Pt was advised that she needed to contact her PCP. [facility] contacted. Red flags discussed. .................... .................... .................... .................... .................... .................... .................... . Disposition: Fulfilled Jr Rajput MD [address] [place] [address],[address], [place], [phone], [facility] [employer] 12/08/2021 19:23:46 10/24/2022 text/html HPI: Call to April Mueller, left upper leg pain and gluteal pain x 3 days. No falls that pt is aware of. Per pt using Tylenol with mild relief. Per pt unsure if any redness or bruising. Per pt pain causing difficulty with walking. Pt advised should be seen today. Pt states unable to get to office. Agrees to [facility] referral for assessment of pain. .................... .................... .................... .................... .................... .................... .................... . CRC Nursing Assessment: Comments: CRC RN DID NOT NEED FURTHER INFO .................... .................... .................... .................... .................... .................... .................... . Television Program Director Note From Bridger Kang: Spoke to pt over the phone to give eta, pt said she s not home, is at an appointment and doesn t know when she will be home. Tried to call back with conference interpreter x2 and she repeatedly hung up. CRC RN made aware. Television Program Director Allergies: Cephalexin .................... .................... .................... .................... .................... .................... .................... . Disposition: Unfulfilled Jr Rajput MD [address] [place] [address],[address], [place], [phone], [email or web address] 12/31/2022 17:38:20 07/29/2024 text/html HPI: RN calling [...] .................... .................... .................... .................... .................... .................... . Television Program Director Note From Alfred Mcintosh: Strong language barrier information through Dental Assisting Instructor on Phone. Patient complains of chronic joint [...] denies recent bleeding, denies kidney problems. [facility] [place] Toradol 15 mg IM. Follow up with primary care physician. Administered without complication using five rights. Red flags, patient education discussed. Patient demonstrates understanding of care and plan. .................... .................... .................... .................... .................... .................... .................... . [facility] [place] [place] Consulted: Katerine Connell .................... .................... .................... .................... .................... .................... .................... . Disposition: Fulfilled Katerine Connell MD [address] [place] [address],[address] [facility], [place], [phone], [email or web address] 07/29/2024 21:41:56 OBGyn Episode No OBEpisode recorded.
--- OUTSIDE RECORDS SUMMARY | 2025-01-19 14:18 | XMS_ITS | Clinical Summary ---
Author Organization [employer] Address [address] [place] [address] Care Team Providers Care Rubber Stamp Die Inspector Name Role Phone Светлана Benjamin MD Primary Care Provider [phone] Allergies Active Allergy Reactions Criticality Noted Date Comments Ulises Inhibitors Cough 03/25/2017 Cephalexin 04/20/2016 Shellfish Allergy 12/14/2022 Medications amitriptyline (Elavil) 100 MG tablet Take 1 tablet by oral route every day at bedtime 022 Active QUEtiapine (SEROquel) 100 MG tablet Take 1 tablet by oral route at bedtime 022 Active gabapentin (Neurontin) 400 MG capsule 023 Active lidocaine (Lidoderm) 5 % patchIndications :Trochanteric bursitis of left hip,Left hip pain Apply 1 patch topically in the morning. Remove & discard patch within 12 hours or as directed by MD. 30 patch 11 024 Active Diclofenac Sodium 1 % gel Apply 2 g topically if needed in the morning and at bedtime (pain L shoulder). Apply 2 gram by topical route 3 times every day to the affected area(s) 100 g 3 024 Active insulin pen needle (B-D ULTRAFINE III SHORT PEN) 31G X 8 mm miscIndications: Diabetes mellitus type 2 in nonobese (CMS/HCC) USE WITH INSULIN DAILY 100 each 11 024 Active FreeStyle lancets USE ONE LANCET TO TEST BLOOD SUGAR THREE TIMES A DAY 100 each 024 Active clonazePAM (KlonoPIN) 1 MG tablet Take 1 tablet (1 mg) by mouth 2 times daily for 5 days. Take 1 tablet by oral route three times a day 10 tablet 024 Active albuterol (2.5 MG/3ML) 0.083% nebulizer solution [...] three times every day 100 each 11 025 Active losartan (Cozaar) 50 MG tablet TAKE [...] TO YOUR DOCTOR ABOUT QUITTING SMOKING Active omeprazole (PriLOSEC) [address] capsule Take 1 capsule (20 mg) by mouth before breakfast. Take 1 capsule by oral route every day before a meal as needed for gastritis 90 capsule 3 Active Multiple Vitamins-Mineral s (PreserVision AREDS) capsuleIndicatio ns:Intermediate stage nonexudative age-related macular degeneration of both eyes Take 1 capsule by mouth with breakfast and with evening meal. 60 capsule Active Alcohol Swabs (B-D SINGLE USE SWABS REGULAR) pads Place 1 each on the skin 3 times daily. Use twice daily as indicated 100 each Active clonazePAM (KlonoPIN) 0.25 MG disintegrating tablet Active acetaminophen-co deine (Tylenol #2) 300-15 MG tabletIndication s:Left hip pain Take 1 tablet by mouth every 6 (six) hours if needed for moderate pain for up to 5 days. 20 tablet 025 2024 Active aspirin 81 MG chewable tablet CHEW 1 TABLET BY MOUTH EVERY MORNING 90 tablet 3 Active Multiple Vitamins-Mineral s (PreserVision AREDS 2) capsule Take 1 capsule by mouth two times daily 022 2024 Discontinued(T herapy completed) fluticasone furoate (Arnuity Ellipta) 200 MCG/ACT inhaler INHALE 1 PUFF BY MOUTH ONCE DAILY 30 each 3 024 2024 Discontinued(T herapy completed) estradiol (Estrace) 0.1 MG/GM vaginal cream Insert 1 g into the vagina. 024 2024 Discontinued(T herapy completed) celecoxib (CeleBREX) 100 MG capsule Take 1 capsule (100 mg) by mouth 2 times daily. 180 capsule 3 2024 Discontinued(T herapy completed) Alcohol Swabs (B-D SINGLE USE SWABS REGULAR) pads Place 1 each on the skin 3 times daily. Use twice daily as indicated 100 each 11 024 2024 Discontinued(R eorder (will not trigger notification to Pharmacy)) aspirin 81 MG chewable tablet CHEW 1 TABLET BY MOUTH EVERY MORNING 90 tablet 3 024 2024 Discontinued(R eorder (will not trigger notification to Pharmacy)) clonazePAM (KlonoPIN) 0.5 MG tablet Take 1 tablet (0.5 mg) by mouth Once per day for 5 days. 5 tablet 2024 Discontinued(D ose adjustment) predniSONE (Deltasone) 20 MG tablet TAKE 2 TABLETS BY MOUTH WITH FOOD OR MILK ON THE MORNING OF 11/15/24 025 2024 Discontinued(T herapy completed) codeine 15 MG tabletIndication s:Left hip pain Take 1 tablet (15 mg) by mouth every 6 (six) hours if needed for moderate pain for up to 5 days. 20 tablet 025 2024 Discontinued codeine 15 MG tabletIndication s:Left hip pain Take 1 tablet (15 mg) by mouth every 6 (six) hours if needed for moderate pain for up to 5 days. 20 tablet 025 2024 Discontinued(C ost of medication) Active Problems Problem Noted Date Diagnosed Date [...] cough Advised to make an appointment with [facility] pulmonology, she may need long-term oxygen. Advised to quit smoking and using any other recreational substances Kidney lesion, mille lacs, left 11/16/2024 Overview (11/16/2024): CT scan chest on 11/10/2024 at [facility] showed indeterminate wedge- shaped hypodensity in the mid to lower pole the left kidney, differential includes focal pyelonephritis or infarct. Assessment & Plan (11/16/2024 2:48 PM EDT): Wedge shaped density of the left kidney seen on CT scan chest (11/10/2024 at [facility], incidental finding). Obtain discharge summary and see if it needs additional follow-up Patient is doing very well and last GFR on admission was within normal limits History of syphilis 01/10/2024 Overview (01/10/2024): Treated at [facility] in 2015 2018 RPR + 1:8 titer 2023 RPR + 1:2 titer Mixed incontinence urge and stress 08/14/2023 Assessment & Plan (08/14/2023 4:51 PM EST): Likely secondary to DM2 Script for incontinence supplies: Pullups size Small 4 daily for 12 months Wipes 4 packs for 12 months Falls frequently 12/14/2022 Diabetes 12/14/2022 Abnormal chest [...] (12/14/2022 2:14 PM EDT): Replacement 08/07/22 at [facility] Brief rehab stay Did PT September and October 2022 Pain is better than before surgery Assessment & Plan (09/26/2022 12:09 PM EDT): Replacement 08/07/22 at [facility] Brief rehab stay Post-op course has been complicated by pain in left shoulder, not starting PT, unclear whether she is wearing supportive arm sling device xrays taken at ortho clinic 09/13/22 reportedly show good placement of L shoulder prosthesis Will attempt to reconnect pt to [employer] services followup with Dr Cooper at end [...] her Klonopin, Seroquel, and opioid pain medications [facility] oncall provider, Angelita, came to evaluate patient and recommended [facility] for stabilization and safety Pt became upset at this plan and walked out of the exam room, and out of clinic Myself and my MA were able to go with her and have her agree to VNA services, which I ordered for medication management [facility] is aware of patient and [facility] therapist will contact daughter tomorrow Patient needs [...] Problem Noted Date Diagnosed Date Resolved Date Lactic acid acidosis 12/14/2022 025 Hyperglycemia due to diabetes mellitus 12/14/2022 01/15/2025 Diabetic neuropathy 04/20/2016 12/17/19 25 Assessment & Plan (12/14/2022 2:13 PM EDT): Gabapentin 400mg up to TID Encounters Date Type Department Care Team Description 01/15/2025 1:30 PM EDT Office Visit [facility] MEDICINE [address] [place] [address] Светлана Benjamin MD Diabetes mellitus type 2 in nonobese ([facility]) (Primary Dx); Bipolar affective disorder, currently manic, severe, with psychotic features ([facility]); Left hip pain 01/15/2025 Travel 01/14/2025 Telephone [facility] MEDICINE [address] [place] [address] Светлана Benjamin MD Chart Prep 01/14/2025 Refill [facility] CHC MED & PEDS [address] [place], [place] [phone] Светлана Benjamin MD 01/06/2025 Patient Outreach [facility] MEDICINE [address] [place] [phone] Светлана Benjamin MD Pre-visit Planning ((Unable to reach for PVP screening, LVM) to be completed in office ) 12/16/2024 1:30 PM EDT Office Visit [facility] ADULT DENTAL [address] [place] [address] Carolyn Duarte, DDS Edentulous (Primary Dx) 12/09/2024 Refill [facility] CHC MED & PEDS [address] [place] [address] Светлана Benjamin MD 12/04/2024 1:00 PM EDT Office Visit [facility] OPTOMETRY [address] [place] [address] Tyree, Keysha, OD Moderate nonproliferative diabetic retinopathy of both eyes without macular edema associated with type 2 diabetes mellitus ([facility]) (Primary Dx); Intermediate stage nonexudative age-related macular degeneration of both eyes; Combined forms of age-related cataract of both eyes; Presbyopia 12/04/2024 Travel 11/16/2024 2:15 PM EDT Office Visit [facility] MEDICINE [address] [place] [address] Renetta Marie MD Oral thrush (Primary Dx); Pneumonia of right lower lobe due to infectious organism; Kidney lesion, mille lacs, left; Diabetes mellitus type 2 in nonobese ([facility]) 11/16/2024 Telephone [facility] MEDICINE [address] [place] [address] Светлана Benjamin MD Nurse Triage 11/12/2024 Refill [facility] CHC MED & PEDS [address] [place], [place] [phone] Светлана Benjamin MD 10/21/2024 Refill [facility] CHC MED & PEDS [address] [place], [place] [phone] Светлана Benjamin MD from Last 3 Months [...] drink = 0.6 oz pur e alcohol) Depression Answer Date Recorded Patient Health Questionnaire-9 Score 9 01/15/2025 Patient Health Questionnaire-9 Score 9 01/15/2025 Last PHQ-9: Questionnaire Data Not on file 0 01/15/2025 Housing Stability Answer Date Recorded What is [...] Date Recorded Patient Health Questionnaire-2 Score 2 01/15/2025 Internet Access Answer Date Recorded Internet Access [...] Sign Reading Time Taken Comments Blood Pressure 150/72 01/15/2025 1:01 PM EDT Pulse 100 01/15/2025 1:01 PM EDT Temperature 36.3 C (97.3 F) 01/15/2025 1:01 PM EDT Respiratory Rate 20 01/15/2025 1:01 PM EDT Oxygen Saturation 94% 03/27/2024 1:28 PM EDT Inhaled Oxygen Concentration - - Weight 57.1 kg (125 lb 12.8 oz) 01/15/2025 1:01 PM EDT Height 154.9 cm (5' 1 ) 01/15/2025 1:01 PM EDT Body Mass Index 23.77 01/15/2025 1:01 PM EDT Plan of Treatment Upcoming Encounters Date Type Department Care Team (Late st Contact Info) Description 06/07/2025 1:00 PM EST Office Visit [facility] OPTOMETRY [address] [place] [address] Keysha Clements, OD [address] [place] [address] Health Maintenance Due Date Last Done Comments CT Colonography 1955 Dental Prophylaxis 1955 Dental X-Ray: Bitewings 1955 FIT DNA/Cologuard 1955 FIT 1955 FOBT 1955 Sigmoidoscopy 1955 Diabetes: Foot Exam 1966 RSV Patients and Patients Aged 60 years or older (1 - Risk 60-74 years 1-dose series) 2016 Zoster Vaccines (3 of 3) 12/17/2019 10/22/2019, 11/2016 Mammogram 03/03/2022 03/03/2020, 12/30, 01/22/2019 COVID-19 Vaccine ( season) 2024 07/13/2022, 02/05/2022, 07/21/2021, Additional history exists Diabetes: Urine Protein Screening 01/05/2025 01/06/2024 Influenza Vaccine (#1) 2025 , 05/20/2023, 04/20/2022, Additional history exists SDOH Screening 03/20/2025 03/20/2024 Diabetes: Hemoglobin A1C 04/17/2025 025, 03/27/2024, 05/20/2023, Additional history exists Dental Oral Exam 06/18/2025 12/16/2024, 05/11/2016 Depression Monitoring 07/18/2025 01/15/2025, 025 Eye Exam 12/04/2025 12/04/2024, 060 11/2024, 12/04/2024, Additional history exists Alcohol/Substance Use Screening 01/15/2026 01/15/2025 Lipid Panel 01/15/2026 01/15/2025, 04/28/2021 Tobacco Screening 01/15/2026 01/15/2025 DTaP/Tdap/Td Vaccines (3 - Td or Tdap) [...] Procedure Name Priority Date/Time Associated Diagnosis Comments XR HIP 2 OR 3 VIEWS LEFT Routine 01/19/2025 12:50 PM EDT Left hip pain POCT GLYCATED HEMOGLOBIN, TOTAL Routine 01/15/2025 1:09 PM EDT Diabetes mellitus type 2 in nonobese ([facility]) POCT GLUCOSE Routine 01/15/2025 1:08 PM EDT Diabetes mellitus type 2 in nonobese ([facility]) LIPID PANEL, STANDARD Routine 01/15/2025 10:59 AM EDT Diabetes mellitus type 2 in nonobese (CMS/HCC) CASE PRESENTATION, DETAILED AND EXTENSIVE TREATMENT PLANNING [...] nonexudative age-related macular degeneration of both eyes HEPATITIS C AB W/REFL TO HCV RNA, QN, PCR Routine 01/06/2024 2:10 PM EDT Screening examination for STI ALBUMIN, RANDOM URINE W/CREATININE Routine 01/06/2024 2:10 PM EDT Diabetes mellitus type 2 in nonobese (CMS/HCC) BI MAMMOGRAM DIAGNOSTIC BILATERAL Routine 03/03/2020 8:21 AM EDT HM COLONOSCOPY Routine 02/26/2020 from Last 3 Months or Most Recently Relevant to Health Maintenance Results * XR Hip 2 or 3 Views Left (01/19/2025 12:50 PM EDT) Anatomical Region Laterality Modality Lower Extremities, Hip Left Radiograp hic Imaging 01/19/2025 12:5 0 PM EDT Narrative 01/19/2025 2:14 PM EDT [address] [address] XRay Report Signed Patient: April Molina MR#: [id number] : 1955 Acct:[id number] Age/Sex: 69 / F ADM Date: 01/19/25 [facility] Att[facility] Dr: Светлана Benjamin MD Ordering Physician: Светлана Benjamin Date of Service: 01/19/25 Procedure(s): XR hip LT min 2V Accession Number(s): [id number] cc: Светлана Benjamin EXAMINATION: XR HIP 2 OR MORE VIEWS LEFT HISTORY: fall onto hip with difficulty rotating hip outwards COMPARISON: Comparison is made with the prior examination dated 02/12/2023. FINDINGS: Two views of the left hip are submitted. Osseous mineralization is normal. There is no fracture or dislocation. Again seen is heterotopic bone formation about the greater trochanter. There is mild joint space narrowing. The soft tissues are unremarkable. XR/XR hip LT min 2V IMPRESSION: Mild joint space narrowing. Electronically signed by: Alvin Causey MD 01/19/2025 02:11 PM EDT RP Dictated By: Alvin Causey MD Signed By: <Electronically signed by Alvin Causey MD in OV> 01/19/25 1411 DD/ 1250 TD/TT: 01/19/25 1250 Wet And Dry Sugar Bin Operator: Procedure Note Donotuseinterpreter, Image - 01/19/[address] [address] XRay Report Signed Patient: April MolinaMR#: [id number] : 1955cct:[id number] Age/Sex: 69 / FADM Date: 01/19/25 Loc: [facility] Attending Dr: Светлана Benjamin MD Ordering Physician: Светлана Benjamin Date of Service: 01/19/25 Procedure(s): XR hip LT min 2V Accession Number(s): [id number] cc: Светлана Benjamin EXAMINATION: XR HIP 2 OR MORE VIEWS LEFT HISTORY: fall onto hip with difficulty rotating hip outwards COMPARISON: Comparison is made with the prior examination dated 02/12/2023. FINDINGS: Two views of the left hip are submitted. Osseous mineralization is normal. There is no fracture or dislocation. Again seen is heterotopic bone formation about the greater trochanter. There is mild joint space narrowing. The soft tissues are unremarkable. XR/XR hip LT min 2V IMPRESSION: Mild joint space narrowing. Electronically signed by: Alvin Causey MD 01/19/2025 02:11 PM EDT RP Dictated By: Alvin Causey MD Signed By: <Electronically signed by Alvin Causey MD in OV> 01/19/25 1411 DD/ 1250 TD/TT: 01/19/25 1250 Wet And Dry Sugar Bin Operator: Светлана Benjamin MD IMG XR PROCEDURES Final Result * (ABNORMAL) POCT HGB A1C (01/15/2025 1:09 PM EDT) Hemoglobin A1C 7.1(A) 4.0 - 5.7 % QC Media Lot # [id number] Lot# Expiration Date 3,027 Blood 01/15/2025 1:09 PM EDT Светлана Benjamin MD POINT OF CARE TEST ENTER/EDIT ORDERABLES Final Result * POCT Glucose (01/15/2025 1:08 PM EDT) Glucose Blood, POC 186 60 - 200 mg/dL QC Media Lot # [id number] Lot# Expiration Date [id number] Blood Capillary blood specimen / Unknown 01/15/2025 1:08 PM EDT Светлана Benjamin MD POINT OF CARE TEST ENTER/EDIT ORDERABLES Final Result * (ABNORMAL) Lipid Panel, Standard (01/15/2025 10:59 AM EDT) Triglycerides 170(H) <150 mg/dL [facility] Comment:Desirable Triglyceri de: less than 150 mg/dLBorderline High Triglyceride 150-199 mg/dLHigh Triglyceride: 200-499 mg/dLVery High Triglyceride: greater than or equal to 5OO mg/dL Cholesterol 117 <200 mg/dL [facility] Comment:Desirable Cholestero l: less than 200 mg/dLBorderline High Cholesterol: 200-239 mg/dLHigh Cholesterol: greater than 239 mg/dL LDL Cholesterol Calculated 50 <100 mg/dL [facility] Comment:Desirable LDL: less than 100 mg/dLNear Optimal/Above Optimal LDL: 110- 129 mg/dLBorderline High LDL: 130-159 mg/dLHigh LDL: 160-189 mg/dLVery High LDL: greater than or equal to 190 mg/dL HDL Cholesterol 33(L) >40 mg/dL [facility] Comment:Desirable HDL: great er than 40 mg/dL Note: This HDL assay may give artificially low results in patients with liver disease. Blood Venous blood specimen / Unknown 01/15/2025 10:59 AM EDT 01/15/2025 12:58 PM EDT Светлана Benjamin MD LAB BLOOD ORDERABLES Final Res ult [facility] [address] [place] [phone] * OCT, Retina - OU - Both Eyes (12/04/2024 1:00 PM EDT) Narrative Keysha Clements, OD - 12/10/2024 3:16 PM EDT Images [...] Clements OD OPHTH TOMOGRAPHY Final Result * Albumin, Random Urine W/Creatinine (01/06/2024 2:10 PM EDT) Creatinine, Urine 47.40 mg/dL [facility] Microalbumin Urine <5.0 mg/L H [facility] Microalbum Creatinine Ratio Ur TNP <30 ug/mg cr [facility] Comment:Unable to calculate albumin/creatinine ratio due to lowmicroalbumin or creatinine result. Urine (Urine, Random) 01/06/2024 2:10 PM EDT 01/06/2024 3:53 PM EDT Светлана Benjamin MD LAB URINE ORDERABLES Final Res ult Performing Organization Address [facility] Co de Phone Number [facility] [address] [place] [address] [phone] * Hepatitis C Antibody with Reflex to HCV, RNA, Quantitative, Real-Time PCR (01/06/2024 2:10 PM EDT) Hepatitis C Antibody Nonreactive Nonreactive [facility] Comment:Antibodies to HCV no t detected; does not exclude early acuteHCV infection. Blood Venous blood specimen / Unknown 01/06/2024 2:10 PM EDT 01/06/2024 3:51 PM EDT Светлана Benjamin MD LAB BLOOD ORDERABLES Final Res ult Performing Organization Address [facility] Co de Phone Number [facility] [address] [place] [address] [phone] * 3D BILATERAL DIAGN MAMMO 1 (03/03/2020 8:21 AM EDT) Anatomical Region Laterality Modality Breast Bilateral Mammography 03/03/2020 8:21 AM EDT Narrative 03/03/2020 8:23 AM EDT Refer to the Notes tab for result details [facility] Procedure: 3D BILATERAL DIAGN MAMMO 1 Procedure Note ProviderBobby MD - 09/22/2022 Refer to the Notes tab for result details [facility] Procedure: 3D BILATERAL DIAGN MAMMO 1 Toni Colon MD IMG BI PROCEDURES Final Result * Hm Colonoscopy (02/26/2020) Colonoscopy Normal Normal Narrative Tammy Stroud - 02/26/2020 Recommended 10 year follow up ( [facility] ) us Historical Provider HEALTH MAINTENANCE Edited Result - Final from Last 3 Months or Most Recently Relevant to Health Maintenance Insurance [facility] [employer] (O D-SNP) [facility]AL [facility] Care Teams Rubber Stamp Die Inspector Relationship Specialty Start Date End Date Светлана Benjamin MD [address] [place] [phone] PCP - General Family Medicine 02/27/21
== END 2025-01-19 13:13 | disposition home or self-care (01) ==
LOC: HO.HHCX 13:12
PROVIDERS: PCP General Practice; Visit Provider General Practice
DX: M25.552 Pain in left hip (principal)
CPT/HCPCS: 73502

== ENCOUNTER → 2025-01-19 13:27 | Outpatient (BNV) | payer OTHER, SELFPAY | PROVIDERS: PCP General Practice; Visit Provider Radiology Diagnostic Radiology | DX: M25.512 Pain in left shoulder (principal) | CPT/HCPCS: 73502 ==

== ENCOUNTER 2025-03-09 06:17 | Outpatient (REF) | payer OTHER, SELFPAY ==
--- OUTSIDE RECORDS SUMMARY | 2025-03-05 13:00 | XMS_ITS | Encounter Summary ---
Author Organization [employer] Address [address] [facility] [address] [place] [address] Care Team Providers Care Carpenter Assembler Name Role Phone Светлана Benjamin MD Primary Care Provider [phone] Reason for Referral * Medications - Closed Specialty Diagnoses / Procedures Referred By Contac t Referred To Contact Diagnoses Acute left-sided low back pain with right-sided sciatica Pain of left hip Jyothi Preciado MD [address] [place] [phone] Phone: tel: fax: Referral ID Status Reason Start Date Expiration Date Visits Re quested Visits Authorized [id number] Closed 1 1 * Consultation (STAT) - Authorized Specialty Diagnoses / Procedures Referred By Contac t Referred To Contact Pain Medicine Diagnoses Acute left-sided low back pain with right-sided sciatica Pain of left hip Jyothi Preciado MD [address] [place] [address] Phone: tel: fax: [facility], [address] [place], [place] Phone: tel: fax: Referral ID Status Reason Start Date Expiration Date Visits Requested Visits Authorized [id number] Authorized Specialty Services Required 03/05/2025 03/05/2026 1 1 * Imaging (Routine) - Pending Review Specialty Diagnoses / Procedures Referred By Contac t Referred To Contact Radiology Diagnoses Pain of left hip Procedures MR Hip w/o Contrast Left Jyothi Preciado MD [address] [place] [address] Phone: tel: fax: [address] Phone: tel: fax: Referral ID Status Reason Start Date Expiration Date V isits Requested Visits Authorized [id number] Pending Review 03/05/2025 03/05/2026 1 1 * Imaging (Routine) - Pending Review Specialty Diagnoses / Procedures Referred By Dvaid cruz Referred To Contact Radiology Diagnoses Acute left-sided low back pain with right-sided sciatica Procedures MR Lumbar Spine w/o Contrast Jyothi Preciado MD [address] [place] [address] Phone: tel: fax: [address] Phone: tel: fax: Referral ID Status Reason Start Date Expiration Date V isits Requested Visits Authorized [id number] Pending Review 03/05/2025 03/05/2026 1 1 Encounter Details Date Type Department Care Team (Late st Contact Info) Description 03/05/2025 1:00 PM EDT Office Visit [facility] [address] [place] [id number] Jyothi Preciado MD [address] [place] [address] [phone] Acute left-sided low back pain with right-sided sciatica; Pain of left hip; Diabetes mellitus type 2 in nonobese (CMS/HCC) Social History Tobacco Use Types Packs/Day Years [...] AM EDT documented as of this encounter Last Filed Vital Signs Vital Sign Reading Time Taken Comments Blood Pressure 126/80 03/05/2025 1:03 PM EDT Pulse 86 03/05/2025 1:03 PM EDT Temperature 36.5 C (97.7 F) 03/05/2025 1:03 PM EDT Respiratory Rate 16 03/05/2025 1:03 PM EDT Oxygen Saturation - - Inhaled Oxygen Concentration - - Weight 56.7 kg (125 lb) 03/05/2025 1:03 PM EDT Height 154.9 cm (5' 1 ) 03/05/2025 1:03 PM EDT Body Mass Index 23.62 03/05/2025 1:03 PM EDT documented in this encounter Progress Notes * Jyothi Hernandez MD - 03/05/2025 1:00 PM EDT SUBJECTIVE: April Mueller is a 69 y.o. year old female who presents for HDF . [facility] (02/11/25 - 02/17/25) Patient not actually admitted to [facility] prior to transfer to rehab hospital. [facility] ED visit note and patient intake history from [facility] reviewed by pharmacist Patient with history of recurrent falls, diabetes, and hypertension was admitted at [facility] for left hip pain. Most recent fall was about a month prior. Patient reports unable to move or put weight on their left leg. X-ray showed mild degenerative changes of the hip, but no fracture. Patient reports taking gabapentin but was ineffective in pain management. Physical Therapy evaluated patient and recommended rehab for PT/OT and medical management. Planned to obtain CT scan of pelvis. Patient was continued on tramadol as needed for pain management. Medication changes that occurred during hospitalization include: Added none Changed none Discontinued none Acute Concerns: Patient was diagnosed with pneumonia long time ago, after that she needed oxygen, she then was re-evaluated and now she does not need oxygen, reports they have not lemon picker yet the O2 tanks Patient reports severe pain 10/10 on her lower back and hip (left side) reports pain is so severe that it does not let her eat or sleep, daughter tells me she cristine every day because of holden, daughter tells me she had a bad experience in rehab center and that she only received one session Social History Social History Narrative Lives alone, has three children in [place], in contact with only one of them Problem List[1] Acquired hypothyroidism Age-related macular degeneration Arthritis of hand Arthritis of right shoulder region Bipolar disorder (CMS/HCC) Cataract Change in voice Chronic gastritis Chronic tension-type headache Diabetes mellitus type 2 in nonobese (CMS/HCC) Edentulous Flexor tendinitis of hand Gastroesophageal reflux disease Guttate psoriasis Hypertension Hypertriglyceridemia Insomnia Latent syphilis Mild persistent asthma without complication Status post total replacement of right shoulder Trochanteric bursitis of left hip Status post total replacement of left shoulder Falls frequently Diabetes (CMS/HCC) Abnormal chest CT Left hip pain Mixed incontinence urge and stress History of syphilis Oral thrush Pneumonia of right lower lobe due to infectious organism Kidney lesion, modoc, left Bipolar affective disorder, currently manic, severe, with psychotic features (CMS/HCC) Acute right-sided low back pain with right-sided sciatica Pain of right hip Family History[2] Review of Systems Constitutional: Negative. HENT: Negative. Respiratory: Negative. Cardiovascular: Negative. Musculoskeletal: Positive for arthralgias, back pain and myalgias. OBJECTIVE: Vitals: 03/05/25 1303 BP: 126/80 BP Location: Left arm Patient Position: Sitting BP Cuff Size: Adult Pulse: 86 Resp: 16 Temp: 97.7 ??F (36.5 ??C) TempSrc: Oral Weight: 125 lb (56.7 kg) Height: 5' 1 (1.549 m) Physical Exam Constitutional: Appearance: Normal appearance. Cardiovascular: Rate and Rhythm: Normal rate and regular rhythm. Pulmonary: Effort: Pulmonary effort is normal. Breath sounds: Normal breath sounds. Musculoskeletal: Lumbar back: Spasms and tenderness present. Left hip: Tenderness present. Decreased range of motion. Neurological: Mental Status: She is alert. Follow Up: No follow-ups on file. Medications Ordered Prior to Encounter[3] Problem List Items Addressed This Visit Acute right-sided low back pain with right-sided sciatica I will order an MRI and contact patient with results I put a stat referral in for pain management I will prescribe her patient on a short course of Tylenol 3, I explained to patient and to the daughter that this is only 1 to be a short supply and I cannot provide for more refills extensive counseling about side effects of narcotics done today, I also let her know she cannot take it together with benzodiazepines or other medications that cause drowsiness, also I advocate about fall precautionswhile on these medications Relevant Medications acetaminophen-codeine (Tylenol w/ Codeine #3) 300-30 MG tablet lidocaine (Lidoderm) 5 % patch Pain of right hip I will order an MRI and contact patient with results I put a stat referral in for pain management I will prescribe her patient on a short course of Tylenol 3, I explained to patient and to the daughter that this is only 1 to be a short supply and I cannot provide for more refills extensive counseling about side effects of narcotics done today, I also let her know she cannot take it together with benzodiazepines or other medications that cause drowsiness, also I advocate about fall precautionswhile on these medications Relevant Medications acetaminophen-codeine (Tylenol w/ Codeine #3) 300-30 MG tablet lidocaine (Lidoderm) 5 % patch Diabetes mellitus type 2 in nonobese (CMS/HCC) Stable c/w same interventions Relevant Orders POCT Glucose (Completed) POCT Hgb A1c (Completed) [1] Patient Active Problem List Diagnosis Acquired hypothyroidism Age-related macular degeneration Arthritis of hand Arthritis of right shoulder region Bipolar disorder (CMS/HCC) Cataract Change in voice Chronic gastritis Chronic tension-type headache Diabetes mellitus type 2 in nonobese (CMS/HCC) Edentulous Flexor tendinitis of hand Gastroesophageal reflux disease Guttate psoriasis Hypertension Hypertriglyceridemia Insomnia Latent syphilis Mild persistent asthma without complication Status post total replacement of right shoulder Trochanteric bursitis of left hip Status post total replacement of left shoulder Falls frequently Diabetes (CMS/HCC) Abnormal chest CT Left hip pain Mixed incontinence urge and stress History of syphilis Oral thrush Pneumonia of right lower lobe due to infectious organism Kidney lesion, modoc, left Bipolar affective disorder, currently manic, severe, with psychotic features (CMS/HCC) Acute right-sided low back pain with right-sided sciatica Pain of right hip [2] Family History Problem Relation Name Age of Onset Cervical cancer Mother Colon cancer Sister 58 Throat cancer Maternal Grandmother [3] Current Outpatient Medications on File Prior to Visit Medication Sig Dispense Refill albuterol (2.5 MG/3ML) 0.083% nebulizer solution Take 3 mL by nebulization every 8 (eight) hours ifneeded for wheezing. 150 mL 6 Alcohol Swabs (B-D SINGLE USE SWABS REGULAR) pads Place 1 each on the skin 3 times daily. Use twicedaily as indicated 100 each 11 amitriptyline (Elavil) 100 MG tablet Take 1 tablet by oral route every day at bedtime amLODIPine (Norvasc) 5 MG tablet TAKE 1 TABLET BY MOUTH DAILY 90 tablet 3 aspirin 81 MG chewable tablet CHEW 1 TABLET BY MOUTH EVERY MORNING 90 tablet 3 atorvastatin (Lipitor) 20 MG tablet Take 1 tablet (20 mg) by mouth Once per day. Take 1 tablet by oral route every day 90 tablet 3 Blood Glucose Monitoring Suppl (10seconds SoftwareStyle Lite) device Inject 1 each under the skin 2 times daily. Use to test blood sugar as directed 1 each 0 clonazePAM (KlonoPIN) 1 MG tablet Take 1 tablet (1 mg) by mouth 2 times daily for 5 days. Take 1 tablet by oral route three times a day 10 tablet 0 Diclofenac Sodium 1 % gel Apply 2 g topically if needed in the morning and at bedtime (pain L shoulder). Apply 2 gram by topical route 3 times every day to the affected area(s) 100 g 3 FreeStyle lancets USE ONE LANCET TO TEST BLOOD SUGAR THREE TIMES A DAY 100 each 11 gabapentin (Neurontin) 400 MG capsule glucose blood (FREESTYLE LITE) test strip Check Blood sugar by fingerstick route three times every day 100 each 11 ibuprofen 600 MG tablet insulin pen needle (B-D ULTRAFINE III SHORT PEN) 31G X 8 mm misc USE WITH INSULIN DAILY 100 each 11 Lantus SoloStar 100 UNIT/ML pen INJECT 30 UNITS SUBCUTANEOUSLY AT BEDTIME 15 mL 3 levothyroxine (Synthroid, Levoxyl) 75 MCG tablet Take 1 tablet (75 mcg) by mouth before breakfast. Take 1 tablet by oral route every day 90 tablet 3 lidocaine (Lidoderm) 5 % patch Apply 1 patch topically in the morning. Remove & discard patch within 12 hours or as directed by MD. 30 patch 11 losartan (Cozaar) 50 MG tablet TAKE 1 TABLET BY MOUTH DAILY 90 tablet 3 metFORMIN (Glucophage) 1000 MG tablet TAKE 1 TABLET BY MOUTH TWICE A DAY WITH MORNING AND EVENING MEALS 180 tablet 3 Multiple Vitamins-Minerals (PreserVision AREDS) capsule Take 1 capsule by mouth with breakfast and with evening meal. 60 capsule 11 nicotine (Nicoderm, Step 1) 21 MG/24HR patch Apply 1 patch topically. nicotine polacrilex (Commit) 2 MG lozenge DISSOLVE 1 LOZENGE BY MOUTH EVERY 2 HOURS. DON''T CHEW ORSWALLOW WHOLE. TAKE DIRECTED ON PACKAGE. TALK TO YOUR DOCTOR ABOUT QUITTING SMOKING omeprazole (PriLOSEC) [address] capsule Take 1 capsule (20 mg) by mouth before breakfast. Take 1 capsule by oral route every day before a meal as needed for gastritis 90 capsule 3 QUEtiapine (SEROquel) 100 MG tablet Take 1 tablet by oral route at bedtime SITagliptin (Januvia) 100 MG tablet TAKE 1 TABLET BY MOUTH DAILY 90 tablet 3 [DISCONTINUED] clonazePAM (KlonoPIN) 0.25 MG disintegrating tablet [DISCONTINUED] FreeStyle lancets USE ONE LANCET TO TEST BLOOD SUGAR THREE TIMES A DAY 100 each 11 No current facility-administered medications on file prior to visit. documented in this encounter Miscellaneous Notes * Assessment & Plan Note - Jyothi Hernandez MD - 03/05/2025 2:04 PM EDT Associated Problem(s): Pain of right hip I will order an MRI and contact patient with results I put a stat referral in for pain management I will prescribe her patient on a short course of Tylenol 3, I explained to patient and to the daughter that this is only 1 to be a short supply and I cannot provide for more refills extensive counseling about side effects of narcotics done today, I also let her know she cannot take it together with benzodiazepines or other medications that cause drowsiness, also I advocate about fall precautionswhile on these medications * Assessment & Plan Note - Jyothi Hernandez MD - 03/05/2025 2:04 PM EDT Associated Problem(s): Acute right-sided low back pain with right-sided sciatica I will order an MRI and contact patient with results I put a stat referral in for pain management I will prescribe her patient on a short course of Tylenol 3, I explained to patient and to the daughter that this is only 1 to be a short supply and I cannot provide for more refills extensive counseling about side effects of narcotics done today, I also let her know she cannot take it together with benzodiazepines or other medications that cause drowsiness, also I advocate about fall precautionswhile on these medications * Assessment & Plan Note - Jyothi Hernandez MD - 03/05/2025 1:54 PM EDT Associated Problem(s): Diabetes mellitus type 2 in nonobese (CMS/HCC) Stable c/w same interventions documented in this encounter Plan of Treatment Upcoming Encounters Date Type Department Care Team (Late st Contact Info) Description 06/07/2025 1:00 PM EST Office Visit [facility] [address] [place] [address] TyreeKeysha, OD [address] [place] [address] Scheduled Orders Name Type Priority Associated Diagnoses Orde r Schedule MR Lumbar Spine w/o Contrast Imaging Routine Acute left-sided low back pain with right-sided sciatica Expected: 03/05/2025, Expires: 03/05/2026 MR Hip w/o Contrast Left Imaging Routine Pain of left hip Expected: 03/05/2025, Expires: 03/05/2026 Scheduled Referrals Name Type Priority Associated Diagnoses Orde r Schedule Referral to Pain Medicine Outpatient Referral STAT Acute left-sided low back pain with right-sided sciatica Pain of left hip Expected: 03/05/2025 (Approximate), Expires: 03/05/2026 documented as of this encounter Procedures Procedure Name Priority Date/Time Associated Diagnosis Comments POCT GLYCATED HEMOGLOBIN, TOTAL Routine 03/05/2025 1:30 PM EDT Diabetes mellitus type 2 in nonobese ([facility]) POCT GLUCOSE Routine 03/05/2025 1:30 PM EDT Diabetes mellitus type 2 in nonobese ([facility]) documented in this encounter Results * (ABNORMAL) POCT Hgb A1c (03/05/2025 1:30 PM EDT) Hemoglobin A1C 7.0(A) 4.0 - 5.7 % QC Media Lot # [id number] Lot# Expiration Date 41,627 Blood 03/05/2025 1:30 PM EDT us Jyothi Hernandez MD POINT OF CARE TEST EN TER/EDIT ORDERABLES Final Result * (ABNORMAL) POCT Glucose (03/05/2025 1:30 PM EDT) Glucose Blood, POC 268(A) 60 - 200 mg/dL QC Media Lot # [id number] Lot# Expiration Date 113, Blood Capillary blood specimen / Unknown 03/05/2025 1:30 PM EDT Result [facility] Aviva Hernandez MD POINT OF CARE TEST EN TER/EDIT ORDERABLES Final Result documented in this encounter Visit Diagnoses Diagnosis Acute left-sided low back pain with right-sided sciatica Pain of left hip Diabetes mellitus type 2 in nonobese (CMS/HCC) Type II or unspecified type diabetes mellitus without mention of complication, not stated as uncontrolled documented in this encounter Additional Health Concerns Assessment Noted Time PHQ-9 Depression Total Score: 9 01/16/20 25 1:03 PM EDT documented as of this encounter Care Teams Carpenter Assembler Relationship Specialty Start Date End Date Светлана Benjamin MD [address] [place] [address] PCP - General Family Medicine 02/27/21 documented as of this encounter
--- NOTE | ~2025-03-09 | FL_ITS ---
EXAMINATION: FL GUIDANCE ONLY HISTORY: M25.512 - Pain in left shoulder COMPARISON: Relation is made with plain films of the left shoulder dated 10/14/2024. TECHNIQUE: Fluoroscopy time: 0.2 minutes. Cumulative Dose: 0.936 mGy. DAP: 0.0130 mGym2 Images: 1. FINDINGS: A single fluoroscopic spot film of the left shoulder demonstrates a humeral head prosthesis in place. A needle and contrast material noted overlying the scapula. FL/FL guidance in treatment room IMPRESSION: Fluoroscopy during procedure. Please see procedure report for additional information. Electronically signed by: Alvin Causey MD 03/09/2025 11:02 AM EDT
--- OUTSIDE RECORDS SUMMARY | 2025-03-09 06:20 | XMS_ITS | Encounter Summary ---
Author Organization [facility] Address [address] [place] [address] Care Team Providers Care Candy Forming Machine Operator Name Role Phone Unavailable Primary Care Provider Unavailabl e Encounter Details Date Type Department Care Team ( Contact Info) Description 02/12/2025 Lab Requisition [facility] - Main Lab [address] [facility] [place] [address] Timothy Henry, NGA [address] [place] [address] Social History Tobacco Use Types Packs/Day Years Used Date Smoking Tobacco: Never Assessed Comments Unknown Sex and Gender Information Value Date Recorded Sex Assigned at Not on file Legal Sex Female 2:32 PM EST Gender Identity Not on file Sexual Orientation Not on file documented as of this encounter Plan of Treatment Not on file documented as of this encounter Visit Diagnoses Not on filedocumented in this encounter
--- OUTSIDE RECORDS SUMMARY | 2025-03-09 06:20 | XMS_ITS | Clinical Summary ---
Author Organization [address] [facility] Address [address] [place] [address] Phone Care Team Providers Care Manager Merchandise Name Role Phone Unavailable Primary Care Provider Unavailabl e Encounters Date Type Department Care Team Description 02/12/2025 Lab Requisition [facility] - Main Lab [address] [facility] [place] [address] Timothy Henry NP from Last 3 Months Social History Tobacco Use Types Packs/Day Years Used Date Smoking Tobacco: Never Assessed Comments Unknown Sex and Gender Information Value Date Recorded Sex Assigned at Not on file Legal Sex Female 2:32 PM EST Gender Identity Not on file Sexual Orientation Not on file Plan of Treatment Health Maintenance Due Date Last Done Comments Zoster Vaccines (3 of 3) 12/17/2019 10/22/2019, 11/2016 Breast Cancer Screening 03/03/2022 03/03/2020 Depression Screening 07/01/2024 COVID-19 Vaccine (2 - 2024- season) 2025 07/13/2022 Influenza Vaccine (#1) 2025 4, 05/20/2023, 04/20/2022, Additional history exists DTaP,Tdap,and Td Vaccines (3 - Td or Tdap) 06/15/2026 06/15/2016, 11/21/2015 RSV Immunization Adult Patients (1 - 1-dose 75+ series) 2031 Meningococcal ACWY Vaccine Aged Out 12/01/2015 N o longer eligible based on patient's age to complete this topic Hepatitis A Vaccines Aged Out 12/26/2015, 11/21/19 16 No longer eligible based on patient's age to complete this topic Hepatitis B Vaccines Completed 05/27/2019, 12/26/2015, 11/21/2015 Pneumococcal Vaccine: 50+ Years Completed 04/20/2022, 06/15/2016, 12/01/2015 HIB Vaccines Aged Out No longer eligi ble based on patient's age to complete this topic HPV Vaccines Aged Out No longer eligi ble based on patient's age to complete this topic IPV Vaccines Aged Out No longer eligi ble based on patient's age to complete this topic MMR Vaccines Aged Out No longer eligi ble based on patient's age to complete this topic Meningococcal B Vaccine Aged Out No l onger eligible based on patient's age to complete this topic RSV Immunization Patients Under 20 months Aged Out No longer eligible based on patient's age to complete this topic Varicella Vaccines Aged Out No longer eligible based on patient's age to complete this topic
--- OUTSIDE RECORDS SUMMARY | 2025-03-09 06:20 | XMS_ITS | Clinical Summary ---
Author Organization [employer] Address [address] [place] [address] Care Team Providers Care Tie Worker Name Role Phone Светлана Benjamin MD Primary Care Provider [phone] Allergies Active Allergy Reactions Criticality Noted Date [...] INSULIN DAILY 100 each 11 024 Active clonazePAM (KlonoPIN) 1 MG tablet Take 1 tablet (1 mg) by mouth 2 times daily for 5 days. Take 1 tablet by oral route three times a day 10 tablet 024 Active metFORMIN (Glucophage) 1000 MG tablet TAKE 1 TABLET BY MOUTH TWICE A DAY WITH MORNING AND EVENING MEALS 180 tablet 3 024 Active amLODIPine (Norvasc) 5 MG tablet TAKE 1 TABLET BY MOUTH DAILY 90 tablet 3 024 Active levothyroxine (Synthroid, Levoxyl) 75 MCG tabletIndication s:Acquired hypothyroidism Take 1 tablet (75 mcg) by mouth before breakfast. Take 1 tablet by oral route every day 90 tablet 3 024 Active SITagliptin (Januvia) 100 MG tablet TAKE 1 TABLET BY MOUTH DAILY 90 tablet 3 025 Active atorvastatin (Lipitor) 20 MG tabletIndication s:Diabetes [...] AT BEDTIME 15 mL 3 025 Active glucose blood (FREESTYLE LITE) test strip Check Blood sugar by fingerstick route three times every day 100 each 11 025 Active losartan (Cozaar) 50 MG tablet TAKE 1 TABLET BY MOUTH DAILY 90 tablet 3 025 Active ibuprofen 600 MG tablet Active nicotine (Nicoderm, Step 1) 21 MG/24HR patch Apply 1 patch topically. 025 Active nicotine polacrilex (Commit) 2 MG lozenge DISSOLVE 1 LOZENGE BY MOUTH EVERY 2 HOURS. DON''T CHEW OR SWALLOW WHOLE. TAKE DIRECTED ON PACKAGE. TALK TO YOUR DOCTOR ABOUT QUITTING SMOKING 025 Active omeprazole (PriLOSEC) [address] capsule [...] and with evening meal. 60 capsule 11 025 Active Alcohol Swabs (B-D SINGLE USE SWABS REGULAR) pads Place 1 each on the skin 3 times daily. Use twice daily as indicated 100 each Active aspirin 81 MG chewable tablet CHEW 1 TABLET BY MOUTH EVERY MORNING 90 tablet 3 Active albuterol (2.5 MG/3ML) 0.083% nebulizer solution Take 3 mL by nebulization every 8 (eight) hours if needed for wheezing. 150 mL 6 Active FreeStyle lancets USE ONE LANCET TO TEST BLOOD SUGAR THREE TIMES A DAY 100 each Active acetaminophen-co deine (Tylenol w/ Codeine #3) 300-30 MG tabletIndication s:Acute left-sided low back pain with right-sided sciatica,Pain of left hip Take 1 tablet by mouth every 6 (six) hours if needed for severe pain for up to 5 days. 20 tablet 025 2024 Active lidocaine (Lidoderm) 5 % patchIndications :Acute left-sided low back pain with right-sided sciatica,Pain of left hip Apply 1 patch topically Once per day. Remove & discard patch within 12 hours or as directed by . 30 patch 1 Active FreeStyle lancets USE ONE LANCET TO TEST BLOOD SUGAR THREE TIMES A DAY 100 each 024 2024 Discontinued clonazePAM (KlonoPIN) 0.25 MG disintegrating tablet 025 2024 Discontinued( ed list cleanup (will not trigger notification to Pharmacy)) acetaminophen-co deine (Tylenol w/ Codeine #3) 300-30 MG tabletIndication s:Acute left-sided low back pain with right-sided sciatica,Pain of left hip Take 1 tablet by mouth every 6 (six) hours if needed for severe pain for up to 5 days. 20 tablet 025 2024 Discontinued lidocaine (Lidoderm) 5 % patchIndications :Acute left-sided low back pain with right-sided sciatica,Pain of left hip Apply 1 patch topically Once per day. Remove & discard patch within 12 hours or as directed by . 30 patch 1 025 2024 Discontinued Active Problems Problem Noted Date Diagnosed Date Acute right-sided low back pain with right-sided sciatica 03/05/2025 Assessment & Plan (03/05/2025 2:04 PM EDT): I will order an MRI and contact [...] cause drowsiness, also I advocate about fall precautions while on these medications Pain of right hip 03/05/2025 Assessment & Plan (03/05/2025 2:04 PM EDT): I will order an MRI and contact [...] cause drowsiness, also I advocate about fall precautions while on these medications Bipolar affective disorder, currently manic, severe, with [...] cough Advised to make an appointment with [facility] pulmonology, she may need long-term oxygen. Advised to quit smoking and using any other recreational substances Kidney lesion, levelock, left 11/16/2024 Overview (11/16/2024): CT scan chest on 11/10/2024 at [facility] showed indeterminate wedge- shaped hypodensity in the mid to lower pole the left kidney, differential includes focal pyelonephritis or infarct. Assessment & Plan (11/16/2024 2:48 PM EDT): Wedge shaped density of the left kidney seen on CT scan chest (11/10/2024 at [facility], incidental finding). Obtain discharge summary and see if it needs additional follow-up Patient is doing very well and last GFR on admission was within normal limits History of syphilis 01/10/2024 Overview (01/10/2024): Treated at [facility] in 2015 2018 RPR + 1:8 [...] (12/14/2022 2:14 PM EDT): Replacement 08/07/22 [place] [facility] [place] Did PT September and October 2022 Pain is better than before surgery Assessment & Plan (09/26/2022 12:09 PM EDT): Replacement 08/07/22 at [facility] Post-op course has been complicated by pain in left shoulder, not starting PT, unclear whether she is wearing supportive arm sling device xrays taken at ortho clinic 09/13/22 reportedly show good placement of L shoulder prosthesis Will attempt to reconnect pt to [employer] services followup with Dr Cooper at end [...] her Klonopin, Seroquel, and opioid pain medications [facility] oncall provider, Angelita, came to evaluate patient and recommended CRISIS for stabilization and safety Pt became upset at this plan and walked out of the exam room, and out of clinic Myself and my MA were able to go with her and have her agree to VNA services, which I ordered for medication management CRISIS is aware of patient and [facility] therapist will contact daughter tomorrow Patient [...] 2 in nonobese 04/20/2016 Assessment & Plan (03/05/2025 1:54 PM EDT): Stable c/w same interventions Assessment & Plan (11/16/2024 2:55 PM EDT): [...] Encounters Date Type Department Care Team Description 03/05/2025 1:00 PM EDT Office Visit [facility] [address] [place] [phone] Jyothi Preciado MD Acute left-sided low back pain with right-sided sciatica; Pain of left hip; Diabetes mellitus type 2 in nonobese ([facility]) 03/05/2025 Travel 03/04/2025 Telephone [facility] [address] [place] [phone] Светлана Benjamin MD Chart Prep 03/03/2025 Orders Only [facility] [address] [place] [phone] [place], PharmD 03/03/2025 Refill [facility] [address] [place] [address] Светлана Benjamin MD 02/18/2025 Telephone [facility] [address] [place] [phone] Светлана Benjamin MD 02/18/2025 Telephone [facility] [address] [place] [phone] Светлана Benjamin MD Nurse Triage 02/16/2025 Patient Outreach [facility] [address] [place] [address] Светлана Benjamin MD Transition Of Care (Tcm) (HDF scheduled.) 02/12/2025 Telephone [facility] [address] [place] [phone] Светлана Benjamin MD telphone call (Telephone made to pt attempt to get ) 02/11/[address] [address] Светлана Benjamin MD FYI 02/02/2025 Refill [facility] [address] [place] [address] Светлана Benjamin MD 02/02/[address] [address] Светлана Benjamin MD Results 01/15/2025 1:30 PM EDT Office Visit [address] [address] Светлана Benjamin MD Diabetes mellitus type 2 in nonobese (CMS/HCC) (Primary Dx); Bipolar affective disorder, currently manic, severe, with psychotic features (CMS/HCC); Left hip pain 01/15/2025 Travel 01/14/[address] [address] Светлана Benjamin MD Chart Prep 01/14/2025 Refill [facility] [address] [place], [place] [phone] Светлана Benjamin MD 01/06/2025 Patient Outreach [address] [address] Светлана Benjamin MD Pre-visit Planning ((Unable to reach for PVP screening, LVM) to be completed in office ) 12/16/2024 1:30 PM EDT Office Visit [facility] ADULT DENTAL [address] [place] [phone] Carolyn Mitchell DDS Edentulous (Primary Dx) 12/09/2024 Refill [facility] [address] [place] [address] Светлана Benjamin MD from Last 3 Months [...] 16 03/05/2025 1:03 PM EDT Oxygen Saturation 94% 03/27/2024 1:28 PM EDT Inhaled Oxygen Concentration - - Weight 56.7 kg (125 lb) 03/05/2025 1:03 PM EDT Height 154.9 cm (5' 1 ) 03/05/2025 1:03 PM EDT Body Mass Index 23.62 03/05/2025 1:03 PM EDT Plan of Treatment Upcoming Encounters Date Type Department Care Team (Late st Contact Info) Description 06/07/2025 1:00 PM EST Office Visit [facility] OPTOMETRY [address] [place] [address] Tyree, Kesyha, OD [address] [place] [address] Health Maintenance Due Date Last Done Comments CT Colonography 1955 Dental Prophylaxis 1955 Dental X-Ray: Bitewings 1955 FIT DNA/Cologuard 1955 FIT 1955 FOBT 1955 Sigmoidoscopy 1955 Diabetes: Foot Exam 1966 RSV Patients and Patients Aged 60 years or older (1 - Risk 60-74 years 1-dose series) 2016 Zoster Vaccines (3 of 3) 12/17/2019 10/22/2019, 03/0 11/2016 Mammogram 03/03/2022 03/03/2020, 12/30, 01/22/2019 Diabetes: Urine Protein Screening 01/05/2025 01/06/2024 COVID-19 Vaccine ( season) 2025 07/13/2022, 02/05/2022, 07/21/2021, Additional history exists Influenza Vaccine (#1) 2025 , 05/20/2023, 04/20/2022, Additional history exists SDOH Screening 03/20/2025 03/20/2024 Diabetes: Hemoglobin A1C 06/04/2025 025, 01/15/2025, 03/27/2024, Additional history exists Dental Oral Exam 06/18/2025 12/16/2024, 05/11/2016 Depression Monitoring 07/18/2025 01/15/2025, 025 Eye Exam 12/04/2025 12/04/2024, 0611/2024, 12/04/2024, Additional history exists Alcohol/Substance Use Screening 01/15/2026 01/15/2025 Lipid Panel 01/15/2026 01/15/2025, 04/28/2021 Tobacco Screening 03/05/2026 03/05/2025 DTaP/Tdap/Td Vaccines (3 - Td or Tdap) [...] Diabetes mellitus type 2 in nonobese (CMS/HCC) POCT GLUCOSE Routine 03/05/2025 1:30 PM EDT Diabetes mellitus type 2 in nonobese (CMS/HCC) XR HIP 2 OR 3 VIEWS LEFT Routine 01/19/2025 12:50 PM EDT Left hip pain POCT GLYCATED HEMOGLOBIN, TOTAL Routine 01/15/2025 1:09 PM EDT Diabetes mellitus type 2 in nonobese (CMS/HCC) POCT GLUCOSE Routine 01/15/2025 1:08 PM EDT Diabetes mellitus type 2 in nonobese (CMS/HCC) LIPID PANEL, STANDARD Routine 01/15/2025 10:59 AM [...] 1 EXTRACTION Routine 12/16/2024 12:00 AM EDT HEPATITIS C AB W/REFL TO HCV RNA, QN, PCR Routine 01/06/2024 2:10 PM EDT Screening examination for STI ALBUMIN, RANDOM URINE W/CREATININE Routine 01/06/2024 2:10 PM EDT Diabetes mellitus type 2 in nonobese (CMS/HCC) BI MAMMOGRAM DIAGNOSTIC BILATERAL Routine 03/03/2020 8:21 AM EDT HM COLONOSCOPY Routine 02/26/2020 from Last 3 Months or Most Recently Relevant to Health Maintenance Results * (ABNORMAL) POCT Hgb A1c (03/05/2025 1:30 PM EDT) Only the most recent of2 resultswithin the time period is included. Hemoglobin A1C 7.0(A) 4.0 - 5.7 % QC Media Lot # [id number] Lot# Expiration Date [id number] Blood 03/05/2025 1:30 PM EDT us Jyothi Hernandez MD POINT OF CARE TEST EN TER/EDIT ORDERABLES Final Result * (ABNORMAL) POCT Glucose (03/05/2025 1:30 PM EDT) Only the most recent of2 resultswithin the time period is included. Glucose Blood, POC 268(A) 60 - 200 mg/dL QC Media Lot # [id number] Lot# Expiration Date 113,[id number] Blood Capillary blood specimen / Unknown 03/05/2025 1:30 PM EDT us Jyothi Hernandez MD POINT OF CARE TEST EN TER/EDIT ORDERABLES Final Result * XR Hip 2 or 3 Views Left (01/19/2025 12:50 PM EDT) Anatomical Region Laterality Modality Lower Extremities, Hip Left Radiograp hic Imaging 01/19/2025 12:5 0 PM EDT Narrative 01/19/2025 2:14 PM EDT [address] [address] XRay Report Signed Patient: April Molina MR#: [id number] : 1955 Acct:[id number] Age/Sex: 69 / F ADM Date: 01/19/25 Loc: HO.HHCX Attending Dr: Светлана Benjamin MD Ordering Physician: Светлана Benjamin Date of Service: 01/19/25 Procedure(s): XR hip LT min 2V Accession Number(s): [id number] cc: Светлана Benjamin EXAMINATION: XR HIP 2 [...] Alvin Causey MD 01/19/2025 02:11 PM EDT Dictated By: Alvin Causey MD Signed By: <Electronically signed by Alvin Causey MD in OV> 01/19/25 1411 DD/ 1250 TD/TT: 01/19/25 1250 Splicer Apprentice: Procedure Note Donotuseinterpreter, Image - 01/19/[address] [address] XRay Report Signed Patient: April MolinaMR#: [id number] : 1955cct:[id number] Age/Sex: 69 / FADM Date: 01/19/25 Loc: HO.HHCX Attending Dr: Светлана Benjamin MD Ordering Physician: Светлана Benjamin Date of Service: 01/19/25 Procedure(s): XR hip LT min 2V Accession Number(s): [id number] cc: Светлана Benjamin EXAMINATION: XR HIP 2 [...] 01/19/25 1411 DD/ 1250 TD/TT: 01/19/25 1250 Splicer Apprentice: Светлана Benjamin MD IMG XR PROCEDURES Final Result * (ABNORMAL) Lipid Panel, Standard (01/15/2025 10:59 AM EDT) Triglycerides 170(H) <150 mg/dL [facility] Comment:Desirable Triglyceri de: less than 150 mg/dLBorderline High Triglyceride 150-199 mg/dLHigh Triglyceride: 200-499 mg/dLVery High Triglyceride: greater than or equal to 5OO mg/dL Cholesterol 117 <200 mg/dL [facility] Comment:Desirable Cholestero l: less than 200 mg/dLBorderline High Cholesterol: 200-239 mg/dLHigh Cholesterol: greater than 239 mg/dL LDL Cholesterol Calculated 50 <100 mg/dL [facility] Comment:Desirable LDL: less than 100 mg/dLNear Optimal/Above Optimal LDL: 110- 129 mg/dLBorderline High LDL: 130-159 mg/dLHigh LDL: 160-189 mg/dLVery High LDL: greater than or equal to 190 mg/dL HDL Cholesterol 33(L) >40 mg/dL [facility] Comment:Desirable HDL: great er than 40 mg/dL Note: This HDL assay may give artificially low results in patients with liver disease. Blood Venous blood specimen / Unknown 01/15/2025 10:59 AM EDT 01/15/2025 12:58 PM EDT Светлана Benjamin MD LAB BLOOD ORDERABLES Final Res ult Performing Organization Address [facility] Co de Phone Number [facility] [address] [place] [phone] * Albumin, Random Urine W/Creatinine (01/06/2024 2:10 PM EDT) Creatinine, Urine 47.40 mg/dL [facility] Microalbumin Urine <5.0 mg/L [facility] Microalbum Creatinine Ratio Ur TNP <30 ug/mg cr [facility] Comment:Unable to calculate albumin/creatinine ratio due to lowmicroalbumin or creatinine result. Urine (Urine, Random) 01/06/2024 2:10 PM EDT 01/06/2024 3:53 PM EDT Светлана Benjamin MD LAB URINE ORDERABLES Final Res ult Performing Organization Address [facility] de Phone Number [facility] [address] [place] [phone] * Hepatitis C Antibody with Reflex to HCV, RNA, Quantitative, Real-Time PCR (01/06/2024 2:10 PM EDT) Hepatitis C Antibody Nonreactive Nonreactive [facility] Comment:Antibodies to HCV no t detected; does not exclude early acuteHCV infection. Blood Venous blood specimen / Unknown 01/06/2024 2:10 PM EDT 01/06/2024 3:51 PM EDT Светлана Benjamin MD LAB BLOOD ORDERABLES Final Res ult Performing Organization Address [facility] Co de Phone Number [facility] [address] [place] [phone] * 3D BILATERAL DIAGN MAMMO 1 [...] 02/26/2020 Recommended 10 year follow up ( [facility] ) Bobby Provider HEALTH MAINTENANCE Edited Result - Final from Last 3 Months or Most Recently Relevant to Health Maintenance Insurance [facility] [employer] (O D-SNP) GEN [place] [id number] [facility] Care Teams Tie Worker Relationship Specialty Start Date End Date Светлана Benjamin MD [address] [place] [phone] PCP - General Family Medicine 02/27/21
--- OUTSIDE RECORDS SUMMARY | 2025-03-09 06:20 | XMS_ITS | Encounter Summary ---
Author Organization [employer] Address [address] [place] [address] Care Team Providers Care Devulcanizer Tender Name Role Phone Светлана Benjamin MD Primary Care Provider [phone] Reason for Visit * Reason Onset Date Comments Nurse Triage 02/14/2023 Encounter Details Date Type Department Care Team (Late st Contact Info) Description 02/14/2023 Telephone [facility] MEDICINE [address] [place], [place] [phone] Светлана Benjamin MD [address] [place] [address] Nurse Triage Social History Tobacco Use Types [...] to April Mueller, reports seen at [facility] ED On 02/12 following fall. Per pt was wearing a sandal and tripped and fell. Per pt landed on left side hip. No head injury or LOC. Pt then called EMS.Per pt had x-ray done and referred to [facility] Ortho. Pt has appt on 03/20/23. Pt given a few tramadol but advsied to shaquille PCP by ortho for pain management until seen. Pt agrees to visit tomorrow with Blue team provider. Pt advised to take OTC Tyelnol, apply ice and rest. TO return call if pain is sever or return to ER. Sent to team to obtain [facility] discharge summary for provider review. Future Appointments Date Time Provider Department Center 02/15/2023 2:45 PM rCistal Collins CNP MEDICINE [facility] 03/18/2023 2:15 PM Светлана Benjamin MD [facility] Protocol Used: Hip Injury (Adult) Protocol-Based Disposition: [...] after the fall. Was seen at [facility] on 02/12 for a fall and still having symptoms. The caller accepted this outcome Please contact pt at [phone] (Cook Islander) documented in this encounter Plan of Treatment Upcoming Encounters Date Type Department Care Team (Late st Contact Info) Description 06/07/2025 1:00 PM EST Office Visit [facility] OPTOMETRY [address] [place] [address] Keysha Clements, OD [address] [place] [address] documented as of this encounter Visit Diagnoses Not on filedocumented in this encounter Care Teams Devulcanizer Tender Relationship Specialty Start Date End Date Светлана Benjamin MD [address] [place] [address] PCP - General Family Medicine 02/27/21 documented as of this encounter
--- OUTSIDE RECORDS SUMMARY | 2025-03-09 06:20 | XMS_ITS | Encounter Summary ---
Author Organization [employer] [facility] Address [address] [facility] [address] [place] [address] Care Team Providers Care Applications Programmer Analyst Name Role Phone Светлана Benjamin MD Primary Care Provider [phone] Encounter Details Date Type Department Care Team ([facility] Contact Info) Description 02/27/2023 Abstract [facility] [address] [place] [address] Светлана Benjamin MD [address] [place], [place] [phone] Social History Tobacco Use Types Packs/Day Years [...] Department Care Team (Late Contact Info) Description 06/07/2025 1:00 PM EST Office Visit [facility] OPTOM[facility]RY [address] [place] [address] Keysha Clements, OD [address] [place], [place] [phone] documented as of this encounter Procedures Procedure Name Priority Date/Time Associated Diagnosis Comments COLONOSCOPY Routine 02/26/2020 documented in this encounter Results * Hm Colonoscopy (02/26/2020) Colonoscopy Normal Normal Narrative Tammy Stroud - 02/26/2020 Recommended 10 year follow up ( [facility] ) us Historical Provider HEALTH MAINTENANCE Edited Result - Final documented in this encounter Visit Diagnoses Not on filedocumented in this encounter Care Teams Applications Programmer Analyst Relationship Specialty Start Date End Date Светлана Benjamin MD [address] [place] [phone] PCP - General Family Medicine 02/27/21 documented as of this encounter
--- OUTSIDE RECORDS SUMMARY | 2025-03-09 06:21 | XMS_ITS | Encounter Summary ---
Author Organization [employer] Address [address] [place] [address] Care Team Providers Care Platform Material Handling Supervisor Name Role Phone Светлана Benjamin MD Primary Care Provider [phone] Reason for Visit * Reason Onset Date Comments Chart Prep 03/04/2025 Encounter Details Date Type Department Care Team ([facility] st Contact Info) Description 03/04/2025 Telephone [facility] [address] [place], [place] [phone] Светлана Benjamin MD [address] [place], [place] [phone] Chart Prep Social History Tobacco Use Types Packs/Day Years [...] encounter Miscellaneous Notes * Telephone Encounter - Bernard Leach [place] - 03/04/2025 2:17 PM EDT Chart Prep Labs: done Images: done Referrals: not applicable Vaccines due: Covid, Flu, RSV, and Zoster Screenings: mammogram and foot exam Overdue care gaps: A1c, Glucose, SDOH, PHQ-9, and ANDRÉS-7 documented in this encounter Plan of Treatment Upcoming Encounters Date Type Department Care Team (Late st Contact Info) Description 06/07/2025 1:00 PM EST Office Visit [facility] OPTOMETRY [address] [place] [address] Tyree, Keysha, OD [address] [place] [address] documented as of this encounter Visit Diagnoses Not on filedocumented in this encounter Additional Health Concerns Assessment Noted Time PHQ-9 Depression Total Score: 9 01/16/20 25 1:03 PM EDT documented as of this encounter Care Teams Platform Material Handling Supervisor Relationship Specialty Start Date End Date Светлана Benjamin MD [address] [place] [address] PCP - General Family Medicine 02/27/21 documented as of this encounter
--- OUTSIDE RECORDS SUMMARY | 2025-03-09 06:21 | XMS_ITS | Encounter Summary ---
Author Organization [employer] Address [address] [place] [address] Care Team Providers Care Program Director/Morning Show Host Name Role Phone Светлана Benjaimn MD Primary Care Provider [phone] Reason for Visit * Reason Onset Date Comments Durable Medical Equipment 08/28/2022 Encounter Details Date Type Department Care Team ([facility] st Contact Info) Description 08/28/2022 Telephone [facility] MEDICINE [address] [place], [place] [phone] Светлана Benjamin MD [address] [place], [place] [phone] Durable Medical Equipment Social History Tobacco Use [...] 08/28/2022 11:35 AM EST Tc from [facility] requesting a script for disposable bed pads states needs 3 a day and 3 a night [facility] fax # [phone] documented in this encounter Plan of Treatment Upcoming Encounters Date Type Department Care Team (Late st Contact Info) Description 06/07/2025 1:00 PM EST Office Visit [facility] OPTOMETRY [address] [place], [place] [phone] Keysha Clemetns, OD [address] [place] [address] documented as of this encounter Visit Diagnoses Not on filedocumented in this encounter Care Teams Program Director/Morning Show Host Relationship Specialty Start Date End Date Светлана Benjamin MD [address] [place] [address] PCP - General Family Medicine 02/27/21 documented as of this encounter
--- OUTSIDE RECORDS SUMMARY | 2025-03-09 06:21 | XMS_ITS | Encounter Summary ---
Author Organization [employer] Address [address] [facility] [address] [place] [address] Care Team Providers Care Heating Element Repairer Name Role Phone Светлана Benjamin MD Primary Care Provider [phone] Reason for Visit * Reason Onset Date Comments other 01/09/2023 Encounter Details Date Type Department Care Team ([facility] st Contact Info) Description 01/09/2023 Telephone [facility] MEDICINE [address] [place], [place] [phone] Светлана Benjamin MD 230 [place] [address] other Social History Tobacco Use Types Packs/Day [...] Miscellaneous Notes * Telephone Encounter - Cassie Juancarlos - 01/09/2023 11:45 AM EDT Tc from tressa with S requesting status on orders for VNA services. Please contact tressa at [phone] Fax number: [phone] documented in this encounter Plan of Treatment Upcoming Encounters Date Type Department Care Team (Late st Contact Info) Description 06/07/2025 1:00 PM EST Office Visit [facility] OPTOMETRY [address] [place] [address] Keysha Clements, OD 230 [place], [place] [phone] documented as of this encounter Visit Diagnoses Not on filedocumented in this encounter Care Teams Heating Element Repairer Relationship Specialty Start Date End Date Светлана Benjamin MD [address] [place], [place] [phone] PCP - General Family Medicine 02/27/21 documented as of this encounter
--- OUTSIDE RECORDS SUMMARY | 2025-03-09 06:21 | XMS_ITS | Encounter Summary ---
Author Organization [employer] Address [address] [facility] [address] [place] [address] Care Team Providers Care Physician Relations Representative Name Role Phone Светлана Benjamin MD Primary Care Provider [phone] Encounter Details Date Type Department Care Team (Late st Contact Info) Description 02/18/2025 Telephone [facility] MEDICINE 230 [place], [place] [phone] Светлана Benjamin MD 230 [place], [place] [phone] Social History Tobacco Use Types Packs/Day Years [...] housing situation today? I have jebvirginia jacobs 03/20/[address] you [...] Description 06/07/2025 1:00 PM EST Office Visit [facility] OPTOMETRY [address] [place], [place] [phone] TyreeKeysha, OD 230 [place] [address] documented as of this encounter Visit Diagnoses Not on filedocumented in this encounter Additional Health Concerns Assessment Noted Time PHQ-9 Depression Total Score: 9 01/16/20 25 1:03 PM EDT documented as of this encounter Care Teams Physician Relations Representative Relationship Specialty Start Date End Date Светлана Benjamin MD [address] [place] [address] PCP - General Family Medicine 02/27/21 documented as of this encounter
--- OUTSIDE RECORDS SUMMARY | 2025-03-09 06:21 | XMS_ITS | Encounter Summary ---
Author Organization [employer] Address [address] [facility] [place] [address] Care Team Providers Care Quail Farmer Name Role Phone Светлана Benjamin MD Primary Care Provider [phone] Reason for Visit * Reason Onset Date Comments Med Refill 09/13/2023 Encounter Details Date Type Department Care Team (Late st Contact Info) Description 09/13/2023 Telephone [facility] MEDICINE 230 [place], [place] [phone] Светлана Benjamin MD 230 [place], [place] [phone] Med Refill Social History Tobacco Use Types [...] : Lidocaine Patches To be sent to: [facility] documented in this encounter Plan of Treatment Upcoming Encounters Date Type Department Care Team (Late st Contact Info) Description 06/07/2025 1:00 PM EST Office Visit [facility] OPTOMETRY [address] [place] [address] Tyree, Keysha, OD 230 [place] [address] documented as of this encounter Visit Diagnoses Not on filedocumented in this encounter Care Teams Quail Farmer Relationship Specialty Start Date End Date Светлана Benjamin MD 230 [place] [address] PCP - General Family Medicine 02/27/21 documented as of this encounter
--- OUTSIDE RECORDS SUMMARY | 2025-03-09 06:21 | XMS_ITS | Encounter Summary ---
Author Organization [employer] Address [address] [facility] [address] [place] [address] Care Team Providers Care Slat Pickler Name Role Phone Светлана Benjamin MD Primary Care Provider [phone] Reason for Visit * Reason Onset Date Comments Nurse Triage 11/16/2024 Encounter Details Date Type Department Care Team ([facility] st Contact Info) Description 11/16/2024 Telephone [facility] MEDICINE 230 [place], [place] [phone] Светлана Benjamin MD [address] [place], [place] [phone] Nurse Triage Social History Tobacco Use Types [...] encounter Miscellaneous Notes * Telephone Encounter - Maureen Briscoe RN - 11/16/2024 12:04 PM EDT Triage call Pt daughter April, speaks for Pt while Pt near by. Pt has been having mouth sores along the gum line both upper and lower gum lines. Sores look blister like and are very sore. Pt has been using salt water rinse with some relief of discomfort. Pt had been in hospitalized recently with dx of pneumonia no report on chart. Unsure if this was ED visit or hospitalization advised to speak with nursing team when arrives for apt today and daughter agrees. ASK apt with Dr. Marie today @215pm to address mouth sores. Pt agrees with this disposition and insurance is verified as active prior to booking. Protocol Used: Mouth Symptoms (Adult) Protocol-Based Disposition: See in Office or Video Visit within 3 Days Video visit not offered Positive Triage Question: * Patient wants to be seen * All higher-acuity triage questions were negative Care Advice Discussed: * Reasons To Call Back - You become worse * Telephone Encounter - April Sales - 11/16/2024 11:35 AM EDT Symptom: Mouth Sores or Ulcers - Caller Reports Outcome: Schedule an urgent appointment (within 1 hour) or talk to a nurse or provider soon Reason: Severe pain now The caller accepted this outcome. documented in this encounter Plan of Treatment Upcoming Encounters Date Type Department Care Team (Late st Contact Info) Description 06/07/2025 1:00 PM EST Office Visit [facility] OPTOMETRY [address] [place] [address] Keysha Clements, OD [address] [place], [place] [phone] documented as of this encounter Visit Diagnoses Not on filedocumented in this encounter Care Teams Slat Pickler Relationship Specialty Start Date End Date Светлана Benjamin MD 230 [place], [place] [phone] PCP - General Family Medicine 02/27/21 documented as of this encounter
--- OUTSIDE RECORDS SUMMARY | 2025-03-09 06:21 | XMS_ITS | Encounter Summary ---
Author Organization [employer] Address [address] [facility] [address] [place] [address] Care Team Providers Care Outfitter Cabin Name Role Phone Светлана Benjamin MD Primary Care Provider [phone] Reason for Visit * Reason Onset Date Comments triage 08/31/2022 Encounter Details Date Type Department Care Team ([facility] st Contact Info) Description 08/31/2022 Telephone [facility] MEDICINE 230 [place] [address] Светлана Benjamin MD [address] [place] [address] triage Social History Tobacco Use Types Packs/Day [...] now The caller accepted this outcome speaks swiss documented in this encounter Plan of Treatment Upcoming Encounters Date Type Department Care Team (Late st Contact Info) Description 06/07/2025 1:00 PM EST Office Visit [facility] OPTOMETRY [address] [place], [place] [phone] Keysha Clements, OD 230 [place] [address] documented as of this encounter Visit Diagnoses Not on filedocumented in this encounter Care Teams Outfitter Cabin Relationship Specialty Start Date End Date Светлана Benjamin MD 230 [place] [address] PCP - General Family Medicine 02/27/21 documented as of this encounter
--- OUTSIDE RECORDS SUMMARY | 2025-03-09 06:21 | XMS_ITS | Encounter Summary ---
Author Organization [employer] Address [address] [facility] [address] [place] [address] Care Team Providers Care Cane Flume Chute Operator Name Role Phone Светлана Benjamin MD Primary Care Provider [phone] Reason for Visit * Reason Onset Date Comments Durable Medical Equipment 05/01/2023 Nebuli zer Encounter Details Date Type Department Care Team ([facility] st Contact Info) Description 05/01/2023 Telephone [facility] MEDICINE 230 [place], [place] [phone] Светлана Benjamin MD [address] [place], [place] [phone] Durable Medical Equipment (Nebulizer) Social History Tobacco [...] To be fax L&C and also [facility] [phone] documented in this encounter Plan of Treatment Upcoming Encounters Date Type Department Care Team (Late st Contact Info) Description 06/07/2025 1:00 PM EST Office Visit [facility] OPTOMETRY [address] [place] [address] Keysha Clements, OD 230 [place] [address] documented as of this encounter Visit Diagnoses Not on filedocumented in this encounter Care Teams Cane Flume Chute Operator Relationship Specialty Start Date End Date Светлана Benjamin MD 230 [place] [address] PCP - General Family Medicine 02/27/21 documented as of this encounter
--- OUTSIDE RECORDS SUMMARY | 2025-03-09 06:21 | XMS_ITS | Encounter Summary ---
Author Organization [employer] Address [address] [facility] [address] [place] [address] Care Team Providers Care School Bus Driver/Custodian Name Role Phone Светлана Benjamin MD Primary Care Provider [phone] Reason for Referral * Medications - Closed Specialty Diagnoses / Procedures Referred By Contac t Referred To Contact Diagnoses Trochanteric bursitis of left hip Left hip pain Светлана Benjamin MD 230 [place] [address] Phone: tel: fax: Referral ID Status Reason Start Date Expiration Date Visits Re quested Visits Authorized [id number] Closed 1 1 Encounter Details Date Type Department Care Team (Late st Contact Info) Description 09/15/2023 Orders Only [facility] MEDICINE [address] [place] [phone] Светлана Benjamin MD [address] [place] [phone] Trochanteric bursitis of left hip (Primary Dx); [...] Description 06/07/2025 1:00 PM EST Office Visit [facility] OPTOMETRY [address] [place] [address] Tyree, Keysha, OD 230 [place] [address] documented as of this encounter Visit Diagnoses Diagnosis Trochanteric bursitis of left hip- Primary Left hip pain Pain in joint, pelvic region and thigh documented in this encounter Care Teams School Bus Driver/Custodian Relationship Specialty Start Date End Date Светлана Benjamin MD 230 [place] [address] PCP - General Family Medicine 02/27/21 documented as of this encounter
--- OUTSIDE RECORDS SUMMARY | 2025-03-09 06:21 | XMS_ITS | Encounter Summary ---
Author Organization [employer] Address [address] [facility] [address] [place] [address] Care Team Providers Care Environmental Management Specialist Name Role Phone Светлана Benjamin MD Primary Care Provider [phone] Encounter Details Date Type Department Care Team (Latest Contact Info) Description 03/05/2025 Travel Social History Tobacco Use Types Packs/Day Years [...] your housing situation today? I have jeb sing 03/20/[address] you li [...] 1:00 PM EST Office Visit [facility] OPTOMETRY [address] [place], [place] [phone] TyreeKeysha ortiz, OD 230 [place] [address] documented as of this encounter Visit Diagnoses Not on filedocumented in this encounter Additional Health Concerns Assessment Noted Time PHQ-9 Depression Total Score: 9 01/16/20 25 1:03 PM EDT documented as of this encounter Care Teams Environmental Management Specialist Relationship Specialty Start Date End Date Светлана Benjamin MD 230 [place] [address] PCP - General Family Medicine 02/27/21 documented as of this encounter
--- OUTSIDE RECORDS SUMMARY | 2025-03-09 06:21 | XMS_ITS | Encounter Summary ---
Author Organization [employer] [facility] Address [address] [facility] 7t [place] [address] Care Team Providers Care Taker Out Name Role Phone Светлана Benjamin MD Primary Care Provider Encounter Details Date Type Department Care Team (Late Contact Info) Description 01/23/2023 Orders Only [facility] MEDICINE 230 [place] [address] Светлана Benjamin MD 230 [place] [address] Left hip pain (Primary Dx) Social History [...] Description 06/07/2025 1:00 PM EST Office Visit [facility] OPTOMETRY [address] [place] [address] Keysha Clements, OD 230 [place] [address] documented as of this encounter Visit Diagnoses Diagnosis Left hip pain- Primary Pain in joint, pelvic region and thigh documented in this encounter Care Teams Taker Out Relationship Specialty Start Date End Date Светлана Benjamin MD 230 [place] [address] PCP - General Family Medicine 02/27/21 documented as of this encounter
--- OUTSIDE RECORDS SUMMARY | 2025-03-09 06:21 | XMS_ITS | Encounter Summary ---
Author Organization [employer] Address [address] [facility] [address] [place] [address] Care Team Providers Care Machine Hose Cutter Name Role Phone Светлана Benjamin MD Primary Care Provider [phone] Encounter Details Date Type Department Care Team (Late st Contact Info) Description 03/03/2025 Orders Only [facility] MEDICINE 230 [place], [place] [phone] [place], PharmD [address] [place], [place] [phone] Social History Tobacco Use Types Packs/Day Years [...] Description 06/07/2025 1:00 PM EST Office Visit [facility] OPTOMETRY [address] [place], [place] [phone] Tyree, Keysha, OD 230 [place] [address] documented as of this encounter Visit Diagnoses Not on filedocumented in this encounter Additional Health Concerns Assessment Noted Time PHQ-9 Depression Total Score: 9 01/16/20 25 1:03 PM EDT documented as of this encounter Care Teams Machine Hose Cutter Relationship Specialty Start Date End Date Светлана Benjamin MD [address] [place] [address] PCP - General Family Medicine 02/27/21 documented as of this encounter
--- OUTSIDE RECORDS SUMMARY | 2025-03-09 06:21 | XMS_ITS | Encounter Summary ---
Author Organization [employer] Address [address] [facility] [address] [place] [address] Care Team Providers Care Mechanical Research Engineer Name Role Phone Светлана Benjamin MD Primary Care Provider [phone] Encounter Details Date Type Department Care Team (Late st Contact Info) Description 07/19/2023 Orders Only [facility] MEDICINE 230 [place], [place] [phone] Светлана Benjamin MD [address] [place], [place] [phone] Functional urinary incontinence (Primary Dx) Social History [...] Description 06/07/2025 1:00 PM EST Office Visit [facility] OPTOMETRY [address] [place] [address] Keysha Clements, OD 230 [place] [address] documented as of this encounter Visit Diagnoses Diagnosis Functional urinary incontinence- Primary documented in this encounter Care Teams Mechanical Research Engineer Relationship Specialty Start Date End Date Светлана Benjamin MD [address] [place] [address] PCP - General Family Medicine 02/27/21 documented as of this encounter
--- OUTSIDE RECORDS SUMMARY | 2025-03-09 06:21 | XMS_ITS | Encounter Summary ---
Author Organization [employer] Address [address] [facility] [address] [place] [address] Care Team Providers Care Information Systems Consultant Name Role Phone Светлана Benjamin MD Primary Care Provider [phone] Encounter Details Date Type Department Care Team (Late st Contact Info) Description 01/10/2024 Orders Only [facility] MEDICINE 230 [place], [place] [phone] Светлана Benjamin MD [address] [place], [place] [phone] History of syphilis (Primary Dx) Social History [...] Office Visit [facility] OPTOMETRY [address] [place] [address] Keysha Clements, OD 230 [place] [address] documented as of this encounter Visit Diagnoses Diagnosis History of syphilis- Primary documented in this encounter Care Teams Information Systems Consultant Relationship Specialty Start Date End Date Светлана Benjamin MD [address] [place] [address] PCP - General Family Medicine 02/27/21 documented as of this encounter
--- OUTSIDE RECORDS SUMMARY | 2025-03-09 06:21 | XMS_ITS | Encounter Summary ---
Author Organization [employer] Address [address] [facility] [address] [place] [address] Care Team Providers Care Housing Inspectors Name Role Phone Светлана Benjamin MD Primary Care Provider [phone] Reason for Visit * Reason Onset Date Comments Change PCP 07/17/2023 Encounter Details Date Type Department Care Team ([facility] st Contact Info) Description 07/17/2023 Telephone [facility] MEDICINE [address] [place], [place] [phone] Светлана Benjamin MD [address] [place], [place] [phone] Change PCP Social History Tobacco Use Types [...] * Telephone Encounter - Cassie Juancarlos - 07/17/2023 1:43 PM EST Tc from [place] with [facility] states pt is requesting a PCP change due to language preference. Would like a tunisian speaking provider. documented in this encounter Plan of Treatment Upcoming Encounters Date Type Department Care Team (Late st Contact Info) Description 06/07/2025 1:00 PM EST Office Visit [facility] OPTOMETRY [address] [place] [address] Keysha Clements, OD [address] [place] [address] documented as of this encounter Visit Diagnoses Not on filedocumented in this encounter Care Teams Housing Inspectors Relationship Specialty Start Date End Date Светлана Benjamin MD [address] [place] [address] PCP - General Family Medicine 02/27/21 documented as of this encounter
== END 2025-03-09 06:18 | disposition home or self-care (01) ==
LOC: CF 06:17
PROVIDERS: Visit Provider Anesthesiology
DX: M25.512 Pain in left shoulder (principal); G89.4 Chronic pain syndrome; Z96.612 Presence of left artificial shoulder joint
CPT/HCPCS: 64418; J2003; J2795; Q9967

== ENCOUNTER 2025-03-09 10:20 | Outpatient (AMB) | payer OTHER, SELFPAY ==
--- NOTE | 2025-03-09 10:34 | MHC.OFFVIS ---
Vital Signs 03/09/25 10:35 03/09/25 10:55 Height 5 ft Weight 120 lb BMI 23.4 BP 117/61 117/71 Blood Pressure Location Lt brachial Lt brachial Position Sitting Sitting Respiration 18 18 Pulse 86 81 Pulse Source Pulse Oximeter Pulse Oximeter Pulse Oximetry (%) 96 95 Oxygen Delivery Method Room Air Room Air Intake Visit Reasons: Left Diagnostic Suprascapular Nerve Block Emd Special Education Teacher Required: Yes Emd Special Education Teacher Name: family Allergies cephalexin (From KEFLEX) Allergy (Intermediate, Verified 12/30/24 13:08) REDNESS, hives, swelling PFSH Medical History Diabetes Edentulous HLD (hyperlipidemia) HTN (hypertension) Hypothyroidism Latent syphilis Panic attacks PTSD (post-traumatic stress disorder) PVD (peripheral vascular disease) Right knee pain SOB (shortness of breath) Spondylosis of lumbar region without myelopathy or radiculopathy T2DM (type 2 diabetes mellitus) Vitamin D deficiency Surgical History Hx of appendectomy Hx of section Status post total shoulder replacement Family History Father No problems noted. Mother No problems noted. Social History Household Members: None Housing: Apartment Are you a primary critical care physician assistant to a significant other at home: No Do you presently have visiting nurse or other home services: No Alcohol intake: never Patient Tobacco Use Status: Current everyday Tobacco user Tobacco use type: Cigarette Cigarettes Per Day: 10 Years Smoked: 15+ Second Hand Smoke Exposure: No service: No Current occupational status: disabled Physical Exam Vital Signs: Last Vital Signs Pulse 81 03/09/25 10:55 Resp 18 03/09/25 10:55 BP 117/71 03/09/25 10:55 Pulse Ox 95 03/09/25 10:55 Oxygen Delivery Method Room Air 03/09/25 10:55 BMI result Body Mass Index 23.4 Assessment & Plan Assessment & Plan (1) Status post total replacement of left shoulder: Code(s): Z96.612 - Presence of left artificial shoulder joint Category: Surgical (2) Chronic left shoulder pain: Code(s): M25.512 - Pain in left shoulder; G89.29 - Other chronic pain Category: Medical (3) Chronic pain syndrome: Code(s): G89.4 - Chronic pain syndrome Category: Medical Plan Suprascapular nerve block left. Informed consent was thoroughly explained to the patient. Patient's relative was in the presence today in the operating room and she was interpreting from [place]isian language of the patient. After that patient was taken to the operating room and she was positioned prone on the operating table. Posterior shoulder and posterior left side of the back were prepped with ChloraPrep and draped with sterile self adhesive utility towels. After that C-arm was brought over the operating field and sq picture of the patient's scapula was demonstrated on the screen. Coracoid process and suprascapular notch were demonstrated on the screen. After that projection of the suprascapular notch to the skin was injected with small amount of mixture of lidocaine 2% and ropivacaine 0.5% one-to-one no more than 2 cc. After that 22 gauge 3-1/2 inch needle was inserted through the skin wheal and advanced to were the suprascapular notch in tunnel vision fashion. When tip of the needle gently contacted the bone injection of the contrast was performed demonstrating no intravascular spread of the contrast. After that injection of the treatment medicine containing ropivacaine 0.5% 2 cc was injected into the site. Upon completion of the injection needle was removed and sterile Band-Aid was applied. The patient tolerated the procedure well. Orders: Orders FL guidance in treatment room Today G89.29 - Other chronic pain, M25.512 - Pain in left shoulder Coding Level of Care Code Procedure Only Diagnoses Status post total replacement of left shoulder Z96.612 Chronic left shoulder pain M25.512; G89.29 Chronic pain syndrome G89.4
[2025-03-09 10:35] VITALS: BP 117/61; PULSE 86; RESP 18; O2SAT 96; BMI 23.4
[2025-03-09 10:55] VITALS: BP 117/71; PULSE 81; RESP 18; O2SAT 95
== END 2025-03-09 10:58 | disposition home or self-care (01) ==
LOC: HO.PMCPRC 10:20
PROVIDERS: PCP General Practice; Visit Provider Anesthesiology
DX: M25.512 Pain in left shoulder (principal); Z96.612 Presence of left artificial shoulder joint; G89.29 Other chronic pain; G89.4 Chronic pain syndrome
CPT/HCPCS: 64418; 77002

== ENCOUNTER 2025-03-11 10:45 | Outpatient (AMB) | payer OTHER, SELFPAY ==
--- NOTE | 2025-03-11 11:16 | MHC.OFFVIS ---
Vital Signs 03/11/25 11:17 Weight 120 lb BP 123/61 Blood Pressure Location Lt brachial Position Sitting Respiration 18 Pulse 85 Pulse Source Pulse Oximeter Pulse Oximetry (%) 96 Oxygen Delivery Method Room Air Intake Visit Reasons: S/P Left Diagnostic Suprascapular Nerve Block Radiosonde Specialist Required: Yes Radiosonde Specialist Name: daughter Allergies cephalexin (From KEFLEX) Allergy (Intermediate, Verified 03/11/25 11:16) REDNESS, hives, swelling HPI Comments Details: April is back in my office after diagnostic suprascapular nerve block to treat the pain in the left shoulder. She reports absence of pain in his shoulder now. She reports that pain stopped immediately after the procedure, she did not experienced pain for next 72 hours. She is very happy about this injection. I explained to the patient that this is temporary effect and we need to do sprint PNS to treat the pain of this patient. She agreed to go for this procedure. I explained to her risks and benefits of the procedure, I explained to her mobility and hygiene limitations. At the same time she is complaining on severe unbearable pain in the left lower extremity radiating from the lower back. Physical exam is as below. I believe this patient needs to go for the MRI of the lumbar spine she is suffering from radiculopathy of the lumbar spine. I will schedule her for the MRI as soon as possible. Prior: complains on pain on the posterior surface of the left shoulder. Apparently she had total shoulder replacement 2 years ago. She had physical therapy after this procedure, she restored the mobility of the shoulder on the left with good protestant of motions. However pain in his shoulder continued to bother her. She reports today pain 7/10. Most of the pain is on posterior surface of the left shoulder with radiation down to the left arm and left forearm. [facility] Medical History Diabetes Edentulous HLD (hyperlipidemia) HTN (hypertension) Hypothyroidism Latent syphilis Panic attacks PTSD (post-traumatic stress disorder) PVD (peripheral vascular disease) Right knee pain SOB (shortness of breath) Spondylosis of lumbar region without myelopathy or radiculopathy T2DM (type 2 diabetes mellitus) Vitamin D deficiency Surgical History Hx of appendectomy Hx of section Status post total shoulder replacement Family History Father No problems noted. Mother No problems noted. Social History Household Members: None Housing: Apartment Are you a primary health care consultant to a significant other at home: No Do you presently have visiting nurse or other home services: No Alcohol intake: never Patient Tobacco Use Status: Current everyday Tobacco user Tobacco use type: Cigarette Cigarettes Per Day: 10 Years Smoked: 15+ Second Hand Smoke Exposure: No service: No Current occupational status: disabled Review of Systems Const All systems reviewed & are unremarkable except as noted in HPI and below Physical Exam Vital Signs: Last Vital Signs Pulse 85 03/11/25 11:17 Resp 18 03/11/25 11:17 BP 123/61 03/11/25 11:17 Pulse Ox 96 03/11/25 11:17 Oxygen Delivery Method Room Air 03/11/25 11:17 Const General: cooperative, comfortable and no acute distress Nutritional Appearance: average body habitus Orientation/consciousness: patient oriented x3 Limitations: language barrier Neck Neck: Yes normal visual inspection Chest Chest palpation & inspection: normal inspection of the chest Resp Effort & Inspection: normal respiratory effort, able to speak in complete sentences, normal respiratory pattern, no audible wheezes and Actively coughing Cardio Jugular venous distension: no JVD Back/Spine/Pelvis Other: Tenderness on palpation in paraspinal left and midline spinal region of the entire lumbar spine. SLR is positive on the left. Lasegue test is positive on the left t. Negative on the right. Valsalva maneuver aggravates her pain. Reports weakness and numbness of the left lower extremity, reports difficulty with ambulation, uses cane for ambulation. Neuro General: patient oriented x3 Extrem Other: Left shoulder incision well healed. No erythema or swelling. no pathological discharge. demonstrates good range of motion of the left shoulder. She is able to initiate FF overhead , ER and abduction to 90. She has mild discomfort with cross-body abduction. Deltoid sensation intact. Assessment & Plan Assessment & Plan (1) Status post total replacement of left shoulder: Code(s): Z96.612 - Presence of left artificial shoulder joint Category: Surgical (2) Chronic left shoulder pain: Code(s): M25.512 - Pain in left shoulder; G89.29 - Other chronic pain Category: Medical (3) Chronic pain syndrome: Code(s): G89.4 - Chronic pain syndrome Category: Medical (4) Radiculopathy, lumbar region: Code(s): M54.16 - Radiculopathy, lumbar region Category: Medical (5) Disc degeneration, lumbar: Code(s): M51.369 - Other intervertebral disc degeneration, lumbar region without mention of lumbar back pain or lower extremity pain Category: Medical (6) Spondylosis of lumbar region without myelopathy or radiculopathy: Code(s): M47.816 - Spondylosis without myelopathy or radiculopathy, lumbar region Category: Medical Plan Excellent results of left diagnostic suprascapular nerve block, patient reported complete pain relief for 72 hours. I offered her sprint PNS. Brochure was given to the patient. We will schedule it as soon as possible. Severe sciatic on the left. Radiculopathy on exam as above. We will send this patient for MRI of the lumbar spine. Orders: Orders MR lumbar spine wo con Today M47.816 - Spondylosis without myelopathy or radiculopathy, lumbar region, M51.369 - Other intervertebral disc degeneration, lumbar region without mention of lumbar back pain or lower extremity pain, M54.16 - Radiculopathy, lumbar region Coding Level of Care Code Est Pt Level 3 (05030) Diagnoses Status post total replacement of left shoulder Z96.612 Chronic left shoulder pain M25.512; G89.29 Chronic pain syndrome G89.4 Radiculopathy, lumbar region M54.16 Disc degeneration, lumbar M51.369 Spondylosis of lumbar region without myelopathy or radiculopathy M47.816
[2025-03-11 11:17] VITALS: BP 123/61; PULSE 85; RESP 18; O2SAT 96
== END 2025-03-11 11:33 | disposition home or self-care (01) ==
LOC: HO.PMC 10:46
PROVIDERS: PCP General Practice; Visit Provider Anesthesiology
DX: Z96.612 Presence of left artificial shoulder joint (principal); M25.512 Pain in left shoulder; G89.29 Other chronic pain; G89.4 Chronic pain syndrome; M54.16 Radiculopathy, lumbar region; M51.369 Other intervertebral disc degeneration, lumbar region without mention of lumbar back pain or lower extremity pain; M47.816 Spondylosis without myelopathy or radiculopathy, lumbar region
CPT/HCPCS: 99213

== ENCOUNTER → 2025-03-11 10:45 | Outpatient (BNVA) | payer OTHER, SELFPAY | PROVIDERS: PCP General Practice; Visit Provider Anesthesiology | DX: M25.512 Pain in left shoulder (principal); G89.4 Chronic pain syndrome; M47.816 Spondylosis without myelopathy or radiculopathy, lumbar region; M54.16 Radiculopathy, lumbar region; M51.369 Other intervertebral disc degeneration, lumbar region without mention of lumbar back pain or lower extremity pain; Z96.612 Presence of left artificial shoulder joint | CPT/HCPCS: 99212 ==

== ENCOUNTER 2025-04-20 06:18 | Outpatient (REF) | payer OTHER, SELFPAY ==
--- NOTE | ~2025-04-20 | FL_ITS ---
EXAMINATION: FLUOROSCOPY GUIDANCE FOR NEEDLE PLACEMENT CLINICAL INFORMATION: M25.512 - Pain in left shoulder COMPARISON: Previous left shoulder x-ray September 2024 and fluoroscopy exam March 2025 TECHNIQUE: 8 fluoroscopic images of the left shoulder. FINDINGS: There is a left shoulder replacement. FLUOROSCOPY TIME: 0.4 minutes DOSE AREA PRODUCT: 20 uGy-m2 (microgray-meter squared) FL/FL guidance in treatment room IMPRESSION: Fluoroscopy guidance for pain management procedure. Electronically signed by: Twila Crespo MD 04/21/2025 02:53 PM EDT
--- OUTSIDE RECORDS SUMMARY | 2025-04-20 06:20 | XMS_ITS | Data Portability ---
Author Organization [place] - [employer] [facility], [facility] Address [address] [place] [address] Care Team Providers Care Dyed Yarn Operator Name Role Phone HIM CCA OTHER Assessment Encounter Date Assessment Date Assessment LastModified by Organization Details LastModified Time 12/08/2021 12/08/2021 This 66-year-old female called Moglue complaining of left shoulder pain and leg pain associated with chronic varicose veins. All of her complaints are chronic and she has refused to go to the ER on various occasions. She was expecting a physician to come to her house today. She was advised to follow up with her PCP to address these chronic problems. [email or web address] Not available 12/08/2021 19:23:26 07/29/2024 07/29/2024 I provided real -time medical direction via phone for this encounter and was available for additional phone-based assistance as needed. I have reviewed and agree with the Assessment and Plan as documented by the Ground Wirer. Patient given the opportunity to ask questions. [...] pain with weather changes and overuse. Per furniture polisher on the scene, vital signs stable patient [...] particularly fever chills lightheadedness altered mental status [email or web address] Not available 07/29/2024 21:41:20 Plan of Treatment Reminders Order Date Submit Date Provider Last Modified By Organization Details Last Modified Time Details Appointments None recorded. Lab cmp, whole blood + itzel 2021 022 [facility], [address] [place], [address] 09:25:02 Referral None recorded. Procedures None recorded. Surgeries None recorded. Imaging None recorded. Medication Orders ketorolac 30 mg/mL injection solution 2024 025 [place] [address] , [address] [place] [address], [place], [place], [phone], 5 21:39:15 ketorolac 15 mg/mL injection syringe [...] [degF] 14 /min 98 % 98 % 00185 g 132/80 mm[Hg] Not Available [employer] production 5 21:37:25 Date Recorded Heart rate Body weight Respiratory rate Oxygen saturation Oxygen saturation in Arterial blood by Pulse oximetry Body height Body temperature Systolic And Diastolic Provider Name and Address Organization Details Last Updated DateTime 2 70 /min 77013.9 2 g 20 /min 98 % 98 % 147.32 cm 98.4 [degF] 107/66 mm[Hg] Not Available [employer] 2 15:44:21 Date Recorded Heart rate Body temperature Oxygen saturation Oxygen saturation in Arterial blood by Pulse oximetry Respiratory rate Systolic And Diastolic Provider Name and Address Organization Details Last Updated DateTime 2 99 /min 98.9 [degF] 98 % 98 % 20 /min 150/81 mm[Hg] Not Available [employer] 2 19:19:22 Social History None recorded. Functional Status None recorded. Mental Status None recorded. Family History Nothing Reported. Medical History No medical history recorded. Gynecological HistoryNo gynecological history recorded. Obstetrics History GPAL:G 0 P 0 0 0 0 Past Encounters Encounter ID Performer Location Encounter Start Date Encounter Closed Date Diagnosis/Indication Diagnosis SNOMED-CT Code Diagnosis ICD10 Code Diagnosis IMO Codes Diagnosis Note [id number] Echo Spain MD [facility] [address] [place] [address] [phone] 12/07/2021 13:43:08 02/27/2022 12:10:17 Pain in lower limb 31476014 M79.606 Pt describing nonspecifi c pain in bilateral upper leg. No evidence of infectious , inflammato ry process or hypoperfus ion. Suspect neuropathi c process given diabetes with contributi on from psychosoci al stressors. Will give ketorolac and advised patient to reach out to primary team for additional pain control (given her expressed preference for opiates). 2070 Jr Rajput MD [facility] [address] [place] [address] [phone] 12/08/2021 19:19:18 12/08/2021 19:23:49 [id number] Jr Rajput MD [facility] [address] [place] [address] [phone] 10/24/2022 14:09:59 10/25/2022 12:20:37 Chronic ulcer of sacral region [id number] L98.429 This 67-year-ol d has a chronic sacral ulcer and called complainin melva of diffuse pain in the area. The ulcer appears to be unchanged. I recommende d that she follow-up with her PCP. The patient will consider this recommenda tion. [id number] Katerine Connell MD [facility] [address] [place] [address] [phone] 07/29/2024 21:37:23 07/29/2024 23:57:23 Pain of multiple joints 30378021 M25.50 Health Concerns Section Related Observation LastModified by Organization Detai ls LastModified Time None Recorded Concern Status LastModified by Organization Details LastModified Time None Recorded Advance Directives Directive None Recorded Payers Insurance Date Sequence Insurance Name Policy Number Policy Hamm Covered Member ID Hamm Member ID Guarantor Name 02/11/2024 1 [facility] - DOS PRIOR TO 2022 - DUAL ELIGIBLE (MEDICARE REPLACEMENT/ADV ANTAGE - HMO) April Mueller [id number] April Mueller 07/30/2024 1 [facility] - DOS ON OR AFTER 2022 - DUAL ELIGIBLE - SENIOR [employer]IVING OPTIONS AND ONE CARE (MEDICARE REPLACEMENT/ADV ANTAGE - HMO) April Mueller [id number] April Mueller Notes Date Note Type Note Provider Name and Address Organization Details Recorded Time 12/07/2021 text/html ROS as noted in the HPI HPI: ALLERGIC TO : Ulises inhibitors , Cephalexin Hx: Anxiety and Bipolar Disorder Patient with complaints of painful 10+ bilateral leg swelling and difficulty ambulating. Unable to eat due to nausea induced by pain. .................... .................... .................... .................... .................... .................... .................... . Ground Wirer Note: Sent to a call for a [...] sounds: clear bilaterally; Abdomen: soft, non-tender, non-distended; [facility] orders POC CMP; pictures of pt's legs and CMP results sent to [facility]. [facility] then orders Ketorolac IM 15mg injection. Injection given without incident. Pt advised to follow up with PCP. Red flags discussed. Pt has no further questions. .................... .................... .................... .................... .................... .................... .................... . Disposition: Simone Echo Spain MD [address] [facility],[address], [place], [address], [place] 12/07/2021 18:02:15 12/08/2021 text/html ROS as noted in the HPI HPI: Member with edema on LE, reporting [...] .................... .................... .................... .................... .................... .................... . Ground Wirer Note: Pt states she has chronic left shoulder pain from a fall a year ago and pain in her upper legs from varicose veins. Pt states the paramedics were there yesterday and offered to take her to the ED but she says there s no need. Pt wants a doctor to come to the house and not a furniture polisher. Pt was advised that she needed to contact her PCP. [facility] contacted. Red flags discussed. .................... .................... .................... .................... .................... .................... .................... . Disposition: Fulfilled Jr Rajput MD [address] [place] [address],11[facility], [place], [phone] [place] [facility] - [employer] 12/08/2021 19:23:46 10/24/2022 text/html ROS as noted in the HPI HPI: Call to April Mueller, left upper leg pain and gluteal pain x 3 days. No falls that pt is aware of. Per pt using Tylenol with mild relief. Per pt unsure if any redness or bruising. Per pt pain causing difficulty with walking. Pt advised should be seen today. Pt states unable to get to office. Agrees to [facility] referral for assessment of pain. .................... .................... .................... .................... .................... .................... .................... . CRC Nursing Assessment: Comments: CRC RN DID NOT NEED FURTHER INFO .................... .................... .................... .................... .................... .................... .................... . Ground Wirer Note From Bridger Kang: Spoke to pt over the phone to give eta, pt said she s not home, is at an appointment and doesn t know when she will be home. Tried to call back with aerial photograph interpreter x2 and she repeatedly hung up. CRC RN made aware. Ground Wirer Allergies: Cephalexin .................... .................... .................... .................... .................... .................... .................... . Disposition: Unfulfilled Jr Rajput MD [address] [facility],[address], [place], [address], [place] 12/31/2022 17:38:20 07/29/2024 text/html HPI: RN tricia [...] Disorder, Osteoarthritis PMH Reviewed at 07/29/2024 - : Allergies Reviewed at 07/29/2024 - : Pain Assessment: Level 10 out of 10 Comments: HPI reviewed .................... .................... .................... .................... .................... .................... .................... . Ground Wirer Note From Alfred Mcintosh: Strong language barrier information through [facility] on Phone. Patient complains of chronic joint [...] Patient denies recent bleeding, denies kidney problems. [facility] advises Toradol 15 mg IM. Follow up with primary care physician. Administered without complication using five rights. Red flags, patient education discussed. Patient demonstrates understanding of care and plan. .................... .................... .................... .................... .................... .................... .................... . [facility] Consulted: Katerine Connell .................... .................... .................... .................... .................... .................... .................... . Disposition: Fulfilled Katerine Connell MD [address] [facility],[address], [place], [address], [place] 07/29/2024 21:41:56 OBGyn Episode No OBEpisode recorded.
== END 2025-04-20 06:19 | disposition home or self-care (01) ==
LOC: CF 06:18
PROVIDERS: Visit Provider Anesthesiology
DX: M25.512 Pain in left shoulder (principal); G89.29 Other chronic pain; Z96.612 Presence of left artificial shoulder joint
CPT/HCPCS: 64555; 64590; C1778; J2003

== ENCOUNTER 2025-04-20 12:28 | Outpatient (AMB) | payer OTHER, SELFPAY ==
[2025-04-20 12:29] VITALS: BP 144/55; PULSE 85; RESP 16; O2SAT 95; BMI 23.4
--- NOTE | 2025-04-20 12:29 | A.OFFVIS_ITS ---
Vital Signs 04/20/25 12:29 Height 5 ft Weight 120 lb BMI 23.4 BP 144/55 H Blood Pressure Location Lt brachial Position Sitting Respiration 16 Pulse 85 Pulse Source Pulse Oximeter Pulse Oximetry (%) 95 Oxygen Delivery Method Room Air Intake Visit Reasons: Left Suprascapular Nerve Sprint PNS Allergies cephalexin (From KEFLEX) Allergy (Intermediate, Verified 03/11/25 11:16) REDNESS, hives, swelling PFSH Medical History Diabetes Edentulous HLD (hyperlipidemia) HTN (hypertension) Hypothyroidism Latent syphilis Panic attacks PTSD (post-traumatic stress disorder) PVD (peripheral vascular disease) Right knee pain SOB (shortness of breath) Spondylosis of lumbar region without myelopathy or radiculopathy T2DM (type 2 diabetes mellitus) Vitamin D deficiency Surgical History Hx of appendectomy Hx of section Status post total shoulder replacement Family History Father No problems noted. Mother No problems noted. Social History Household Members: None Housing: Apartment Are you a primary managed care coordinator to a significant other at home: No Do you presently have visiting nurse or other home services: No Alcohol intake: never Patient Tobacco Use Status: Current everyday Tobacco user Tobacco use type: Cigarette Cigarettes Per Day: 10 Years Smoked: 15+ Second Hand Smoke Exposure: No service: No Current occupational status: disabled Physical Exam Vital Signs: Last Vital Signs Pulse 85 04/20/25 12:29 Resp 16 04/20/25 12:29 BP 144/55 H 04/20/25 12:29 Pulse Ox 95 04/20/25 12:29 Oxygen Delivery Method Room Air 04/20/25 12:29 BMI result Body Mass Index 23.4 Assessment & Plan Assessment & Plan (1) Status post total replacement of left shoulder: Code(s): Z96.612 - Presence of left artificial shoulder joint Category: Medical (2) Left shoulder pain: Code(s): M25.512 - Pain in left shoulder Category: Medical Plan Percutaneous implantation of peripheral nerve stimulation Sprint system left suprascapular nerve the risks, benefits and alternatives were discussed with the patient and informed consent was obtained, patient was placed in the prone position and padded to foster comfort. Time out was performed delineating correct site and side of the procedure , name and of the patient, patient participated in time out procedure. Theupper back and posterior neck of the patient was prepped with ChloraPrep and draped with sterile self adhesive utility towels. C-arm was brought over the operating field and left suprascapular notch was demonstrated on the screen The upper central portion of the lamina was chosen as a target of the needle tip insertion . After identifying and marking the intended target, the skin around the planned entry point and the subcutaneous tissues were injected with local anesthetic forming skin wheal.. A percutaneous sleeve and stimulating probe lead introduction system were assembled, inserted and advanced through the skin wheal to the point of interest under C-arm viewL left suprascapular notch, the introducer needle was delivered to a location in proximity to the nerve. Multiple stimulation parameters were used to deliver stimulation to the nerve in concert with stimulating at multiple positions around the nerve. The nerve target acquisition was confirmed noting generation of in the corresponding to the nerve being stimulated. Various electrical parameter combinations were tested, and the lead location was adjusted (physically relocated) until the patient indicated overlapping the distribution of the patient?s typical region of pain. The stimulating probe was removed from the introducer and a percutaneous lead was guided through the needle and delivered to a location in similar proximity to the nerve. Final location was verified with electrical stimulation. The introducer needle was removed, and the exposed end of the percutaneous lead was attached to an external stimulator unit. At the end of the case various electrical parameter combinations were again tested until the patient indicated paresthesia or muscle tension overlapping the distribution of the patient?s typical region of pain. After confirming that lead impedance was in the normal range, the external unit was detached, the needle was removed, and the lead was anchored at the skin. The leads were threaded into the connector block and electrical continuity and desired patient response was confirmed. The connector block was attached to the external stimulator unit. The site was covered with a sterile occlusive dressing and a image was taken to document final placement. Upon completion of the procedure the patient was taken outside the OR where she recovered uneventfully she went home without immediate complications. Orders: Orders FL guidance in treatment room Today G89.29 - Other chronic pain, M25.512 - Pain in left shoulder Coding Level of Care Code Procedure Only Diagnoses Status post total replacement of left shoulder Z96.612 Left shoulder pain M25.512
--- OUTSIDE RECORDS SUMMARY | 2025-04-20 16:01 | XMS_ITS | Encounter Summary ---
Author Organization [employer] Address [address] [place] [address] Care Team Providers Care Gasoline Catalyst Operator Name Role Phone Светлана Benjamin MD Primary Care Provider [phone] Reason for Visit * Reason Onset Date Comments Nurse Triage 11/16/2024 Encounter Details Date Type Department Care Team ([facility] Contact Info) Description 11/16/2024 Telephone [facility] MEDICINE [address] [place], [place] [phone] Светлана Benjamin MD [address] [place], [place] [phone] Nurse Triage Social History Tobacco Use Types [...] Description 06/07/2025 1:00 PM EST Office Visit [facility] OPTOMETRY [address] [place] [address] Keysha Clements, OD [address] [place], [place] [phone] documented as of this encounter Visit Diagnoses Not on filedocumented in this encounter Care Teams Gasoline Catalyst Operator Relationship Specialty Start Date End Date Светлана Benjamin MD [address] [place], [place] [phone] PCP - General Family Medicine 02/27/21 documented as of this encounter
--- OUTSIDE RECORDS SUMMARY | 2025-04-20 16:01 | XMS_ITS | Encounter Summary ---
Author Organization [facility] Address [address] [place] [address] Care Team Providers Care Relief Master Name Role Phone Светлана Benjamin MD Primary Care Provider [phone] Encounter Details Date Type Department Care Team ([facility] Contact Info) Description 02/27/2023 Abstract [facility] MEDICINE [address] [place] [address] Светлана Benjamin MD [address] [place], [place] [phone] Social History Tobacco Use Types Packs/Day Years [...] 06/07/2025 1:00 PM EST Office Visit [facility] OPTOMETRY [address] [place] [address] Keysha Clements, OD [address] [place], [place] [phone] documented as of this encounter Procedures Procedure Name Priority Date/Time Associated Diagnosis Comments COLONOSCOPY Routine 02/26/2020 documented in this encounter Results * Hm Colonoscopy (02/26/2020) Colonoscopy Normal Normal Narrative Tammy Stroud - 02/26/2020 Recommended 10 year follow up ( [facility] ) us Historical Provider HEALTH MAINTENANCE Edited Result - Final documented in this encounter Visit Diagnoses Not on filedocumented in this encounter Care Teams Relief Master Relationship Specialty Start Date End Date Светлана Benjamin MD [address] [place] [phone] PCP - General Family Medicine 02/27/21 documented as of this encounter
--- OUTSIDE RECORDS SUMMARY | 2025-04-20 16:01 | XMS_ITS | Clinical Summary ---
Author Organization [employer] Address [address] [facility] [address] [place] [address] Care Team Providers Care Ice Resurfacing Machine Operators Name Role Phone Светлана Benjamin MD Primary Care Provider [phone] Allergies Active Allergy Reactions Criticality Noted Date Comments Ulises Inhibitors Cough 03/25/2017 Cephalexin 04/20/2016 Shellfish Allergy 12/14/2022 Medications amitriptyline (Elavil) 100 MG tablet Take 1 tablet by oral route every day at bedtime 022 Active QUEtiapine (SEROquel) 100 MG tablet Take 1 tablet by oral route at bedtime 022 Active gabapentin (Neurontin) 400 MG capsule 023 Active lidocaine (Lidoderm) 5 % patchIndications: Trochanteric [...] miscIndications:D iabetes mellitus type 2 in nonobese (HCC) USE WITH INSULIN DAILY 100 each 11 [...] tabletIndications :Diabetes mellitus type 2 in nonobese (HCC) Take 1 tablet (20 mg) by mouth Once per day. Take 1 tablet by oral route every day 90 tablet 3 025 2025 Active Blood Glucose Monitoring Suppl (FreeStyle Lite) device Inject 1 each under the skin 2 times daily. Use to test blood sugar as directed 1 each 025 Active glucose blood (FREESTYLE LITE) test [...] gastritis 90 capsule 3 025 Active Multiple Vitamins-Minerals (PreserVision AREDS) capsuleIndication s:Intermediate stage nonexudative age-related macular degeneration of both [...] TIMES A DAY 100 each 11 Active lidocaine (Lidoderm) 5 % patchIndications: Acute left-sided low back pain with right-sided sciatica,Pain of left hip Apply 1 patch topically Once per day. Remove & discard patch within 12 hours or as directed by MD. 30 patch 1 Active Lantus SoloStar 100 UNIT/ML pen INJECT 30 UNITS SUBCUTANEOUSLY AT BEDTIME 15 mL 3 Active Lantus SoloStar 100 UNIT/ML pen INJECT 30 UNITS SUBCUTANEOUSLY AT BEDTIME 15 mL 3 025 2024 Discontinued acetaminophen-cod eine (Tylenol w/ Codeine #3) 300-30 MG tabletIndications :Acute left-sided low back pain with right-sided sciatica,Pain of left hip Take 1 tablet by mouth every 8 (eight) hours if needed for severe pain for up to 7 days. 20 tablet 025 2024 Active Problems Problem Noted Date Diagnosed Date [...] disorder, currently manic, severe, with psychotic features ([facility]) 01/15/2025 Oral thrush 11/16/2024 Assessment & Plan [...] cough Advised to make an appointment with [facility] pulmonology, she may need long-term oxygen. Advised to quit smoking and using any other recreational substances Kidney lesion, [place], left 11/16/2024 Overview (11/16/2024): CT scan chest on 11/10/2024 at [facility] showed indeterminate wedge- shaped hypodensity in the mid to lower pole the left kidney, differential includes focal pyelonephritis or infarct. Assessment & Plan (11/16/2024 2:48 PM EDT): Wedge shaped density of the left kidney seen on CT scan chest (11/10/2024 at [facility], incidental finding). Obtain discharge summary and see if it needs additional follow-up Patient is doing very well and last GFR on admission was within normal limits History of syphilis 01/10/2024 Overview (01/10/2024): Treated at [facility] in 2015 2018 RPR + 1:8 titer [...] (12/14/2022 2:14 PM EDT): Replacement 08/07/22 at [facility] Brief rehab stay Did PT September and October 2022 Pain is better than before surgery Assessment & Plan (09/26/2022 12:09 PM EDT): Replacement 08/07/22 at [facility] Brief rehab stay Post-op course has been complicated by pain in left shoulder, not starting PT, unclear whether she is wearing supportive arm sling device xrays taken at ortho clinic 09/13/22 reportedly show good placement of L shoulder prosthesis Will attempt to reconnect pt to [facility] services followup with Dr Cooper at end [...] her Klonopin, Seroquel, and opioid pain medications [facility] oncall provider, Angelita, came to evaluate patient and recommended [facility] for stabilization and safety Pt became upset at this plan and walked out of the exam room, and out of clinic Myself and my MA were able to go with her and have her agree to VNA services, which I ordered for medication management [facility] is aware of patient and [facility] therapist will contact daughter tomorrow Patient needs [...] Encounters Date Type Department Care Team Description 04/12/2025 Refill [facility] [address] [place] [address] Светлана Benjamin MD 04/05/2025 Results Follow-Up [address] [address] Jyothi Preciado MD MR Lumbar Spine w/o Contrast 03/16/[address] [address] Светлана Benjamin MD Med Refill 03/16/2025 Orders Only [address] [address] Светлана Benjamin MD Left hip pain (Primary Dx); Acute left-sided low back pain with right-sided sciatica; Pain of left hip 03/15/[address] [address] Светлана Benjamin MD Nurse Triage 03/15/[address] [address] Светлана Benjamin MD Referral 03/09/[address] [address] Светлана Benjamin MD Durable Medical Equipment (DME: Oxygen Tank Removal) 03/05/2025 1:00 PM EDT Office Visit [address] [address] Jyothi Preciado MD Acute left-sided low back pain with right-sided sciatica; Pain of left hip; Diabetes mellitus type 2 in nonobese (CMS/HCC) 03/05/2025 Travel 03/04/[address] [address] Светлана Benjamin MD Chart Prep 03/03/2025 Orders Only [address] [address] [place], PharmD 03/03/2025 Refill [facility] [address] [place] [address] Светлана Benjamin MD 02/18/[address] [address] Светлана Benjamin MD 02/18/2025 Telephone [facility] [address] [place] [address] Светлана Benjamin MD Nurse Triage 02/16/2025 Patient Outreach [facility] [address] [place], [place] [phone] Светлана Benjamin MD Transition Of Care (Tcm) (HDF scheduled.) 02/12/2025 Telephone [facility] [address] [place] [address] Светлана Benjamin MD telphone call (Telephone made to pt attempt to get ) 02/11/2025 Telephone [facility] [address] [place] [address] Светлана Benjamin MD FYI 02/02/2025 Refill [facility] [address] [place] [address] Светлана Benjamin MD 02/02/[address] [address] Светлана Benjamin MD Results from Last 3 Months Immunizations Immunization Administration [...] Description 06/07/2025 1:00 PM EST Office Visit [facility] [address] [place] [address] Tyree, Keysha, OD [address] [place] [address] Health Maintenance Due Date Last Done Comments [...] Additional history exists Influenza Vaccine (#1) 2025 4, 05/20/2023, 04/20/2022, [...] Procedure Name Priority Date/Time Associated Diagnosis Comments MR LUMBAR SPINE WO CONTRAST Routine 04/01/2025 Acute left-sided low back pain with right-sided sciatica POCT GLYCATED HEMOGLOBIN, TOTAL Routine 03/05/2025 1:30 PM EDT Diabetes mellitus type 2 in nonobese (CMS/HCC) POCT GLUCOSE Routine 03/05/2025 1:30 PM EDT Diabetes mellitus type 2 in nonobese (CMS/HCC) XR HIP 2 OR 3 VIEWS LEFT Routine 01/19/2025 12:50 PM EDT Left hip pain LIPID PANEL, STANDARD Routine 01/15/2025 10:59 AM EDT Diabetes mellitus type 2 in nonobese (CMS/HCC) PANORAMIC RADIOGRAPHIC IMAGE Routine 12/16/2024 1:30 PM EDT [facility] PERIODIC ORAL EVALUATION - ESTABLISHED PATIENT Routine 12/16/2024 1:30 PM EDT [facility] HEPATITIS C AB W/REFL TO HCV RNA, QN, PCR Routine 01/06/2024 2:10 PM EDT Screening examination for STI ALBUMIN, RANDOM URINE W/CREATININE Routine 01/06/2024 2:10 PM EDT Diabetes mellitus type 2 in nonobese (CMS/HCC) BI MAMMOGRAM DIAGNOSTIC BILATERAL Routine 03/03/2020 8:21 AM EDT HM COLONOSCOPY Routine 02/26/2020 from Last 3 Months or Most Recently Relevant to Health Maintenance Results * MR Lumbar Spine w/o Contrast (04/01/2025) Anatomical Region Laterality Modality Spine, L-spine Magnetic Resonan ce us Jyothi Hernandez MD IMG MRI PROCEDURES Fi nal Result * (ABNORMAL) POCT Hgb A1c (03/05/2025 1:30 PM EDT) Hemoglobin A1C 7.0(A) 4.0 - 5.7 % QC Media Lot # [id number] Lot# Expiration Date [id number] Blood 03/05/2025 1:30 PM EDT Jyothi Hernandez MD POINT OF CARE TEST EN TER/EDIT ORDERABLES Final Result * (ABNORMAL) POCT Glucose (03/05/2025 1:30 PM EDT) Glucose Blood, POC 268(A) 60 - 200 mg/dL QC Media Lot # [id number] Lot# Expiration Date Blood Capillary blood specimen / Unknown 03/05/2025 1:30 PM EDT Jyothi Hernandez MD POINT OF CARE TEST EN TER/EDIT ORDERABLES Final Result * XR Hip 2 or 3 Views Left (01/19/2025 12:50 PM EDT) Anatomical Region Laterality Modality Lower Extremities, Hip Left Radiograp hic Imaging 01/19/2025 12:5 0 PM EDT Narrative 01/19/2025 2:14 PM EDT [address] [address] XRay Report Signed Patient: April Molina MR#: [id number] : 1955 Acct:[id number] Age/Sex: 69 / F ADM Date: 01/19/25 Loc: HO.HHCX Attending Dr: Светлана Benjamin MD Ordering Physician: Светлана Benjamin Date of Service: 01/19/25 Procedure(s): XR hip LT min 2V Accession Number(s): [id number] cc: Светлана Benjamin EXAMINATION: XR HIP 2 [...] OV> 01/19/25 1411 DD/ 1250 TD/TT: 01/19/25 125 Trouble Tracer: Procedure Note Donotmaria ainterpreter, Image - 01/19/2025 [facility] [address] [place] [address] XRay Report Signed Patient: April Molina#: [id number] : 1955cct:[id number] Age/Sex: 69 / FADM Date: 01/19/25 Loc: HO.HHCX Attending Dr: Светлана Benjamin MD Ordering Physician: Светлана Benjamin Date of Service: 01/19/25 Procedure(s): XR hip LT min 2V Accession Number(s): [id number] cc: Светлана Benjamin EXAMINATION: XR HIP 2 [...] OV> 01/19/25 1411 DD/ 1250 TD/TT: 01/19/25 125 Trouble Tracer: Светлана Benjamin MD IMG XR PROCEDURES Final Result * (ABNORMAL) Lipid Panel, Standard (01/15/2025 10:59 AM EDT) Triglycerides 170(H) <150 mg/dL [facility] Comment:Desirable Triglyceri de: less than 150 mg/dLBorderline High Triglyceride 150-199 mg/dLHigh Triglyceride: 200-499 mg/dLVery High Triglyceride: greater than or equal to 5OO mg/dL Cholesterol 117 <200 mg/dL [facility] Comment:Desirable Cholestero l: less than 200 mg/dLBorderline High Cholesterol: 200-239 mg/dLHigh Cholesterol: greater than 239 mg/dL LDL Cholesterol Calculated 50 <100 mg/dL [facility] Comment:Desirable LDL: less than 100 mg/dLNear Optimal/Above Optimal LDL: 110- 129 mg/dLBorderline High LDL: 130-159 mg/dLHigh LDL: 160-189 mg/dLVery High LDL: greater than or equal to 190 mg/dL HDL Cholesterol 33(L) >40 mg/dL [facility] Comment:Desirable HDL: great er than 40 mg/dL Note: This HDL assay may give artificially low results in patients with liver disease. Blood Venous blood specimen / Unknown 01/15/2025 10:59 AM EDT 01/15/2025 12:58 PM EDT Светлана Benjamin MD LAB BLOOD ORDERABLES Final Res ult Performing Organization Address [facility] Co de Phone Number [facility] [address] [place] [phone] * Albumin, Random Urine W/Creatinine (01/06/2024 2:10 PM EDT) Creatinine, Urine 47.40 mg/dL [facility] Microalbumin Urine <5.0 mg/L [facility] Microalbum Creatinine Ratio Ur TNP <30 ug/mg cr [facility] Comment:Unable to calculate albumin/creatinine ratio due to lowmicroalbumin or creatinine result. Urine (Urine, Random) 01/06/2024 2:10 PM EDT 01/06/2024 3:53 PM EDT Светлана Benjamin MD LAB URINE ORDERABLES Final Res ult Performing Organization Address [facility] Co de Phone Number [facility] [address] [place] [phone] [phone] * Hepatitis C Antibody with Reflex to HCV, RNA, Quantitative, Real-Time PCR (01/06/2024 2:10 PM EDT) Hepatitis C Antibody Nonreactive Nonreactive [facility] Comment:Antibodies to HCV no t detected; does not exclude early acuteHCV infection. Blood Venous blood specimen / Unknown 01/06/2024 2:10 PM EDT 01/06/2024 3:51 PM EDT Светлана Benjamin MD LAB BLOOD ORDERABLES Final Res ult [facility] [address] [place] [phone] [phone] * 3D BILATERAL DIAGN MAMMO 1 [...] 02/26/2020 Recommended 10 year follow up ( [facility] ) Bobby Provider HEALTH MAINTENANCE Edited Result - Final from Last 3 Months or Most Recently Relevant to Health Maintenance Insurance [facility] [employer] (HMO D-SNP) [facility] Care Teams Ice Resurfacing Machine Operators Relationship Specialty Start Date End Date Светлана Benjamin MD [address] [place] [phone] PCP - General Family Medicine 02/27/21
--- OUTSIDE RECORDS SUMMARY | 2025-04-20 16:01 | XMS_ITS | Encounter Summary ---
Author Organization [employer] Address [address] [facility] 7t [place] [address] Care Team Providers Care Application Development Project Manager Name Role Phone Светлана Benjamin MD Primary Care Provider [phone] Reason for Referral * Consultation (Routine) - Closed Specialty Diagnoses / Procedures Referred By David t Referred To Contact Physical Therapy Diagnoses Left hip pain Светлана Benjamin MD [address] [place] [address] Phone: tel: fax: [facility] Physical Therapy [address] [place], [place] Phone: tel: fax: Referral ID Status Reason Start Date Expiration Date V isits Requested Visits Authorized [id number] Closed Specialty Services Required 03/16/2025 03/16/2026 1 1 * Consultation (Routine) - Closed Specialty Diagnoses / Procedures Referred By Contliz t Referred To Contact Pain Medicine Diagnoses Left hip pain Свелтана Benjamin MD [address] [place] [address] Phone: tel: fax: [facility] [address] [place], [place] Phone: tel: fax: Referral ID Status Reason Start Date Expiration Date V isits Requested Visits Authorized [id number] Closed Specialty Services Required 03/16/2025 03/16/2026 1 1 Encounter Details Date Type Department Care Team (Late st Contact Info) Description 03/16/2025 Orders Only [facility] [address] [place] [address] Светлана Benjamin MD [address] [place] [address] Left hip pain (Primary Dx); Acute left-sided low back pain with right-sided sciatica; Pain of left hip Social History Tobacco Use Types Packs/Day Years [...] Description 06/07/2025 1:00 PM EST Office Visit [facility] [address] [place] [address] Tyree Keysha, OD [address] [place] [address] Scheduled Referrals Name Type Priority Associated Diagnoses Orde r Schedule Referral to Pain Medicine Outpatient Referral Routine Left hip pain Expected: 03/16/2025 (Approximate), Expires: 03/16/2026 Referral to Physical Therapy Outpatient Referral Routine Left hip pain Expected: 03/16/2025 (Approximate), Expires: 03/16/2026 documented as of this encounter Visit Diagnoses Diagnosis Left hip pain- Primary Pain in joint, pelvic region and thigh Acute left-sided low back pain with right-sided sciatica Pain of left hip documented in this encounter Additional Health Concerns Assessment Noted Time PHQ-9 Depression Total Score: 9 01/16/20 25 1:03 PM EDT documented as of this encounter Care Teams Application Development Project Manager Relationship Specialty Start Date End Date Светлана Benjamin MD [address] [place] [address] PCP - General Family Medicine 02/27/21 documented as of this encounter
--- OUTSIDE RECORDS SUMMARY | 2025-04-20 16:01 | XMS_ITS | Encounter Summary ---
Author Organization [employer] Address [address] [place] [address] Care Team Providers Care Home Assessment Nurse Name Role Phone Светлана Benjamin MD Primary Care Provider [phone] Reason for Visit * Reason Onset Date Comments Durable Medical Equipment 08/28/2022 Encounter Details Date Type Department Care Team ([facility] st Contact Info) Description 08/28/2022 Telephone [facility] [address] [place], [place] [phone] Светлана Benjamin MD [address] [place], [place] [phone] Durable Medical Equipment Social History Tobacco Use [...] 3 a night [facility] fax # [phone] documented in this encounter Plan of Treatment Upcoming Encounters Date Type Department Care Team (Late st Contact Info) Description 06/07/2025 1:00 PM EST Office Visit [facility] [address] [place], [place] [phone] Keysha Clements, OD [address] [place] [address] documented as of this encounter Visit Diagnoses Not on filedocumented in this encounter Care Teams Home Assessment Nurse Relationship Specialty Start Date End Date Светлана Benjamin MD [address] [place] [address] PCP - General Family Medicine 02/27/21 documented as of this encounter
--- OUTSIDE RECORDS SUMMARY | 2025-04-20 16:01 | XMS_ITS | Encounter Summary ---
Author Organization [employer] Address [address] [place] [address] Care Team Providers Care Precision Aircraft Structure Assembler Name Role Phone Светлана Benjamin MD Primary Care Provider [phone] Reason for Visit * Reason Onset Date Comments Nurse Triage 02/14/2023 Encounter Details Date Type Department Care Team (Late st Contact Info) Description 02/14/2023 Telephone [facility] [address] [place], [place] [phone] Светлана Benjamin MD [address] [place] [address] Nurse Triage Social History Tobacco Use Types [...] Call to April Mueller, reports seen at [facility] On 02/12 following fall. Per pt was wearing a sandal and tripped and fell. Per pt landed on left side hip. No head injury or LOC. Pt then called EMS.Per pt had x-ray done and referred to [facility]. Pt has appt on 03/20/23. Pt given a few tramadol but advsied to shaquille PCP by ortho for pain management until seen. Pt agrees to visit tomorrow with Blue team provider. Pt advised to take OTC Tyelnol, apply ice and rest. TO return call if pain is sever or return to ER. Sent to team to obtain [facility] discharge summary for provider review. Future Appointments Date Time Provider Department Center 02/15/2023 2:45 PM Cristal Collins CNP MEDICINE [facility] 03/18/2023 2:15 PM Светлана Benjamin MD [facility] Protocol Used: Hip Injury (Adult) Protocol-Based Disposition: [...] started after the fall. Was seen at [facility] on 02/12 for a fall and still having symptoms. The caller accepted this outcome Please contact pt at [phone] (Tristanian) documented in this encounter Plan of Treatment Upcoming Encounters Date Type Department Care Team (Late st Contact Info) Description 06/07/2025 1:00 PM EST Office Visit [facility] [address] [place] [address] Keysha Clements, OD [address] [place] [address] documented as of this encounter Visit Diagnoses Not on filedocumented in this encounter Care Teams Precision Aircraft Structure Assembler Relationship Specialty Start Date End Date Светлана Benjamin MD [address] [place] [address] PCP - General Family Medicine 02/27/21 documented as of this encounter
--- OUTSIDE RECORDS SUMMARY | 2025-04-20 16:01 | XMS_ITS | Encounter Summary ---
Author Organization [employer] Address [address] [facility] [address] [place] [address] Care Team Providers Care Feed Mixer Name Role Phone Светлана Benjamin MD Primary Care Provider [phone] Reason for Visit * Reason Onset Date Comments Durable Medical Equipment 05/01/2023 Nebuli zer Encounter Details Date Type Department Care Team ([facility] st Contact Info) Description 05/01/2023 Telephone [facility] MED[facility]INE [address] [place], [place] [phone] Светлана Benjamin MD [address] [place], [place] [phone] Durable Medical Equipment (Nebulizer) Social History Tobacco [...] To be fax [facility] and also [facility] [phone] documented in this encounter Plan of Treatment Upcoming Encounters Date Type Department Care Team (Late st Contact Info) Description 06/07/2025 1:00 PM EST Office Visit [facility] [address] [place] [address] Keysha Clements, OD [address] [place] [address] documented as of this encounter Visit Diagnoses Not on filedocumented in this encounter Care Teams Feed Mixer Relationship Specialty Start Date End Date Светлана Benjamin MD [address] [place] [address] PCP - General Family Medicine 02/27/21 documented as of this encounter
--- OUTSIDE RECORDS SUMMARY | 2025-04-20 16:01 | XMS_ITS | Encounter Summary ---
Author Organization [employer] Address [address] [facility] [address] [place] [address] Care Team Providers Care Packager Machine Name Role Phone Светлана Benjamin MD Primary Care Provider [phone] Reason for Visit * Reason Onset Date Comments triage 08/31/2022 Encounter Details Date Type Department Care Team ([facility] st Contact Info) Description 08/31/2022 Telephone [facility] MED[facility]INE [address] [place] [address] Светлана Benjamin MD [address] [place] [address] triage Social History Tobacco Use Types Packs/Day [...] now The caller accepted this outcome speaks canadian documented in this encounter Plan of Treatment Upcoming Encounters Date Type Department Care Team (Late st Contact Info) Description 06/07/2025 1:00 PM EST Office Visit [facility] [address] [place], [place] [phone] Keysha Clements, OD [address] [place] [address] documented as of this encounter Visit Diagnoses Not on filedocumented in this encounter Care Teams Packager Machine Relationship Specialty Start Date End Date Светлана Benjamin MD [address] [place] [address] PCP - General Family Medicine 02/27/21 documented as of this encounter
--- OUTSIDE RECORDS SUMMARY | 2025-04-20 16:01 | XMS_ITS | Encounter Summary ---
Author Organization [employer] Address [address] [facility] [place] [address] Care Team Providers Care Wood Sawyer Name Role Phone Светлана Benjamin MD Primary Care Provider [phone] Reason for Visit * Reason Onset Date Comments Med Refill 03/16/2025 Encounter Details Date Type Department Care Team (Late st Contact Info) Description 03/16/2025 Telephone [facility] MED[facility]INE [address] [place], [place] [phone] Светлана Benjamin MD [address] [place], [place] [phone] Med Refill Social History Tobacco Use Types [...] encounter Miscellaneous Notes * Telephone Encounter - Leah Cintron LPN - 03/16/2025 11:32 AM EDT Medication was sent to [facility] today. * Telephone Encounter - Silver Youngblood - 03/16/2025 11:30 AM EDT TC from pt requesting medication refill. Medications needing refill : acetaminophen-codeine (Tylenol w/ Codeine #3) 300- 30 MG tablet To be sent to: [facility] documented in this encounter Plan of Treatment Upcoming Encounters Date Type Department Care Team (Late st Contact Info) Description 06/07/2025 1:00 PM EST Office Visit [facility] [address] [place] [address] Keysha Clements, OD [address] [place] [address] documented as of this encounter Visit Diagnoses Not on filedocumented in this encounter Additional Health Concerns Assessment Noted Time PHQ-9 Depression Total Score: 9 01/16/20 25 1:03 PM EDT documented as of this encounter Care Teams Wood Sawyer Relationship Specialty Start Date End Date Светлана Benjamin MD [address] [place] [address] PCP - General Family Medicine 02/27/21 documented as of this encounter
--- OUTSIDE RECORDS SUMMARY | 2025-04-20 16:01 | XMS_ITS | Encounter Summary ---
Author Organization [employer] Address [address] 7[address] [place] [address] Care Team Providers Care Rn Concurrent Review Name Role Phone Светлана Benjamin MD Primary Care Provider [phone] Reason for Visit * Reason Onset Date Comments Referral 03/15/2025 Encounter Details Date Type Department Care Team ([facility] st Contact Info) Description 03/15/2025 Telephone [facility] MEDICINE [address] [place], [place] [phone] Светлана Benjamin MD 230 [place] [address] Referral Social History Tobacco Use Types Packs/Day Years [...] your housing situation today? I have jeb reynaldo 03/20/[address] you li [...] encounter Miscellaneous Notes * Telephone Encounter - Silver Youngblood - 03/16/2025 11:31 AM EDT Tc from pt daughter requesting a call back regarding MRI , states [facility] advised pt they do not do open MRI Contact at [phone] (malay) * Telephone Encounter - Karen Umana RN - 03/15/2025 3:50 PM EDT Noted MRI order sent to [facility]. Can it be sent to somewhere with open MRI capability? Thank you! * Telephone Encounter - Alfredo Miranda - 03/15/2025 11:11 AM EDT Tc from pt requesting for a referral for an Open MRI. Any questions contact pt at [phone] documented in this encounter Plan of Treatment Upcoming Encounters Date Type Department Care Team (Late st Contact Info) Description 06/07/2025 1:00 PM EST Office Visit [facility] OPTOMETRY [address] [place] [address] Tyree, Keyhsa, OD [address] [place] [address] documented as of this encounter Visit Diagnoses Not on filedocumented in this encounter Additional Health Concerns Assessment Noted Time PHQ-9 Depression Total Score: 9 01/16/20 25 1:03 PM EDT documented as of this encounter Care Teams Rn Concurrent Review Relationship Specialty Start Date End Date Светлана Benjamin MD [address] [place] [address] PCP - General Family Medicine 02/27/21 documented as of this encounter
--- OUTSIDE RECORDS SUMMARY | 2025-04-20 16:02 | XMS_ITS | Encounter Summary ---
Author Organization [employer] Address [address] 7[address] [place] [address] Care Team Providers Care Developer Support Engineer Name Role Phone Светлана Benjamin MD Primary Care Provider [phone] Encounter Details Date Type Department Care Team (Late st Contact Info) Description 01/10/2024 Orders Only [facility] MEDICINE 230 [place], [place] [phone] Светлана Benjamin MD 230 [place], [place] [phone] History of syphilis (Primary Dx) Social History [...] Description 06/07/2025 1:00 PM EST Office Visit [facility] OPTOMETRY [address] [place] [address] Kyesha Clements, OD 230 [place] [address] documented as of this encounter Visit Diagnoses Diagnosis History of syphilis- Primary documented in this encounter Care Teams Developer Support Engineer Relationship Specialty Start Date End Date Светлана Benjamin MD 230 [place] [address] PCP - General Family Medicine 02/27/21 documented as of this encounter
--- OUTSIDE RECORDS SUMMARY | 2025-04-20 16:02 | XMS_ITS | Encounter Summary ---
Author Organization [employer] Address [address] 7[address] [place] [address] Care Team Providers Care Store Facility Technician Name Role Phone Светлана Benjamin MD Primary Care Provider [phone] Reason for Visit * Reason Onset Date Comments Change PCP 07/17/2023 Encounter Details Date Type Department Care Team ([facility] st Contact Info) Description 07/17/2023 Telephone [facility] MEDICINE 230 [place], [place] [phone] Светлана Benjamin MD 230 [place], [place] [phone] Change PCP Social History Tobacco Use Types [...] - 07/17/2023 1:43 PM EST Tc from [place] with [facility] states pt is requesting a PCP change due to language preference. Would like a hebrew speaking provider. documented in this encounter Plan of Treatment Upcoming Encounters Date Type Department Care Team (Late st Contact Info) Description 06/07/2025 1:00 PM EST Office Visit [facility] OPTOMETRY [address] [place] [address] Keysha Clements, OD 230 [place] [address] documented as of this encounter Visit Diagnoses Not on filedocumented in this encounter Care Teams Store Facility Technician Relationship Specialty Start Date End Date Светлана Benjamin MD 230 [place] [address] PCP - General Family Medicine 02/27/21 documented as of this encounter
--- OUTSIDE RECORDS SUMMARY | 2025-04-20 16:02 | XMS_ITS | Encounter Summary ---
Author Organization [employer] Address [address] 7[address] [place] [address] Care Team Providers Care Jail Guard Name Role Phone Светлана Benjamin MD Primary Care Provider [phone] Reason for Visit * Reason Onset Date Comments other 01/09/2023 Encounter Details Date Type Department Care Team ([facility] st Contact Info) Description 01/09/2023 Telephone [facility] MEDICINE 230 [place], [place] [phone] Светлана Benjamin MD 230 [place] [address] other Social History Tobacco Use Types Packs/Day [...] for VNA services. Please contact tressa at [phone] Fax number: [phone] documented in this encounter Plan of Treatment Upcoming Encounters Date Type Department Care Team (Late st Contact Info) Description 06/07/2025 1:00 PM EST Office Visit [facility] OPTOMETRY [address] [place] [address] Keysha Clements, OD 230 [place], [place] [phone] documented as of this encounter Visit Diagnoses Not on filedocumented in this encounter Care Teams Jail Guard Relationship Specialty Start Date End Date Светлана Benjamin MD 230 [place], [place] [phone] PCP - General Family Medicine 02/27/21 documented as of this encounter
--- OUTSIDE RECORDS SUMMARY | 2025-04-20 16:02 | XMS_ITS | Encounter Summary ---
Author Organization [employer] Address [address] 7[address] [place] [address] Care Team Providers Care Ramp And Cargo Supervisor Name Role Phone Светлана Benjamin MD Primary Care Provider [phone] Encounter Details Date Type Department Care Team (Late st Contact Info) Description 07/19/2023 Orders Only [facility] MEDICINE 230 [place], [place] [phone] Светлана Benjamin MD 230 [place], [place] [phone] Functional urinary incontinence (Primary Dx) Social History [...] Description 06/07/2025 1:00 PM EST Office Visit [facility] OPTOMETRY [address] [place] [address] Keysha Clements, OD 230 [place] [address] documented as of this encounter Visit Diagnoses Diagnosis Functional urinary incontinence- Primary documented in this encounter Care Teams Ramp And Cargo Supervisor Relationship Specialty Start Date End Date Светлана Benjamin MD 230 [place] [address] PCP - General Family Medicine 02/27/21 documented as of this encounter
--- OUTSIDE RECORDS SUMMARY | 2025-04-20 16:02 | XMS_ITS | Encounter Summary ---
Author Organization [employer] Address [address] [place] [address] Care Team Providers Care Vacuum Cleaner Assembler Name Role Phone Светлана Benjamin MD Primary Care Provider [phone] Encounter Details Date Type Department Care Team (Late st Contact Info) Description 02/18/2025 Telephone [facility] MEDICINE 230 [place], [place] [phone] Светлана Benjamin MD 230 [place], [place] [phone] Social History Tobacco Use Types Packs/Day Years [...] Description 06/07/2025 1:00 PM EST Office Visit [facility] OPTOMETRY [address] [place], [place] [phone] TyreeKeysha, OD 230 [place] [address] documented as of this encounter Visit Diagnoses Not on filedocumented in this encounter Additional Health Concerns Assessment Noted Time PHQ-9 Depression Total Score: 9 01/16/20 25 1:03 PM EDT documented as of this encounter Care Teams Vacuum Cleaner Assembler Relationship Specialty Start Date End Date Светлана Benjamin MD 230 [place] [address] PCP - General Family Medicine 02/27/21 documented as of this encounter
--- OUTSIDE RECORDS SUMMARY | 2025-04-20 16:02 | XMS_ITS | Encounter Summary ---
Author Organization [employer] [facility] Address [address] [facility] 7t [place] [address] Care Team Providers Care Meat Team Member Name Role Phone Светлана Benjamin MD Primary Care Provider [phone] Encounter Details Date Type Department Care Team (Late Contact Info) Description 01/23/2023 Orders Only [facility] MEDICINE 230 [place] [address] Светлана Benjamin MD 230 [place] [address] Left hip pain (Primary Dx) Social History [...] Description 06/07/2025 1:00 PM EST Office Visit [facility] OPTOMETRY [address] [place] [address] Keysha Clements, OD 230 [place] [address] documented as of this encounter Visit Diagnoses Diagnosis Left hip pain- Primary Pain in joint, pelvic region and thigh documented in this encounter Care Teams Meat Team Member Relationship Specialty Start Date End Date Светлана Benjamin MD 230 [place] [address] PCP - General Family Medicine 02/27/21 documented as of this encounter
--- OUTSIDE RECORDS SUMMARY | 2025-04-20 16:02 | XMS_ITS | Encounter Summary ---
Author Organization [employer] Address [address] [place] [address] Care Team Providers Care Load Manager Name Role Phone Светлана Benjamin MD Primary Care Provider [phone] Reason for Visit * Reason Onset Date Comments Med Refill 09/13/2023 Encounter Details Date Type Department Care Team (Late st Contact Info) Description 09/13/2023 Telephone [facility] MEDICINE 230 [place], [place] [phone] Светлана Benjamin MD 230 [place], [place] [phone] Med Refill Social History Tobacco Use Types [...] : Lidocaine Patches To be sent to: [facility] documented in this encounter Plan of Treatment Upcoming Encounters Date Type Department Care Team (Late st Contact Info) Description 06/07/2025 1:00 PM EST Office Visit [facility] OPTOMETRY [address] [place] [address] Tyree, Keysha, OD 230 [place] [address] documented as of this encounter Visit Diagnoses Not on filedocumented in this encounter Care Teams Load Manager Relationship Specialty Start Date End Date Светлана Benjamin MD 230 [place] [address] PCP - General Family Medicine 02/27/21 documented as of this encounter
--- OUTSIDE RECORDS SUMMARY | 2025-04-20 16:02 | XMS_ITS | Encounter Summary ---
Author Organization [employer] Address [address] [place] [address] Care Team Providers Care Board Machine Set Up Operator Name Role Phone Светлана Benjamin MD Primary Care Provider [phone] Encounter Details Date Type Department Care Team (Late st Contact Info) Description 03/03/2025 Orders Only [facility] MEDICINE 230 [place], [place] [phone] [place], PharmD 230 [place], [place] [phone] Social History Tobacco Use Types Packs/Day Years [...] Description 06/07/2025 1:00 PM EST Office Visit [facility] OPTOMETRY [address] [place], [place] [phone] Tyree, Keysha, OD 230 [place] [address] documented as of this encounter Visit Diagnoses Not on filedocumented in this encounter Additional Health Concerns Assessment Noted Time PHQ-9 Depression Total Score: 9 01/16/20 25 1:03 PM EDT documented as of this encounter Care Teams Board Machine Set Up Operator Relationship Specialty Start Date End Date Светлана Benjamin MD 230 [place] [address] PCP - General Family Medicine 02/27/21 documented as of this encounter
--- OUTSIDE RECORDS SUMMARY | 2025-04-20 16:02 | XMS_ITS | Encounter Summary ---
Author Organization [employer] Address [address] [place] [address] Care Team Providers Care Medical Tech Name Role Phone Светлана Benjamin MD Primary Care Provider [phone] Reason for Referral * Medications - Closed Specialty Diagnoses / Procedures Referred By Contac t Referred To Contact Diagnoses Trochanteric bursitis of left hip Left hip pain Светлана Benjamin MD 230 [place] [address] Phone: tel: fax: Referral ID Status Reason Start Date Expiration Date Visits Re quested Visits Authorized [id number] Closed 1 1 Encounter Details Date Type Department Care Team (Late st Contact Info) Description 09/15/2023 Orders Only [facility] MEDICINE [address] [place] [phone] Светлана Benjamin MD [address] [place] [phone] Trochanteric bursitis of left hip (Primary Dx); [...] EST Office Visit [facility] OPTOMETRY [address] [place] [address] Tyree, Keysha, OD 230 [place] [address] documented as of this encounter Visit Diagnoses Diagnosis Trochanteric bursitis of left hip- Primary Left hip pain Pain in joint, pelvic region and thigh documented in this encounter Care Teams Medical Tech Relationship Specialty Start Date End Date Светлана Benjamin MD 230 [place] [address] PCP - General Family Medicine 02/27/21 documented as of this encounter
== END 2025-04-20 13:45 | disposition home or self-care (01) ==
LOC: HO.PMCPRC 12:28
PROVIDERS: PCP General Practice; Visit Provider Anesthesiology
DX: Z96.612 Presence of left artificial shoulder joint (principal); M25.512 Pain in left shoulder
CPT/HCPCS: 64555; 64590

== ENCOUNTER 2025-04-28 10:12 | Outpatient (AMB) | payer OTHER, SELFPAY ==
[2025-04-28 10:19] VITALS: BP 181/79; PULSE 117; RESP 16; O2SAT 92; BMI 23.2
--- NOTE | 2025-04-28 10:19 | MHC.OFFVIS ---
Vital Signs 04/28/25 10:19 Height 5 ft Weight 119 lb BMI 23.2 BP 181/79 H Blood Pressure Location Rt brachial Position Sitting Respiration 16 Pulse 117 H Pulse Source Pulse Oximeter Pulse Oximetry (%) 92 Oxygen Delivery Method Room Air Intake Visit Reasons: S/P Left Suprascapular Nerve Sprint PNS Intake Note: Dressing changed Paper And Pulp Mill Operator Required: Yes Paper And Pulp Mill Operator Name: Daughter Accompanied by: Daughter Allergies cephalexin (From KEFLEX) Allergy (Intermediate, Verified 04/28/25 10:20) REDNESS, hives, swelling HPI Comments Details: April is back in my office after suprascapular notch implantation of the peripheral nerve stimulator sprint. She reports improvement of the pain. It has been only 1 week after the insertion of the device. We will continue observation. The dressing was changed today no signs of infection were observed today. Prior: diagnostic suprascapular nerve block to treat the pain in the left shoulder. She reports absence of pain in his shoulder now. She reports that pain stopped immediately after the procedure, she did not experienced pain for next 72 hours. She is very happy about this injection. I explained to the patient that this is temporary effect and we need to do sprint PNS to treat the pain of this patient. She agreed to go for this procedure. I explained to her risks and benefits of the procedure, I explained to her mobility and hygiene limitations. At the same time she is complaining on severe unbearable pain in the left lower extremity radiating from the lower back. Physical exam is as below. I believe this patient needs to go for the MRI of the lumbar spine she is suffering from radiculopathy of the lumbar spine. I will schedule her for the MRI as soon as possible. Prior: complains on pain on the posterior surface of the left shoulder. Apparently she had total shoulder replacement 2 years ago. She had physical therapy after this procedure, she restored the mobility of the shoulder on the left with good worship of motions. However pain in his shoulder continued to bother her. She reports today pain 7/10. Most of the pain is on posterior surface of the left shoulder with radiation down to the left arm and left forearm. [facility] Medical History Diabetes Edentulous HLD (hyperlipidemia) HTN (hypertension) Hypothyroidism Latent syphilis Panic attacks PTSD (post-traumatic stress disorder) PVD (peripheral vascular disease) Right knee pain SOB (shortness of breath) Spondylosis of lumbar region without myelopathy or radiculopathy T2DM (type 2 diabetes mellitus) Vitamin D deficiency Surgical History Hx of appendectomy Hx of section Status post total shoulder replacement Family History Father No problems noted. Mother No problems noted. Social History Household Members: None Housing: Apartment Are you a primary doggy daycare activities director to a significant other at home: No Do you presently have visiting nurse or other home services: No Alcohol intake: never Patient Tobacco Use Status: Current everyday Tobacco user Tobacco use type: Cigarette Cigarettes Per Day: 10 Years Smoked: 15+ Second Hand Smoke Exposure: No service: No Current occupational status: disabled Review of Systems Const All systems reviewed & are unremarkable except as noted in HPI and below Physical Exam Vital Signs: Last Vital Signs Pulse 117 H 04/28/25 10:19 Resp 16 04/28/25 10:19 BP 181/79 H 04/28/25 10:19 Pulse Ox 92 04/28/25 10:19 Oxygen Delivery Method Room Air 04/28/25 10:19 BMI result Body Mass Index 23.2 Const General: cooperative, comfortable and no acute distress Nutritional Appearance: average body habitus Orientation/consciousness: patient oriented x3 Limitations: language barrier Neck Neck: Yes normal visual inspection Chest Chest palpation & inspection: normal inspection of the chest Resp Effort & Inspection: normal respiratory effort, able to speak in complete sentences, normal respiratory pattern, no audible wheezes and Actively coughing Cardio Jugular venous distension: no JVD Back/Spine/Pelvis Other: Tenderness on palpation in paraspinal left and midline spinal region of the entire lumbar spine. SLR is positive on the left. Lasegue test is positive on the left t. Negative on the right. Valsalva maneuver aggravates her pain. Reports weakness and numbness of the left lower extremity, reports difficulty with ambulation, uses cane for ambulation. Neuro General: patient oriented x3 Extrem Other: Left shoulder incision well healed. No erythema or swelling. no pathological discharge. demonstrates good range of motion of the left shoulder. She is able to initiate FF overhead , ER and abduction to 90. She has mild discomfort with cross-body abduction. Deltoid sensation intact. Assessment & Plan Assessment & Plan (1) Status post total replacement of left shoulder: Code(s): Z96.612 - Presence of left artificial shoulder joint Category: Surgical (2) Chronic left shoulder pain: Code(s): M25.512 - Pain in left shoulder; G89.29 - Other chronic pain Category: Medical (3) Chronic pain syndrome: Code(s): G89.4 - Chronic pain syndrome Category: Medical (4) Radiculopathy, lumbar region: Code(s): M54.16 - Radiculopathy, lumbar region Category: Medical (5) Disc degeneration, lumbar: Code(s): M51.369 - Other intervertebral disc degeneration, lumbar region without mention of lumbar back pain or lower extremity pain Category: Medical (6) Spondylosis of lumbar region without myelopathy or radiculopathy: Code(s): M47.816 - Spondylosis without myelopathy or radiculopathy, lumbar region Category: Medical Plan Excellent results of left diagnostic suprascapular nerve block, patient reported complete pain relief for 72 hours. Sprint PNS inserted 1 week ago. No signs of complications at this time. We will continue observation. She reports moderate pain improvement. Severe sciatic on the left. Radiculopathy on exam as above. Coding Level of Care Code Est Pt Level 3 (04584) Diagnoses Status post total replacement of left shoulder Z96.612 Chronic left shoulder pain M25.512; G89.29 Chronic pain syndrome G89.4 Radiculopathy, lumbar region M54.16 Disc degeneration, lumbar M51.369 Spondylosis of lumbar region without myelopathy or radiculopathy M47.816
--- OUTSIDE RECORDS SUMMARY | 2025-04-28 12:37 | XMS_ITS | Encounter Summary ---
Author Organization [employer] Address [address] [place] [address] Care Team Providers Care Transition Manager Name Role Phone Светлана Benjamin MD Primary Care Provider [phone] Reason for Visit * Reason Onset Date Comments Change PCP 07/17/2023 Encounter Details Date Type Department Care Team ([facility] st Contact Info) Description 07/17/2023 Telephone [facility] MEDICINE 230 [place], [place] [phone] Светлана Benjamin MD 230 [place], [place] [phone] Change PCP Social History Tobacco Use Types [...] - 07/17/2023 1:43 PM EST Tc from [place] with [facility] states pt is requesting a PCP change due to language preference. Would like a czech speaking provider. documented in this encounter Plan of Treatment Upcoming Encounters Date Type Department Care Team (Late st Contact Info) Description 06/07/2025 1:00 PM EST Office Visit [facility] OPTOMETRY [address] [place] [address] Keysha Clements, OD 230 [place] [address] documented as of this encounter Visit Diagnoses Not on filedocumented in this encounter Care Teams Transition Manager Relationship Specialty Start Date End Date Светлана Benjamin MD 230 [place] [address] PCP - General Family Medicine 02/27/21 documented as of this encounter
--- OUTSIDE RECORDS SUMMARY | 2025-04-28 12:37 | XMS_ITS | Encounter Summary ---
Author Organization [employer] Address [address] [place] [address] Care Team Providers Care Furnace Room Supervisor Name Role Phone Светлана Benjamin MD Primary Care Provider [phone] Encounter Details Date Type Department Care Team (Late st Contact Info) Description 07/19/2023 Orders Only [facility] MEDICINE 230 [place], [place] [phone] Светлана Benjamin MD 230 [place], [place] [phone] Functional urinary incontinence (Primary Dx) Social History [...] Description 06/07/2025 1:00 PM EST Office Visit [facility] OPTOMETRY [address] [place] [address] Keysha Clements, OD 230 [place] [address] documented as of this encounter Visit Diagnoses Diagnosis Functional urinary incontinence- Primary documented in this encounter Care Teams Furnace Room Supervisor Relationship Specialty Start Date End Date Светлана Benjamin MD 230 [place] [address] PCP - General Family Medicine 02/27/21 documented as of this encounter
--- OUTSIDE RECORDS SUMMARY | 2025-04-28 12:37 | XMS_ITS | Encounter Summary ---
Author Organization [employer] Address [address] [place] [address] Care Team Providers Care Label Stitcher Name Role Phone Светлана Benjamin MD Primary Care Provider [phone] Reason for Visit * Reason Onset Date Comments Nurse Triage 11/16/2024 Encounter Details Date Type Department Care Team ([facility] st Contact Info) Description 11/16/2024 Telephone [facility] MEDICINE 230 [place], [place] [phone] Светлана Benjamin MD 230 [place], [place] [phone] Nurse Triage Social History Tobacco Use Types [...] Description 06/07/2025 1:00 PM EST Office Visit [facility] OPTOMETRY [address] [place] [address] Keysha Clements, OD 230 [place], [place] [phone] documented as of this encounter Visit Diagnoses Not on filedocumented in this encounter Care Teams Label Stitcher Relationship Specialty Start Date End Date Светлана Benjamin MD 230 [place], [place] [phone] PCP - General Family Medicine 02/27/21 documented as of this encounter
--- OUTSIDE RECORDS SUMMARY | 2025-04-28 12:37 | XMS_ITS | Encounter Summary ---
Author Organization [employer] Address [address] [facility] [address] 7t [place] [address] Care Team Providers Care Investigation Officer Name Role Phone Светлана Benjamin MD Primary Care Provider [phone] Reason for Visit * Reason Onset Date Comments Referral 03/15/2025 Encounter Details Date Type Department Care Team ([facility] st Contact Info) Description 03/15/2025 Telephone [facility] MED[facility]INE [address] [place], [place] [phone] Светлана Benjamin MD 230 [place] [address] Referral Social History Tobacco Use Types Packs/Day [...] a call back regarding MRI , states [facility] advised pt they do not do open MRI Contact at [phone] (croatian) * Telephone Encounter - Karen Umana RN - 03/15/2025 3:50 PM EDT Noted MRI order sent to [facility]. Can it be sent to somewhere with open MRI capability? Thank you! * Telephone Encounter - Alfredo Miranda - 03/15/2025 11:11 AM EDT Tc from pt requesting for a referral for an Open MRI. Any questions contact pt at [phone] documented in this encounter Plan of Treatment Upcoming Encounters Date Type Department Care Team (Late st Contact Info) Description 06/07/2025 1:00 PM EST Office Visit [facility] OPTOMETRY [address] [place] [address] Tyree, Keysha, OD [address] [place] [address] documented as of this encounter Visit Diagnoses Not on filedocumented in this encounter Additional Health Concerns Assessment Noted Time PHQ-9 Depression Total Score: 9 01/16/20 25 1:03 PM EDT documented as of this encounter Care Teams Investigation Officer Relationship Specialty Start Date End Date Светлана Benjamin MD [address] [place] [address] PCP - General Family Medicine 02/27/21 documented as of this encounter
--- OUTSIDE RECORDS SUMMARY | 2025-04-28 12:37 | XMS_ITS | Encounter Summary ---
Author Organization [employer] Address [address] [facility] 7t [place] [address] Care Team Providers Care Merchant Patroller Name Role Phone Светлана Benjamin MD Primary Care Provider [phone] Reason for Referral * Consultation (Routine) - Closed Specialty Diagnoses / Procedures Referred By David t Referred To Contact Physical Therapy Diagnoses Left hip pain Светлана Benjamin MD [address] [place] [address] Phone: tel: fax: [facility] Physical Therapy [address] [place], [place] Phone: tel: fax: Referral ID Status Reason Start Date Expiration Date V isits Requested Visits Authorized [id number] Closed Specialty Services Required 03/16/2025 03/16/2026 1 1 * Consultation (Routine) - Closed Specialty Diagnoses / Procedures Referred By Contliz t Referred To Contact Pain Medicine Diagnoses Left hip pain Светлана Benjamin MD [address] [place] [address] Phone: tel: fax: [facility], [address] [place], [place] Phone: tel: fax: Referral ID Status Reason Start Date Expiration Date V isits Requested Visits Authorized [id number] Closed Specialty Services Required 03/16/2025 03/16/2026 1 1 Encounter Details Date Type Department Care Team (Late st Contact Info) Description 03/16/2025 Orders Only [facility] MED[facility]INE [address] [place] [address] Светлана Benjamin MD [address] [place] [address] Left hip pain (Primary Dx); Acute left-sided [...] 1:00 PM EST Office Visit [facility] OPTOMETRY [address] [place] [address] Tyree Keysha, OD 230 [place] [address] Scheduled Referrals Name Type Priority Associated Diagnoses [...] documented as of this encounter Care Teams Merchant Patroller Relationship Specialty Start Date End Date Светлана Benjamin MD [address] [place] [address] PCP - General Family Medicine 02/27/21 documented as of this encounter
--- OUTSIDE RECORDS SUMMARY | 2025-04-28 12:37 | XMS_ITS | Encounter Summary ---
Author Organization [facility] Address [address] [place] [address] Care Team Providers Care Squeegee Finisher Name Role Phone Unavailable Primary Care Provider Unavailabl e Encounter Details Date Type Department Care Team ( Contact Info) Description 02/12/2025 Lab Requisition [facility] - Main Lab [address] [facility] [place] [address] Timothy Henry, NGA [address] [place] [address] Social History Tobacco Use Types [...]
--- OUTSIDE RECORDS SUMMARY | 2025-04-28 12:37 | XMS_ITS | Encounter Summary ---
Author Organization [employer] Address [address] [facility] [address] 7[address] [place] [address] Care Team Providers Care Tumbling And Rolling Supervisor Name Role Phone Светлана Benjamin MD Primary Care Provider [phone] Reason for Visit * Reason Onset Date Comments Durable Medical Equipment 05/01/2023 Nebuli zer Encounter Details Date Type Department Care Team ([facility] st Contact Info) Description 05/01/2023 Telephone [facility] MEDICINE [address] [place], [place] [phone] Светлана Benjamin MD [address] [place], [place] [phone] Durable Medical Equipment (Nebulizer) Social History Tobacco [...] To be fax L&C and also [facility] [phone] documented in this encounter Plan of Treatment Upcoming Encounters Date Type Department Care Team (Late st Contact Info) Description 06/07/2025 1:00 PM EST Office Visit [facility] OPTOMETRY [address] [place] [address] Keysha Clements, OD [address] [place] [address] documented as of this encounter Visit Diagnoses Not on filedocumented in this encounter Care Teams Tumbling And Rolling Supervisor Relationship Specialty Start Date End Date Светлана Benjamin MD [address] [place] [address] PCP - General Family Medicine 02/27/21 documented as of this encounter
--- OUTSIDE RECORDS SUMMARY | 2025-04-28 12:37 | XMS_ITS | Clinical Summary ---
Author Organization [address] [facility] Address [address] [place] [address] Phone Care Team Providers Care Jackspooler Name Role Phone Unavailable Primary Care Provider Unavailabl e Encounters Date Type Department Care Team Description 02/12/2025 Lab Requisition [facility] - Main Lab [address] [facility] [place] [address] Timothy Henry NP from Last [...]
--- OUTSIDE RECORDS SUMMARY | 2025-04-28 12:37 | XMS_ITS | Clinical Summary ---
Author Organization [employer] Address [address] [facility] [facility] [address] 7[address] [place] [address] Care Team Providers Care Gin Operator Name Role Phone Светлана Benjamin MD Primary Care Provider [phone] Allergies Active Allergy Reactions Criticality Noted Date [...] BEDTIME 15 mL 3 025 2024 Discontinued Active Problems Problem Noted [...] disorder, currently manic, severe, with psychotic features ([facility]/HCC) 01/15/2025 Oral thrush 11/16/2024 Assessment & Plan [...] cough Advised to make an appointment with [facility] pulmonology, she may need long-term oxygen. Advised to quit smoking and using any other recreational substances Kidney lesion, [place], left 11/16/2024 Overview (11/16/2024): CT scan chest on 11/10/2024 at [facility] showed indeterminate wedge- shaped hypodensity in the mid to lower pole the left kidney, differential includes focal pyelonephritis or infarct. Assessment & Plan (11/16/2024 2:48 PM EDT): Wedge shaped density of the left kidney seen on CT scan chest (11/10/2024 at [facility], incidental finding). Obtain discharge summary and see if it needs additional follow-up Patient is doing very well and last GFR on admission was within normal limits History of syphilis 01/10/2024 Overview (01/10/2024): Treated at [facility] in 2015 2018 RPR [...] (12/14/2022 2:14 PM EDT): Replacement 08/07/22 at [facility] Brief rehab stay Did PT September and October 2022 Pain is better than before surgery Assessment & Plan (09/26/2022 12:09 PM EDT): Replacement 08/07/22 at [facility] Brief rehab stay Post-op course has been complicated by pain in left shoulder, not starting PT, unclear whether she is wearing supportive arm sling device xrays taken at ortho clinic 09/13/22 reportedly show good placement of L shoulder prosthesis Will attempt to reconnect pt to [facility] services followup with Dr Cooper at end [...] Klonopin, Seroquel, and opioid pain medications [facility] oncall provider, Angelita, came to evaluate patient and recommended [facility] for stabilization and safety Pt became upset at this plan and walked out of the exam room, and out of clinic Myself and my MA were able to go with her and have her agree to VNA services, which I ordered for medication management [facility] is aware of patient and [facility] therapist will contact daughter tomorrow Patient needs [...] Type Department Care Team Description 04/12/2025 Refill [facility] [address] [place] [address] Светлана Benjamin MD 04/05/2025 Results Follow-Up [facility] MEDICINE [address] [place], [place] [phone] Jyothi Preciado MD MR Lumbar Spine w/o Contrast 03/16/2025 Telephone [facility] MED[facility]INE [address] [place] [address] Светлана Benjamin MD Med Refill 03/16/2025 Orders Only [address] [address] Светлана Benjamin MD Left hip pain (Primary Dx); Acute left-sided low back pain with right-sided sciatica; Pain of left hip 03/15/[address] [address] Светлана Benjamin MD Nurse Triage 03/15/[address] [address] Светлана Benjamin MD Referral 03/09/[address] [address] Светлана Benjamin MD Durable Medical Equipment (DME: Oxygen Tank Removal) 03/05/2025 1:00 PM EDT Office Visit [address] [address] Jyothi Preciado MD Acute left-sided low back pain with right-sided sciatica; Pain of left hip; Diabetes mellitus type 2 in nonobese ([facility]) 03/05/2025 Travel 03/04/[address] [address] Светлана Benjamin MD Chart Prep 03/03/2025 Orders Only [facility] [address] [place] [address] [place], PharmD 03/03/2025 Refill [facility] [address] [place] [address] Светлана eBnjamin MD 02/18/2025 Telephone [facility] [address] [place] [address] Светлана Benjamin MD 02/18/2025 Telephone [facility] [address] [place] [address] Светлана Benjamin MD Nurse Triage 02/16/2025 Patient Outreach [facility] [address] [place] [address] Светлана Benjamin MD Transition Of Care (Tcm) (HDF scheduled.) 02/12/2025 Telephone [facility] [address] [place] [address] Светлана Benjamin MD telphone call (Telephone made to pt attempt to get ) 02/11/2025 Telephone [facility] [address] [place] [address] Светлана Benjamin MD FYI 02/02/2025 Refill [facility] [address] [place] [address] Светлана Benjamin MD 02/02/[address] [phone] Светлана Benjamin MD Results from Last 3 [...] 1:00 PM EST Office Visit [facility] OPTOMETRY [address] [place] [address] Tyree, Keysha, OD [address] [place] [address] Health Maintenance Due Date Last Done Comments CT Colonography 1956 Dental Prophylaxis 1956 Dental X-Ray: Bitewings 1956 FIT DNA/Cologuard 1956 FIT 1956 FOBT 1956 Sigmoidoscopy 1956 Diabetes: Foot Exam 1966 RSV Patients and Patients Aged 60 years or older (1 - Risk 60-74 years 1-dose series) 2016 Zoster Vaccines (3 of 3) 12/17/2019 10/22/2019, 11/2016 Mammogram 03/03/2022 03/03/2020, 12/30, 01/22/2019 Diabetes: [...] Meningococcal Vaccine Aged Out 12/01/2015 No natalio kaarn eligible based on patient's age to complete [...] Laterality Modality Spine, L-spine Magnetic Resonan ce Jyothi Hernandez MD IMG MRI PROCEDURES Fi nal Result * (ABNORMAL) POCT Hgb A1c (03/05/2025 1:30 PM EDT) Hemoglobin A1C 7.0(A) 4.0 - 5.7 % QC Media Lot # [id number] Lot# Expiration Date [id number] Blood 03/05/2025 1:30 PM EDT Jyothi Hernandez [...] EN TER/EDIT ORDERABLES Final Result * (ABNORMAL) Lipid Panel, Standard (01/15/2025 10:59 AM EDT) Triglycerides 170(H) <150 mg/dL [facility] Comment:Desirable Triglyceri de: less than 150 mg/dLBorderline High Triglyceride 150-199 mg/dLHigh Triglyceride: 200-499 mg/dLVery High Triglyceride: greater than or equal to 5OO mg/dL Cholesterol 117 <200 mg/dL [facility] Comment:Desirable Cholestero l: less than 200 mg/dLBorderline High Cholesterol: 200-239 mg/dLHigh Cholesterol: greater than 239 mg/dL LDL Cholesterol Calculated 50 <100 mg/dL [facility] Comment:Desirable LDL: less than 100 mg/dLNear Optimal/Above Optimal LDL: 110- 129 mg/dLBorderline High LDL: 130-159 mg/dLHigh LDL: 160-189 mg/dLVery High LDL: greater than or equal to 190 mg/dL HDL Cholesterol 33(L) >40 mg/dL [facility] Comment:Desirable HDL: great er than 40 mg/dL Note: This HDL assay may give artificially low results in patients with liver disease. Blood Venous blood specimen / Unknown 01/15/2025 10:59 AM EDT 01/15/2025 12:58 PM EDT us Светлана Benjamin MD LAB BLOOD ORDERABLES Final Res ult [facility] [address] [place], [place] [phone] * Albumin, Random Urine W/Creatinine (01/06/2024 2:10 PM EDT) Creatinine, Urine 47.40 mg/dL [facility] Microalbumin Urine <5.0 mg/L [facility] Microalbum Creatinine Ratio Ur TNP <30 ug/mg cr [facility] Comment:Unable to calculate albumin/creatinine ratio due to lowmicroalbumin or creatinine result. Urine (Urine, Random) 01/06/2024 2:10 PM EDT 01/06/2024 3:53 PM EDT us Светлана Benjamin MD LAB URINE ORDERABLES Final Res ult Performing Organization Address City/[facility]/ZIP Co de Phone Number [facility] [address] [place] [phone] * Hepatitis C Antibody with Reflex to HCV, RNA, Quantitative, Real-Time PCR (01/06/2024 2:10 PM EDT) Hepatitis C Antibody Nonreactive Nonreactive [facility] Comment:Antibodies to HCV no t detected; does not exclude early acuteHCV infection. Blood Venous blood specimen / Unknown 01/06/2024 2:10 PM EDT 01/06/2024 3:51 PM EDT us Светлана Benjamin MD LAB BLOOD ORDERABLES Final Res ult Performing Organization Address [facility] Co de Phone Number [facility] [address] [place] [phone] * 3D BILATERAL DIAGN MAMMO 1 (03/03/2020 8:21 AM EDT) Anatomical Region Laterality Modality Breast Bilateral Mammography 03/03/2020 8:21 AM EDT Narrative 03/03/2020 8:23 AM EDT Refer to the Notes tab for result details [facility] Procedure: 3D BILATERAL DIAGN MAMMO 1 Procedure Note ProviderBobby MD - 09/22/2022 Refer to the Notes tab for result details [facility] Procedure: 3D BILATERAL DIAGN MAMMO 1 us Toni Colon MD IMG BI PROCEDURES Final Result * Hm Colonoscopy (02/26/2020) Colonoscopy Normal Normal Narrative Tammy Stroud - 02/26/2020 Recommended 10 year follow up ( [facility] ) us Historical Provider HEALTH MAINTENANCE Edited Result - Final from Last 3 Months or Most Recently Relevant to Health Maintenance Insurance [facility] OPTIONS (HMO D-SNP) [facility] Care Teams Gin Operator Relationship Specialty Start Date End Date Светлана Benjamin MD [address] [place] [address] PCP - General Family Medicine 02/27/21
--- OUTSIDE RECORDS SUMMARY | 2025-04-28 12:37 | XMS_ITS | Encounter Summary ---
Author Organization [employer] Address [address] [facility] [address] [place] [address] Care Team Providers Care Asbestos Brake Lining Finisher Name Role Phone Светлана Benjamin MD Primary Care Provider [phone] Reason for Visit * Reason Onset Date Comments triage 08/31/2022 Encounter Details Date Type Department Care Team ([facility] st Contact Info) Description 08/31/2022 Telephone [facility] MEDICINE [address] [place] [address] Светлана Benjamin MD [address] [place] [address] triage Social History Tobacco Use Types Packs/Day [...] now The caller accepted this outcome speaks japanese documented in this encounter Plan of Treatment Upcoming Encounters Date Type Department Care Team (Late st Contact Info) Description 06/07/2025 1:00 PM EST Office Visit [facility] OPTOMETRY [address] [place], [place] [phone] Keysha Clements, OD [address] [place] [address] documented as of this encounter Visit Diagnoses Not on filedocumented in this encounter Care Teams Asbestos Brake Lining Finisher Relationship Specialty Start Date End Date Светлана Benjamin MD [address] [place] [address] PCP - General Family Medicine 02/27/21 documented as of this encounter
--- OUTSIDE RECORDS SUMMARY | 2025-04-28 12:37 | XMS_ITS | Encounter Summary ---
Author Organization [employer] Address [address] [facility] [address] [place] [address] Care Team Providers Care Cracking Still Operator Name Role Phone Светлана Benjamin MD Primary Care Provider Reason for Visit * Reason Onset Date Comments Med Refill 03/16/2025 Encounter Details Date Type Department Care Team (Late st Contact Info) Description 03/16/2025 Telephone [facility] MEDICINE [address] [place], [place] [phone] Светлана Benjamin MD [address] [place], [place] [phone] Med Refill Social History Tobacco Use Types [...] 11:32 AM EDT Medication was sent to [facility] today. * Telephone Encounter - Silver Youngblood - 03/16/2025 11:30 AM EDT TC from pt requesting medication refill. Medications needing refill : acetaminophen-codeine (Tylenol w/ Codeine #3) 300- 30 MG tablet To be sent to: [facility] documented in this encounter Plan of Treatment Upcoming Encounters Date Type Department Care Team (Late st Contact Info) Description 06/07/2025 1:00 PM EST Office Visit [facility] OPTOMETRY [address] [place] [address] Keysha Clements, OD [address] [place] [address] documented as of this encounter Visit Diagnoses Not on filedocumented in this encounter Additional Health Concerns Assessment Noted Time PHQ-9 Depression Total Score: 9 01/16/20 25 1:03 PM EDT documented as of this encounter Care Teams Cracking Still Operator Relationship Specialty Start Date End Date Светлана Benjamin MD [address] [place] [address] PCP - General Family Medicine 02/27/21 documented as of this encounter
--- OUTSIDE RECORDS SUMMARY | 2025-04-28 12:37 | XMS_ITS | Encounter Summary ---
Author Organization [employer] Address [address] [place] [address] Care Team Providers Care Plant Taxonomy Teacher Name Role Phone Светлана Benjamin MD Primary Care Provider [phone] Reason for Visit * Reason Onset Date Comments Durable Medical Equipment 08/28/2022 Encounter Details Date Type Department Care Team ([facility] st Contact Info) Description 08/28/2022 Telephone [facility] MEDICINE [address] [place], [place] [phone] Светлана Benjamin MD [address] [place], [place] [phone] Durable Medical Equipment Social History Tobacco Use [...] 3 a night [facility] D[facility] fax # [phone] documented in this encounter Plan of Treatment Upcoming Encounters Date Type Department Care Team (Late st Contact Info) Description 06/07/2025 1:00 PM EST Office Visit [facility] OPTOMETRY [address] [place], [place] [phone] Keysha Clements, OD [address] [place] [address] documented as of this encounter Visit Diagnoses Not on filedocumented in this encounter Care Teams Plant Taxonomy Teacher Relationship Specialty Start Date End Date Светлана Benjamin MD [address] [place] [address] PCP - General Family Medicine 02/27/21 documented as of this encounter
--- OUTSIDE RECORDS SUMMARY | 2025-04-28 12:37 | XMS_ITS | Encounter Summary ---
Author Organization [employer] [facility] Address [address] [facility] 7t [place] [address] Care Team Providers Care Flotation Tender Name Role Phone Светлана Benjamin MD Primary Care Provider [phone] Encounter Details Date Type Department Care Team ([facility] Contact Info) Description 02/27/2023 Abstract [facility] MEDICINE [address] [place] [address] Светлана Benjamin MD [address] [place], [place] [phone] Social History Tobacco Use Types Packs/Day Years [...] Description 06/07/2025 1:00 PM EST Office Visit [facility] OPTOMETRY [address] [place] [address] Keysha Clements, OD [address] [place], [place] [phone] documented as of this encounter Procedures Procedure Name Priority Date/Time Associated Diagnosis Comments COLONOSCOPY Routine 02/26/2020 documented in this encounter Results * Hm Colonoscopy (02/26/2020) Colonoscopy Normal Normal Narrative Tammy Stroud - 02/26/2020 Recommended 10 year follow up ( [facility] ) us Historical Provider HEALTH MAINTENANCE Edited Result - Final documented in this encounter Visit Diagnoses Not on filedocumented in this encounter Care Teams Flotation Tender Relationship Specialty Start Date End Date Светлана Benjamin MD [address] [place] [address] PCP - General Family Medicine 02/27/21 documented as of this encounter
--- OUTSIDE RECORDS SUMMARY | 2025-04-28 12:37 | XMS_ITS | Encounter Summary ---
Author Organization [employer] Address [address] [facility] [facility] [address] [place] [address] Care Team Providers Care Voice Instructor Name Role Phone Светлана Benjamin MD Primary Care Provider [phone] Reason for Visit * Reason Onset Date Comments Nurse Triage 02/14/2023 Encounter Details Date Type Department Care Team (Late st Contact Info) Description 02/14/2023 Telephone [facility] MEDICINE [address] [place], [place] [phone] Светлана Benjamin MD [address] [place] [address] Nurse Triage Social History Tobacco Use Types [...] to April Mueller, reports seen at [facility] ED On 02/12 following fall. Per pt was wearing a sandal and tripped and fell. Per pt landed on left side hip. No head injury or LOC. Pt then called EMS.Per pt had x-ray done and referred to [facility] Ortho. Pt has appt on 03/20/23. Pt given a few tramadol but advsied to shaquille PCP by ortho for pain management until seen. Pt agrees to visit tomorrow with Blue team provider. Pt advised to take OTC Tyelnol, apply ice and rest. TO return call if pain is sever or return to ER. Sent to team to obtain [facility] discharge summary for provider review. Future Appointments Date Time Provider Department Center 02/15/2023 2:45 PM Cristal Collins CNP MEDICINE [facility] 03/18/2023 2:15 PM Светлана Benjamin MD [facility] Protocol Used: Hip Injury (Adult) [...] after the fall. Was seen at [facility] on 02/12 for a fall and still having symptoms. The caller accepted this outcome Please contact pt at [phone] (Macedonian) documented in this encounter Plan of Treatment Upcoming Encounters Date Type Department Care Team (Late st Contact Info) Description 06/07/2025 1:00 PM EST Office Visit [facility] OPTOMETRY [address] [place] [address] Keysha Clements, OD [address] [place] [address] documented as of this encounter Visit Diagnoses Not on filedocumented in this encounter Care Teams Voice Instructor Relationship Specialty Start Date End Date Светлана Benjamin MD [address] [place] [address] PCP - General Family Medicine 02/27/21 documented as of this encounter
--- OUTSIDE RECORDS SUMMARY | 2025-04-28 12:38 | XMS_ITS | Encounter Summary ---
Author Organization [employer] Address [address] [address] [place] [address] Care Team Providers Care Sports Book Server Name Role Phone Светлана Benjamin MD Primary Care Provider [phone] Reason for Visit * Reason Onset Date Comments Med Refill 09/13/2023 Encounter Details Date Type Department Care Team (Late st Contact Info) Description 09/13/2023 Telephone [facility] MEDICINE 230 [place], [place] [phone] Светлана Benjamin MD 230 [place], [place] [phone] Med Refill Social History Tobacco Use Types [...] : Lidocaine Patches To be sent to: [facility] documented in this encounter Plan of Treatment Upcoming Encounters Date Type Department Care Team (Late st Contact Info) Description 06/07/2025 1:00 PM EST Office Visit [facility] OPTOMETRY [address] [place] [address] Tyree, Keysha, OD 230 [place] [address] documented as of this encounter Visit Diagnoses Not on filedocumented in this encounter Care Teams Sports Book Server Relationship Specialty Start Date End Date Светлана Benjamin MD 230 [place] [address] PCP - General Family Medicine 02/27/21 documented as of this encounter
--- OUTSIDE RECORDS SUMMARY | 2025-04-28 12:38 | XMS_ITS | Encounter Summary ---
Author Organization [employer] Address [address] [place] [address] Care Team Providers Care Ladle Patcher Name Role Phone Светлана Benjamin MD Primary Care Provider [phone] Encounter Details Date Type Department Care Team (Late st Contact Info) Description 02/18/2025 Telephone [facility] MEDICINE 230 [place], [place] [phone] Светлана Benjamin MD 230 [place], [place] [phone] Social History Tobacco Use Types Packs/Day Years [...] 1:00 PM EST Office Visit [facility] OPTOMETRY [address] [place], [place] [phone] TyreeKeysha, OD 230 [place] [address] documented as of this encounter Visit Diagnoses Not on filedocumented in this encounter Additional Health Concerns Assessment Noted Time PHQ-9 Depression Total Score: 9 01/16/20 25 1:03 PM EDT documented as of this encounter Care Teams Ladle Patcher Relationship Specialty Start Date End Date Светлана Benjamin MD 230 [place] [address] PCP - General Family Medicine 02/27/21 documented as of this encounter
--- OUTSIDE RECORDS SUMMARY | 2025-04-28 12:38 | XMS_ITS | Encounter Summary ---
Author Organization [employer] Address [address] [facility] [address] [facility] [address] [address] [place] [address] Care Team Providers Care Fence Manufacture Supervisor Name Role Phone Светлана Benjamin MD Primary Care Provider [phone] Reason for Visit * Reason Onset Date Comments other 01/09/2023 Encounter Details Date Type Department Care Team ([facility] st Contact Info) Description 01/09/2023 Telephone [facility] MEDICINE 230 [place], [place] [phone] Светлана Benjamin MD 230 [place] [address] other Social History Tobacco Use Types Packs/Day [...] for VNA services. Please contact tressa at [phone] Fax number: [phone] documented in this encounter Plan of Treatment Upcoming Encounters Date Type Department Care Team (Late st Contact Info) Description 06/07/2025 1:00 PM EST Office Visit [facility] OPTOMETRY [address] [place] [address] Keysha Clements, OD 230 [place], [place] [phone] documented as of this encounter Visit Diagnoses Not on filedocumented in this encounter Care Teams Fence Manufacture Supervisor Relationship Specialty Start Date End Date Светлана Benjamin MD 230 [place], [place] [phone] PCP - General Family Medicine 02/27/21 documented as of this encounter
--- OUTSIDE RECORDS SUMMARY | 2025-04-28 12:38 | XMS_ITS | Encounter Summary ---
Author Organization [employer] Address [address] [place] [address] Care Team Providers Care Cross Roller Name Role Phone Светлана Benjamin MD Primary Care Provider [phone] Encounter Details Date Type Department Care Team (Late st Contact Info) Description 01/10/2024 Orders Only [facility] MEDICINE 230 [place], [place] [phone] Светлана Benjamin MD 230 [place], [place] [phone] History of syphilis (Primary Dx) Social History [...] Description 06/07/2025 1:00 PM EST Office Visit [facility] OPTOMETRY [address] [place] [address] Keysha Clements, OD 230 [place] [address] documented as of this encounter Visit Diagnoses Diagnosis History of syphilis- Primary documented in this encounter Care Teams Cross Roller Relationship Specialty Start Date End Date Светлана Benjamin MD 230 [place] [address] PCP - General Family Medicine 02/27/21 documented as of this encounter
--- OUTSIDE RECORDS SUMMARY | 2025-04-28 12:38 | XMS_ITS | Encounter Summary ---
Author Organization [employer] Address [address] [place] [address] Care Team Providers Care Machine Dyer Name Role Phone Светлана Benjamin MD Primary Care Provider [phone] Encounter Details Date Type Department Care Team (Late st Contact Info) Description 03/03/2025 Orders Only [facility] MEDICINE 230 [place], [place] [phone] [place] Manzanares, PharmD 230 [place], [place] [phone] Social History Tobacco Use Types Packs/Day Years [...] 1:00 PM EST Office Visit [facility] OPTOMETRY [address] [place], [place] [phone] Tyree, Keysha, OD 230 [place] [address] documented as of this encounter Visit Diagnoses Not on filedocumented in this encounter Additional Health Concerns Assessment Noted Time PHQ-9 Depression Total Score: 9 01/16/20 25 1:03 PM EDT documented as of this encounter Care Teams Machine Dyer Relationship Specialty Start Date End Date Светлана Benjamin MD 230 [place] [address] PCP - General Family Medicine 02/27/21 documented as of this encounter
--- OUTSIDE RECORDS SUMMARY | 2025-04-28 12:38 | XMS_ITS | Encounter Summary ---
Author Organization [employer] Address [address] [place] [address] Care Team Providers Care Belt Notcher Name Role Phone Светлана Benjamin MD Primary Care Provider [phone] Reason for Referral * Medications - Closed Specialty Diagnoses / Procedures Referred By Contac t Referred To Contact Diagnoses Trochanteric bursitis of left hip Left hip pain Светлана Benjamin MD 230 [place] [address] Phone: tel: fax: Referral ID Status Reason Start Date Expiration Date Visits Re quested Visits Authorized [id number] Closed 1 1 Encounter Details Date Type Department Care Team (Late st Contact Info) Description 09/15/2023 Orders Only [facility] MEDICINE [address] [place] [phone] Светлана Benjamin MD [address] [place] [phone] Trochanteric bursitis of left hip (Primary Dx); [...] EST Office Visit [facility] OPTOMETRY [address] [place] [address] Tyree, Keysha, OD 230 [place] [address] documented as of this encounter Visit Diagnoses Diagnosis Trochanteric bursitis of left hip- Primary Left hip pain Pain in joint, pelvic region and thigh documented in this encounter Care Teams Belt Notcher Relationship Specialty Start Date End Date Светлана Benjamin MD 230 [place] [address] PCP - General Family Medicine 02/27/21 documented as of this encounter
--- OUTSIDE RECORDS SUMMARY | 2025-04-28 12:38 | XMS_ITS | Encounter Summary ---
Author Organization [facility] Address [address] [facility] 7[address] [place] [address] Care Team Providers Care Garbage Person Name Role Phone Светлана Benjamin MD Primary Care Provider [phone] Encounter Details Date Type Department Care Team (Late Contact Info) Description 01/23/2023 Orders Only [facility] MEDICINE 230 [place] [address] Светлана Benjamin MD 230 [place] [address] Left hip pain (Primary Dx) Social History [...] Description 06/07/2025 1:00 PM EST Office Visit [facility] OPTOMETRY [address] [place] [address] Keysha Clements, OD 230 [place] [address] documented as of this encounter Visit Diagnoses Diagnosis Left hip pain- Primary Pain in joint, pelvic region and thigh documented in this encounter Care Teams Garbage Person Relationship Specialty Start Date End Date Светлана Benjamin MD 230 [place] [address] PCP - General Family Medicine 02/27/21 documented as of this encounter
== END 2025-04-28 10:36 | disposition home or self-care (01) ==
PROVIDERS: PCP General Practice; Visit Provider Anesthesiology
DX: Z96.612 Presence of left artificial shoulder joint (principal); M25.512 Pain in left shoulder; G89.29 Other chronic pain; G89.4 Chronic pain syndrome; M54.16 Radiculopathy, lumbar region; M51.369 Other intervertebral disc degeneration, lumbar region without mention of lumbar back pain or lower extremity pain; M47.816 Spondylosis without myelopathy or radiculopathy, lumbar region
CPT/HCPCS: 99024

== ENCOUNTER → 2025-04-28 10:12 | Outpatient (BNVA) | payer OTHER, SELFPAY | PROVIDERS: PCP General Practice; Visit Provider Anesthesiology | DX: Z47.1 Aftercare following joint replacement surgery (principal); Z96.612 Presence of left artificial shoulder joint; Z96.82 Presence of neurostimulator; G89.4 Chronic pain syndrome; M51.16 Intervertebral disc disorders with radiculopathy, lumbar region; M47.26 Other spondylosis with radiculopathy, lumbar region | CPT/HCPCS: 99212 ==

== ENCOUNTER 2025-06-16 08:53 | Outpatient (AMB) | payer OTHER, SELFPAY ==
[2025-06-16 08:56] VITALS: BP 127/64; PULSE 96; RESP 16; O2SAT 96; BMI 23.8
--- NOTE | 2025-06-16 08:56 | MHC.OFFVIS ---
Vital Signs 06/16/25 08:56 Height 5 ft Weight 122 lb BMI 23.8 BP 127/64 Blood Pressure Location Rt brachial Position Sitting Respiration 16 Pulse 96 Pulse Source Pulse Oximeter Pulse Oximetry (%) 96 Oxygen Delivery Method Room Air Intake Visit Reasons: Removal: Left Suprascapular Nerve Sprint PNS Intake Note: Left Sprint removed. Tip Intact Registered Nurse Renal Required: No Accompanied by: Daughter Allergies cephalexin (From KEFLEX) Allergy (Intermediate, Verified 06/16/25 09:04) REDNESS, hives, swelling HPI Comments Details: April is back in my office After 8 weeks of suprascapular notch on the left PNS sprint. She reported absence of pain in the left shoulder. She reports excellent mobility of the shoulder joint. She is very satisfied with the treatment of the shoulder pain. However on the background of the improved shoulder pain he starts to complain more on lower back pain. She wants me to see her with this problem in the future. She did not have physical therapy for the lower back, however she had an MRI done elsewhere. I explained to the patient that if she wants to receive any injection for me she needs to complete physical therapy. Her daughter also will bring us the images and the reports of the MRI of the lumbar spine. She will schedule appointment to see me. Prior: diagnostic suprascapular nerve block to treat the pain in the left shoulder. She reports absence of pain in his shoulder now. She reports that pain stopped immediately after the procedure, she did not experienced pain for next 72 hours. She is very happy about this injection. I explained to the patient that this is temporary effect and we need to do sprint PNS to treat the pain of this patient. She agreed to go for this procedure. I explained to her risks and benefits of the procedure, I explained to her mobility and hygiene limitations. At the same time she is complaining on severe unbearable pain in the left lower extremity radiating from the lower back. Physical exam is as below. I believe this patient needs to go for the MRI of the lumbar spine she is suffering from radiculopathy of the lumbar spine. I will schedule her for the MRI as soon as possible. Prior: complains on pain on the posterior surface of the left shoulder. Apparently she had total shoulder replacement 2 years ago. She had physical therapy after this procedure, she restored the mobility of the shoulder on the left with good jain of motions. However pain in his shoulder continued to bother her. She reports today pain 7/10. Most of the pain is on posterior surface of the left shoulder with radiation down to the left arm and left forearm. [facility] Medical History Diabetes Edentulous HLD (hyperlipidemia) HTN (hypertension) Hypothyroidism Latent syphilis Panic attacks PTSD (post-traumatic stress disorder) PVD (peripheral vascular disease) Right knee pain SOB (shortness of breath) Spondylosis of lumbar region without myelopathy or radiculopathy T2DM (type 2 diabetes mellitus) Vitamin D deficiency Surgical History Hx of appendectomy Hx of section Status post total shoulder replacement Family History Father No problems noted. Mother No problems noted. Social History Household Members: None Housing: Apartment Are you a primary adult care provider to a significant other at home: No Do you presently have visiting nurse or other home services: No Alcohol intake: never Patient Tobacco Use Status: Current everyday Tobacco user Tobacco use type: Cigarette Cigarettes Per Day: 10 Years Smoked: 15+ Second Hand Smoke Exposure: No service: No Current occupational status: disabled Review of Systems Const All systems reviewed & are unremarkable except as noted in HPI and below Physical Exam Vital Signs: Last Vital Signs Pulse 96 06/16/25 08:56 Resp 16 06/16/25 08:56 BP 127/64 06/16/25 08:56 Pulse Ox 96 06/16/25 08:56 Oxygen Delivery Method Room Air 06/16/25 08:56 BMI result Body Mass Index 23.8 Const General: cooperative, comfortable and no acute distress Nutritional Appearance: average body habitus Orientation/consciousness: patient oriented x3 Limitations: language barrier Neck Neck: Yes normal visual inspection Chest Chest palpation & inspection: normal inspection of the chest Resp Effort & Inspection: normal respiratory effort, able to speak in complete sentences, normal respiratory pattern, no audible wheezes and Actively coughing Cardio Jugular venous distension: no JVD Back/Spine/Pelvis Other: Tenderness on palpation in paraspinal left and midline spinal region of the entire lumbar spine. SLR is positive on the left. Lasegue test is positive on the left t. Negative on the right. Valsalva maneuver aggravates her pain. Reports weakness and numbness of the left lower extremity, reports difficulty with ambulation, uses cane for ambulation. Neuro General: patient oriented x3 Extrem Other: Left shoulder incision well healed. No erythema or swelling. no pathological discharge. demonstrates good range of motion of the left shoulder. She is able to initiate FF overhead , ER and abduction to 90. She has mild discomfort with cross-body abduction. Deltoid sensation intact. Assessment & Plan Assessment & Plan (1) Status post total replacement of left shoulder: Code(s): Z96.612 - Presence of left artificial shoulder joint Category: Surgical (2) Chronic left shoulder pain: Code(s): M25.512 - Pain in left shoulder; G89.29 - Other chronic pain Category: Medical (3) Chronic pain syndrome: Code(s): G89.4 - Chronic pain syndrome Category: Medical (4) Radiculopathy, lumbar region: Code(s): M54.16 - Radiculopathy, lumbar region Category: Medical (5) Disc degeneration, lumbar: Code(s): M51.369 - Other intervertebral disc degeneration, lumbar region without mention of lumbar back pain or lower extremity pain Category: Medical (6) Spondylosis of lumbar region without myelopathy or radiculopathy: Code(s): M47.816 - Spondylosis without myelopathy or radiculopathy, lumbar region Category: Medical Plan Excellent results of left diagnostic suprascapular nerve block, patient reported complete pain relief for 72 hours. Sprint PNS Full 8 weeks stimulation. Patient reports absence of pain upon removal of the stimulation. Severe sciatic on the left. Radiculopathy on exam as above. She wants me to be seen with this problem. I recommended the patient to start physical therapy. I will see her as soon as possible. Coding Level of Care Code Est Pt Level 3 (45370) Diagnoses Status post total replacement of left shoulder Z96.612 Chronic left shoulder pain M25.512; G89.29 Chronic pain syndrome G89.4 Radiculopathy, lumbar region M54.16 Disc degeneration, lumbar M51.369 Spondylosis of lumbar region without myelopathy or radiculopathy M47.819
--- OUTSIDE RECORDS SUMMARY | 2025-06-16 09:25 | XMS_ITS | Encounter Summary ---
Author Organization [employer] Address [address] [place] [address] Care Team Providers Care Animal Shelter Manager Name Role Phone Светлана Benjamin MD Primary Care Provider [phone] Reason for Visit * Reason Onset Date Comments Change PCP 07/17/2023 Encounter Details Date Type Department Care Team ([facility] st Contact Info) Description 07/17/2023 Telephone [facility] MEDICINE 230 [place], [place] [phone] Светлана Benjamin MD 230 [place], [place] [phone] Change PCP Social History Tobacco Use Types [...] - 07/17/2023 1:43 PM EST Tc from [facility] with [facility] states pt is requesting a PCP change due to language preference. Would like a libyan speaking provider. documented in this encounter Plan of Treatment Upcoming Encounters Date Type Department Care Team (Late st Contact Info) Description 08/27/2025 1:30 PM EST Office Visit [facility] MEDICINE [address] [place] [address] Светлана Benjamin MD 230 [place] [address] 12/09/2025 1:00 PM EDT Office Visit [facility] OPTOMETRY [address] [place] [address] Tyree, Keysha, OD 230 [place] [address] documented as of this encounter Visit Diagnoses Not on filedocumented in this encounter Care Teams Animal Shelter Manager Relationship Specialty Start Date End Date Светлана Benjamin MD 230 [place] [address] PCP - General Family Medicine 02/27/21 documented as of this encounter
--- OUTSIDE RECORDS SUMMARY | 2025-06-16 09:25 | XMS_ITS | Encounter Summary ---
Author Organization [employer] Address [address] [place] [address] Care Team Providers Care Custodial Engineer Name Role Phone Светлана Benjamin MD Primary Care Provider [phone] Reason for Visit * Reason Onset Date Comments Med Refill 09/13/2023 Encounter Details Date Type Department Care Team ([facility] st Contact Info) Description 09/13/2023 Telephone [facility] MEDICINE 230 [place], [place] [phone] Светлана Benjamin MD 230 [place], [place] [phone] Med Refill Social History Tobacco Use Types [...] : Lidocaine Patches To be sent to: [facility] documented in this encounter Plan of Treatment Upcoming Encounters Date Type Department Care Team (Late st Contact Info) Description 08/27/2025 1:30 PM EST Office Visit [facility] MEDICINE [address] [place] [address] Светлана Benjamin MD [address] [place] [address] 12/09/2025 1:00 PM EDT Office Visit [facility] OPTOMETRY [address] [place] [address] Keysha Clements OD 230 [place] [address] documented as of this encounter Visit Diagnoses Not on filedocumented in this encounter Care Teams Custodial Engineer Relationship Specialty Start Date End Date Светлана Benjamin MD 230 [place] [address] PCP - General Family Medicine 02/27/21 documented as of this encounter
--- OUTSIDE RECORDS SUMMARY | 2025-06-16 09:25 | XMS_ITS | Encounter Summary ---
Author Organization [employer] Address [address] [place] [address] Care Team Providers Care Nuclear Weapons Mechanical Specialist Name Role Phone Светлана Benjamin MD Primary Care Provider [phone] Encounter Details Date Type Department Care Team (Late st Contact Info) Description 03/03/2025 Orders Only [facility] MEDICINE 230 [place], [place] [phone] North Manzanares, PharmD 230 [place], [place] [phone] Social History Tobacco Use Types Packs/Day Years [...] t he electric, gas, oil or water [email or web address] threatened to shut off services in your [...] Description 08/27/2025 1:30 PM EST Office Visit [facility] MEDICINE [address] [place] [address] Светлана Benjamin MD [address] [place] [address] 12/09/2025 1:00 PM EDT Office Visit [facility] OPTOMETRY [address] [place] [address] Tyree, Keysha, OD 230 [place] [address] documented as of this encounter Visit Diagnoses Not on filedocumented in this encounter Additional Health Concerns Assessment Noted Time PHQ-9 Depression Total Score: 9 01/16/20 25 1:03 PM EDT documented as of this encounter Care Teams Nuclear Weapons Mechanical Specialist Relationship Specialty Start Date End Date Светлана Benjamin MD [address] [place] [address] [phone] PCP - General Family Medicine 02/27/21 documented as of this encounter
--- OUTSIDE RECORDS SUMMARY | 2025-06-16 09:25 | XMS_ITS | Clinical Summary ---
Author Organization [employer] Address [address] [facility] 7t [place] [address] Care Team Providers Care Branch Operations Coordinator Name Role Phone Светлана Benjamin MD Primary Care Provider [phone] Allergies Active Allergy Reactions Criticality Noted Date Comments Ulises Inhibitors Cough 03/25/2017 Cephalexin 04/20/2016 Shellfish Allergy 12/14/2022 Medications amitriptyline (Elavil) 100 MG tablet Take 1 tablet by oral route every day at bedtime 06/14/20 22 Active QUEtiapine (SEROquel) 100 MG tablet Take 1 tablet by oral route at bedtime 06/29/20 22 Active gabapentin (Neurontin) 400 MG capsule 11/23/19 23 Active lidocaine (Lidoderm) 5 % patchIndications:T rochanteric bursitis of left hip,Left hip pain Apply 1 patch topically in the morning. Remove & discard patch within 12 hours or as directed by MD. 30 patch 11 09/15/19 24 Active Diclofenac Sodium 1 % gel Apply 2 g topically if needed in the morning and at bedtime (pain L shoulder). Apply 2 gram by topical route 3 times every day to the affected area(s) 100 g 3 11/29/19 24 Active insulin pen needle (B-D ULTRAFINE III SHORT PEN) 31G X 8 mm miscIndications:Di abetes mellitus type 2 in nonobese (HCC) USE WITH INSULIN DAILY 100 each 11 01/30/20 24 Active clonazePAM (KlonoPIN) 1 MG tablet Take 1 tablet (1 mg) by mouth 2 times daily for 5 days. Take 1 tablet by oral route three times a day 10 tablet 03/27/20 24 Active SITagliptin (Januvia) 100 MG tablet TAKE 1 TABLET BY MOUTH DAILY 90 tablet 3 08/19/19 25 Active atorvastatin (Lipitor) 20 MG tabletIndications: Diabetes mellitus type 2 in nonobese (HCC) Take 1 tablet (20 mg) by mouth Once per day. Take 1 tablet by oral route every day 90 tablet 3 08/19/19 25 026 Active Blood Glucose Monitoring Suppl (FreeStyle Lite) device Inject 1 each under the skin 2 times daily. Use to test blood sugar as directed 1 each 08/26/19 25 Active glucose blood (FREESTYLE LITE) test strip Check Blood sugar by fingerstick route three times every day 100 each 10/22/19 25 Active losartan (Cozaar) 50 MG tablet TAKE 1 TABLET BY MOUTH DAILY 90 tablet 3 11/14/19 25 Active ibuprofen 600 MG tablet 11/25/19 25 Active nicotine (Nicoderm, Step 1) 21 MG/24HR patch Apply 1 patch topically. 11/15/19 25 Active nicotine polacrilex (Commit) 2 MG lozenge DISSOLVE 1 LOZENGE BY MOUTH EVERY 2 HOURS. DON''T CHEW OR SWALLOW WHOLE. TAKE DIRECTED ON PACKAGE. TALK TO YOUR DOCTOR ABOUT QUITTING SMOKING 11/15/19 25 Active omeprazole (PriLOSEC) [address] capsule Take 1 capsule (20 mg) by mouth before breakfast. Take 1 capsule by oral route every day before a meal as needed for gastritis 90 capsule 12/10/19 25 Active Multiple Vitamins-Minerals (PreserVision AREDS) capsuleIndications :Intermediate stage nonexudative age-related macular degeneration of both eyes Take 1 capsule by mouth with breakfast and with evening meal. 60 capsule 12/17/19 25 Active Alcohol Swabs (B-D SINGLE USE SWABS REGULAR) pads Place 1 each on the skin 3 times daily. Use twice daily as indicated 100 each 01/15/20 25 Active aspirin 81 MG chewable tablet CHEW 1 TABLET BY MOUTH EVERY MORNING 90 tablet 3 01/16/20 25 Active albuterol (2.5 MG/3ML) 0.083% nebulizer solution Take 3 mL by nebulization every 8 (eight) hours if needed for wheezing. 150 mL 6 02/03/20 25 Active FreeStyle lancets USE ONE LANCET TO TEST BLOOD SUGAR THREE TIMES A DAY 100 each 03/03/20 25 Active lidocaine (Lidoderm) 5 % patchIndications:A cute left-sided low back pain with right-sided sciatica,Pain of left hip Apply 1 patch topically Once per day. Remove & discard patch within 12 hours or as directed by MD. 30 patch 1 03/05/20 Active Lantus SoloStar 100 UNIT/ML pen INJECT 30 UNITS SUBCUTANEOUSLY AT BEDTIME 15 mL 3 04/13/20 Active metFORMIN (Glucophage) 1000 MG tablet TAKE 1 TABLET BY MOUTH TWICE A DAY WITH MORNING AND EVENING MEALS 60 tablet 3 05/07/20 Active amLODIPine (Norvasc) 5 MG tablet TAKE 1 TABLET BY MOUTH DAILY 30 tablet 3 05/07/20 25 Active levothyroxine (Synthroid, Levoxyl) 75 MCG tabletIndications: Acquired hypothyroidism Take 1 tablet (75 mcg) by mouth before breakfast. Take 1 tablet by oral route every day 90 tablet 3 05/07/20 Active Active Problems Problem Noted Date Diagnosed Date [...] disorder, currently manic, severe, with psychotic features ([facility]) 01/15/2025 Oral thrush 11/16/2024 Assessment & Plan [...] cough Advised to make an appointment with [facility] pulmonology, she may need long-term oxygen. Advised to quit smoking and using any other recreational substances Kidney lesion, [place], left 11/16/2024 Overview (11/16/2024): CT scan chest on 11/10/2024 at [facility] showed indeterminate wedge- shaped hypodensity in the mid to lower pole the left kidney, differential includes focal pyelonephritis or infarct. Assessment & Plan (11/16/2024 2:48 PM EDT): Wedge shaped density of the left kidney seen on CT scan chest (11/10/2024 at [facility], incidental finding). Obtain discharge summary and see if it needs additional follow-up Patient is doing very well and last GFR on admission was within normal limits History of syphilis 01/10/2024 Overview (01/10/2024): [place] [facility] [place] 2018 RPR + [...] (12/14/2022 2:14 PM EDT): Replacement 08/07/22 at [facility] Brief rehab stay Did PT September and October 2022 Pain is better than before surgery Assessment & Plan (09/26/2022 12:09 PM EDT): Replacement 08/07/22 at [facility] Brief rehab stay Post-op course has been complicated by pain in left shoulder, not starting PT, unclear whether she is wearing supportive arm sling device xrays taken at ortho clinic 09/13/22 reportedly show good placement of L shoulder prosthesis Will attempt to reconnect pt to [facility] services followup with Dr Cooper at end [...] her Klonopin, Seroquel, and opioid pain medications [facility] oncall provider, Angelita, came to evaluate patient and recommended [facility] for stabilization and safety Pt became upset at this plan and walked out of the exam room, and out of clinic Myself and my MA were able to go with her and have her agree to VNA services, which I ordered for medication management CRISIS is aware of patient and [facility] therapist will contact daughter tomorrow Patient [...] Encounters Date Type Department Care Team Description 05/18/2025 Telephone [facility] MEDICINE [address] [place] [address] Светлана Benjamin MD Nurse Triage 05/06/2025 Refill [facility] PEDS [address] [place] [address] Светлана Benjamin MD Acquired hypothyroidism 05/05/2025 Telephone [facility] MEDICINE [address] [place], [place] [phone] Светлана Benjamin MD Telephone Call 04/12/2025 Refill [facility] [address] [place] [address] Светлана Benjamin MD 04/05/2025 Results Follow-Up [facility] MEDICINE [address] [place] [address] Jyothi Preciado MD MR Lumbar Spine w/o Contrast from Last 3 Months Immunizations Immunization Administration [...] Description 08/27/2025 1:30 PM EST Office Visit [facility] MEDICINE [address] [place] [address] Светлана Benjamin MD [address] [place], [place] [phone] 12/09/2025 1:00 PM EDT Office Visit [facility] OPTOMETRY [address] [place], [place] [phone] Keysha Clements, OD [address] [place], [place] [phone] Health Maintenance Due Date Last Done Comments CT Colonography 1956 Dental Prophylaxis 1956 Dental X-Ray: Bitewings 1956 FIT DNA/Cologuard 1956 FIT 1956 FOBT 1956 Sigmoidoscopy 1956 Diabetes: Foot Exam 1966 RSV Patients and Patients Aged 60 years or older (1 - Risk 50-74 years 1-dose series) 2006 Zoster Vaccines (3 of 3) 12/17/2019 10/22/2019, [...] 07/18/2025 01/15/2025, 025 Eye Exam 12/04/2025 12/04/2024, 11/2024, 12/04/2024, Additional history exists Alcohol/Substance Use [...] on patient's age to complete this topic Goals Goal Patient Goal Type Associated Problems Recent Progress Patient-Stated? Author Help patients manage their type 2 diabetes Care Plan Help patients manage their type 2 diabetes No Jairon Gray Weekly blood pressure task Care Plan Weekly blood pressure task No Jairon Gray Help patients manage their type 2 diabetes Care Plan Help patients manage their type 2 diabetes No Jairon Gray Patient has chronic kidney disease Care Plan Patient has chronic kidney disease No Jairon Gray Help patients manage their type 2 diabetes Care Plan Help patients manage their type 2 diabetes No Jairon Gray Patient has diabetic neuropathy Care Plan Patient has diabetic neuropathy No Jairon Gray Weekly blood pressure task Care Plan Weekly blood pressure task No aJiron Gray Weekly blood pressure task Care Plan Weekly blood pressure task No Jairon Gray Patient has chronic kidney disease Care Plan Patient has chronic kidney disease No Jairon Gray Patient has chronic kidney disease Care Plan Patient has chronic kidney disease No Jairon Gray Patient has diabetic neuropathy Care Plan Patient has diabetic neuropathy No Jairon Gray Patient has diabetic neuropathy Care Plan Patient has diabetic neuropathy No Jairon Gray Procedures Procedure Name Priority Date/Time Associated Diagnosis [...] Media Lot # [id number] Lot# Expiration Date [id number] Blood 03/05/2025 1:30 PM EDT us Jyothi Hernandez MD POINT OF CARE TEST EN TER/EDIT ORDERABLES Final Result * (ABNORMAL) Lipid Panel, Standard (01/15/2025 10:59 AM EDT) Triglycerides 170(H) <150 mg/dL [facility] Comment:Desirable Triglyceri de: less than 150 mg/dLBorderline High Triglyceride 150-199 mg/dLHigh Triglyceride: 200-499 mg/dLVery High Triglyceride: greater than or equal to 5OO mg/dL Cholesterol 117 <200 mg/dL [facility] Comment:Desirable Cholestero l: less than 200 mg/dLBorderline High Cholesterol: 200-239 mg/dLHigh Cholesterol: greater than 239 mg/dL LDL Cholesterol Calculated 50 <100 mg/dL [facility] Comment:Desirable LDL: less than 100 mg/dLNear [...] MD LAB BLOOD ORDERABLES Final Res ult [facility] [address] [place] [phone] * Albumin, Random Urine W/Creatinine (01/06/2024 2:10 PM EDT) Creatinine, Urine 47.40 mg/dL [facility] Microalbumin Urine <5.0 mg/L [facility] Microalbum Creatinine Ratio Ur TNP <30 ug/mg cr [facility] Comment:Unable to calculate albumin/creatinine ratio due to lowmicroalbumin or creatinine result. Urine (Urine, Random) 01/06/2024 2:10 PM EDT 01/06/2024 3:53 PM EDT Светлана Benjamin MD LAB URINE ORDERABLES Final Res ult Performing Organization Address City/[facility] Co de Phone Number [facility] [address] [place] [phone] * Hepatitis C Antibody with Reflex to HCV, RNA, Quantitative, Real-Time PCR (01/06/2024 2:10 PM EDT) Hepatitis C Antibody Nonreactive Nonreactive [facility] Comment:Antibodies to HCV no t detected; does not exclude early acuteHCV infection. Blood Venous blood specimen / Unknown 01/06/2024 2:10 PM EDT 01/06/2024 3:51 PM EDT Светлана Benjamin MD LAB BLOOD ORDERABLES Final Res ult Performing Organization Address [facility] de Phone Number [facility] [address] [place] [phone] * 3D BILATERAL DIAGN MAMMO 1 [...] 02/26/2020 Recommended 10 year follow up ( [facility] ) us Historical Provider HEALTH MAINTENANCE Edited Result - Final from Last 3 Months or Most Recently Relevant to Health Maintenance Additional Health Concerns Active Problems Noted Date Diagnosed Date Help patients manage their type 2 diabetes 05/18 Weekly blood pressure task 05/18/2025 Help patients manage their type 2 diabetes 05/18 Patient has chronic kidney disease 05/18/2025 Help patients manage their type 2 diabetes 05/18 Patient has diabetic neuropathy 05/18/2025 Weekly blood pressure task 05/18/2025 Weekly blood pressure task 05/18/2025 Patient has chronic kidney disease 05/18/2025 Patient has chronic kidney disease 05/18/2025 Patient has diabetic neuropathy 05/18/2025 Patient has diabetic neuropathy 05/18/2025 Insurance [facility] (O D-SNP) GEN [place] [id number] DENTAL [facility] Care Teams Branch Operations Coordinator Relationship Specialty Start Date End Date Светлана Benjamin MD [address] [place] [phone] PCP - General Family Medicine 02/27/21
--- OUTSIDE RECORDS SUMMARY | 2025-06-16 09:25 | XMS_ITS | Encounter Summary ---
Author Organization [employer] Address [address] [facility] 7t [place] [address] Care Team Providers Care Natural Foods Clerk Name Role Phone Светлана Benjamin MD Primary Care Provider [phone] Reason for Visit * Reason Onset Date Comments Durable Medical Equipment 08/28/2022 Encounter Details Date Type Department Care Team ([facility] st Contact Info) Description 08/28/2022 Telephone [facility] MEDICINE [address] [place], [place] [phone] Светлана Benjamin MD [address] [place], [place] [phone] Durable Medical Equipment Social History Tobacco Use [...] 3 a night [facility] fax # [phone] documented in this encounter Plan of Treatment Upcoming Encounters Date Type Department Care Team (Late st Contact Info) Description 08/27/2025 1:30 PM EST Office Visit [facility] MEDICINE [address] [place] [address] Светлана Benjamin MD [address] [place] [address] 12/09/2025 1:00 PM EDT Office Visit [facility] OPTOMETRY [address] [place] [address] Tyree, Keysha, OD [address] [place] [address] documented as of this encounter Visit Diagnoses Not on filedocumented in this encounter Care Teams Natural Foods Clerk Relationship Specialty Start Date End Date Светлана Benjamin MD [address] [place] [address] PCP - General Family Medicine 02/27/21 documented as of this encounter
--- OUTSIDE RECORDS SUMMARY | 2025-06-16 09:25 | XMS_ITS | Encounter Summary ---
Author Organization [employer] Address [address] [facility] [address] [place] [address] Care Team Providers Care Automatic Die Cutting Machine Operator Name Role Phone Светлана Benjamin MD Primary Care Provider [phone] Reason for Visit * Reason Onset Date Comments Nurse Triage 11/16/2024 Encounter Details Date Type Department Care Team ([facility] st Contact Info) Description 11/16/2024 Telephone [facility] MEDICINE [address] [place], [place] [phone] Светлана Benjamin MD [address] [place], [place] [phone] Nurse Triage Social History Tobacco Use Types [...] agrees. ASK apt with Dr. Marie today @ 215pm to address mouth sores. Pt agrees with [...] 1:30 PM EST Office Visit [facility] MEDICINE [address] [place] [address] Светлана Benjamin MD [address] [place] [address] 12/09/2025 1:00 PM EDT Office Visit [facility] OPTOMETRY [address] [place], [place] [phone] Keysha Clements, OD [address] [place] [address] documented as of this encounter Visit Diagnoses Not on filedocumented in this encounter Care Teams Automatic Die Cutting Machine Operator Relationship Specialty Start Date End Date Светлана Benjamin MD [address] [place], [place] [phone] PCP - General Family Medicine 02/27/21 documented as of this encounter
--- OUTSIDE RECORDS SUMMARY | 2025-06-16 09:25 | XMS_ITS | Encounter Summary ---
Author Organization [employer] Address [address] [facility] [address]t [place] [address] Care Team Providers Care Label Fuser Tender Name Role Phone Светлана Benjamin MD Primary Care Provider [phone] Reason for Referral * Medications - Closed Specialty Diagnoses / Procedures Referred By David cruz Referred To Contact Diagnoses Trochanteric bursitis of left hip Left hip pain Светлана Benjamin MD [address] [place] [address] Phone: tel: fax: Referral ID Status Reason Start Date Expiration Date Visits Re quested Visits Authorized [id number] Closed 1 1 Encounter Details Date Type Department Care Team (Late st Contact Info) Description 09/15/2023 Orders Only [facility] MEDICINE [address] [place], [place] [phone] Светлана Benjamin MD [address] [place], [place] [phone] Trochanteric bursitis of left hip (Primary Dx); [...] Description 08/27/2025 1:30 PM EST Office Visit [facility] MEDICINE [address] [place] [address] Светлана Benjamin MD [address] [place] [address] 12/09/2025 1:00 PM EDT Office Visit [facility] OPTOMETRY [address] [place] [address] Tyree, Keysha, OD [address] [place] [address] documented as of this encounter Visit Diagnoses Diagnosis Trochanteric bursitis of left hip- Primary Left hip pain Pain in joint, pelvic region and thigh documented in this encounter Care Teams Label Fuser Tender Relationship Specialty Start Date End Date Светлана Benjamin MD [address] [place] [address] PCP - General Family Medicine 02/27/21 documented as of this encounter
--- OUTSIDE RECORDS SUMMARY | 2025-06-16 09:25 | XMS_ITS | Encounter Summary ---
Author Organization [employer] Address [address] [facility] [address] [place] [address] Care Team Providers Care Content Development Specialist Name Role Phone Светлана Benjamin MD Primary Care Provider [phone] Encounter Details Date Type Department Care Team (Late st Contact Info) Description 02/18/2025 Telephone [facility] MEDICINE [address] [place], [place] [phone] Светлана Benjamin MD [address] [place], [place] [phone] Social History Tobacco Use Types Packs/Day Years [...] 1:30 PM EST Office Visit [facility] MEDICINE [address] [place] [address] Светлана Benjamin MD [address] [place] [address] 12/09/2025 1:00 PM EDT Office Visit [facility] OPTOMETRY [address] [place] [address] Tyree, Keysha, OD [address] [place] [address] documented as of this encounter Visit Diagnoses Not on filedocumented in this encounter Additional Health Concerns Assessment Noted Time PHQ-9 Depression Total Score: 9 01/16/20 25 1:03 PM EDT documented as of this encounter Care Teams Content Development Specialist Relationship Specialty Start Date End Date Светлана Benjamin MD [address] [place] [address] PCP - General Family Medicine 02/27/21 documented as of this encounter
--- OUTSIDE RECORDS SUMMARY | 2025-06-16 09:25 | XMS_ITS | Encounter Summary ---
Author Organization [employer] Address [address] [facility] [address] [place] [address] Care Team Providers Care Senior Partner Name Role Phone Светлана Benjamin MD Primary Care Provider [phone] Encounter Details Date Type Department Care Team (Late st Contact Info) Description 01/10/2024 Orders Only [facility] MEDICINE [address] [place], [place] [phone] Светлана Benjamin MD [address] [place], [place] [phone] History of syphilis (Primary Dx) Social History [...] Description 08/27/2025 1:30 PM EST Office Visit [facility] MEDICINE [address] [place] [address] Светлана Benjamin MD [address] [place] [address] 12/09/2025 1:00 PM EDT Office Visit [facility] OPTOMETRY [address] [place] [address] Tyree, Keysha, OD [address] [place] [address] documented as of this encounter Visit Diagnoses Diagnosis History of syphilis- Primary documented in this encounter Care Teams Senior Partner Relationship Specialty Start Date End Date Светлана Benjamin MD [address] [place] [address] PCP - General Family Medicine 02/27/21 documented as of this encounter
--- OUTSIDE RECORDS SUMMARY | 2025-06-16 09:25 | XMS_ITS | Continuity of Care Document ---
Author Name [employer] Medical Address [address] [place] [address] Organization Unknown Address [address] [place] [address] Medications No known medications Problems No known problems
--- OUTSIDE RECORDS SUMMARY | 2025-06-16 09:25 | XMS_ITS | Encounter Summary ---
Author Organization [employer] Address [address] [facility] [address] [place] [address] Care Team Providers Care Open Cut Examiner Name Role Phone Светлана Benjamin MD Primary Care Provider [phone] Encounter Details Date Type Department Care Team (Late st Contact Info) Description 07/19/2023 Orders Only [facility] MEDICINE [address] [place], [place] [phone] Светлана Benjamin MD [address] [place], [place] [phone] Functional urinary incontinence (Primary Dx) Social History [...] Description 08/27/2025 1:30 PM EST Office Visit [facility] MEDICINE [address] [place] [address] Светлана Benjamin MD [address] [place] [address] 12/09/2025 1:00 PM EDT Office Visit [facility] OPTOMETRY [address] [place] [address] Keysha Clements, OD [address] [place] [address] documented as of this encounter Visit Diagnoses Diagnosis Functional urinary incontinence- Primary documented in this encounter Care Teams Open Cut Examiner Relationship Specialty Start Date End Date Светлана Benjamin MD [address] [place] [address] PCP - General Family Medicine 02/27/21 documented as of this encounter
--- OUTSIDE RECORDS SUMMARY | 2025-06-16 09:25 | XMS_ITS | Encounter Summary ---
Author Organization [employer] Address [address] [facility] [address] [facility] [address] [place] [address] Care Team Providers Care Occupational Medicine Officer Name Role Phone Светлана Benjamin MD Primary Care Provider [phone] Reason for Visit * Reason Onset Date Comments triage 08/31/2022 Encounter Details Date Type Department Care Team ([facility] st Contact Info) Description 08/31/2022 Telephone [facility] MEDICINE [address] [place], [place] [phone] Светлана Benjamin MD [address] [place], [place] [phone] triage Social History Tobacco Use Types Packs/Day [...] now The caller accepted this outcome speaks english documented in this encounter Plan of Treatment Upcoming Encounters Date Type Department Care Team (Late st Contact Info) Description 08/27/2025 1:30 PM EST Office Visit [facility] MEDICINE [address] [place] [address] Светлана Benjamin MD [address] [place] [address] 12/09/2025 1:00 PM EDT Office Visit [facility] OPTOMETRY [address] [place] [address] Keysha Clements, OD [address] [place] [address] documented as of this encounter Visit Diagnoses Not on filedocumented in this encounter Care Teams Occupational Medicine Officer Relationship Specialty Start Date End Date Светлана Benjamin MD [address] [place] [address] PCP - General Family Medicine 02/27/21 documented as of this encounter
--- OUTSIDE RECORDS SUMMARY | 2025-06-16 09:26 | XMS_ITS | Encounter Summary ---
Author Organization [facility] Address [address] [place] [address] Care Team Providers Care Oil Spot Washer Name Role Phone Unavailable Primary Care Provider Unavailabl e Encounter Details Date Type Department Care Team ( Contact Info) Description 02/12/2025 Lab Requisition [facility] [address] [facility] [place] [address] Timothy Henry, NGA [address] [place] [address] Social History Tobacco Use Types [...]
--- OUTSIDE RECORDS SUMMARY | 2025-06-16 09:26 | XMS_ITS | Encounter Summary ---
Author Organization [employer] Address [address] [facility] 7t [place] [address] Care Team Providers Care Retail Sales Teammate Name Role Phone Светлана Benjamin MD Primary Care Provider [phone] Reason for Visit * Reason Onset Date Comments other 01/09/2023 Encounter Details Date Type Department Care Team ([facility] st Contact Info) Description 01/09/2023 Telephone [facility] MEDICINE [address] [place], [place] [phone] Светлана Benjamin MD [address] [place], [place] [phone] other Social History Tobacco Use Types Packs/Day [...] for VNA services. Please contact tressa at [phone] Fax number: [phone] documented in this encounter Plan of Treatment Upcoming Encounters Date Type Department Care Team (Late st Contact Info) Description 08/27/2025 1:30 PM EST Office Visit [facility] MEDICINE [address] [place] [address] Светлана Benjamin MD [address] [place] [address] 12/09/2025 1:00 PM EDT Office Visit [facility] OPTOMETRY [address] [place] [address] Keysha Clements, OD 230 [place] [address] documented as of this encounter Visit Diagnoses Not on filedocumented in this encounter Care Teams Retail Sales Teammate Relationship Specialty Start Date End Date Светлана Benjamin MD [address] [place] [address] PCP - General Family Medicine 02/27/21 documented as of this encounter
--- OUTSIDE RECORDS SUMMARY | 2025-06-16 09:26 | XMS_ITS | Encounter Summary ---
Author Organization [employer] [facility] Address [address] [facility] 7t [place] [address] Care Team Providers Care Alpine Patroller Name Role Phone Светлана Benjamin MD Primary Care Provider Encounter Details Date Type Department Care Team (Late Contact Info) Description 02/27/[address] [facility] MEDICINE [address] [place] [phone] Светлана Benjamin MD 230 [place], [place] [phone] Social History Tobacco Use Types Packs/Day Years [...] Department Care Team (Late Contact Info) Description 08/27/2025 1:30 PM EST Office Visit [facility] MEDICINE [address] [place], [place] [phone] Светлана Benjamin MD [address] [place], [place] [phone] 12/09/2025 1:00 PM EDT Office Visit [facility] OPTOMETRY [address] [place] [address] [phone] Keysha Clements, OD [address] [place] [address] documented as of this encounter Procedures Procedure Name Priority Date/Time Associated Diagnosis Comments COLONOSCOPY Routine 02/26/2020 documented in this encounter Results * Hm Colonoscopy (02/26/2020) Colonoscopy Normal Normal Narrative Tammy Stroud - 02/26/2020 Recommended 10 year follow up ( [facility] ) us Historical Provider Pocket Change MAINTENANCE Edited Result - Final documented in this encounter Visit Diagnoses Not on filedocumented in this encounter Care Teams Alpine Patroller Relationship Specialty Start Date End Date Светлана Benjamin MD [address] [place] [address] PCP - General Family Medicine 02/27/21 documented as of this encounter
--- OUTSIDE RECORDS SUMMARY | 2025-06-16 09:26 | XMS_ITS | Encounter Summary ---
Author Organization [employer] [facility] Address [address] [facility] 7t [place] [address] Care Team Providers Care Health Teacher Name Role Phone Светлана Benjamin MD Primary Care Provider [phone] Reason for Referral * Consultation (Routine) - Closed Specialty Diagnoses / Procedures Referred By David cruz Referred To Contact Physical Therapy Diagnoses Left hip pain Светлана Benjamin MD [address] [place] [address] Phone: tel: fax: [facility] [address] [place], [place] Phone: tel: fax: Referral ID Status Reason Start Date Expiration Date V isits Requested Visits Authorized [id number] Closed Specialty Services Required 03/16/2025 03/16/2026 1 1 * Consultation (Routine) - Closed Specialty Diagnoses / Procedures Referred By David cruz Referred To Contact Pain Medicine Diagnoses Left hip pain Светлана Benjamin MD [address] [place] [address] Phone: tel: fax: [facility] [address] [place], [place] Phone: tel: fax: Referral ID Status Reason Start Date Expiration Date V isits Requested Visits Authorized [id number] Closed Specialty Services Required 03/16/2025 03/16/2026 1 1 Encounter Details Date Type Department Care Team (Late st Contact Info) Description 03/16/2025 Orders Only [facility] MEDICINE [address] [facility] [place] [address] Светлана Benjamin MD [address] [facility] [place] [address] Left hip pain (Primary Dx); Acute left-sided [...] Description 08/27/2025 1:30 PM EST Office Visit [facility] MEDICINE 230 [place] [address] Светлана Benjamin MD [address] [place] [address] 12/09/2025 1:00 PM EDT Office Visit [facility] OPTOMETRY [address] [place] [address] Tyree, Keysha, OD 230 [place] [address] Scheduled Referrals Name Type Priority Associated Diagnoses [...] documented as of this encounter Care Teams Health Teacher Relationship Specialty Start Date End Date Светлана Benjamin MD [address] [place], [place] [phone] PCP - General Family Medicine 02/27/21 documented as of this encounter
--- OUTSIDE RECORDS SUMMARY | 2025-06-16 09:26 | XMS_ITS | Encounter Summary ---
Author Organization [employer] Address [address] [facility] 7t [place] [address] Care Team Providers Care Internal Controls Manager Name Role Phone Светлана Benjamin MD Primary Care Provider [phone] Reason for Visit * Reason Onset Date Comments Durable Medical Equipment 05/01/2023 Nebuli zer Encounter Details Date Type Department Care Team ([facility] Contact Info) Description 05/01/2023 Telephone [facility] MEDICINE [address] [place], [place] [phone] Светлана Benjamin MD [address] [place], [place] [phone] Durable Medical Equipment (Nebulizer) Social History Tobacco [...] To be fax L&[employer] and also [facility] [phone] documented in this encounter Plan of Treatment Upcoming Encounters Date Type Department Care Team (Late st Contact Info) Description 08/27/2025 1:30 PM EST Office Visit [facility] MEDICINE [address] [place] [address] Светлана Benjamin MD [address] [place] [address] 12/09/2025 1:00 PM EDT Office Visit [facility] OPTOMETRY [address] [place] [address] Keysha Clements OD 230 [place] [address] documented as of this encounter Visit Diagnoses Not on filedocumented in this encounter Care Teams Internal Controls Manager Relationship Specialty Start Date End Date Светлана Benjamin MD [address] [place] [address] PCP - General Family Medicine 02/27/21 documented as of this encounter
--- OUTSIDE RECORDS SUMMARY | 2025-06-16 09:26 | XMS_ITS | Clinical Summary ---
Author Organization [address] Address [address] [place] [address] Phone Care Team Providers Care Mason Foreman/Superintendant Name Role Phone Unavailable Primary Care Provider Unavailabl e Social History Tobacco Use Types Packs/Day Years [...] Depression Screening 07/01/2024 COVID-19 Vaccine (2 - season) 2025 07/13/2022 Influenza Vaccine (#1) 2025 , 05/20/2023, 04/20/2022, Additional history exists DTaP,Tdap,and Td [...]
--- OUTSIDE RECORDS SUMMARY | 2025-06-16 09:26 | XMS_ITS | Encounter Summary ---
Author Organization [facility] Address [address] [facility] [address] [place] [address] Encounters * CPT with Medical instED at [employer] on 2025-06-01 { reasonForRequest : Patient went to urinate, and only 2 drops came out and it lucas. , patientReports : , denies :[ Unable to void greater than 5 hours , Erection that will not go away after 2 hours , Fall or trauma that r esults in urinary incontinence in the setting of pain , Fall or injury that results in incontinence in the absence of pain , Lower back pain either unilateral or bilateral, unableto void, painful urination - hematuria ], chiefComplaints : Back Pain, Urinary Symptoms , pmh : COPD/Asthma, Hypertension, Severe Persistent Mental Illness (SPMI), Rheumatoid Arthritis, Diabetes Mellitus Type 2, Depression, Post-Traumatic Stress Disorder (PTSD), Anxiety Disorder, Bipolar Disorder, Osteoarthritis , allergies : Cephalexin&qu ot;, otherAllergies :null, painAssessment : , visitOutcome : , additionalComments : 70 y.o female complains of Back Pain, Urinary Sym ptoms\n\nReferral taken via [employer]\nPatient calling in to report urinary symptoms since this morning\nPatient reports urgency, frequency, dysuria, retention and feels like her bladder isfull despite urinating\nShe denies malodor, no discoloration or hematuria\nNo fever, +chills\nNo nausea or vomiting\nNo abdominal or pelvic pain\n\nPatient also reports being in pain, ?sciatic pain, for 3 months and no one is helping her\nShe has lost weight as she has no appetite due to all the pain she is in\nShe had an MRI and no one has gone over the results with her\nShe is stiff, and has had falls\nShe fell 2 days ago and did not seek ED, as the do \ nothing\ for her\nSHe reports her leg locked and she fell on her left side\nShe denies head strike, no LOC and does not take any blood thinners, she was taking a baby ASA but stopped taking it\nShe does have bruising and swelling post fall\n\nPatient very frustrated and emotional\n\nShe would like to be evaluated\n\nI provided information on the mobile health provider response time and advised the patient and/or caregiver to monitor reported signs and symptoms. I discussed the warning signs of when to seek emergency care."} Dispatch the home of a 70-year-old female patient who is having burning while urinating. Patient puts the pain out of 10 out of 10 when urinating and is having trouble completely emptying her bladder. This has been going on for about a full day now and that is when she decided to call [facility]. Patient is alert and oriented times four, with no noticeable Neuro deficits equal photo printer strength, symmetrical facial features, and no slurring when speaking. Patient has a strong and regular pulse rate, no edema in the lower legs and good blood pressure. Patient is breathing well on air and her lungs are clear bilaterally. Patient is able to eat, though her appetite spend less due to pain in her sciatic nerve, but agrees to continue drinking lots of water. Patient skin is warm and dry. She does have a low-grade fever at 99.1. At this visit, patient was assessed and had her vitals taken. Patient had a urine dipstick analysis, whose results were [place] to the [facility]. On getting those results doctor believes the patient has a urinary tract infection and sending antibiotics to this patient???s pharmacy. Patient was warned of signs and symptoms and when to call 911. should they get worse. IV_(FLUIDS_AND/OR_MEDICATION), MEDICATION_IM, ORAL_MEDICATION, EKG, POC_BLOODWORK, GLUCOSE Written by [facility] on 2025-06-01
--- OUTSIDE RECORDS SUMMARY | 2025-06-16 09:26 | XMS_ITS | Encounter Summary ---
Author Organization [facility] Address [address] [facility] 7t [place] [address] Care Team Providers Care Interactive Video Technician Name Role Phone Светлана Bnejamin MD Primary Care Provider Encounter Details Date Type Department Care Team (Late st Contact Info) Description 01/23/2023 Orders Only [facility] MEDICINE [address] [place], [place] [phone] Светлана Benjamin MD 230 [place], [place] [phone] Left hip pain (Primary Dx) Social History [...] Description 08/27/2025 1:30 PM EST Office Visit [facility] MEDICINE [address] [place], [place] [phone] Светлана Benjamin MD [address] [place], [place] [phone] 12/09/2025 1:00 PM EDT Office Visit [facility] OPTOMETRY [address] [place] [address] [phone] Tyree, Megan, OD 230 [place], [place] [phone] documented as of this encounter Visit Diagnoses Diagnosis Left hip pain- Primary Pain in joint, pelvic region and thigh documented in this encounter Care Teams Interactive Video Technician Relationship Specialty Start Date End Date Светлана Benjamin MD [address] [place] [address] PCP - General Family Medicine 02/27/21 documented as of this encounter
--- OUTSIDE RECORDS SUMMARY | 2025-06-16 09:26 | XMS_ITS | Encounter Summary ---
Author Organization [employer] Address [address] [facility] 7t [place] [address] Care Team Providers Care Orthopedics Teacher Name Role Phone Светлана Benjamin MD Primary Care Provider Reason for Visit * Reason Onset Date Comments Nurse Triage 02/14/2023 Encounter Details Date Type Department Care Team (Late st Contact Info) Description 02/14/2023 Telephone [facility] MEDICINE 230 [place], [place] [phone] Светлана Benjamin MD [address] [place], [place] [phone] Nurse Triage Social History Tobacco Use Types [...] - 02/14/2023 1:10 PM EDT Call to lynne Vaughan seen at [facility] ED On 02/12 following fall. Per pt was wearing a sandal and tripped and fell. Per pt landed on left side hip. No head injury or LOC. Pt then called EMS.Per pt had x-ray done and referred to [facility] Ortho. Pt has appt on 03/20/23. Pt given a few tramadol but advsied to shaquille PCP by ortho for pain management until seen. Pt agrees to visit tomorrow with Blue team provider. Pt advised to take OTC Tyelnol, apply ice and rest. TO return call if pain is sever or return to ER. Sent to team to obtain [facility] discharge summary for provider review. Future Appointments Date Time Provider Department Center 02/15/2023 2:45 PM Cristal Collins CNP MEDICINE [facility] 03/18/2023 2:15 PM Светлана Benjamin MD [facility] Protocol Used: Hip Injury (Adult) [...] started after the fall. Was seen at [facility] on 02/12 for a fall and still having symptoms. The caller accepted this outcome Please contact pt at [phone] (Grenadian) documented in this encounter Plan of Treatment Upcoming Encounters Date Type Department Care Team (Late st Contact Info) Description 08/27/2025 1:30 PM EST Office Visit [facility] MEDICINE [address] [place] [address] Светлана Benjamin MD [address] [place] [address] 12/09/2025 1:00 PM EDT Office Visit [facility] OPTOMETRY [address] [place] [address] Keysha Clements, OD [address] [place] [address] documented as of this encounter Visit Diagnoses Not on filedocumented in this encounter Care Teams Orthopedics Teacher Relationship Specialty Start Date End Date Светлана Bejnamin MD [address] [place] [address] PCP - General Family Medicine 02/27/21 documented as of this encounter
--- OUTSIDE RECORDS SUMMARY | 2025-06-16 09:26 | XMS_ITS | Encounter Summary ---
Author Organization [employer] Address [address] [facility] [address] 7t [place] [address] Care Team Providers Care Bible Worker Name Role Phone Светлана Benjamin MD Primary Care Provider [phone] Reason for Visit * Reason Onset Date Comments Referral 03/15/2025 Encounter Details Date Type Department Care Team ([facility] st Contact Info) Description 03/15/2025 Telephone [facility] MEDICINE [address] [place], [place] [phone] Светлана Benjamin MD 230 [place], [place] [phone] Referral Social History Tobacco Use Types Packs/Day [...] a call back regarding MRI , states [facility] advised pt they do not do open MRI Contact at [phone] (uruguayan) * Telephone Encounter - Karen Umana RN - 03/15/2025 3:50 PM EDT Noted MRI order sent to [facility]. Can it be sent to somewhere with open MRI capability? Thank you! * Telephone Encounter - Alfredo Miranda - 03/15/2025 11:11 AM EDT Tc from pt requesting for a referral for an Open MRI. Any questions contact pt at [phone] documented in this encounter Plan of Treatment Upcoming Encounters Date Type Department Care Team (Late st Contact Info) Description 08/27/2025 1:30 PM EST Office Visit [facility] MEDICINE [address] [place] [address] Светлана Benjamin MD 230 [place], [place] [phone] 12/09/2025 1:00 PM EDT Office Visit [facility] OPTOMETRY [address] [place], [place] [phone] Keysha Clements, OD [address] [place] [address] documented as of this encounter Visit Diagnoses Not on filedocumented in this encounter Additional Health Concerns Assessment Noted Time PHQ-9 Depression Total Score: 9 01/16/20 25 1:03 PM EDT documented as of this encounter Care Teams Bible Worker Relationship Specialty Start Date End Date Светлана Benjamin MD [address] [place] [address] PCP - General Family Medicine 02/27/21 documented as of this encounter
== END 2025-06-16 09:13 | disposition home or self-care (01) ==
LOC: HO.PMC 08:53
PROVIDERS: PCP General Practice; Visit Provider Anesthesiology
DX: Z96.612 Presence of left artificial shoulder joint (principal); M25.512 Pain in left shoulder; G89.29 Other chronic pain; G89.4 Chronic pain syndrome; M54.16 Radiculopathy, lumbar region; M51.369 Other intervertebral disc degeneration, lumbar region without mention of lumbar back pain or lower extremity pain; M47.816 Spondylosis without myelopathy or radiculopathy, lumbar region
CPT/HCPCS: 99213

== ENCOUNTER → 2025-06-16 08:53 | Outpatient (BNVA) | payer OTHER, SELFPAY | PROVIDERS: PCP General Practice; Visit Provider Anesthesiology | DX: G89.29 Other chronic pain (principal); M25.512 Pain in left shoulder; Z96.612 Presence of left artificial shoulder joint; M51.360 Other intervertebral disc degeneration, lumbar region with discogenic back pain only; M47.26 Other spondylosis with radiculopathy, lumbar region | CPT/HCPCS: 99212 ==